=== PATIENT | female | born 1970 | race Caucasian/White ===

== ENCOUNTER → 2016-10-11 | Outpatient (CLI) | payer OTHER ==
[~2016-10-11] MED LIST: ALLDSR/24 PO; CLXUNK; DOSTINEX
--- NOTE | 2016-10-12 06:35 | PAP/PSG TECHNICIAN REPORT ---
[facility] Still Cleaner Polysomnogram Report Study name: None Report date: 10/12/2016 Study date: 10/11/2016 Referring Physician: Natacha FONG M.D. Name: THERESA HARRIS Interpreting Physician: Peter Fong M.D. Date of : 1970 Still Cleaner: Tae Alcazar RPSGT. Sex: Female Age: 45 StudyType: PSG PAP Weight: 232 lbs 15.5 inches Height: 45 years, Height 5' 5" Neck Circum: BMI: 38.6 Medications: LEXAPRO 20 MG, LEVOXYL 75 MCG, DOSTINEX 0.5 MG, METROGEL, ABILIFY 20 MG, CELEBREX 100 MG Patient History PATIENT HAS HISTORY OF HYPOTHYROIDISM, LOUD SNORING AND WITNESSED APNEAS. SHE RECENTLY HAD A HOME SLEEP STUDY DONE AND WAS POSITIVE FOR SEVERE WANDER. SHE IS HERE TODAY FOR A CPAP TITRATION. ESS = 5 RM 5 Parameters Monitored NPSG: E1-M2, E2-M1, Fp1-M2, Fp2-M1, F3-M2, F4-M2, F4-M1, C3-M2, C4-M2, C4-M1, O1-M2, O2-M2, O2-M1, T3-M2, T4-M1, P3-M2, P4-M1, CHIN1, CHIN2, HR, EKG, Legs, PFLOW, SNOR, FLOW, CFLOW, Tidal Volume, THOR, ABDO, SpO2, PLTH, CPRESS, ETCO2 Wave, ETCO2, pH Sleep Architecture Sleep Stages Time at Lights Off 9:57:29 PM STAGES Time (min.) TST (%) Time at Lights On 5:44:29 AM Wake 34.5 -- Total Recording Time (TRT) 467.50 min. N1 16.5 4 Total Sleep Period (TSP) 438.0 min. N2 262.5 61 Total Sleep Time (TST) 432.5min. N3 34.5 8 Awake Time 34.5 min. REM 119.0 28 Wake after Sleep Onset 5.5 min. Sleep Efficiency (SE) 93 % Sleep Onset Latency (STEFANIE) 29.0 min. Number of Stage 1 Shifts None Awakenings 5 Stage Changes 41 Number of REM periods 4 REM 119.0 28 REM Latency 109.0 min. NREM 313.5 72 Body Position Analysis Supine Right Left Side Prone Vertical Total Sleep Time (min.) 467.0 0.0 0.0 0.00 0.0 0.0 Total Sleep Time (%) 100% 0% 0% 0 0% N/A% Total Sleep Time REM (min.) 119.0 0.0 0.0 None 0.0 0.0 Total Sleep Time NREM (min.) 313.5 0.0 0.0 None 0.0 0.0 Intermittent Wake (min.) 34.5 0.0 0.0 None 0.0 0.0 Total Sleep Period (%) 100% None None None None None Arousals Myoclonus (PLM) * Events Count Index Events Count Index Spontaneous 13 2 Events Awake (PLMW) 10 17.4 Respiratory 0 0.0 Events Asleep w/ Arousal (PLMA) 0 0.0 PLM 0 0 Events Asleep w/o Arousal (PLMS) 8 1.1 Snoring 5 1 Total Asleep 8 1.1 Total 18 2 Total 18 2 Respiratory Analysis * CA OA MA CH H RERA Total Count 0 0 0 0 1 0 1 Index 0.0 0.0 0.0 0 0.1 0 0.1 Mean Duration 0.0 0.0 0.0 0.00 12.9 0.0 12.9 Longest Duration 0.0 0.0 0.0 0.00 0.0 0.0 12.9 Respiratory Event Summary Total Supine ~Supine Right Left Prone REM NREM Apneas Count 0 0 N/A N/A N/A N/A 0 0 Index 0.0 0 N/A N/A N/A N/A 0 0 Hypopneas (4% Desat) Count 1 1 N/A N/A N/A N/A 1 0 Index 0.1 0.1 N/A N/A N/A N/A 0.5 0.0 Apneas & All Hypopneas Count 1 1 N/A N/A N/A N/A 1 0 Index 0.1 0 N/A N/A N/A N/A 0.5 0.0 Respiratory Events (Senior [employer] 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+All Hyp+RERA) Count 1 1 N/A N/A N/A N/A 1 0 Index 0.1 0 N/A N/A N/A N/A 0.5 0.0 Respiratory Related Arousal Count 0 1 N/A N/A N/A N/A 0 0 Index 0.0 0 N/A N/A N/A N/A 0 0 Snoring Analysis Supine Right Left Prone REM NREM Total Snore duration 6.5 min Snores count 311 N/A N/A N/A 5 306 311 Snore mean duration 1.3 Sec Snores index 43 N/A N/A N/A 2.5 58.6 43.1 TST with snoring (%) 1.5% Desaturation Event Summary: Minimum %SpO2 Event Count Mean/Min/Max Duration(sec.) Desaturation Index % Time In Bed > 90 3 27.9 / 13.3 / 46.8 0.4 98.6 86 - 90 1 7.0 / 7.0 / 7.0 9.2 1.4 81 - 85 0 N/A 0.0 0.0 76 - 80 0 N/A 0.0 0.0 71 - 75 0 N/A 0.0 0.0 66 - 70 0 N/A 0.0 0.0 61 - 65 0 N/A 0.0 0.0 56 - 60 0 N/A 0.0 0.0 51 - 55 0 N/A 0.0 0.0 < 50 0 N/A 0.0 0.0 Total REM NREM Awake <50% 0.0 min. 0.0 min. 0.0 min. 0.0 min. 51 - 60% 0.0 min. 0.0 min. 0.0 min. 0.0 min. 61 - 70% 0.0 min. 0.0 min. 0.0 min. 0.0 min. 71 - 80% 0.0 min. 0.0 min. 0.0 min. 0.0 min. 81 - 90% 6.5 min. 4.4 min. 1.7 min. 0.4 min. 91 - 100% 460.5 min. 114.6 min. 311.8 min. 34.1 min. Average 92 92 92 94 Minimum SpO2 88 88 89 88 Desaturation Event Index 0.5 1.0 0.4 1.7 # Desat. Events below 89% 2 1 N/A 1 Time(%) with Saturation below 89% 0.1 0.0 0.0 0.0 Time(min.) with Saturation below 89% 0.3 0.1 0.0 0.2 Time (mins) REM (mins) NREM (mins) % of TST SpO2 Below 90% 3 1 N2 0.2 SpO2 Below 88% 0 0 0 0 Heart Rate Analysis Min (bpm) Max (bpm) Average (bpm) Awake 67 85 74 NREM 63 86 73 REM 64 84 70 Overall 63 86 72 Supplemental O2 Values Minimum O2 level: None Value Start Time End Time Still Cleaner Comments Mrs. Harris slept in the supine positions. No cardiac arrhythmia noted. Leg movements noted. No bruxism noted. CPAP was initiated at +4 CMH2O and up-titrated to an optimal level of +6 CMH2O, which nearly eliminated all respiratory events and snoring. The patient brought in her own mask that was used during titration Mrs. Harris awoke to use the restroom 0 times during the night. Mrs. Harris stated I slept as well as I do when I am in my own bed. The final report will be interpreted and signed by a sleep physician. The completed physician report will then be placed in the patient medical record. Therapy Event: Therapy (cm H20) 4 5 6 Total Time at Pressure (min.) 115.2 120.0 231.8 TST at Pressure (min.) 84.2 120.0 228.3 # Periods 1 1 1 Sleep Onset (min.) 29.0 0.0 0.0 REM Onset (min.) N/A 22.8 67.8 Sleep Efficiency % 73 100 98 Wakefulness (%) 26.9 0.0 1.5 Wakefulness (min.) 31.0 0.0 3.5 NREM 1 (%) 8.7 0.4 2.6 NREM 1 (min.) 10.0 0.5 6.0 NREM 2 (%) 40.5 52.1 66.1 NREM 2 (min.) 46.7 62.5 153.3 NREM 3 (%) 23.9 5.8 0.0 NREM 3 (min.) 27.5 7.0 0.0 REM (%) 0.0 41.7 29.8 REM (min.) 0.0 50.0 69.0 # Arousals 6 2 10 Arousal Index 4.3 1.0 2.6 # Snore 62 91 158 Snore Index 44.2 45.5 41.5 AHI 0.0 0.0 0.3 AHI Supine 0.0 0.0 0.3 AHI Non-Supine N/A N/A N/A NREM AHI 0.0 0.0 0.0 REM AHI N/A 0.0 0.9 RDI 0.0 0.0 0.3 # Obstructive 0 0 0 # Central Ap 0 0 0 # Mixed 0 0 0 # Hypopneas 0 0 1 RERAS 0 0 0 Total Respiratory Events 0 0 1 Time Below SpO2 89.00% (min.) 0.0 0.0 0.1 Mean NREM SpO2 (%) 92 92 92 Mean REM SpO2 (%) N/A 92 92 Mean Sleep SpO2 (%) 92 92 92 Min NREM SpO2 (%) 89 90 89 Min REM SpO2 (%) N/A 89 88 Position Supine (min.) 84.2 120.0 228.3 Position Non-supine (min.) 0.0 0.0 0.0 LM Index Sleep 0.0 2.0 1.1 LM Index NREM 0.0 1.7 0.8 LM Index REM N/A 2.4 1.7 Mean Heart Rate (bpm) 75 75 69 Min Heart Rate (bpm) 69 68 63
--- NOTE | 2016-10-29 14:12 | POLYSOMNOGRAPH REPORT ---
REFERRING PERSON: Dr. Francheska Fong. RN RESOURCE NURSE: Tae Alcazar. Ms. Harris is a 45-year-old female who recently had a home sleep test, which showed severe sleep apnea. She returns to the sleep lab for CPAP titration study to determine optimal pressure. Her [place] sleepiness scale score on the evening of this study is 5. BMI is 38.6. Following the technical and digital specifications of the [place] [employer] (AASM) a standard diagnostic polysomnogram was performed monitoring EEG, EOG, EMG (chin and leg deviations), oxygen saturation, body position, digital video, respiratory effort and airflow. The sleep Stage and event scoring was based on the AASM Manual for the Scoring of Sleep and Associated Events 2007 edition. Apneas are defined as a drop in the peak thermal sensor excursion by >90% of baseline for at least 10 seconds. Hypopneas were scored using the 4% oxygen desaturation rule (4A-[employer]) and a decrease in the nasal pressure excursions by >30% of baseline for at least 10 seconds. Respiratory effort-related arousal (RERA's) is defined as a sequence of breaths lasting at least 10 seconds characterized by increasing respiratory effort or flattening of the nasal pressure waveform leading to an arousal from sleep when the sequence of breaths does not meet criteria for an apnea or hypopnea. Apnea Hypopnea index (AHI) is defined as the number of apneas and hypopneas occurring in an hour of sleep. Respiratory disturbance index (RDI) is defined as the number of apneas, hypopneas, and RERA's occurring in an hour of sleep. Ms. Harris's total sleep period time was 438 minutes. Total sleep time was 432.5 minutes. Sleep efficiency was 93%. Latency to sleep onset was 29 minutes with wake after sleep onset of 5.5 minutes. Total non-REM sleep time was 313.5 minutes. She spent 4% of that time in N1 sleep, 61% in N2 sleep and 8% in N3 sleep. REM latency was 109 minutes. Total REM sleep time was 119 minutes or 28% of total sleep time. There were 18 cortical arousals from sleep. 13 of these arousals were spontaneous and 5 were due to snoring. There were 8 periodic limb movements noted on this test. Limb movement index was 1.1. Limb movement with arousal index was 0. There were no central obstructive or mixed apneas on this test. There is 1 hypopnea and no RERA. Apnea-hypopnea index was 0.1. 311 snoring events were recorded. Total sleep time with snoring was 1.5%. Mean saturation was 92% with desaturations to 88%. Saturations were less than 89% for 0.3 minutes of recorded time. There was no cardiac ectopy noted on this study. Heart rates ranged from a low of 63 beats per minute to a high of 86 beats per minute during sleep. As stated above, this was a CPAP titration study. Ms. Harris brought her CPAP mask from home to use during this titration. She was titrated from a CPAP pressure of 4 to a CPAP pressure of 6 over the course of the night. Titration occurred for snoring. She was observed on a pressure of 6 for 228.3 minutes of recorded time. During that time, her AHI and RDI were 0.3 respectively. 69 minutes were spent in supine REM sleep and saturations were less than 89% for only 0.1 minutes of recorded time. IMPRESSION AND PLAN: Successful CPAP titration study in this patient with known obstructive sleep apnea. She should be started on CPAP at home at a pressure of 6. A download from her machine can be reviewed in 1 month both to check compliance as well as AHI and further pressure adjustments can occur at that time. It appears to resolve her hypoxemia as well as apnea.
== END | disposition home or self-care (01) ==
LOC: C.NEUR 21:00
PROVIDERS: ATTEND Family Medicine
DX: G47.33 Obstructive sleep apnea (adult) (pediatric) (principal); G47.34 Idiopathic sleep related nonobstructive alveolar hypoventilation

== ENCOUNTER 2019-06-30 21:32 | Inpatient (IN) ==
[2019-06-30] MEDS ORDERED: NITROGLYCERIN 2% OINTMENT 30GM TUBE EXT STA (21:44)
[2019-06-30 22:48] LABS: Basophils # (auto) 0.01 K/uL (0-0.2); Basophils % (auto) 0.1 %; Eosinophils # (auto) 0.04 K/uL (0-0.5); Eosinophils % (auto) 0.4 %; Hematocrit (blood only) 38.9 % (37-47); Hemoglobin 12.7 g/dL (12.0-16.0); Immature Granulocytes # (auto) 0.02 K/uL (0.00-0.02); Immature Granulocytes % (auto) 0.2 %; Lymphocytes # (auto) 2.96 K/uL (1.2-3.4); Lymphocytes % (auto) 32.3 %; Mean Corpuscular Hemoglobin 29.2 pg (25-34); Mean Corpuscular Hgb Conc 32.6 g/dL (32-36); Mean Corpuscular Volume 89.4 fL (80-100); Mean Platelet Volume 9.3 fL (7.4-10.4); Monocytes % (auto) 7.6 %; Neutrophils # (auto) 5.44 K/uL (1.4-6.5); Neutrophils % (auto) 59.4 %; Platelet Count 241 K/uL (130-400); RDW Coefficient of Variation 13.9 % (11.5-14.5); RDW Standard Deviation 45.6 fL (36.4-46.3); Red Blood Count 4.35 M/uL (4.2-5.4); White Blood Count 9.17 K/uL (4.8-10.8)
--- NOTE | 2019-06-30 22:57 | XRay Report ---
XR chest 2V PA/lateral CLINICAL HISTORY: Chest Pain COMPARISON STUDY: No previous studies for comparison. FINDINGS: Lung volumes are normal. Lungs are clear. There is no pneumothorax or pleural effusion. Car diac size is normal. Mediastinal contours are normal. There is no evidence for pulmonary edema. IMPRESSION: No acute cardiopulmonary findings. ACT 112: Negative or not required by law. Electronically signed by: Alcides Bear M.D. 06/30/2019 10:56 PM
[2019-06-30 23:04] LABS: Albumin Level 3.2 gm/dl (3.4-5.0); Aspartate Aminotransferase 34 U/L (15-37); BUN Creatinine Ratio 15.4 (10-20); Blood Urea Nitrogen 14 mg/dl (7-18); Calcium 8.6 mg/dl (8.5-10.1); Carbon Dioxide 26 mmol/L (21-32); Chloride 109 mmol/L (98-107); Creatinine Clr Calc Pharmacy 104.3 ml/min; Est GFR (African American) 86.4; Est GFR (Non-African American) 74.6; Glucose 142 mg/dl (70-99); Potassium 3.6 mmol/L (3.5-5.1); Sodium 141 mmol/L (136-145)
[2019-06-30 23:09] LABS: Alanine Aminotransferase 42 U/L (12-78); Alkaline Phosphatase 79 U/L (45-117); Bilirubin,Total 0.6 mg/dl (0.2-1); Globulin 3.3 gm/dl (2.5-4.0); Total Protein 6.5 gm/dl (6.4-8.2); Troponin I < 0.015 ng/ml (0-0.045)
--- NOTE | 2019-07-01 00:08 | Emergency Department Note ---
Entered by Conchita Santos acting as a scribe for Conor Davis MD History of Present Illness General Chief complaint: Respiratory Problems Stated complaint: CHEST PAIN SOB PRESSURE ON CHEST Time Seen by Provider: 06/30/19 21:37 Source: patient Limitations: no limitations History of Present Illness Onset (ago): hour(s) greater than 10 Location: chest Pain Consistency: + constant Current Pain Intensity: 2 Quality: + other ("heaviness and discomfort") Exacerbated By: + other (exertion) Associated symptoms: + shortness of breath; no diaphoresis and no fever/chills The patient is a 48 year old female who presents to the Emergency Room with complaints of constant, worsening chest discomfort beginning at 21:00 this morning, about 13 hours ago, when she arrived at work. She states that "it feels like someone is sitting on her chest," and she rates the pain as a 2/10 in severity. The patient describes the symptoms as a "chest heaviness and discomfort." She states that she had a cough 1.5 weeks ago, and it has improved since she began taking doxycycline 100mg for her rosacea. The patient notes that the symptoms exacerbate with exertion. The patient complains of persistent SOB. She complains of pain in her upper ribs. The patient denies any neck/arm pain, fever, and diaphoresis. She denies any history of hyperlipidemia. The patient notes a history of depression, and she reports that she quit smoking cigarettes 2 years ago. Home Medications Home Medications Medication Instructions Recorded Confirmed Type aripiprazole [Abilify] 20 mg PO QPM 02/03/19 06/30/19 History doxycycline hyclate 100 mg PO QPM 02/03/19 06/30/19 History escitalopram oxalate [Lexapro] 20 mg PO QPM 02/03/19 06/30/19 History fexofenadine-pseudoephedrine 1 tab PO QAM PRN 02/03/19 06/30/19 History levothyroxine 75 mcg PO QPM 02/03/19 06/30/19 History pseudoephedrine HCl [Sudafed] 30 mg PO Q6H PRN 06/30/19 06/30/19 History Allergies Allergy/AdvReac Type Severity Reaction Status Date / Time erythromycin base Allergy Unknown Abdominal Verified 06/30/19 23:30 Pain,topically-inflamed face Past Med/Surg History Medical History Anxiety Depression Hypothyroidism Sleep apnea CPAP Surgical History History of appendectomy History of section History of cholecystectomy History of endometrial ablation History of tooth extraction WISDOM TEETH Family History Daughter Family history of reaction to anesthesia SLOW TO WAKE UP-AFTER AGE 18 Father Family history of diabetes mellitus Social History Preferred Language: Northern Irish Communication Ability: Effective 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 and A total of 10 systems reviewed and were otherwise negative Physical Exam Vital Signs Vital Signs - 24 hr 06/30/19 21:34 06/30/19 22:05 06/30/19 22:10 Temperature 36.8 C Temperature Source Oral Pulse Rate 92 H Pulse Rate [Right Finger] Pulse Rhythm [Right Finger] Pulse Strength [Right Finger] Respiratory Rate 24 Respiratory Effort / Characteristics Non-Labored Respiratory Depth Normal Respiratory Pattern Regular Blood Pressure 167/79 H Blood Pressure [Right Arm] Blood Pressure Mean 108 Blood Pressure Mean [Right Arm] Blood Pressure Position [Right Arm] Pulse Oximetry 97 Oxygen Delivery Method Room Air Room Air Sepsis Recent Fever Within 48 Hours No Sepsis New/Unexplained Change in Mental Status No Sepsis Action Taken by Nursing No Action Required 06/30/19 22:30 07/01/19 00:39 Temperature Temperature Source Pulse Rate Pulse Rate [Right Finger] 71 77 Pulse Rhythm [Right Finger] Regular Pulse Strength [Right Finger] Normal Respiratory Rate 16 12 Respiratory Effort / Characteristics Non-Labored Respiratory Depth Normal Normal Respiratory Pattern Blood Pressure Blood Pressure [Right Arm] 146/77 H 132/69 Blood Pressure Mean Blood Pressure Mean [Right Arm] 100 90 Blood Pressure Position [Right Arm] Lying Lying Pulse Oximetry 96 96 Oxygen Delivery Method Room Air Room Air Sepsis Recent Fever Within 48 Hours Sepsis New/Unexplained Change in Mental Status Sepsis Action Taken by Nursing Constitutional: Vital signs reviewed. Eyes: Pupils are equal round reactive to light. Conjunctiva are noninjected. ENT: Pharynx is clear without erythema or exudate. Mucous membranes are moist. Neck supple without meningeal signs. Respiratory: Clear to auscultation bilaterally. Breath sounds are equal bilaterally. Cardiovascular: Regular rate and rhythm. No rubs or gallops. Chest: Reproducible chest wall tenderness over the sternum. GI: Soft, nondistended and nontender. Bowel sounds are present. Musculoskeletal: No peripheral edema. No lower extremity tenderness. Integumentary: No cyanosis. Neurological: The patient is awake and alert. No focal deficits. Psychiatric: Normal affect. Course Course 2138: The patient was evaluated in room C06. A complete history and physical exam was performed. 2226: I reassessed the patient, and she stated that the pressure on her sides is now gone. She reported that she still feels the pressure in her chest. 2317: I reevaluated the patient, and she stated that her chest pressure is improved. I discussed the test results with her, and she is agreeable to [facility]. 2233: I spoke with Dr. Reed, [facility] hospitalist, about the pateint's case. He further evaluate the patient. Administered Medications Discontinued Medications Nitroglycerin (Nitro-Bid 2%) 0.5 inch EXT NOW STA Stop: 06/30/19 21:45 Last Admin: 06/30/19 22:09 Dose: 0.5 inch Documented by: [id number] Medical Decision Making Differential Diagnosis The differential diagnosis includes: unstable angina, AK, pneumonia, pleurisy, and costochondritis Medical Records Attestation: I reviewed the patient's medical records. I did perform a limited focused review of portions of the patient's old chart on the electronic medical record. The patient has had no recent pertinent visits to this hospital. Home Medications Current Medication List: was personally reviewed by me Laboratory Data Attestation: I reviewed the patient's lab results. Result diagrams: 06/30/19 22:34 06/30/19 22:34 Lab Results 06/30/19 06/30/19 Range/Units 22:34 22:34 WBC 9.17 (4.8-10.8) K/uL RBC 4.35 (4.2-5.4) M/uL Hgb 12.7 (12.0-16.0) g/dL Hct 38.9 (37-47) % MCV 89.4 (80-100) fL MCH 29.2 (25-34) pg MCHC 32.6 (32-36) g/dL RDW Std Deviation 45.6 (36.4-46.3) fL RDW Coeff of Maddie 13.9 (11.5-14.5) % Plt Count 241 (130-400) K/uL MPV 9.3 (7.4-10.4) fL Immature Gran % (Auto) 0.2 % Neut % (Auto) 59.4 % Lymph % (Auto) 32.3 % Sac % (Auto) 7.6 % Eos % (Auto) 0.4 % Baso % (Auto) 0.1 % Immature Gran # (Auto) 0.02 (0.00-0.02) K/uL Neut # (Auto) 5.44 (1.4-6.5) K/uL Lymph # (Auto) 2.96 (1.2-3.4) K/uL Sac # (Auto) 0.70 H (0.11-0.59) K/uL Eos # (Auto) 0.04 (0-0.5) K/uL Baso # (Auto) 0.01 (0-0.2) K/uL Sodium 141 (136-145) mmol/L Potassium 3.6 (3.5-5.1) mmol/L Chloride 109 H (98-107) mmol/L Carbon Dioxide 26 (21-32) mmol/L Anion Gap 6.0 (3-11) BUN 14 (7-18) mg/dl Creatinine 0.90 (0.6-1.2) mg/dl Est Cr Clr Drug Dosing 104.3 ml/min Est GFR ( Amer) 86.4 Est GFR (Non-Af Amer) 74.6 BUN/Creatinine Ratio 15.4 (10-20) Glucose 142 H (70-99) mg/dl Calcium 8.6 (8.5-10.1) mg/dl Total Bilirubin 0.6 (0.2-1) mg/dl AST 34 (15-37) U/L ALT 42 (12-78) U/L Alkaline Phosphatase 79 (45-117) U/L Troponin I < 0.015 (0-0.045) ng/ml Total Protein 6.5 (6.4-8.2) gm/dl Albumin 3.2 L (3.4-5.0) gm/dl Globulin 3.3 (2.5-4.0) gm/dl Albumin/Globulin Ratio 1.0 (0.9-2) Imaging Data Radiologist's Impression: Radiology results as stated below per my review and the radiologist's interpretation: XR chest 2V PA/lateral CLINICAL HISTORY: Chest Pain COMPARISON STUDY: No previous studies for comparison. FINDINGS: Lung volumes are normal. Lungs are clear. There is no pneumothorax or pleural effusion. Cardiac size is normal. Mediastinal contours are normal. There is no evidence for pulmonary edema. IMPRESSION: No acute cardiopulmonary findings. ACT 112: Negative or not required by law. Electronically signed by: Alcides Bear M.D. 06/30/2019 10:56 PM ECG Data Attestation: I personally reviewed and interpreted this ECG as follows: Indication: + chest pain Rate (beats per minute): 79 Rhythm: + normal sinus ECG Findings: + Other (QRS is normal ); no PVCs Blood Pressure Blood Pressure Findings: Elevated blood pressure Blood Pressure Disposition: further management by hospitalist MDM Narrative I did evaluate the patient as noted above. Patient is presenting with chest heaviness worse with exertion. She states she has been coughing for the past week and a half but the chest heaviness only started yesterday. She does have some reproducible chest wall tenderness on palpation. IV access was established. The patient was placed on a continuous gambling monitor. I did order and personally review the patient's 12-lead EKG as described above. She has no acute ischemic changes on twelve-lead EKG. I did order and personally reviewed the images of the patient's chest x-ray as described above. There is no evidence of pneumonia. I did order and review the patient's blood work as noted in the electronic medical record. CBC is unremarkable without leukocytosis or anemia. Her electrolytes are unremarkable. Troponin is negative. I did treat the patient with nitroglycerin paste. On reexamination she states she is feeling better and the heaviness is improved. I did recommend hospitalization for repeat cardiac biomarkers and further evaluation. I did discuss the case with the hospitalist and telephonic case manager. Impression & Plan Acute chest pain, Bronchitis Discharge Plan Visit Data Chief Complaint: Respiratory Problems Stated Complaint: CHEST PAIN SOB PRESSURE ON CHEST ED Provider: Conor Davis Discharge Problem: Acute chest pain, Bronchitis Patient Disposition: Being Evaluated by Hospitalist Forms Stand Alone Forms: My [facility] Prescriptions Prescriptions: No Action levothyroxine 75 mcg Tablet 75 mcg PO QPM RF: 0 doxycycline hyclate 100 mg Tablet 100 mg PO QPM RF: 0 escitalopram oxalate [Lexapro] 20 mg Tablet 20 mg PO QPM RF: 0 aripiprazole [Abilify] 20 mg Tablet 20 mg PO QPM RF: 0 fexofenadine-pseudoephedrine 180-240 mg Tablet Extended Release 24 Hr 1 tab PO QAM PRN (Reason: Allergic Symptoms) RF: 0 pseudoephedrine HCl [Sudafed] 30 mg Tablet 30 mg PO Q6H PRN (Reason: Congestion) RF: 0 Referrals Referrals: Yo Garnica MD [Primary Care Provider] - The scribe's documentation has been prepared under my direction and personally reviewed by me in its entirety. I confirm that the note above accurately reflects all work, treatment, procedures, and medical decision making performed by me.
[2019-07-01] MEDS ORDERED: ALUMINUM/MAGNESIUM SUSP 30 ML UDC PO PRN (01:24)
[2019-07-01] MEDS ORDERED: ONDANSETRON INJ 2 MG/ML 2 ML VIAL IV PRN (01:24)
[2019-07-01] MEDS ORDERED: ACETAMINOPHEN 325 MG TAB PO PRN (01:24)
[2019-07-01] MEDS ORDERED: NITROGLYCERIN SL 0.4 MG/TAB TAB SL PRN (01:24)
--- NOTE | 2019-07-01 02:21 | History and Physical Report ---
DATE OF ADMISSION: 07/01/2019 CHIEF COMPLAINT: Chest pain. HISTORY OF PRESENT ILLNESS: This is a 48-year-old female with past medical history significant for hypothyroidism, allergic rhinitis due to pollen, obstructive sleep apnea, on CPAP, obesity, rosacea, plantar fascitis, depression, generalized anxiety disorder, history of hyperprolactinemia, who presents with chest pain. The patient says since the last 1 to 1-1/2 weeks she had cold symptoms and cough. She was taking [id number] Sudafed, she was taking it every 4 hours for 3-4 days, but was not taking the last 2 days. On 06/30/2019, in the morning at workplace she had retrosternal chest pressure, mild in severity and as the day progressed it got progressively worse and she was having some shortness of breath and because of chest pain and shortness of breath she was having difficulty speaking, so she came to the ER. She was placed on nitro paste and currently, the pain that was radiating to the back resolved but still has some mild chest discomfort. Denies any dizziness. No nausea, no sweating, no headache, no blurred visions, no earache, no runny nose, no sore throat. Appetite is okay. Sleeps okay. No cough, no fever, no chills. Currently no fever, no chills, no abdominal pain. Normal bowel and bladder movements. No melena or hematochezia. No burning micturition, no hematuria. No swelling in the legs, no rash. Currently resting comfortably and hemodynamically stable. ALLERGIES: ERYTHROMYCIN BASED. PAST MEDICAL HISTORY: As mentioned above. PAST SURGICAL HISTORY: , colonoscopy, endometrial cryoablation, laparoscopic cholecystectomy, ligation of oviducts, appendectomy. MEDICATIONS: The patient is on Lexapro 20 mg p.o. daily, Abilify 20 mg p.o. daily, levothyroxine 75 mcg daily, doxycycline 100 mg p.o. daily. FAMILY HISTORY: Significant for daughter has asthma, celiac disease, ADHD; father had diabetes, at age of 47; brother has sleep apnea; mother has sleep apnea. SOCIAL HISTORY: , lives with , quit smoking in July 2017, smoked half pack a day for 26 years. Alcohol occasional. No drug use. REVIEW OF SYSTEMS: As per HPI. Rest of the review of systems negative. PHYSICAL EXAMINATION: GENERAL: The patient is morbidly obese, not in acute distress. VITAL SIGNS: Temperature 36.8, pulse 77, respiratory rate 12, blood pressure 132/69, oxygen 96% on room air. HEENT: No pallor, no icterus. Pupils equal, round, reactive to light. NECK: No JVD, no neck masses, no carotid bruits. CARDIOVASCULAR: S1, S2 heard, regular rate and rhythm, no murmur, no gallop. RESPIRATORY SYSTEM: Normal AP diameter. No accessory muscle use. No wheezing, no crackles. ABDOMEN: Soft, bowel sounds present, nontender. No distention. CENTRAL NERVOUS SYSTEM: Cranial nerves II-XII grossly intact. Nonfocal. EXTREMITIES: No edema, no erythema. LABORATORY DATA: WBC is 9.1, hemoglobin 12.7, hematocrit 38.9, platelets 241. Sodium 141, potassium 3.6, chloride 109, bicarbonate 26, BUN 14, creatinine 0.9, serum glucose 142, calcium 8.6, total bilirubin 0.6, AST 34, ALT 42, alkaline phosphatase 79, troponin I less than 0.015. IMAGING DATA: Chest x-ray: No acute cardiopulmonary findings. EKG: Normal sinus rhythm at a rate of 79, no acute ST changes seen. ASSESSMENT AND PLAN: This is a 48-year-old female who presents with chest pain. 1. Chest pain, rule out acute coronary syndrome. Risk factors are obesity, age. The patient is also taking significant doses of Sudafed recently, could be the cause. Initial workup was negative. We will Monitor the patient in med/surg tele. Serial cardiac enzymes.Will Keep n.p.o. until seen by cardiology. Cardiology consult in the a.m., echocardiogram, possible stress test in the a.m. if cardiac enzymes are negative . 2. Obesity and obstructive sleep apnea, on CPAP at bedtime. 3. Depression and generalized anxiety disorder, on Lexapro and Abilify. 4. Hypothyroidism, on Synthroid. 5. HTN situation? Will Monitor.will place on nitro paste for now. 5. Deep venous thrombosis prophylaxis, sequential compression devices. DISPOSITION: Observation in med/surg tele. Level 1 full code. Expect to discharge home and follow up with the family doctor. KINGSLEY
[2019-07-01] MEDS ORDERED: NITROGLYCERIN 2% OINTMENT 30GM TUBE EXT SCH (07:00)
[2019-07-01 07:31] LABS: Basophils # (auto) 0.02 K/uL (0-0.2); Basophils % (auto) 0.2 %; Eosinophils # (auto) 0.05 K/uL (0-0.5); Eosinophils % (auto) 0.6 %; Hematocrit (blood only) 38.4 % (37-47); Hemoglobin 12.5 g/dL (12.0-16.0); Immature Granulocytes # (auto) 0.02 K/uL (0.00-0.02); Immature Granulocytes % (auto) 0.2 %; Lymphocytes # (auto) 2.49 K/uL (1.2-3.4); Lymphocytes % (auto) 28.7 %; Mean Corpuscular Hemoglobin 29.1 pg (25-34); Mean Corpuscular Hgb Conc 32.6 g/dL (32-36); Mean Corpuscular Volume 89.5 fL (80-100); Mean Platelet Volume 9.1 fL (7.4-10.4); Monocytes # (auto) 0.65 K/uL (0.11-0.59); Monocytes % (auto) 7.5 %; Neutrophils # (auto) 5.45 K/uL (1.4-6.5); Neutrophils % (auto) 62.8 %; Platelet Count 236 K/uL (130-400); RDW Coefficient of Variation 14.1 % (11.5-14.5); Red Blood Count 4.29 M/uL (4.2-5.4); White Blood Count 8.68 K/uL (4.8-10.8)
[2019-07-01] MEDS ORDERED: PANTOprazole 40 MG TAB PO SCH (09:00)
[2019-07-01 09:10] LABS: BUN Creatinine Ratio 14.4 (10-20); Calcium 8.3 mg/dl (8.5-10.1); Creatinine Clr Calc Pharmacy 109.2 ml/min; Est GFR (African American) 91.3; Est GFR (Non-African American) 78.8; Magnesium 1.9 mg/dl (1.8-2.4); Potassium 3.9 mmol/L (3.5-5.1)
--- NOTE | 2019-07-01 09:11 | Cardiology Consultation ---
Date of Consultation July 01, 2019 Assessment & Plan (1) Acute chest pain: (2) Bronchitis: (3) WANDER (obstructive sleep apnea): (4) Obesity: Believe this patient's chest pain is atypical for cardiac chest pain. She has a normal EKG and negative cardiac markers. Her chest x-ray is unremarkable. I will review her resting echocardiogram. If that study is unremarkable then I do not believe any additional cardiac testing is indicated as an inpatient. History of Present Illness Attending Physician: Amira Ba DO History of Present Illness This is a pleasant 48-year-old female who has a cold for the past 7 to 10 days with bronchitis and coughing. She has no prior history of heart disease. No previous history of diabetes. She stopped smoking approximately 2 years ago. With her recent cold and bronchitis she has noticed some tachypnea as well as shortness of breath. The day before admission she developed a chest heaviness with continued shortness of breath which lasted for several hours and then she presented to the emergency department. She was given Nitropaste in the emergency department which improved her discomfort but did not take it away. Very admitting EKG is within normal limits. Cardiac markers have thus far been negative. An echocardiogram is pending. Allergies Allergy/AdvReac Type Severity Reaction Status Date / Time erythromycin base Allergy Unknown Abdominal Verified 06/30/19 23:30 Pain,topically-inflamed face Home Medications Home Medications Medication Instructions Recorded Confirmed Type aripiprazole [Abilify] 20 mg PO QPM 02/03/19 06/30/19 History doxycycline hyclate 100 mg PO QPM 02/03/19 06/30/19 History escitalopram oxalate [Lexapro] 20 mg PO QPM 02/03/19 06/30/19 History fexofenadine-pseudoephedrine 1 tab PO QAM PRN 02/03/19 06/30/19 History levothyroxine 75 mcg PO QPM 02/03/19 06/30/19 History pseudoephedrine HCl [Sudafed] 30 mg PO Q6H PRN 06/30/19 06/30/19 History Patient History Medical History Anxiety Depression Hypothyroidism Sleep apnea CPAP Surgical History History of appendectomy History of section History of cholecystectomy History of endometrial ablation History of tooth extraction WISDOM TEETH Family History Daughter Family history of reaction to anesthesia SLOW TO WAKE UP-AFTER AGE 18 Father Family history of diabetes mellitus Social History Preferred Language: Armenian Communication Ability: Effective 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 Physical Exam Physical Exam: General: no acute distress and stated age Head: normocephalic, no masses, lesions, tenderness or abnormalities Eyes: conjunctiva are pink and non-injected, sclera clear Neck: supple, no adenopathy, no bruits, normal jugular venous pulse, no hepatojugular reflux Chest: normal shape and normal respiratory effort Lungs: clear to auscultation and percussion Cardiac Exam: - regular rate & rhythm, no murmurs gallops or rubs - normal S1, normal S2 Pulses: 2(+) throughout Abdomen: abdomen soft, non-tender, no abnormal masses and no hepatosplenomegaly Musculoskeletal: no gait disturbance, no joint inflammation, no deforming arthritis Extremities: no edema and no cyanosis Neuro: grossly normal exam Results & Data Vital Signs (Past 12 Hours) Vital Signs Temp Pulse Pulse Resp BP BP Pulse Ox 07/01/19 07:34 36.7 C 72 18 128/77 94 07/01/19 02:50 75 14 96 07/01/19 01:28 36.7 C 98 H 16 177/106 H 93 07/01/19 01:00 75 18 142/69 H 99 07/01/19 00:39 77 12 132/69 96 06/30/19 22:30 71 16 146/77 H 96 06/30/19 21:34 36.8 C 92 H 24 167/79 H 97 Laboratory Results Laboratory Results - last 24 hr 06/30/19 06/30/19 07/01/19 22:34 22:34 01:31 WBC 9.17 RBC 4.35 Hgb 12.7 Hct 38.9 MCV 89.4 MCH 29.2 MCHC 32.6 RDW Std Deviation 45.6 RDW Coeff of Maddie 13.9 Plt Count 241 MPV 9.3 Immature Gran % (Auto) 0.2 Neut % (Auto) 59.4 Lymph % (Auto) 32.3 [place] % (Auto) 7.6 Eos % (Auto) 0.4 Baso % (Auto) 0.1 Immature Gran # (Auto) 0.02 Neut # (Auto) 5.44 Lymph # (Auto) 2.96 [place] # (Auto) 0.70 H Eos # (Auto) 0.04 Baso # (Auto) 0.01 Sodium 141 Potassium 3.6 Chloride 109 H Carbon Dioxide 26 Anion Gap 6.0 BUN 14 Creatinine 0.90 Est Cr Clr Drug Dosing 104.3 Est GFR ( Amer) 86.4 Est GFR (Non-Af Amer) 74.6 BUN/Creatinine Ratio 15.4 Glucose 142 H Calcium 8.6 Magnesium Total Bilirubin 0.6 AST 34 ALT 42 Alkaline Phosphatase 79 Troponin I < 0.015 < 0.015 Total Protein 6.5 Albumin 3.2 L Globulin 3.3 Albumin/Globulin Ratio 1.0 Triglycerides Cholesterol LDL Cholesterol, Calc VLDL Cholesterol, Calc HDL Cholesterol Cholesterol/HDL Ratio 07/01/19 07/01/19 07/01/19 07:19 07:19 07:19 WBC 8.68 RBC 4.29 Hgb 12.5 Hct 38.4 MCV 89.5 MCH 29.1 MCHC 32.6 RDW Std Deviation 46.0 RDW Coeff of Maddie 14.1 Plt Count 236 MPV 9.1 Immature Gran % (Auto) 0.2 Neut % (Auto) 62.8 Lymph % (Auto) 28.7 [place] % (Auto) 7.5 Eos % (Auto) 0.6 Baso % (Auto) 0.2 Immature Gran # (Auto) 0.02 Neut # (Auto) 5.45 Lymph # (Auto) 2.49 [place] # (Auto) 0.65 H Eos # (Auto) 0.05 Baso # (Auto) 0.02 Sodium Pending Potassium Pending Chloride Pending Carbon Dioxide Pending Anion Gap Pending BUN Pending Creatinine Pending Est Cr Clr Drug Dosing Pending Est GFR ( Amer) Pending Est GFR (Non-Af Amer) Pending BUN/Creatinine Ratio Pending Glucose Pending Calcium Pending Magnesium Pending Total Bilirubin AST ALT Alkaline Phosphatase Troponin I < 0.015 Total Protein Albumin Globulin Albumin/Globulin Ratio Triglycerides Pending Cholesterol Pending LDL Cholesterol, Calc Pending VLDL Cholesterol, Calc Pending HDL Cholesterol Pending Cholesterol/HDL Ratio Pending Medications Administered Current Inpatient Medications Acetaminophen (Tylenol) 650 mg PO Q4H PRN PRN Reason: Pain or Fever Stop: 07/31/19 01:23 Al Hydrox/Mg Hydrox/Simethicone (Maalox) 15 ml PO Q4H PRN PRN Reason: Dyspepsia Stop: 07/31/19 01:23 Aripiprazole (Abilify) 20 mg PO QPM [facility] Stop: 07/31/19 20:59 Escitalopram Oxalate (Lexapro Tab) 20 mg PO QPM [facility] Stop: 07/31/19 20:59 Levothyroxine Sodium (Synthroid) 75 mcg PO QPM [facility] Stop: 07/31/19 20:59 Nitroglycerin (Nitrostat) 0.4 mg SL UD PRN PRN Reason: Chest Pain Stop: 07/31/19 01:23 Ondansetron HCl (Zofran) 4 mg IV Q6H PRN PRN Reason: Nausea Stop: 07/31/19 01:23 Pantoprazole Sodium (Protonix) 40 mg PO QAM [facility] Stop: 07/31/19 08:59
[2019-07-01] MEDS ORDERED: GUAIFENESIN/CODEINE 200MG/20MG 10ML UDC PO ONE (14:25)
[2019-07-01] MEDS ORDERED: OPTIRAY 320 125ml IV PRN (15:19)
--- NOTE | 2019-07-01 15:36 | CT Scan Report ---
CT ANGIOGRAPHY OF THE CHEST, PULMONARY EMBOLUS PROTOCOL CLINICAL HISTORY: chest pain, RV strain on echo COMPARISON STUDY: Chest radiograph June 30, 2019. TECHNIQUE: Following IV administration of 115 mL of Optiray-320, helical axial images of the chest we re obtained utilizing the pulmonary embolus protocol. Maximal intensity projections and sagittal and coronal reformats were viewed on an independent 3D workstation. IV contrast was administered withou t complication. Automated exposure control was utilized for the study. A dose lowering technique wa s utilized adhering to the principles of ALARA. CT DOSE: 1094.94 mGy.cm FINDINGS: No pulmonary emboli are identified although the segmental and subsegmental pulmonary arter ies are suboptimally assessed due to suboptimal opacification. No thoracic aortic dissection is noted . There is dilatation of the ascending aorta which measures 4.5 cm at the level of the main pulmonary artery. Mild cardiomegaly is noted. There is no pericardial effusion. There are trace bilateral pleu ral effusions. There is no pneumothorax. There is no consolidation to suggest pneumonia. Central airw ays are patent. There is no CT evidence for interstitial lung disease. Bony thorax is unremarkable. T here is fatty infiltration of the liver. IMPRESSION: 1. No pulmonary emboli identified although segmental and subsegmental pulmonary arteries suboptimally assessed on this study. 2. Dilatation of the ascending aorta which measures 4.5 cm at the level of the main pulmonary artery. 3. Mild cardiomegaly. 4. Fatty infiltration of the liver. ACT 112: Negative or not required by law. Electronically signed by: Alcides Bear M.D. 07/01/2019 3:35 PM
--- NOTE | 2019-07-01 18:01 | Hospitalist Progress Note ---
Date of Service July 01, 2019 Assessment & Plan (1) Bronchitis: Increase doxy to BID, cont supportive care with Robitussin AC. (2) Acute chest pain: Likely 2/2 excessive coughing. ACS not present. Cont doxy and cough syrup above and add Naproxen 500mg BID (3) Thoracic aortic aneurysm (TAA): Incidental finding on chest CT today. 4.5cm, recommend repeat imaging in 6 months to ensure stability. (4) WANDER (obstructive sleep apnea): Obesity hypoventilation syndrome/WANDER likely related to the RV strain seen on echo today. Cont CPAP therapy and she will need to institute aggressive lifestyle modifications to lose weight with this and in the setting of fatty liver. (5) Obesity: plan as above. (6) Fatty liver: lifestyle modifications as above. (7) Depression: stable, cont home Ability and Lexapro. Upcoming anniversary of her brother's is causing her some anxiety. (8) DVT prophylaxis: Lovenox Full Code Dispo-to home when feeling less pain in her chest, likely tomorrow. 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 She reported no relief with a nitro patch given overnight. Serial trop was negative, DSE was negative today and EKG is normal without evidence of ischemia. But her pain continues. No associated SOB or nausea. Some lightheadedness with excessive coughing spells. Tolerating PO. Denies fevers or chills. Reports anxiety about not having her doxycycline last night and wanted to ensure she is getting her mood stabilizing drugs as she is anxious about the upcoming two year anniversary of her brother's . She takes chronic doxycycline for rosacea. She was also put on a PPI, however, she doesn't want to take this and reports that heartburn is not an issue for her. Review of Systems Review of Systems: All systems reviewed & are unremarkable except as noted in HPI & below Physical Exam Physical Exam: CONSTITUTIONAL: obese, vitals as above, generally well- appearing EYES: normal conjunctivae, no scleral icterus ENT: external ear and nose normal, oropharynx clear, no TM abnormality, no maxillary or ethmoid sinus tenderness NECK: trachea midline, no lymphadenopathy RESPIRATORY: clear to auscultation bilaterally,minimal coarse rhonchi, rales or wheezes, normal respiratory effort CARDIOVASCULAR: regular rate and rhythm, S1 and 2 heard without murmurs, gallops or rubs, no JVD, no peripheral edema GASTROINTESTINAL: soft, nontender, nondistended MUSCULOSKELETAL: strength 5/5 throughout, head is normocephalic and atraumatic, chest wall discomfort with palpation. Triggers her to cough. SKIN: warm and dry NEUROLOGIC: CN 2-12 grossly intact, normal cognition, normal speech PSYCHIATRIC: alert cooperative and oriented to person, place and time. Results & Data Vital Signs (Past 12 Hours) Vital Signs Temp Pulse Resp BP Pulse Ox 07/01/19 16:05 37.0 C 79 22 145/84 H 96 07/01/19 11:59 36.6 C 72 18 131/77 95 07/01/19 07:34 36.7 C 72 18 128/77 94 Laboratory Results Short CBC 06/30/19 07/01/19 Range/Units 22:34 07:19 WBC 9.17 8.68 (4.8-10.8) K/uL Hgb 12.7 12.5 (12.0-16.0) g/dL Hct 38.9 38.4 (37-47) % Plt Count 241 236 (130-400) K/uL BMP 06/30/19 07/01/19 22:34 07:19 Sodium 141 139 Potassium 3.6 3.9 Chloride 109 H 109 H Carbon Dioxide 26 22 BUN 14 12 Creatinine 0.90 0.86 Glucose 142 H 117 H Calcium 8.6 8.3 L Cardiac Enzymes 06/30/19 07/01/19 07/01/19 Range/Units 22:34 01:31 07:19 Troponin I < 0.015 < 0.015 < 0.015 (0-0.045) ng/ml Liver Function 06/30/19 Range/Units 22:34 Total Bilirubin 0.6 (0.2-1) mg/dl AST 34 (15-37) U/L ALT 42 (12-78) U/L Alkaline Phosphatase 79 (45-117) U/L Albumin 3.2 L (3.4-5.0) gm/dl Diagnostic Findings TTE: Echocardiogram revealed a mildly dilated right ventricle with mildly reduced right ventricular systolic function. Left ventricular systolic function was normal with no significant valvular pathology seen. EF was 60-65%. CT ANGIOGRAPHY OF THE CHEST, PULMONARY EMBOLUS PROTOCOL FINDINGS: No pulmonary emboli are identified although the segmental and subsegmental pulmonary arteries are suboptimally assessed due to suboptimal opacification. No thoracic aortic dissection is noted. There is dilatation of the ascending aorta which measures 4.5 cm at the level of the main pulmonary artery. Mild cardiomegaly is noted. There is no pericardial effusion. There are trace bilateral pleural effusions. There is no pneumothorax. There is no consolidation to suggest pneumonia. Central airways are patent. There is no CT evidence for interstitial lung disease. Bony thorax is unremarkable. There is fatty infiltration of the liver. IMPRESSION: 1. No pulmonary emboli identified although segmental and subsegmental pulmonary arteries suboptimally assessed on this study. 2. Dilatation of the ascending aorta which measures 4.5 cm at the level of the main pulmonary artery. 3. Mild cardiomegaly. 4. Fatty infiltration of the liver. Medications Administered Current Inpatient Medications Acetaminophen (Tylenol) 650 mg PO Q4H PRN PRN Reason: Pain or Fever Stop: 07/31/19 01:23 Aripiprazole (Abilify) 20 mg PO QPM [facility] Stop: 07/31/19 20:59 Doxycycline Hyclate (Vibramycin) 100 mg PO BID [facility] Stop: 07/08/19 20:59 Escitalopram Oxalate (Lexapro Tab) 20 mg PO QPM [facility] Stop: 07/31/19 20:59 Guaifenesin/Codeine Phosphate (Robitussin-Ac Sugar Free) 10 ml PO Q6H PRN PRN Reason: Cough Stop: 07/31/19 21:59 Ioversol (Optiray 320 125ml) 115 ml IV ONCE PRN PRN Reason: Interaction Checking Stop: 07/05/19 15:18 Last Admin: 07/01/19 15:19 Dose: 115 ml Documented by: Levothyroxine Sodium (Synthroid) 75 mcg PO QPM [facility] Stop: 07/31/19 20:59 Naproxen (Naprosyn) 500 mg PO BID [facility] Stop: 07/31/19 20:59 Nitroglycerin (Nitrostat) 0.4 mg SL UD PRN PRN Reason: Chest Pain Stop: 07/31/19 01:23 Ondansetron HCl (Zofran) 4 mg IV Q6H PRN PRN Reason: Nausea Stop: 07/31/19 01:23
[2019-07-01] MEDS ORDERED: ENOXAPARIN INJ 40 MG/0.4 ML SYR SQ SCH (19:00)
[2019-07-01] MEDS ORDERED: ESCITALOPRAM OXALATE 20 MG TAB PO SCH (21:00)
[2019-07-01] MEDS ORDERED: ARIPiprazole 10 MG TAB PO SCH (21:00)
[2019-07-01] MEDS ORDERED: LEVOTHYROXINE SODIUM 75 MCG TABLET PO SCH (21:00)
[2019-07-01] MEDS: DOXYCYCLINE HYCLATE 100 MG CAP PO SCH (21:03)
[2019-07-01] MEDS: NAPROXEN 250 MG TAB PO SCH (21:03)
[2019-07-01] MEDS ORDERED: GUAIFENESIN/CODEINE 200MG/20MG 10ML UDC PO PRN (22:00)
[2019-07-02 06:10] LABS: Hematocrit (blood only) 38.1 % (37-47); Hemoglobin 12.7 g/dL (12.0-16.0); Mean Corpuscular Hemoglobin 29.7 pg (25-34); Mean Corpuscular Hgb Conc 33.3 g/dL (32-36); Mean Platelet Volume 9.4 fL (7.4-10.4); Platelet Count 231 K/uL (130-400); RDW Coefficient of Variation 14.3 % (11.5-14.5); RDW Standard Deviation 46.6 fL (36.4-46.3); Red Blood Count 4.28 M/uL (4.2-5.4); White Blood Count 7.19 K/uL (4.8-10.8)
[2019-07-02 06:33] LABS: BUN Creatinine Ratio 12.5 (10-20); Calcium 8.2 mg/dl (8.5-10.1); Creatinine Clr Calc Pharmacy 101.9 ml/min; Est GFR (African American) 84.1; Est GFR (Non-African American) 72.6; Potassium 3.6 mmol/L (3.5-5.1)
[2019-07-02 06:34] LABS: C Reactive Protein 3.65 mg/dl (0-0.29)
[2019-07-02] MEDS: NAPROXEN 250 MG TAB PO SCH (07:59)
[2019-07-02] MEDS: DOXYCYCLINE HYCLATE 100 MG CAP PO SCH (07:59)
--- NOTE | 2019-07-02 11:07 | Cardiology Progress Note ---
Date of Service July 02, 2019 Assessment & Plan (1) Acute chest pain: (2) Bronchitis: (3) WANDER (obstructive sleep apnea): (4) Obesity: I do not believe any additional cardiac work-up is indicated. From a cardiac standpoint the patient can be discharged home with outpatient follow-up to the PCP. Subjective The patient states that she is feeling better. CT of the chest did not show pulmonary emboli or a pneumonia. Review of Systems Review of Systems: All systems reviewed & are unremarkable except as noted in HPI & below Nothing additional to add. Physical Exam Physical Exam: General: no acute distress and stated age Head: normocephalic, no masses, lesions, tenderness or abnormalities Eyes: conjunctiva are pink and non-injected, sclera clear Neck: supple, no adenopathy, no bruits, normal jugular venous pulse, no hepatojugular reflux Chest: normal shape and normal respiratory effort Lungs: clear to auscultation and percussion Cardiac Exam: - regular rate & rhythm, no murmurs gallops or rubs - normal S1, normal S2 Pulses: 2(+) throughout Abdomen: abdomen soft, non-tender, no abnormal masses and no hepatosplenomegaly Musculoskeletal: no gait disturbance, no joint inflammation, no deforming arthritis Extremities: no edema and no cyanosis Neuro: grossly normal exam Results & Data Vital Signs (Past 12 Hours) Vital Signs Temp Pulse Pulse Resp BP Pulse Ox 07/02/19 11:00 36.5 C 72 18 114/75 95 07/02/19 07:43 36.3 C L 73 18 148/87 H 96 07/02/19 07:17 67 07/02/19 03:15 36.5 C 72 19 121/74 94 07/02/19 03:10 65 16 95 07/02/19 00:58 82 07/01/19 23:35 36.7 C 83 17 120/57 L 98 Laboratory Results Laboratory Results - last 24 hr 07/02/19 07/02/19 07/02/19 05:14 05:14 05:14 WBC 7.19 RBC 4.28 Hgb 12.7 Hct 38.1 MCV 89.0 MCH 29.7 MCHC 33.3 RDW Std Deviation 46.6 H RDW Coeff of Maddie 14.3 Plt Count 231 MPV 9.4 ESR 23 H Sodium 138 Potassium 3.6 Chloride 106 Carbon Dioxide 27 Anion Gap 5.0 BUN 12 Creatinine 0.92 Est Cr Clr Drug Dosing 101.9 Est GFR ( Amer) 84.1 Est GFR (Non-Af Amer) 72.6 BUN/Creatinine Ratio 12.5 Glucose 110 H Calcium 8.2 L C-Reactive Protein 3.65 H Medications Administered Current Inpatient Medications Acetaminophen (Tylenol) 650 mg PO Q4H PRN PRN Reason: Pain or Fever Stop: 07/31/19 01:23 Aripiprazole (Abilify) 20 mg PO QPM [facility] Stop: 07/31/19 20:59 Last Admin: 07/01/19 21:02 Dose: 20 mg Documented by: Doxycycline Hyclate (Vibramycin) 100 mg PO BID [facility] Stop: 07/08/19 20:59 Last Admin: 07/02/19 07:59 Dose: 100 mg Documented by: Enoxaparin Sodium (Lovenox) 40 mg SQ Q24H [facility] Stop: 07/31/19 18:59 Last Admin: 07/01/19 19:36 Dose: 40 mg Documented by: Escitalopram Oxalate (Lexapro Tab) 20 mg PO QPM [facility] Stop: 07/31/19 20:59 Last Admin: 07/01/19 21:03 Dose: 20 mg Documented by: Guaifenesin/Codeine Phosphate (Robitussin-Ac Sugar Free) 10 ml PO Q6H PRN PRN Reason: Cough Stop: 07/31/19 21:59 Last Admin: 07/02/19 08:02 Dose: 10 ml Documented by: Ioversol (Optiray 320 125ml) 115 ml IV ONCE PRN PRN Reason: Interaction Checking Stop: 07/05/19 15:18 Last Admin: 07/01/19 15:19 Dose: 115 ml Documented by: Levothyroxine Sodium (Synthroid) 75 mcg PO QPM [facility] Stop: 07/31/19 20:59 Last Admin: 07/01/19 21:03 Dose: 75 mcg Documented by: Naproxen (Naprosyn) 500 mg PO BID [facility] Stop: 07/31/19 20:59 Last Admin: 07/02/19 07:59 Dose: 500 mg Documented by: Ondansetron HCl (Zofran) 4 mg IV Q6H PRN PRN Reason: Nausea Stop: 07/31/19 01:23
--- NOTE | 2019-07-02 12:09 | Discharge Summary ---
Date of Service July 02, 2019 Admission HPI Per Admitting Provider HISTORY OF PRESENT ILLNESS: This is a 48-year-old female with past medical history significant for hypothyroidism, allergic rhinitis due to pollen, obstructive sleep apnea, on CPAP, obesity, rosacea, plantar fascitis, depression, generalized anxiety disorder, history of hyperprolactinemia, who presents with chest pain. The patient says since the last 1 to 1-1/2 weeks she had cold symptoms and cough. She was taking [id number] Sudafed, she was taking it every 4 hours for 3-4 days, but was not taking the last 2 days. On 06/30/2019, in the morning at workplace she had retrosternal chest pressure, mild in severity and as the day progressed it got progressively worse and she was having some shortness of breath and because of chest pain and shortness of breath she was having difficulty speaking, so she came to the ER. She was placed on nitro paste and currently, the pain that was radiating to the back resolved but still has some mild chest discomfort. Denies any dizziness. No nausea, no sweating, no headache, no blurred visions, no earache, no runny nose, no sore throat. Appetite is okay. Sleeps okay. No cough, no fever, no chills. Currently no fever, no chills, no abdominal pain. Normal bowel and bladder movements. No melena or hematochezia. No burning micturition, no hematuria. No swelling in the legs, no rash. Currently resting comfortably and hemodynamically stable. Admission Exam Per Admitting Provider GENERAL: The patient is morbidly obese, not in acute distress. VITAL SIGNS: Temperature 36.8, pulse 77, respiratory rate 12, blood pressure 132/69, oxygen 96% on room air. HEENT: No pallor, no icterus. Pupils equal, round, reactive to light. NECK: No JVD, no neck masses, no carotid bruits. CARDIOVASCULAR: S1, S2 heard, regular rate and rhythm, no murmur, no gallop. RESPIRATORY SYSTEM: Normal AP diameter. No accessory muscle use. No wheezing, no crackles. ABDOMEN: Soft, bowel sounds present, nontender. No distention. CENTRAL NERVOUS SYSTEM: Cranial nerves II-XII grossly intact. Nonfocal. EXTREMITIES: No edema, no erythema. Principal Diagnosis atypical chest pain Discharge Exam CONSTITUTIONAL: obese, vitals as above, generally well-appearing EYES: normal conjunctivae, no scleral icterus ENT: MMM RESPIRATORY: clear to auscultation bilaterally,minimal coarse rhonchi, rales or wheezes, normal respiratory effort CARDIOVASCULAR: regular rate and rhythm, S1 and 2 heard without murmurs, gallops or rubs, no JVD, no peripheral edema GASTROINTESTINAL: soft, nontender, nondistended MUSCULOSKELETAL: strength 5/5 throughout, head is normocephalic and atraumatic, no chest wall pain with palpation. SKIN: warm and dry NEUROLOGIC: CN 2-12 grossly intact, normal cognition, normal speech PSYCHIATRIC: alert cooperative and oriented to person, place and time. Discharge Data Allergies Allergy/AdvReac Type Severity Reaction Status Date / Time erythromycin base Allergy Unknown Abdominal Verified 06/30/19 23:30 Pain,topically-inflamed face Consultations 06/30/19 23:18 ED Decision to Admit Stat 07/01/19 08:00 Consult Cardiology Routine Ordered Studies 07/01/19 14:25 CT angio chest PE protocol Urgent Hospital Course (1) Bronchitis: (2) Acute chest pain: (3) Thoracic aortic aneurysm (TAA): (4) WANDER (obstructive sleep apnea): (5) Obesity: (6) Fatty liver: 48-year-old female with history of obstructive sleep apnea on CPAP and obesity presented with acute chest pain for approximately 7-10 days. She also had cold symptoms with a cough reported, which was reported worse in the 24 hours prior to presentation. She had been taking Sudafed [id number]. She was admitted to the hospitalist service on telemetry and cardiac enzymes were trended and normal. Cardiology was consulted and felt her chest pain was atypical for cardiac etiology. She had normal EKG and negative cardiac markers with an unremarkable chest x-ray. A resting echocardiogram was performed revealing a mildly dilated right ventricle and mildly reduced right ventricular systolic function with a normal left ventricle systolic function and no significant valvular pathology. In the setting of persistent chest pain a CT angiogram was performed. This revealed no evidence of pulmonary emboli, noting that segmental and subsegmental pulmonary arteries were suboptimally assessed on this study. Incidentally she had a dilation of the ascending aortic aorta which measured 4.5 cm at the level of the main pulmonary artery. Fatty infiltration of the liver was also seen. Her chest pain was somewhat reproducible on exam to palpation and naproxen was given overnight. She remained in the hospital and additional night with complete resolution of chest pain and improvement of her cough and respiratory illness the following day. At the time of discharge she was mentating and ambulating at baseline and tolerating p.o. She had a complete resolution of symptoms and she was oxygenating well on room air. She was hemodynamically stable and afebrile and sent home in stable condition with close primary care follow-up recommended. No further cardiac work-up was recommended at this time. Ultimately right ventricular strain was felt secondary to obesity hypoventilation syndrome/obstructive sleep apnea. Furthermore, a repeat CT of the chest was recommended in six months to monitor her thoracic aortic aneurysm for stability. Total Time Total Time Spent Total Time Spent (In Minutes): 60 Total Time Includes: Examination of the Patient, Discharge Planning, Medication Reconciliation, Communication With Other Providers and Other (arrange followup) Discharge Plan Discharge Items Patient Disposition: Home - Self-Care Reason For Visit: CHEST PAIN Discharge Diagnosis: atypical chest pain Condition on Discharge: Good Activity: Resume your previous activity Non-emergency contact: Primary Care Provider Call non-emergency contact if: you have any medication questions, your symptoms worsen, your pain is not controlled, your pain is worsening, your pain is unusual for you, your pain is concerning for you and you have a fever Follow-up/Referrals: Yo Garnica MD [Primary Care Provider] - Diet: Regular Addtl Attending Provider Instructions: Please take all medications as instructed on discharge list below. Continue taking doxycyline twice daily for the next 5 days, then return to once daily as taken typically. Use the Naproxen as needd for chest pain. A one week follow-up is recommended with your primary care provider. Someone from our staff will contact you after the holiday to help you set this up. It was a pleasure taking care of you! Please call if you have any questions or problems. You can reach a [facility] hospitalist on duty at [facility] 24 hours a day by calling [phone]. Take care of yourself. Amira Ba, DO [facility] Hospitalist Pending Studies at Discharge: No Stand-Alone Forms: My [facility], Smoking Cessation Medications and DC Order Prescriptions: New naproxen 250 mg Tablet 500 mg PO BID PRN (Reason: pain) Qty: 30 RF: 0 Continued levothyroxine 75 mcg Tablet 75 mcg PO QPM RF: 0 doxycycline hyclate 100 mg Tablet 100 mg PO QPM RF: 0 escitalopram oxalate [Lexapro] 20 mg Tablet 20 mg PO QPM RF: 0 aripiprazole [Abilify] 20 mg Tablet 20 mg PO QPM RF: 0 fexofenadine-pseudoephedrine 180-240 mg Tablet Extended Release 24 Hr 1 tab PO QAM PRN (Reason: Allergic Symptoms) RF: 0 pseudoephedrine HCl [Sudafed] 30 mg Tablet 30 mg PO Q6H PRN (Reason: Congestion) RF: 0 Discharge Orders: Discharge Order (Routine); Ordered 07/02/19 Ordered By: Amira Ba Admission Data Admit Date/Time: 07/01/19 17:04 Attending Provider: Amira Ba Admit Provider: Blake Reed Primary Care Provider: Yo Garnica Other Providers: Blake Reed ; Flo Cavazos Other Interventions: Discharge Summary Assessment (RN) Last Done: 07/02/19 12:15 DC Date/Time DO NOT enter until pt leaves facility: 07/02/19 13:01
== END 2019-07-02 13:01 | disposition home or self-care (01) | DRG 202 ==
LOC: 2N 21:32 → ED 21:32 → 2N 07-01 01:00

== ENCOUNTER 2021-03-28 13:05 | Inpatient (IN) ==
[2021-03-28] MEDS ORDERED: SUCCINYLCHOLINE CHLORIDE 20 MG/ML 10 ML VIAL IV ONE (14:03)
[2021-03-28] MEDS ORDERED: dexAMETHasone**PF** 10 MG/ML VIAL IV ONE (14:12)
--- NOTE | 2021-03-28 14:15 | Emergency Department Note ---
History of Present Illness General Chief complaint: Shortness of Breath/Dyspnea Stated complaint: COV+, SOB, FEVER, WEAKNESS Time Seen by Provider: 03/28/21 13:54 Source: patient History of Present Illness Provider complaint: Shortness of breath Onset (ago): week(s) Location: chest Pain Consistency: + constant Relieved By: + none Associated symptoms: + cough, + fever/chills and + shortness of breath; no chest pain This is a 50-year-old female who presents with shortness of breath. She she developed COVID-19 symptoms approximately 15 days ago. She had a fever, malaise and cough with shortness of breath. She was tested 3 days later and tested positive for COVID-19. She was seen here on the and had a work-up here and was discharged home. She developed loss of taste of smell that day. She has had no vomiting or diarrhea. She denies any chest pain. She denies any abdominal pain or urinary symptoms. She states that her shortness of breath is not getting better and she is getting more and more short of breath. She is not vaccinated for COVID-19. Home Medications Medication Instructions Recorded Confirmed Type aripiprazole 20 mg tablet (Abilify) 20 mg PO QPM 02/03/19 03/28/21 History escitalopram oxalate 20 mg tablet 20 mg PO QPM 02/03/19 03/28/21 History (Lexapro) benzonatate 100 mg capsule 100 mg PO TID PRN #20 cap 03/19/21 03/28/21 Rx (Tessalon Perles) famotidine 20 mg tablet 20 mg PO BID 03/19/21 03/28/21 History levothyroxine 100 mcg tablet 100 mcg PO DAILY 03/19/21 03/28/21 History Allergies Allergy/AdvReac Type Severity Reaction Status Date / Time erythromycin base Allergy Unknown Abdominal Verified 03/19/21 14:36 Pain,topically-inflamed face Past Med/Surg History Medical History (Updated 03/28/21 @ 17:55 by Conor Davis MD) Anxiety Depression Hypothyroidism Sleep apnea CPAP Surgical History History of appendectomy History of section History of cholecystectomy History of endometrial ablation History of tooth extraction WISDOM TEETH History of tubal ligation Family History Daughter Family history of reaction to anesthesia SLOW TO WAKE UP-AFTER AGE 18 Father Family history of diabetes mellitus Social History (Updated 03/28/21 @ 16:06 by Ghislaine Marrero PA-C) Smoking Status: Former smoker packs per day: 0.5; Years Smoked: 26; Second Hand Exposure: No; Hx Alcohol Use: No Hx Substance Use: No Preferred Language: Greenlandic Communication Ability: Effective [employer] Director Required: No Beliefs That Will Affect Care: None marital status: Current Living Situation: Spouse Feels Safe at Home: Yes Assistive Devices: CPAP Review of Systems See HPI for pertinent positives & negatives. and A total of 10 systems reviewed and were otherwise negative Physical Exam Vital Signs Vital Signs - 24 hr 03/28/21 13:40 03/28/21 14:00 03/28/21 14:14 Temperature 36.6 C Temperature Source Oral Pulse Rate 110 H 109 H 103 H Pulse Rate [Apical] Pulse Rate from SpO2 Sensor 109 H Pulse Rhythm Regular Respiratory Rate 18 24 25 H Respiratory Effort / Characteristics Non-Labored Labored Respiratory Depth Normal Blood Pressure 156/76 H 146/74 H Blood Pressure Mean 102 98 Pulse Oximetry 70 L 87 L 88 L Oxygen Delivery Method Room Air Non-rebreather Non-rebreather Oxygen Flow Rate 15 Fraction of Inspired Oxygen Sepsis Recent Fever Within 48 Hours No Sepsis New/Unexplained Change in Mental Status No Sepsis Action Taken by Nursing No Action Required 03/28/21 14:30 03/28/21 14:50 Temperature Temperature Source Pulse Rate 104 H Pulse Rate [Apical] 101 H Pulse Rate from SpO2 Sensor 104 H Pulse Rhythm Respiratory Rate 29 H 22 Respiratory Effort / Characteristics Spontaneous Respiratory Depth Blood Pressure 143/84 H Blood Pressure Mean 103 Pulse Oximetry 88 L Oxygen Delivery Method Non-rebreather High Flow Nasal Cannula Oxygen Flow Rate 15 40 Fraction of Inspired Oxygen 90 Sepsis Recent Fever Within 48 Hours Sepsis New/Unexplained Change in Mental Status Sepsis Action Taken by Nursing Constitutional: Vital signs reviewed. Coughing. Tachypneic. Hypoxic. Eyes: Pupils are equal round reactive to light. Conjunctiva are noninjected. ENT: Pharynx is clear without erythema or exudate. Mucous membranes are moist. Neck supple without meningeal signs. Respiratory: Clear to auscultation bilaterally. Breath sounds are equal bilaterally. Cardiovascular: Tachycardic. Regular rhythm. GI: Soft, nondistended and nontender. Bowel sounds are present. Musculoskeletal: No peripheral edema. No lower extremity tenderness. Integumentary: No cyanosis. or jaundice. Neurological: The patient is awake and alert. No focal deficits. Psychiatric: Very anxious. Course Administered Medications Potassium Chloride (K Harjit / Wtr) 10 meq in 100 mls @ 100 mls/hr IV Q1H [facility] Stop: 03/28/21 17:59 Last Admin: 03/28/21 16:53 Dose: 100 mls/hr Documented by: [id number] Tocilizumab 400 mg/Tocilizumab 400 mg/ Sodium Chloride 100 mls @ 100 mls/hr IV TODAY@1700 [facility] Stop: 03/28/21 20:00 Last Admin: 03/28/21 17:04 Dose: 100 mls/hr Documented by: [id number] Cosigned by: [id number] Discontinued Medications Dexamethasone Sodium Phosphate (DexamethasonePf 10 Mg/Ml Vial) 6 mg IV NOW ONE Stop: 03/28/21 14:13 Last Admin: 03/28/21 14:24 Dose: 6 mg Documented by: [id number] Ioversol (Optiray 320 125ml) 120 ml IV ONCE ONE Stop: 03/28/21 15:52 Last Admin: 03/28/21 15:51 Dose: 120 ml Documented by: [id number] Critical Care Time Critical Care Time: Yes Total Critical Care Time: 40 I have personally spent approximately 40 minutes of critical care time in the direct management of this patient. This includes bedside care, interpretation of diagnostic studies, and testing, discussion with consultants, patient, and family members, and other required patient management activities. These minutes are in excess of all separately billable procedures. Medical Decision Making Differential Diagnosis Hypoxemia, multifocal pneumonia, respiratory failure, pulmonary embolism, COVID- 19 Medical Records Attestation: I reviewed the patient's medical records. I did perform a limited focused review of portions of the patient's old chart on the electronic medical record. The patient was seen here on March 29 for dyspnea related to COVID-19 infection. She had a work-up here including a negative chest x-ray and D-dimer and was discharged home for outpatient follow- up. Home Medications Current Medication List: was personally reviewed by me Laboratory Data Attestation: I reviewed the patient's lab results. Result diagrams: 03/28/21 14:25 03/28/21 14:25 Lab Results 03/28/21 03/28/21 03/28/21 Range/Units 14:25 14:25 14:25 WBC 8.04 (4.8-10.8) K/uL RBC 4.36 (4.2-5.4) M/uL Hgb 12.9 (12.0-16.0) g/dL Hct 37.6 (37-47) % MCV 86.2 (80-100) fL MCH 29.6 (25-34) pg MCHC 34.3 (32-36) g/dL RDW Std Deviation 44.9 (36.4-46.3) fL RDW Coeff of Maddie 14.2 (11.5-14.5) % Plt Count 240 (130-400) K/uL MPV 10.5 H (7.4-10.4) fL Immature Gran % (Auto) 0.4 % Neut % (Auto) 84.2 % Lymph % (Auto) 11.2 % Mineral % (Auto) 4.0 % Eos % (Auto) 0.0 % Baso % (Auto) 0.2 % Neut # (Auto) 6.77 H (1.4-6.5) K/uL Lymph # (Auto) 0.90 L (1.2-3.4) K/uL Mineral # (Auto) 0.32 (0.11-0.59) K/uL Eos # (Auto) 0.00 (0-0.5) K/uL Baso # (Auto) 0.02 (0-0.2) K/uL Immature Gran # (Auto) 0.03 H (0.00-0.02) K/uL ESR (0-30) mm/hr D-Dimer 1910 H* (0-500) ug/L FEU Sodium 131 L (136-145) mmol/L Potassium 3.0 L (3.5-5.1) mmol/L Chloride 97 L (98-107) mmol/L Carbon Dioxide 22 (21-32) mmol/L Anion Gap 12.0 H (3-11) BUN 22 H (7-18) mg/dl Creatinine 1.48 H (0.6-1.2) mg/dl Est Cr Clr Drug Dosing 58.0 ml/min Est GFR ( Amer) 46.7 ml/min Est GFR (Non-Af Amer) 40.3 ml/min BUN/Creatinine Ratio 14.8 (10-20) Glucose 231 H (70-99) mg/dl Osmolality (280-300) mOsm/kg Calcium 7.9 L (8.5-10.1) mg/dl Total Bilirubin 1.1 H (0.2-1) mg/dl Direct Bilirubin (0-0.2) mg/dl AST 128 H (15-37) U/L ALT 56 (12-78) U/L Alkaline Phosphatase 72 (45-117) U/L Troponin I 0.018 (0-0.045) ng/ml C-Reactive Protein 18.40 H (0-0.29) mg/dl NT-Pro-B Natriuret Pep (0-900) pg/ml Total Protein 7.5 (6.4-8.2) gm/dl Albumin 2.7 L (3.4-5.0) gm/dl Globulin 4.8 H (2.5-4.0) gm/dl Albumin/Globulin Ratio 0.6 L (0.9-2) Procalcitonin (0-0.5) ng/ml 03/28/21 03/28/21 03/28/21 Range/Units 14:25 14:25 14:25 WBC (4.8-10.8) K/uL RBC (4.2-5.4) M/uL Hgb (12.0-16.0) g/dL Hct (37-47) % MCV (80-100) fL MCH (25-34) pg MCHC (32-36) g/dL RDW Std Deviation (36.4-46.3) fL RDW Coeff of Maddie (11.5-14.5) % Plt Count (130-400) K/uL MPV (7.4-10.4) fL Immature Gran % (Auto) % Neut % (Auto) % Lymph % (Auto) % Mineral % (Auto) % Eos % (Auto) % Baso % (Auto) % Neut # (Auto) (1.4-6.5) K/uL Lymph # (Auto) (1.2-3.4) K/uL Mineral # (Auto) (0.11-0.59) K/uL Eos # (Auto) (0-0.5) K/uL Baso # (Auto) (0-0.2) K/uL Immature Gran # (Auto) (0.00-0.02) K/uL ESR 126 H (0-30) mm/hr D-Dimer (0-500) ug/L FEU Sodium (136-145) mmol/L Potassium (3.5-5.1) mmol/L Chloride (98-107) mmol/L Carbon Dioxide (21-32) mmol/L Anion Gap (3-11) BUN (7-18) mg/dl Creatinine (0.6-1.2) mg/dl Est Cr Clr Drug Dosing ml/min Est GFR ( Amer) ml/min Est GFR (Non-Af Amer) ml/min BUN/Creatinine Ratio (10-20) Glucose (70-99) mg/dl Osmolality 288 (280-300) mOsm/kg Calcium (8.5-10.1) mg/dl Total Bilirubin (0.2-1) mg/dl Direct Bilirubin (0-0.2) mg/dl AST (15-37) U/L ALT (12-78) U/L Alkaline Phosphatase (45-117) U/L Troponin I (0-0.045) ng/ml C-Reactive Protein (0-0.29) mg/dl NT-Pro-B Natriuret Pep (0-900) pg/ml Total Protein (6.4-8.2) gm/dl Albumin (3.4-5.0) gm/dl Globulin (2.5-4.0) gm/dl Albumin/Globulin Ratio (0.9-2) Procalcitonin 3.28 H (0-0.5) ng/ml 03/28/21 03/28/21 Range/Units 14:25 16:02 WBC (4.8-10.8) K/uL RBC (4.2-5.4) M/uL Hgb (12.0-16.0) g/dL Hct (37-47) % MCV (80-100) fL MCH (25-34) pg MCHC (32-36) g/dL RDW Std Deviation (36.4-46.3) fL RDW Coeff of Maddie (11.5-14.5) % Plt Count (130-400) K/uL MPV (7.4-10.4) fL Immature Gran % (Auto) % Neut % (Auto) % Lymph % (Auto) % Mineral % (Auto) % Eos % (Auto) % Baso % (Auto) % Neut # (Auto) (1.4-6.5) K/uL Lymph # (Auto) (1.2-3.4) K/uL Mineral # (Auto) (0.11-0.59) K/uL Eos # (Auto) (0-0.5) K/uL Baso # (Auto) (0-0.2) K/uL Immature Gran # (Auto) (0.00-0.02) K/uL ESR (0-30) mm/hr D-Dimer (0-500) ug/L FEU Sodium (136-145) mmol/L Potassium (3.5-5.1) mmol/L Chloride (98-107) mmol/L Carbon Dioxide (21-32) mmol/L Anion Gap (3-11) BUN (7-18) mg/dl Creatinine (0.6-1.2) mg/dl Est Cr Clr Drug Dosing ml/min Est GFR ( Amer) ml/min Est GFR (Non-Af Amer) ml/min BUN/Creatinine Ratio (10-20) Glucose (70-99) mg/dl Osmolality (280-300) mOsm/kg Calcium (8.5-10.1) mg/dl Total Bilirubin (0.2-1) mg/dl Direct Bilirubin 0.6 H (0-0.2) mg/dl AST (15-37) U/L ALT (12-78) U/L Alkaline Phosphatase (45-117) U/L Troponin I (0-0.045) ng/ml C-Reactive Protein (0-0.29) mg/dl NT-Pro-B Natriuret Pep 215 (0-900) pg/ml Total Protein (6.4-8.2) gm/dl Albumin (3.4-5.0) gm/dl Globulin (2.5-4.0) gm/dl Albumin/Globulin Ratio (0.9-2) Procalcitonin (0-0.5) ng/ml Imaging Data Radiologist's Impression: Chest X-Ray 03/28/21 14:02 XR chest 1V portable HISTORY: Dyspnea COMPARISON: Chest 03/19/2021. FINDINGS: No pneumothorax. No pleural effusions. There is mild elevation the right hemidiaphragm. The heart is mildly enlarged. There are patchy perihilar airspace opacities. This is new from the prior study. IMPRESSION: Cardiomegaly with patchy perihilar airspace opacities. This could represent a viral pneumonia or less likely pulmonary edema. ACT 112: Negative or not required by law. Electronically signed by: Vicente Pitt M.D. 03/28/2021 2:46 PM Chest CTA 03/28/21 15:18 CHEST CTA for PULMONARY ARTERIES CT DOSE: 627.78 mGycm HISTORY: Shortness of breath. Covid positive. TECHNIQUE: Multiaxial CT images of the chest were performed following the intravenous administration of contrast to evaluate the pulmonary arteries. Maximal intensity projection images were also obtained. A dose lowering t echnique was utilized adhering to the principles of ALARA. COMPARISON STUDY: Chest CTA 07/01/2019. FINDINGS: Limited views the upper abdomen demonstrate hepatic steatosis and a normal spleen. Normal esophagus. Mild mediastinal and bilateral hilar l ymphadenopathy which may be reactive. No pleural or pericardial effusions. Mild aneurysmal dilatation of the ascending thoracic aorta measuring up to 4.2 cm in diameter. No evidence for an aortic dissection. No filling defects within the pulmonary arteries to suggest a pulmonary embolus. No fractures within the visualized osseous structures. No pneumothorax. The central airways are patent. Extensive bilateral groundglass and consolidative airspace opacities seen throughout the lungs consistent with a multifocal pneumonia. IMPRESSION: 1. No evidence for pulmonary embolus. 2. Extensive bilateral airspace opacities consistent with a viral pneumonia. ACT 112: Negative or not required by law. Electronically signed by: Vicente Pitt M.D. 03/28/2021 4:33 PM ECG Data Attestation: I personally reviewed and interpreted this ECG as follows: Indication: + SOB/dyspnea Rate (beats per minute): 103 Rhythm: + sinus tachycardia ECG [place]: + Normal ECG ST segments: + Nonspecific ST abnormalities ECG Findings: no PVCs MDM Narrative I did evaluate the patient as noted above. The patient has been diagnosed with COVID-19. She was seen here recently as described above. She was discharged home after evaluation. She is presenting with worsening shortness of breath. She is hypoxemic here and was placed on a nonrebreather mask. She continued to have low O2 saturations and so she was placed on high flow nasal cannula with an O2 sat of 92 to 93%. IV access was established. I did place an order for continuous cardiac monitoring. The monitor showed sinus tachycardia rate of 103 bpm. I did order and personally review the patient's 12-lead EKG as described above. There is no evidence of acute ischemia. I did order and personally reviewed the images of the patient's chest x-ray as described above. She does appear to have a multifocal pneumonia. I did order and review the patient's blood work as noted in the electronic medical record. Her white count is not elevated. She is not anemic. Her sodium is 131 and potassium is 3. Chloride is 97. BUN and creatinine are 22 and 148 respectively. Glucose is elevated to 31. AST is elevated 128. CRP is 18 and pro calcitonin is 3.2. Troponin is negative. D-dimer is 1910. I did order a CT angiogram of the chest. I did review the images myself as well as the radiology report as described above. She does not have a pulmonary embolism. She does have multifocal pneumonia. I did discuss case with the hospitalist and case assistant and she was admitted to the hospital. Impression & Plan Acute respiratory failure with hypoxia, COVID-19, LAURI (acute kidney injury), Hypokalemia, Hyponatremia, Hyperglycemia, Elevated LFTs, Multifocal pneumonia Discharge Plan Visit Data Chief Complaint: Shortness of Breath/Dyspnea Stated Complaint: COV+, SOB, FEVER, WEAKNESS ED Provider: Conor Davis Discharge Problem: Acute respiratory failure with hypoxia, COVID-19, LAURI (acute kidney injury), Hypokalemia, Hyponatremia, Hyperglycemia, Elevated LFTs, Multifocal pneumonia Patient Disposition: Being Evaluated by Hospitalist Forms Stand Alone Forms: My [facility] Prescriptions Prescriptions: No Action escitalopram oxalate [Lexapro] 20 mg Tablet 20 mg PO QPM RF: 0 aripiprazole [Abilify] 20 mg Tablet 20 mg PO QPM RF: 0 levothyroxine 100 mcg tablet 100 mcg PO DAILY RF: 0 famotidine 20 mg tablet 20 mg PO BID RF: 0 benzonatate [Tessalon Perles] 100 mg capsule 100 mg PO TID PRN (Reason: cough) Qty: 20 RF: 0 Referrals Referrals: Yo Garnica MD [Primary Care Provider] -
--- NOTE | 2021-03-28 14:47 | XRay Report ---
XR chest 1V portable HISTORY: Dyspnea COMPARISON: Chest 03/19/2021. FINDINGS: No pneumothorax. No pleural effusions. There is mild elevation the right hemidiaphragm. The heart is mildly enlarged. There are patchy perihilar airspace opacities. This is new from the prior study. IMPRESSION: Cardiomegaly with patchy perihilar airspace opacities. This could represent a viral pneumonia or less likely pulmonary edema. ACT 112: Negative or not required by law. Electronically signed by: Vicente Pitt M.D. 03/28/2021 2:46 PM
[2021-03-28 14:54] LABS: Basophils # (auto) 0.02 K/uL (0-0.2); Basophils % (auto) 0.2 %; Hematocrit (blood only) 37.6 % (37-47); Hemoglobin 12.9 g/dL (12.0-16.0); Immature Granulocytes # (auto) 0.03 K/uL (0.00-0.02); Immature Granulocytes % (auto) 0.4 %; Lymphocytes % (auto) 11.2 %; Mean Corpuscular Hemoglobin 29.6 pg (25-34); Mean Corpuscular Hgb Conc 34.3 g/dL (32-36); Mean Corpuscular Volume 86.2 fL (80-100); Mean Platelet Volume 10.5 fL (7.4-10.4); Monocytes # (auto) 0.32 K/uL (0.11-0.59); Neutrophils # (auto) 6.77 K/uL (1.4-6.5); Neutrophils % (auto) 84.2 %; Platelet Count 240 K/uL (130-400); RDW Coefficient of Variation 14.2 % (11.5-14.5); RDW Standard Deviation 44.9 fL (36.4-46.3); Red Blood Count 4.36 M/uL (4.2-5.4); White Blood Count 8.04 K/uL (4.8-10.8)
[2021-03-28 15:10] LABS: Albumin Level 2.7 gm/dl (3.4-5.0); BUN Creatinine Ratio 14.8 (10-20); C Reactive Protein 18.4 mg/dl (0-0.29); Calcium 7.9 mg/dl (8.5-10.1); Est GFR (African American) 46.7 ml/min; Est GFR (Non-African American) 40.3 ml/min
[2021-03-28 15:15] LABS: Albumin Globulin Ratio 0.6 (0.9-2); Bilirubin,Total 1.1 mg/dl (0.2-1); Globulin 4.8 gm/dl (2.5-4.0); Total Protein 7.5 gm/dl (6.4-8.2); Troponin I 0.018 ng/ml (0-0.045)
[2021-03-28 15:17] LABS: D Dimer 1910 ug/L FEU (0-500)
[2021-03-28] MEDS ORDERED: POTASSIUM CHLORIDE CRTAB 20 MEQ TABCR PO STA ×2 (15:48→19:23)
[2021-03-28] MEDS ORDERED: OPTIRAY 320 125ml IV ONE (15:51)
--- NOTE | 2021-03-28 16:02 | History & Physical Report ---
Date of Service March 28, 2021 Assessment & Plan (1) Acute respiratory failure with hypoxia: (2) Pneumonia due to COVID-19 virus: Plan: This is a 50-year-old male who has significant past medical history of WANDER on CPAP, morbid obesity, depression with anxiety, who presents to ED secondary to worsening shortness of breath and known COVID-19 x15 days. Initial positive test on 03/18, sx started 3 days prior. Presents with profound hypoxia requiring high flow via nasal cannula. ESR: pending CRP: 18.40 Procalcitonin: pending admit to PCU continue high flow NC and titrate O2 as needed IV dexamethasone 6mg daily Pt does not meet criteria for remdesivir given duration of sx Consult pulm to discuss Tocilizumab therapy - to receive dose today (3) Metabolic acidosis: Plan: likely 2/2 to diarrhea from covid-19 monitor (4) LAURI (acute kidney injury): Plan: baseline cr 0.8 bun/cr 22 and 1.48 await urine studies gentle IVF 60cc/hr follow labs, keep on dry side once LAURI corrected (5) Hypokalemia: Plan: K 3.0 give 40meq oral x 1 now and 10 meq KCL rider x 2 repeat bmp at 22:00 (6) Hyponatremia: Plan: Na 131 but corrected for hyperglycemia @ 133 generally poor appetite, possibly 2/2 to poor po intake but admits to drinking 6 bottles of water daily and 2 bottles of gatorade obtain serum osm, Urine na and urine osm (7) Hyperglycemia: Plan: admitting bsg 231, likely underlying T2DM A1C ordered diabetic diet glycemic pharmacy consult in setting of decadron use lantus/novolog per protocol for hyperglycemia (8) Elevated LFTs: Plan: T bili 1.1, AST 128 direct bili pending denies abd pain, ETOH use consider OP work up, monitor LFTS (9) WANDER (obstructive sleep apnea): Plan: CPAP at HS if pt can tolerate (10) Depression: Plan: continue abilify and lexapro mood stable (11) Hypothyroidism: Plan: continue levothyroxine (12) DVT prophylaxis: Plan: SQ Lovenox BID per covid-19/BMI protocol Dispo: PCU FULL CODE PCP: Danika Pt was collaborated with Dr. Horner, please see his addendum for further assessment and treatment plan History of Present Illness Chief Complaint: Known Covid -19 with worsening SOB with sx duration x 15 days. Primary Care Provider: Yo Garnica MD This is a 50-year-old male who has significant past medical history of WANDER on CPAP, morbid obesity, depression with anxiety, who presents to ED secondary to worsening shortness of breath and known COVID-19 x15 days. Of significance patient tested positive for COVID-19 in the outpatient setting on 03/18. She experienced fever, malaise, cough and shortness of breath. She was seen and evaluated in ED on 03/19 and was discharged to home. She has also developed loss of taste and smell. Her temp this morning was 101F. She further complaints of alternating wet/dry cough but not productive, malaise, fatigue and diarrhea. Overall appetite has been poor. Only thing she has kept down was banana, toast and apple sauce. She has been trying to push fluids with 6 bottles of water daily and 2 bottles of Gatorade. She denies lightheaded, dizziness, syncope, chest pain, palpitations, hemoptysis, emesis, abdominal pain, dysuria, increased freq with urination, hematuria. At home she has been using APAP and ibuprofen for fever reduction and tessalon perles for cough. Overall SOB has been worsening and she is unable to lie flat. She has not been able to tolerate her Cpap at night. In ED patient was significantly hypoxic requiring high flow nasal cannula saturating at 88%. Her lab work is notable for elevated D-dimer 1910, low sodium 131, potassium 3.0, chloride 97, BUN elevated at 22 and creatinine 1.48, and AG 12.0. She also had hyperglycemia with a BSG of 231, total bilirubin 1.1, AST 128 & CRP 18.4. She received IV decadron in ED. She is not vaccinated. Allergies Allergy/AdvReac Type Severity Reaction Status Date / Time erythromycin base Allergy Unknown Abdominal Verified 03/19/21 14:36 Pain,topically-inflamed face Home Medications Medication Instructions Recorded Confirmed Type aripiprazole 20 mg tablet (Abilify) 20 mg PO QPM 02/03/19 03/28/21 History escitalopram oxalate 20 mg tablet 20 mg PO QPM 02/03/19 03/28/21 History (Lexapro) benzonatate 100 mg capsule 100 mg PO TID PRN #20 cap 03/19/21 03/28/21 Rx (Tessalon Perles) famotidine 20 mg tablet 20 mg PO BID 03/19/21 03/28/21 History levothyroxine 100 mcg tablet 100 mcg PO DAILY 03/19/21 03/28/21 History Past Med/Surg History Medical History (Updated 03/28/21 @ 17:55 by Conor Davis MD) Anxiety Depression Hypothyroidism Sleep apnea CPAP Surgical History History of appendectomy History of section History of cholecystectomy History of endometrial ablation History of tooth extraction WISDOM TEETH History of tubal ligation Family History Daughter Family history of reaction to anesthesia SLOW TO WAKE UP-AFTER AGE 18 Father Family history of diabetes mellitus Social History (Updated 03/28/21 @ 16:06 by Ghislaine Marrero PA-C) Smoking Status: Former smoker packs per day: 0.5; Years Smoked: 26; Second Hand Exposure: No; Hx Alcohol Use: No Hx Substance Use: No Preferred Language: Croatian Communication Ability: Effective 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 Horner addendum for physical exam findings. Results & Data Results & Data ([facility]) Vital Signs (Past 12 Hours) Vital Signs Temp Pulse Pulse Resp BP Pulse Ox 03/28/21 14:50 101 H 22 03/28/21 14:30 104 H 29 H 143/84 H 88 L 03/28/21 14:14 103 H 25 H 88 L 03/28/21 14:00 109 H 24 146/74 H 87 L 03/28/21 13:40 36.6 C 110 H 18 156/76 H 70 L Diagnostic Findings Chest X-Ray 03/28/21 14:02 XR chest 1V portable HISTORY: Dyspnea COMPARISON: Chest 03/19/2021. FINDINGS: No pneumothorax. No pleural effusions. There is mild elevation the right hemidiaphragm. The heart is mildly enlarged. There are patchy perihilar airspace opacities. This is new from the prior study. IMPRESSION: Cardiomegaly with patchy perihilar airspace opacities. This could represent a viral pneumonia or less likely pulmonary edema. ACT 112: Negative or not required by law. Electronically signed by: Vicente Pitt M.D. 03/28/2021 2:46 PM Chest CTA 03/28/21 15:18 CHEST CTA for PULMONARY ARTERIES CT DOSE: 627.78 mGycm HISTORY: Shortness of breath. Covid positive. TECHNIQUE: Multiaxial CT images of the chest were performed following the intravenous administration of contrast to evaluate the pulmonary arteries. Maximal intensity projection images were also obtained. A dose lowering technique was utilized adhering to the principles of ALARA. COMPARISON STUDY: Chest CTA 07/01/2019. FINDINGS: Limited views the upper abdomen demonstrate hepatic steatosis and a normal spleen. Normal esophagus. Mild mediastinal and bilateral hilar lymphadenopathy which may be reactive. No pleural or pericardial effusions. Mild aneurysmal dilatation of the ascending thoracic aorta measuring up to 4.2 cm in diameter. No evidence for an aortic dissection. No filling defects within the pulmonary arteries to suggest a pulmonary embolus. No fractures within the visualized osseous structures. No pneumothorax. The central airways are patent. Extensive bilateral groundglass and consolidative airspace opacities seen throughout the lungs consistent with a multifocal pneumonia. IMPRESSION: 1. No evidence for pulmonary embolus. 2. Extensive bilateral airspace opacities consistent with a viral pneumonia. ACT 112: Negative or not required by law. Electronically signed by: Vicente Pitt M.D. 03/28/2021 4:33 PM Medications Administered Medication List Discontinued Medications Dexamethasone Sodium Phosphate (DexamethasonePf 10 Mg/Ml Vial) 6 mg IV NOW ONE Stop: 03/28/21 14:13 Last Admin: 03/28/21 14:24 Dose: 6 mg Documented by: [id number] Ioversol (Optiray 320 125ml) 120 ml IV ONCE ONE Stop: 03/28/21 15:52 Last Admin: 03/28/21 15:51 Dose: 120 ml Documented by: [id number] ECG Rate (beats per minute): 103 Rhythm: sinus tachycardia Change: the following changes noted (03/19) Additional Comments: sinus tachycardia, QTC lengthened 463ms COVID-19 Results Results COVID-19 Adm Lab Results: RBC 4.36 M/uL (4.2-5.4) 03/28/21 WBC 8.04 K/uL (4.8-10.8) 03/28/21 Hgb 12.9 g/dL (12.0-16.0) 03/28/21 Hct 37.6 % (37-47) 03/28/21 Plt Count 240 K/uL (130-400) 03/28/21 Neutrophils (%) (Auto) 84.2 % 03/28/21 Lymphocytes (%) (Auto) 11.2 % 03/28/21 Monocytes # (Auto) 0.32 K/uL (0.11-0.59) 03/28/21 Eosinophils # (Auto) 0.00 K/uL (0-0.5) 03/28/21 Immature Granulocyte % (Auto) 0.4 % 03/28/21 Neutrophils # (Auto) 6.77 K/uL (1.4-6.5) H 03/28/21 Lymphocytes # (Auto) 0.90 K/uL (1.2-3.4) L 03/28/21 Monocytes # (Auto) 0.32 K/uL (0.11-0.59) 03/28/21 Eosinophils # (Auto) 0.00 K/uL (0-0.5) 03/28/21 Basophils # (Auto) 0.02 K/uL (0-0.2) 03/28/21 Immature Granulocyte # (Auto) 0.03 K/uL (0.00-0.02) H 03/28/21 Na 131 mmol/L (136-145) L 03/28/21 K 3.0 mmol/L (3.5-5.1) L 03/28/21 Cl 97 mmol/L (98-107) L 03/28/21 CO2 22 mmol/L (21-32) 03/28/21 Anion Gap 12.0 (3-11) H 03/28/21 BUN 22 mg/dl (7-18) H 03/28/21 Creatinine 1.48 mg/dl (0.6-1.2) H 03/28/21 BUN/Creatinine Ratio 14.8 (10-20) 03/28/21 Glucose Level 231 mg/dl (70-99) H 03/28/21 Ca 7.9 mg/dl (8.5-10.1) L 03/28/21 Total Bilirubin 1.1 mg/dl (0.2-1) H 03/28/21 Direct Bilirubin 0.6 mg/dl (0-0.2) H 03/28/21 AST/SGOT 128 U/L (15-37) H 03/28/21 ALT/SGPT 56 U/L (12-78) 03/28/21 Alkaline Phosphatase 72 U/L (45-117) 03/28/21 Total Protein 7.5 gm/dl (6.4-8.2) 03/28/21 Albumin 2.7 gm/dl (3.4-5.0) L 03/28/21 Globulin 4.8 gm/dl (2.5-4.0) H 03/28/21 Albumin/Globulin Ratio 0.6 (0.9-2) L 03/28/21 Troponin I 0.018 ng/ml (0-0.045) 03/28/21 SM-[id number]-[id number]-Type Natriuretic Pep 215 pg/ml (0-900) 03/28/21 CRP 18.40 mg/dl (0-0.29) H 03/28/21 Procalcitonin 3.28 ng/ml (0-0.5) H 03/28/21 D-Dimer 1910 ug/L FEU (0-500) H* 03/28/21 Chest X-Ray 03/28/21 Code Status & VTE Plan Code Status Full Code VTE Prophylaxis Plan VTE Prophylaxis will be ordered: Yes Supervising Physician Co-Signing Physician Notes 50-year-old for male with PMH of WANDER on CPAP, morbid obesity, depression with anxiety on Lexapro and Abilify and recent diagnosis of Covid on March 18 [signs and symptoms from 3 days prior to diagnosis] presented to the ED 03/28 with complaint of worsening shortness of breath, intermittent fever on and off [last 1 being today morning 101F], cough. She required high flow nasal cannula oxygen at presentation to the ED and pulmonology was consulted. She will receive Tocilizumab. On the background of intermittent fever and elevated procalcitonin, will put her on Rocephin. Mild hydration for concerns of LAURI. Patient quit smoking 5 years ago, has not been vaccinated against Covid. Upon examination: GENERAL: Alert and oriented x3. NAD, on 40L HEENT: No pallor, no icterus. Pupils equal, round and reactive to light. Oral mucosa moist. NECK: No JVD, no neck masses. HEART: S1 and S2 heard. Regular rate and rhythm. No murmur, no gallop. RESPIRATORY SYSTEM: Normal AP diameter. No accessory muscle use. Diminished breath sounds bilaterally with occasional crackles. ABDOMEN: Soft, bowel sounds present, nontender, no distention. CENTRAL NERVOUS SYSTEM: Alert and oriented x3. No facial droop. Speech is clear. Obeys simple commands. Moves extremities. EXTREMITIES: Trace to 1+ edema, no erythema seen. I have seen and examined the patient and have discussed the case with the provider above. I agree with the assessment and plan as stated.
--- NOTE | 2021-03-28 16:26 | Pulmonary Consultation ---
Date of Consultation March 28, 2021 Assessment & Plan (1) Multifocal pneumonia: (2) Pneumonia due to COVID-19 virus: (3) Acute respiratory failure with hypoxia: (4) WANDER (obstructive sleep apnea): CT chest 03/28/2021 personally reviewed: Patchy groundglass opacities appreciated bilaterally upper and lower lobes No mediastinal lymphadenopathy --Acute hypoxic respiratory failure Secondary to multilobar COVID-19 pneumonia COVID-19 PCR positive, positive lymphopenia CRP 18.4 Procalcitonin 3.28 Continue with O2 supplementation to keep oxygen saturation between 90-92%. Awake proning will be helpful Continue with incentive spirometry Continue with flutter valve. Recommend patient to be kept euvolemic to negative balance --WANDER Continue with CPAP/BiPAP nightly and as needed shortness of breath Plan: BiPAP/CPAP nightly and as needed shortness of breath We will give the patient Tocilizumab today Awake proning will be beneficial Please note the above document was generated using voice recognition software. It may contain grammatical, syntax or spelling errors.Any formal questions or concerns about the content, text or information contained within the body of this dictation should be directly addressed to the provider for clarification. History of Present Illness History of Present Illness 50-year-old female past medical history of WANDER on CPAP, morbid obesity, depression and anxiety presented to the ED with complaints of shortness of breath She was diagnosed with COVID-19 approximately 2 weeks ago. Pulmonary consulted because of worsening oxygen requirement At the time of examination patient was on high flow 100%. She was in respiratory distress. I requested RT to put the patient on CPAP/BiPAP I did discuss with the patient if there is any worsening she might need intubation and she was agreeable to it Denied any chest pain. Has been coughing bringing up clear phlegm. Denies any hemoptysis. No headache, no nausea, no vomiting. Allergies Allergy/AdvReac Type Severity Reaction Status Date / Time erythromycin base Allergy Unknown Abdominal Verified 03/19/21 14:36 Pain,topically-inflamed face Home Medications Medication Instructions Recorded Confirmed Type aripiprazole 20 mg tablet (Abilify) 20 mg PO QPM 02/03/19 03/28/21 History escitalopram oxalate 20 mg tablet 20 mg PO QPM 02/03/19 03/28/21 History (Lexapro) benzonatate 100 mg capsule 100 mg PO TID PRN #20 cap 03/19/21 03/28/21 Rx (Cheri Morillo) famotidine 20 mg tablet 20 mg PO BID 03/19/21 03/28/21 History levothyroxine 100 mcg tablet 100 mcg PO DAILY 03/19/21 03/28/21 History Patient History Medical History (Updated 03/28/21 @ 17:55 by Conor Davis MD) Anxiety Depression Hypothyroidism Sleep apnea CPAP Surgical History History of appendectomy History of section History of cholecystectomy History of endometrial ablation History of tooth extraction WISDOM TEETH History of tubal ligation Family History Daughter Family history of reaction to anesthesia SLOW TO WAKE UP-AFTER AGE 18 Father Family history of diabetes mellitus Social History (Updated 03/28/21 @ 16:06 by Ghislaine Marrero PA-C) Smoking Status: Former smoker packs per day: 0.5; Years Smoked: 26; Second Hand Exposure: No; Hx Alcohol Use: No Hx Substance Use: No Preferred Language: Belarusian Communication Ability: Unable 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 Beliefs That Will Affect Care: None marital status: Current Living Situation: Alone Other Information That Helps Us Care for You: No Feels Safe at Home: Yes Safety Concerns: Feels Safe At This Time Assistive Devices: None Review of Systems Review of Systems: All systems reviewed & are unremarkable except as noted in HPI & below Physical Exam Physical Exam: Constitutional: No acute distress HEENT: EOMI, PERRLA Respiratory system: Decreased air entry bilaterally, no wheeze, rhonchi, positive crackles bilaterally CVS: S1-S2 positive, no murmurs or gallops Abdomen: Soft, nontender, nondistended, positive bowel sounds x4, obese Extremities: +2 pulses bilaterally radialis/ dorsalis pedis, no cyanosis, no edema Neuro: Awake alert oriented x3 Psych: Normal mood and affect G/U: No Hurd Skin: no rashes, warm and dry Lymphatic: no cervical or axillary lymphadenopathy Results & Data Results & Data ([facility]) Vital Signs (Past 12 Hours) Vital Signs Temp Pulse Pulse Resp BP Pulse Ox 03/28/21 14:50 101 H 22 03/28/21 14:30 104 H 29 H 143/84 H 88 L 03/28/21 14:14 103 H 25 H 88 L 03/28/21 14:00 109 H 24 146/74 H 87 L 03/28/21 13:40 36.6 C 110 H 18 156/76 H 70 L 03/28/21 14:25 03/28/21 14:25 PG Care Time/CCT Total # of Minutes Spent Total Time Spent with Patient: Total time spent is greater than 50% in coordination of care (as documented) at patient's floor/unit and/or counseling patient: Coding Level of Care Code 38493 Inpt Consult Level 5 Diagnoses Multifocal pneumonia J18.9 Pneumonia due to COVID-19 virus U07.1; J12.82 Acute respiratory failure with hypoxia J96.01 WANDER (obstructive sleep apnea) G47.33
--- NOTE | 2021-03-28 16:34 | CT Scan Report ---
CHEST CTA for PULMONARY ARTERIES CT DOSE: 627.78 mGycm HISTORY: Shortness of breath. Covid positive. TECHNIQUE: Multiaxial CT images of the chest were performed following the intravenous administration of contrast to evaluate the pulmonary arteries. Maximal intensity projection images were also obtaine d. A dose lowering technique was utilized adhering to the principles of ALARA. COMPARISON STUDY: Chest CTA 07/01/2019. FINDINGS: Limited views the upper abdomen demonstrate hepatic steatosis and a normal spleen. Normal e sophagus. Mild mediastinal and bilateral hilar lymphadenopathy which may be reactive. No pleural or p ericardial effusions. Mild aneurysmal dilatation of the ascending thoracic aorta measuring up to 4.2 cm in diameter. No evidence for an aortic dissection. No filling defects within the pulmonary arterie s to suggest a pulmonary embolus. No fractures within the visualized osseous structures. No pneumotho rax. The central airways are patent. Extensive bilateral groundglass and consolidative airspace opaci ties seen throughout the lungs consistent with a multifocal pneumonia. IMPRESSION: 1. No evidence for pulmonary embolus. 2. Extensive bilateral airspace opacities consistent with a viral pneumonia. ACT 112: Negative or not required by law. Electronically signed by: Vicente Pitt M.D. 03/28/2021 4:33 PM
[2021-03-28] MEDS: POTASSIUM CHLORIDE / WTR 10 MEQ/100 ML PLCT IV SCH ×2 (16:53→18:18)
[2021-03-28] MEDS ORDERED: TOCILIZUMAB IV SCH (17:00)
[2021-03-28] MEDS ORDERED: SODIUM CHLORIDE 0.9% IV SCH (17:00)
[2021-03-28] MEDS ORDERED: MAGNESIUM HYDROXIDE SUSP 30 ML UDC PO PRN (18:27)
[2021-03-28] MEDS ORDERED: ACETAMINOPHEN 325 MG TAB PO PRN (18:27)
[2021-03-28] MEDS ORDERED: ALUMINUM/MAGNESIUM SUSP 30 ML UDC PO PRN (18:27)
[2021-03-28] MEDS ORDERED: GLUCOSE 10 TABS/TUBE PO PRN (18:27)
[2021-03-28] MEDS ORDERED: PHARMACY GLYCEMIC MGMT CONSULT PRN (18:27)
[2021-03-28] MEDS ORDERED: ONDANSETRON INJ 2 MG/ML 2 ML VIAL IV PRN (18:27)
[2021-03-28] MEDS ORDERED: GLUCOSE 40% GEL 15 GM TUBE PO PRN (18:27)
[2021-03-28] MEDS ORDERED: GLUCAGON FOR INJ 1 MG VIAL SQ PRN (18:27)
[2021-03-28] MEDS ORDERED: CARBOHYDRATES FOR HYPOGLYCEMIA PO PRN (18:27)
[2021-03-28] MEDS ORDERED: POLYETHYLENE (MIRALAX) 17 GM PACK PO PRN (18:27)
[2021-03-28] MEDS ORDERED: cefTRIAXone SODIUM 1,000 MG in DEXTROSE 5% 50 ML IV SCH (18:30)
[2021-03-28] MEDS ORDERED: INSULIN GLARGINE SOLOSTAR 100 UNITS/ML 3 ML PEN SC STA (18:44)
[2021-03-28] MEDS ORDERED: SODIUM CHLORIDE 0.9% 1000ML 1,000 ML IV SCH (18:45)
[2021-03-28] MEDS ORDERED: ALBUTEROL HFA 8 GM INHALER INH SCH (19:00)
[2021-03-28] MEDS: INSULIN ASPART 100 UNITS/ML 3 ML PEN SC SCH ×2 (19:40→21:40)
[2021-03-28] MEDS: cefTRIAXone SODIUM 2,000 MG in DEXTROSE 5% 50 ML IV SCH (20:33)
[2021-03-28] MEDS ORDERED: FAMOTIDINE 20 MG TAB PO SCH (21:00)
[2021-03-28] MEDS ORDERED: ESCITALOPRAM OXALATE 20 MG TAB PO SCH (21:00)
[2021-03-28] MEDS ORDERED: BENZONATATE 100 MG CAPSULE PO SCH (21:00)
[2021-03-28] MEDS ORDERED: ARIPiprazole 10 MG TAB PO SCH (21:00)
[2021-03-28] MEDS ORDERED: RAPID SEQUENCE INDUCTION BAG ONE (21:41)
[2021-03-28] MEDS ORDERED: STAT IV Infusion **Titration per Protocol STA ×2 (21:52)
[2021-03-28] MEDS ORDERED: PROPOFOL IV EMULSION 10 MG/ML 100 ML VIAL IV ONE (21:54)
[2021-03-28] MEDS ORDERED: PHENYLEPHRINE 100MCG/ML 5ML SYR ONE (22:01)
[2021-03-28] MEDS: propofoL 1,000 MG/100 ML VIAL IV SCH (22:13)
[2021-03-28] MEDS ORDERED: fentaNYL citrate 100 MCG/2 ML VIAL ONE (22:13)
[2021-03-28] MEDS ORDERED: VECURONIUM BROMIDE 10 MG VIAL IV ONE (22:15)
[2021-03-28] MEDS: fentaNYL DRIP 1,250 MCG/250 ML BAG IV SCH (22:45)
[2021-03-28] MEDS: CISATRACURIUM BESYLATE 40 MG in 0.9 % SODIUM CHLORIDE 80 ML IV SCH (23:36)
--- NOTE | 2021-03-28 23:40 | Procedure Note ---
Procedure Note Date of Service March 28, 2021 Note INTERNAL JUGULAR CENTRAL LINE PROCEDURE NOTE: Procedure: Internal Jugular Central Line Placement Attending: Dr. Rickie Segura Provider: ESTELA Prakash Indication: Central Drug Administration Anesthesia: Lidocaine 1% Line placed emergently following intubation for severe and worsening ARDS in the setting of COVID-19 pneumonia. A time-out was completed verifying correct patient, procedure, site, positioning, and implants(s) or special equipment if applicable. Patients right neck was cleansed and draped in the typical sterile fashion using Chloraprep. The Internal Jugular Vein and Carotid Artery were identified using ultrasound. The superficial tissue was anesthetized using 3 mL of 1% lidocaine without epinephrine under direct visualization with the ultrasound. After adequate anesthetization was achieved, the Internal Jugular vein was cannulated under direct ultrasound guidance using an introducer needle on a syringe. Good venous blood return was maintained prior to removal of syringe from introducer needle. Using Seldinger Technique, a guide wire was advanced through the introducer needle without resistance. The introducer needle was removed and ultrasound images were obtained of the guide wire within the Internal Jugular Vein and saved to the patients medical record. A small incision was made in penetrating fashion at the guide wire insertion site utilizing an 11 blade scalpel. The dilator was advanced to the vessel without resistance. The dilator was exchanged for the triple lumen catheter which was advanced into the vessel without resistance. The guide wire was removed intact from the catheter without issue. Claves were placed on each catheter tip with confirmation of good blood flow from each lumen. Each port was easily flushed with sterile saline. The catheter was placed at 16 cm [address] in place. BioPatch was applied to the catheter and a sterile Tegaderm dressing was applied over the catheter with careful attention to sterility. Patient tolerated procedure well. No immediate comp lications were met. Post procedure x-ray was completed, placement was appropriate and no pneumothorax was noted. Procedural Ultrasound Guidance: Procedure Date: 03/28/2021 Indication: Central venous catheter insertion Attending: Dr. Rickie Segura Provider: ESTELA Prakash Artery AND Vein visualized: Yes Compressible Vein: Yes Guidewire or Short Catheter seen in vein prior to dilation: Yes Line confirmed in Vein with ultrasound: Yes Images obtained are saved for permanent record. Coding CPT Codes Tubes, Drains, and Vasc Access - Tubes, Drains, and Vasc Access: [id number] Place catheter in vein superior or inferior vena cava ([id number]) Tubes, Drains, and Vasc Access - Tubes, Drains, and Vasc Access: [id number] Ultrasound Guidance For Vascular ([id number]) [facility] [place] Procedure Codes (Charges) Tubes, Drains, and Vasc Access Procedure 1: Tubes, Drains, and Vasc Access: [id number] Place catheter in vein superior or inferior vena cava Procedure 2: Tubes, Drains, and Vasc Access: [id number] Ultrasound Guidance For Vascular
--- NOTE | 2021-03-28 23:40 | Procedure Note ---
Procedure Note Date of Service March 28, 2021 Note ARTERIAL LINE PROCEDURE NOTE: Procedure: Arterial Line Placement Attending: Dr. Rickie Segura Provider: ESTELA Prakash Indication: Continuous blood pressure monitoring, frequent ABGs Anesthesia: Lidocaine 1% Line placed emergently following intubation for severe and worsening ARDS in the setting of COVID-19 pneumonia. A time-out was completed verifying correct patient, procedure, site, positioning, and implant(s) or special equipment if applicable. Allens test was performed to ensure adequate perfusion. Patients right wrist was prepped and draped in the usual sterile fashion. Ultrasound guidance was used to aid needle placement. A 20g Arrow arterial line was introduced into the right radial artery. Catheter was threaded, and the needle was removed with appropriate blood return. Good waveform was observed. The patient tolerated the procedure well. Confirmation of placement with ultrasound. Blood Loss: Minimal Complications: None Procedural Ultrasound Guidance: Procedure Date: 03/28/2021 Indication: Arterial line insertion Attending: Dr. Rickie Segura Provider: ESTELA Prakash Artery Identified: YES Line confirmed in Artery with ultrasound: Yes Complications: NONE Patient tolerated procedure: WELL Coding CPT Codes Tubes, Drains, and Vasc Access - Tubes, Drains, and Vasc Access: [id number] Place Catheter In Artery ([id number]) Tubes, Drains, and Vasc Access - Tubes, Drains, and Vasc Access: [id number] Ultrasound Guidance For Vascular ([id number]) [facility] [place] (Charges) Tubes, Drains, and Vasc Access Procedure 3: Tubes, Drains, and Vasc Access: [id number] Place Catheter In Artery Procedure 4: Tubes, Drains, and Vasc Access: [id number] Ultrasound Guidance For Vascular
--- NOTE | 2021-03-28 23:41 | Critical Care Progress Note ---
Date of Service March 28, 2021 Assessment & Plan (1) Acute respiratory failure with hypoxia: Plan: Reason Critically Ill: 50-year-old female undergoing treatment for COVID-19 pneumonia, now with worsening hypoxia requiring emergent intubation. Now on ICU service while mechanically ventilated. Neuro - Sedation: Propofol/fentanyl Depressionhold Lexapro, Abilify for now Cardiac - Currently hemodynamically stable and NSR on monitor Continuous monitor on telemetry A-line for continuous blood pressure monitoring Respiratory - Acute hypoxic respiratory failurePF ratio consistent with severe ARDS in the setting of COVID-19 pneumonia -Positive COVID-19 PCR. CRP 18.4. Currently undergoing treatment with dexamethasone and patient did receive Tocilizumab -Patient now mechanically ventilated. She is currently paralyzed on Nimbex drip and proned for 18 hours -Follow-up ABG and ventilator adjustments as indicated -Continuous pulse ox and end-tidal CO2 monitoring GI - N.p.o. for now Famotidine twice daily RENAL/LYTES - AKIcreatinine 1.6 with baseline 0.9. -Careful with IV fluid resuscitation as patient is severely hypoxic. Goal of euvolemia -Maintain maps greater than 65 -Renally adjust medications and avoid nephrotoxins -Monitor with routine BMPs. Replete electrolytes as indicated - Foleystrict I's and O's ENDO - ICU hyperglycemic protocol Continue Synthroid for hypothyroidism HEME - H&H stable, monitor routine CBC ID - Patient febrile, positive COVID-19 PCR Procalcitonin elevated at 3, will obtain blood cultures. UA is unremarkable cannot rule out possible superimposed pneumonia at this time Continue dexamethasone for COVID-19 pneumonia, patient did receive Tocilizumab Continue ceftriaxone LINES/IV ACCESS - Right IJ CVC, right radial A-line, ET tube, OG tube DVT PROPHYLAXIS - SCDs, Lovenox I have personally spent 55 minutes of critical care time in the direct management of this patient. This is a life/limb threatening event. This includes time spent evaluating patient, direct bedside care, chart review, placing orders, interpretation of diagnostic studies, discussion with consultants, patient, and family members, as well as other required patient management activities. This time is exclusive of all separately billable procedures, and teaching time and separate from and in addition to any other critical care service time. Thank you for allowing us to participate in the care of this patient. Please refer to my attending physician's documentation for any further recommendations. (2) Multifocal pneumonia: (3) Hypothyroidism: (4) Hyperglycemia: (5) LAURI (acute kidney injury): (6) Pneumonia due to COVID-19 virus: (7) Hypokalemia: (8) Hyponatremia: (9) Metabolic acidosis: (10) COVID-19: (11) Depression: (12) Thoracic aortic aneurysm (TAA): (13) DVT prophylaxis: (14) Fatty liver: (15) Obesity: (16) WANDER (obstructive sleep apnea): (17) Elevated LFTs: Admission and Anticipated Discharge Date Admission Date: March 28, 2021 Subjective Patient previously seen on pulmonology service with Dr. Segura earlier today. She was placed on BiPAP early this evening but continued to decompensate and was requiring higher FiO2 with tachypnea and labored breathing. Patient continued to severely desaturate with little activity. Unfortunately, she was unable to tolerate self proning as well. Decision was made to proceed with emergent intubation for which patient was agreeable. Anesthesia presented to the bedside and intubated the patient on first attempt without complications. However, following intubation patient continued to have high FiO2 and PEEP requirements and decision was made to proceed with paralyze and proning. Central venous catheter and arterial line were inserted prior to proning and the patient was started on Nimbex drip along with propofol and fentanyl drips. She showed significant improvement in oxygenation following proning and plan to proceed with 18 hours of proning. Will manage on card assembler service for now. Review of Systems Review of Systems: Unobtainable due to endotracheal tube Physical Exam Constitutional: + obese and + mechanically ventilated Eyes: PERRL, conjunctivae normal, anicteric sclerae ENMT: external ear and nose normal, oropharynx normal Neck: trachea midline, no thyromegaly Respiratory: Mechanically ventilated, rhonchi auscultated bilaterally in all lung mtz. Symmetrical chest wall movement. No wheezing. Cardiovascular: RRR, no murmur, no edema Heart Sounds: normal S1 and normal S2 Vessels: no JVD Extremities: no edema Gastrointestinal (Abdomen): normal bowel sounds, soft, nontender, no hepatosplenomegaly Musculoskeletal: Unable to assess due to sedation/paralytics Skin: no rashes, warm and dry Neurologic: Unable to assess due to sedation/paralytics Psychiatric: Unable to assess due to sedation/paralytic Genitourinary: Indwelling Hurd catheter present Results & Data Results & Data ([facility]) Vital Signs (Past 12 Hours) Vital Signs Temp Pulse Pulse Pulse Resp BP BP 03/28/21 22:27 97 H 20 03/28/21 20:44 82 30 H 124/77 03/28/21 19:52 90 28 H 03/28/21 19:21 38.2 C H 100 H 20 157/90 H 03/28/21 19:18 37.4 C 95 H 22 142/84 H 03/28/21 18:00 97 H 37 H 03/28/21 17:56 38.6 C H 108 H 26 H 138/81 03/28/21 17:50 107 H 40 H 03/28/21 14:50 101 H 22 03/28/21 14:30 104 H 29 H 143/84 H 03/28/21 14:14 103 H 25 H 03/28/21 14:00 109 H 24 146/74 H 03/28/21 13:40 36.6 C 110 H 18 156/76 H Pulse Ox 03/28/21 22:27 96 03/28/21 20:44 82 L 03/28/21 19:52 90 03/28/21 19:21 90 03/28/21 19:18 90 03/28/21 18:00 93 03/28/21 17:56 81 L 03/28/21 17:50 94 03/28/21 14:50 03/28/21 14:30 88 L 03/28/21 14:14 88 L 03/28/21 14:00 87 L 03/28/21 13:40 70 L Coding Level of Care Code Critical Care 1st 30-74 mins Diagnoses Multifocal pneumonia J18.9 Hypothyroidism E03.9 Hyperglycemia R73.9 LAURI (acute kidney injury) N17.9 Pneumonia due to COVID-19 virus U07.1; J12.82 Hypokalemia E87.6 Hyponatremia E87.1 Metabolic acidosis E87.2 Acute respiratory failure with hypoxia J96.01 COVID-19 U07.1 Depression F32.9 Thoracic aortic aneurysm (TAA) I71.2 DVT prophylaxis Z29.9 Fatty liver K76.0 Obesity E66.9 WANDER (obstructive sleep apnea) G47.33 Elevated LFTs R79.89
[2021-03-29] MEDS: INSULIN ASPART 100 UNITS/ML 3 ML PEN SC SCH ×6 (00:05→21:22)
[2021-03-29] MEDS: ENOXAPARIN INJ 40 MG/0.4 ML SYR SQ SCH ×3 (00:24→21:53)
[2021-03-29] MEDS: propofoL 1,000 MG/100 ML VIAL IV SCH ×7 (00:24→23:24)
[2021-03-29 00:25] LABS: iSTAT Art Bld Gas pCO2 Correct 51 mmHg (35-46); iSTAT Art Bld Gas pH Corrected 7.266 (7.35-7.45); iSTAT Arterial Blood Gas HCO3 23 meg/L (19-24); iSTAT Arterial Blood Gas pCO2 51 mmHg (35-46); iSTAT Arterial Blood Gas pH 7.27 (7.35-7.45); iSTAT Arterial Blood Gas pO2 97 mmHg (80-95); iSTAT Arterial Blood Gas pO2 C 97; iSTAT Carbon Dioxide 25 mmol/L (24-31); iSTAT FiO2 50 %; iSTAT Hematocrit 36 % (37-47); iSTAT Hemoglobin 12.2 g/dl (12.0-16.0); iSTAT Potassium 3.2 mmol/L (3.3-5.0); iSTAT Site Art Line; iSTAT Sodium 137 mmol/L (135-144)
[2021-03-29] MEDS: ARTIFICIAL TEARS OP OINT 3.5 GM TUBE OP SCH ×7 (00:32→21:54)
[2021-03-29 00:49] LABS: BUN Creatinine Ratio 18.8 (10-20); Calcium 7.9 mg/dl (8.5-10.1); Creatinine Clr Calc Pharmacy 72.2 ml/min; Est GFR (African American) 60.8 ml/min; Est GFR (Non-African American) 52.4 ml/min; Potassium 3.3 mmol/L (3.5-5.1)
[2021-03-29 01:00] LABS: Beta-Hydroxybutyrate 26.8 mg/dl (0.2-2.81)
[2021-03-29 01:24] LABS: Creatinine Urine Random 56.2 mg/dl
[2021-03-29 01:26] LABS: Appearance Urine Clear (Clear); Bilirubin Urine Negative (Negative); Blood Urine 1+ (Negative); Cast Urine Automated 0 /lpf (0-5); Color Urine Yellow; Glucose Urine UA 2+ (Negative); Ketones Urine 1+ (Negative); Leukocyte Esterase Urine Negative (Negative); Nitrite Urine Negative (Negative); Protein Urine 1+ (Negative); RBC Urine Automated 0-4 /hpf (0-4); Specific Gravity Urine 1.032 (1.000-1.030); Urobilinogen Urine Negative (Negative); pH Urine 5.5 (4.5-7.5)
[2021-03-29 01:44] LABS: Bacteria Urine Automated 1+ (Negative)
[2021-03-29] MEDS ORDERED: NORMOSOL-R 1,000 ML IV SCH (02:00)
[2021-03-29] MEDS: POTASSIUM CHLORIDE / WTR 20 MEQ/100 ML PLCT IV SCH ×3 (02:10→05:55)
[2021-03-29] MEDS ORDERED: STAT IV Infusion **Titration per Protocol STA ×2 (04:33→19:26)
[2021-03-29] MEDS ORDERED: INSULIN PROTOCOL GOAL RANGE ONE (04:33)
[2021-03-29] MEDS ORDERED: INSULIN HUMAN REGULAR IV BOLUS 4.5 UNITS in SYRINGE 0 ML IV ONE (04:45)
[2021-03-29 05:25] LABS: iSTAT Art Bld Gas pCO2 Correct 43 mmHg (35-46); iSTAT Art Bld Gas pH Corrected 7.279 (7.35-7.45); iSTAT Arterial Blood Gas HCO3 20 meg/L (19-24); iSTAT Arterial Blood Gas pCO2 43 mmHg (35-46); iSTAT Arterial Blood Gas pH 7.28 (7.35-7.45); iSTAT Arterial Blood Gas pO2 85 mmHg (80-95); iSTAT Arterial Blood Gas pO2 C 85; iSTAT Carbon Dioxide 22 mmol/L (24-31); iSTAT FiO2 50 %; iSTAT Hematocrit 35 % (37-47); iSTAT Hemoglobin 11.9 g/dl (12.0-16.0); iSTAT Site Art Line; iSTAT Sodium 138 mmol/L (135-144)
[2021-03-29] MEDS: INSULIN REGULAR 250 UNITS in SODIUM CHLORIDE 0.9% 247.5 ML IV SCH (05:37)
[2021-03-29] MEDS ORDERED: LEVOTHYROXINE SODIUM 100 MCG TABLET PO SCH (06:30)
[2021-03-29] MEDS: CISATRACURIUM BESYLATE 40 MG in 0.9 % SODIUM CHLORIDE 80 ML IV SCH ×2 (06:35→19:51)
[2021-03-29 06:47] LABS: Estimated Average Glucose 255 mg/dl; Hemoglobin A1C 10.5 % (4.5-5.6)
[2021-03-29 07:15] LABS: Basophils # (auto) 0.01 K/uL (0-0.2); Basophils % (auto) 0.2 %; Hemoglobin 12.3 g/dL (12.0-16.0); Immature Granulocytes # (auto) 0.03 K/uL (0.00-0.02); Immature Granulocytes % (auto) 0.5 %; Lymphocytes # (auto) 0.99 K/uL (1.2-3.4); Lymphocytes % (auto) 17.8 %; Mean Corpuscular Hemoglobin 29.4 pg (25-34); Mean Corpuscular Hgb Conc 34.2 g/dL (32-36); Mean Corpuscular Volume 86.1 fL (80-100); Monocytes # (auto) 0.21 K/uL (0.11-0.59); Monocytes % (auto) 3.8 %; Neutrophils # (auto) 4.31 K/uL (1.4-6.5); Neutrophils % (auto) 77.7 %; Platelet Count 232 K/uL (130-400); RDW Coefficient of Variation 14.6 % (11.5-14.5); RDW Standard Deviation 45.6 fL (36.4-46.3); Red Blood Count 4.18 M/uL (4.2-5.4); White Blood Count 5.55 K/uL (4.8-10.8)
[2021-03-29 07:50] LABS: Albumin Globulin Ratio 0.5 (0.9-2); Albumin Level 2.2 gm/dl (3.4-5.0); BUN Creatinine Ratio 21.7 (10-20); Calcium 8.1 mg/dl (8.5-10.1); Creatinine Clr Calc Pharmacy 80.9 ml/min; Est GFR (African American) 70.7 ml/min; Globulin 4.8 gm/dl (2.5-4.0); Magnesium 2.4 mg/dl (1.8-2.4); Phosphorus 2.1 mg/dl (2.5-4.9); Potassium 3.8 mmol/L (3.5-5.1)
[2021-03-29 08:10] LABS: Beta-Hydroxybutyrate 40.78 mg/dl (0.2-2.81)
[2021-03-29] MEDS: FAMOTIDINE 20 MG in SYRINGE 3 ML IV SCH ×2 (08:15→20:13)
[2021-03-29] MEDS: dexAMETHasone 6 MG in SYRINGE 0 ML IV SCH (08:15)
[2021-03-29] MEDS ORDERED: POTASSIUM PHOS 3 MMOL/1 ML INFUSION IV STA (08:17)
--- NOTE | 2021-03-29 08:18 | XRay Report ---
SINGLE VIEW CHEST CLINICAL HISTORY: Respiratory failure. Intubation. FINDINGS: An AP, portable, upright chest radiograph is chest x-ray and chest CT performed earlier the same day 03/28/2021. A right internal jugular central venous catheter has been placed. The tip projec ts over the SVC. An endotracheal tube has been placed. The tip projects approximately 3 cm above the sharona. An enteric tube has been placed. This extends below the diaphragm and the tip is not visualiz ed. The cardiomediastinal silhouette is unremarkable. Multifocal airspace consolidation is unchanged from today's earlier examination. Suspect trace pleural effusions. No pneumothorax is seen. The bony thorax is grossly intact. IMPRESSION: 1. An endotracheal tube, an enteric tube, and a right internal jugular central venous catheter have b een placed as above. 2. Multifocal airspace consolidation is unchanged from today's earlier examination. 3. Suspect trace pleural effusions. ACT 112: Negative or not required by law. Electronically signed by: Jordi Cole M.D. 03/29/2021 8:16 AM
[2021-03-29] MEDS ORDERED: POTASSIUM PHOSPHATE 15 MMOL in SODIUM CHLORIDE 0.9% 250 ML IV ONE (08:30)
[2021-03-29] MEDS ORDERED: FAMOTIDINE 20 MG in SYRINGE 3 ML IV SCH (09:00)
[2021-03-29] MEDS: LEVOTHYROXINE SODIUM 75 MCG in SYRINGE 0 ML IV SCH (09:10)
[2021-03-29 10:46] LABS: BUN Creatinine Ratio 24.3 (10-20); Calcium 8.3 mg/dl (8.5-10.1); Creatinine Clr Calc Pharmacy 93.4 ml/min; Est GFR (African American) 84.1 ml/min; Est GFR (Non-African American) 72.5 ml/min; Potassium 3.8 mmol/L (3.5-5.1)
[2021-03-29 10:56] LABS: Thyroid Stimulating Hormone 0.601 uIu/ml (0.300-4.500)
[2021-03-29] MEDS: SODIUM CHLOR 0.45% + 20MEQ KCL 20 MEQ/1,000 ML BAG IV SCH (11:13)
[2021-03-29] MEDS ORDERED: INSULIN ASPART 100 UNITS/ML 3 ML PEN SC SCH (12:00)
--- NOTE | 2021-03-29 13:49 | Hospitalist Progress Note ---
Date of Service March 29, 2021 Assessment & Plan (1) Acute respiratory failure with hypoxia: (2) Pneumonia due to COVID-19 virus: Plan: 50-year-old for male with PMH of WANDER on CPAP, morbid obesity, depression with anxiety on Lexapro and Abilify and recent diagnosis of Covid on March 18 [signs and symptoms from 3 days prior to diagnosis] presented to the ED 03/28 with complaint of worsening shortness of breath, intermittent fever on and off [last 1 being in the AM of the arrival day--> 101F], cough. She required high flow nasal cannula oxygen at presentation to the ED and pulmonology was consulted. She is being managed for the following under the critical care team: #. Acute respiratory failure with hypoxia: #. Pneumonia due to COVID-19 virus: #. Possible superimposed bacterial infection/PNA Initial positive test on 03/18, sx started 3 days prior. Presents with profound hypoxia requiring high flow via nasal cannula in the ED Pt does not meet criteria for remdesivir given duration of sx Admitting ESR: 126 and admitting CRP: 18.40 Admitting Procal : 3.28 Pt admitted to PCU with Pulm consult, given Toci 03/28, later evening of 03/28 Pt required emergent intubation due to worsening hypoxia. Given h/o fever and elevated procal, patient started on rocephin 03/28 to cover for possible secondary bacterial infection. Currently intubated/sedated/mechanical ventilation. Management per Critical Care Team. #. Metabolic Acidosis Met acidosis (minimal AG elevation), likely 2/2 diarrhea continue to monitor. #. LAURI Baseline Cr 0.8 Admitting BUN/Cr 22 and 1.48 Resolved f/u daily labs. #. Hypokalemia Admitting K3.0 Monitor daily, replace as appropriate #. Hyponatremia Admitting sodium level one thirty-one Resolved #. Hyperglycemia/new DM diagnosis Admitting blood glucose two hundred thirty-one Admitting A1c: 10.5 New diagnosis of diabetes Being managed with insulin drip per critical care hypoglycemia protocol We will discharge with glycemic pharmacist recommendation upon discharge. #. Elevated LFTs Likely secondary to Covid Coming down. #. Other chronic medical problems: WANDER on CPAP at home, depression on Abilify and Lexapro at home, hypothyroidism on levothyroxine #. DVT prophylaxis:Lovenox subcu Dispo: Critical care FULL CODE PCP: Danika Admission and Anticipated Discharge Date Admission Date: March 28, 2021 Subjective Pt was lying in bed, intubated and sedated, was hypoxic and needed emergent intubation yesterday evening and was proned. No further acute events overnight, no requirement of pressor support so far. ROS n/a. Physical Exam Physical Exam: GENERAL: sedated, intubated, mechanically ventilated. HEENT: No pallor, no icterus. Pupils equal, round and reactive to light. Oral mucosa dry. NECK: No JVD, no neck masses. HEART: S1 and S2 heard. Regular rate and rhythm. No murmur, no gallop. RESPIRATORY SYSTEM: Normal AP diameter. No accessory muscle use. very diminished breathsounds. ABDOMEN: Soft, bowel sounds present, nontender, no distention. CENTRAL NERVOUS SYSTEM: patient sedated EXTREMITIES: Trace to 1+ edema, no erythema seen. Results & Data Results & Data ([facility]) Vital Signs (Past 12 Hours) Vital Signs Temp Pulse Pulse Resp BP BP BP 03/29/21 11:00 64 24 99/60 L 03/29/21 10:30 74 03/29/21 10:00 35.1 C L 68 24 103/65 03/29/21 09:30 66 24 102/60 03/29/21 09:00 68 24 101/64 03/29/21 08:31 70 24 102/63 03/29/21 08:01 98 H 24 133/87 03/29/21 08:00 35.0 C L 03/29/21 07:31 71 24 03/29/21 07:30 70 24 106/67 03/29/21 07:00 70 24 101/64 03/29/21 06:30 74 103/62 03/29/21 06:00 73 108/67 03/29/21 05:30 72 107/64 03/29/21 05:00 71 102/68 03/29/21 04:30 84 110/72 03/29/21 04:00 94 H 140/91 03/29/21 03:55 73 22 03/29/21 03:30 77 109/72 03/29/21 03:00 77 75 22 107/67 109/72 123/61 03/29/21 02:50 76 03/29/21 02:40 76 03/29/21 02:31 77 03/29/21 02:00 35 C L 79 77 22 165/103 H 119/60 03/29/21 01:30 80 168/100 H Pulse Ox 03/29/21 11:00 03/29/21 10:30 03/29/21 10:00 03/29/21 09:30 03/29/21 09:00 03/29/21 08:31 03/29/21 08:01 03/29/21 08:00 03/29/21 07:31 91 03/29/21 07:30 91 03/29/21 07:00 91 03/29/21 06:30 91 03/29/21 06:00 03/29/21 05:30 91 03/29/21 05:00 91 03/29/21 04:30 91 03/29/21 04:00 95 03/29/21 03:55 92 03/29/21 03:30 93 03/29/21 03:00 93 03/29/21 02:50 93 03/29/21 02:40 93 03/29/21 02:31 93 03/29/21 02:00 92 03/29/21 01:30 92
--- NOTE | 2021-03-29 14:11 | Pharmacy Report ---
Pharmacy Glycemic Short Note 2 - Date of Service March 29, 2021 - Glycemic Short BSG Results (Last 24 hours): 03/28/21 03/28/21 03/28/21 14:25 18:41 20:23 Glucose 231 H POC Glucose 314 H* 375 H* 03/28/21 03/29/21 03/29/21 23:59 00:01 03:50 Glucose 340 H* POC Glucose 295 H 295 H 03/29/21 03/29/21 03/29/21 06:34 06:45 07:56 Glucose 303 H* POC Glucose 287 H 225 H 03/29/21 03/29/21 03/29/21 09:00 10:05 10:18 Glucose 235 H POC Glucose 229 H 222 H 03/29/21 03/29/21 03/29/21 10:58 12:33 13:12 Glucose POC Glucose 208 H 213 H 186 H OUTPATIENT ANTIDIABETIC REGIMEN: * N/a * A1c 10.5% 03/28 ASSESSMENT: * Patient admitted with COVID-19, currently intubated, sedated with propofol/fentanyl and paralyzed with nimbex * Appears to be newer onset diabetes as patient does not have any diabetic medications listed but A1c of 10.5% * Patient's BSG elevated on arrival, started insulin infusion early this morning as BSGs continued to be elevated throughout the night. * Labs may have shown mild DKA (gap 12.0, Bicarb 19), currently q4 BMP ordered, fluids with potassium at current * Plan to continue current insulin infusion PLAN FOR INPATIENT GLYCEMIC CONTROL: * Continue insulin infusion per protocol.
[2021-03-29 14:53] LABS: BUN Creatinine Ratio 23.4 (10-20); Calcium 8.2 mg/dl (8.5-10.1); Creatinine Clr Calc Pharmacy 94.4 ml/min; Est GFR (African American) 85.2 ml/min; Est GFR (Non-African American) 73.5 ml/min; Potassium 3.8 mmol/L (3.5-5.1)
--- NOTE | 2021-03-29 15:38 | Critical Care Progress Note ---
Date of Service March 29, 2021 Assessment & Plan (1) Acute respiratory failure with hypoxia: Plan: Reason Critically Ill: 50-year-old female undergoing treatment for COVID-19 pneumonia, now with worsening hypoxia requiring emergent intubation. Now on ICU service while mechanically ventilated. Neuro - Sedation: Propofol/fentanyl Depressionhold Lexapro, Abilify for now Cardiac - Currently hemodynamically stable and NSR on monitor Continuous monitor on telemetry Respiratory - Acute hypoxic respiratory failurePF ratio consistent with severe ARDS in the s etting of COVID-19 pneumonia Secondary to multilobar COVID-19 pneumonia COVID-19 PCR positive, positive lymphopenia CRP 18.4 Procalcitonin 3.28 S/p Tocilizumab 03/28/2021 Continue with lung protective ventilation High PEEP, low tidal volume to keep Plateau < 30 with permissive hypercapnea if need be. Monitor ABGs GI - Famotidine twice daily RENAL/LYTES - AKIcreatinine 1.6 with baseline 0.9. -Careful with IV fluid resuscitation as patient is severely hypoxic. Goal of euvolemia -Maintain maps greater than 65 -Renally adjust medications and avoid nephrotoxins -Monitor with routine BMPs. Replete electrolytes as indicated - Foleystrict I's and O's ENDO - --DKA Continue with insulin drip until anion gap closes Decreasing blood glucose no more than 100 in an hour Replace potassium IV when potassium level between 3.3-5.3 BMP every 4 hours ICU hyperglycemic protocol Continue Synthroid for hypothyroidism HEME - H&H stable, monitor routine CBC ID - Patient febrile, positive COVID-19 PCR Procalcitonin elevated at 3.28 --> continue with Rocephin UA is unremarkable cannot rule out possible superimposed pneumonia at this time Continue dexamethasone for COVID-19 pneumonia, patient did receive Tocilizumab --Prophylaxis VTE: Lovenox GI: Pepcid Lines: Right IJ, right radial, positive Hurd Diet: Trickle feeds Plan: In/out: -527, urine output 1525 AB.28/43/85 on PEEP of 12, 50% FiO2 Patient has high anion gap metabolic acidosis likely from elevated beta hydroxybutyrate acid. Patient has been started on insulin drip Continue with electrolyte replacement as needed Patient already got 60 mEq of potassium. 50 mEq potassium phosphate also given. We will supine the patient around 5 PM I have personally spent 37 minutes of critical care time in the direct management of this patient. This is a life/limb threatening event. This includes time spent evaluating patient, direct bedside care, chart review, placing orders, interpretation of diagnostic studies, discussion with consultants, patient, and family members, as well as other required patient management activities. This time is exclusive of all separately billable procedures, and teaching time and separate from and in addition to any other critical care service time. Thank you for allowing us to participate in the care of this patient. Please refer to my attending physician's documentation for any further recommendations. (2) Multifocal pneumonia: (3) Hypothyroidism: (4) Hyperglycemia: (5) LAURI (acute kidney injury): (6) Pneumonia due to COVID-19 virus: (7) Hypokalemia: (8) Hyponatremia: (9) Metabolic acidosis: (10) COVID-19: (11) Depression: (12) Thoracic aortic aneurysm (TAA): (13) DVT prophylaxis: (14) Fatty liver: (15) Obesity: (16) WANDER (obstructive sleep apnea): (17) Elevated LFTs: Admission and Anticipated Discharge Date Admission Date: March 28, 2021 Subjective Patient seen and examined at bedside. Patient is proned. On propofol and fentanyl as well as Nimbex Review of Systems Review of Systems: Unobtainable due to endotracheal tube Physical Exam Physical Exam: Constitutional: No acute distress HEENT: PERRLA, positive ETT Respiratory system: Decreased air entry bilaterally, no wheeze, rhonchi, positive crackles bilaterally CVS: S1-S2 positive, no murmurs or gallops Abdomen: Soft, nontender, nondistended, positive bowel sounds x4, obese Extremities: +2 pulses bilaterally radialis/ dorsalis pedis, no cyanosis, +1 pitting edema Neuro: Sedated and paralyzed Psych: Unable to assess G/U: Positive Hurd Skin: no rashes, warm and dry Lymphatic: no cervical or axillary lymphadenopathy Results & Data Results & Data ([facility]) Vital Signs (Past 12 Hours) Vital Signs Temp Pulse Resp BP Pulse Ox 03/29/21 15:26 36.3 C L 03/29/21 15:00 63 101/58 L 90 03/29/21 14:30 62 97/60 L 89 L 03/29/21 14:00 63 96/60 L 89 L 03/29/21 13:37 64 95/59 L 90 03/29/21 11:00 64 24 99/60 L 92 03/29/21 10:30 74 03/29/21 10:00 35.1 C L 68 24 103/65 91 03/29/21 09:30 66 24 102/60 92 03/29/21 09:00 68 24 101/64 92 03/29/21 08:31 70 24 102/63 91 03/29/21 08:01 98 H 24 133/87 92 03/29/21 08:00 35.0 C L 03/29/21 07:31 71 24 91 03/29/21 07:30 70 24 106/67 91 03/29/21 07:00 70 24 101/64 91 03/29/21 06:30 74 103/62 91 03/29/21 06:00 73 108/67 91 03/29/21 05:30 72 107/64 91 03/29/21 05:00 71 102/68 91 03/29/21 04:30 84 110/72 91 03/29/21 04:00 94 H 140/91 95 03/29/21 03:55 73 22 92 03/29/21 06:34 03/29/21 13:10 Coding Level of Care Code Critical Care 1st 30-74 mins Diagnoses Acute respiratory failure with hypoxia J96.01 Multifocal pneumonia J18.9 Hypothyroidism E03.9 Hyperglycemia R73.9 LAURI (acute kidney injury) N17.9 Pneumonia due to COVID-19 virus U07.1; J12.82 Hypokalemia E87.6 Hyponatremia E87.1 Metabolic acidosis E87.2 COVID-19 U07.1 Depression F32.9 Thoracic aortic aneurysm (TAA) I71.2 DVT prophylaxis Z29.9 Fatty liver K76.0 Obesity E66.9 WANDER (obstructive sleep apnea) G47.33 Elevated LFTs R79.89 Time Spent (min) 37
[2021-03-29] MEDS: fentaNYL DRIP 1,250 MCG/250 ML BAG IV SCH (16:43)
--- NOTE | 2021-03-29 18:45 | XRay Report ---
XR chest 1V portable HISTORY: 50 years-old Female Resp failure acute respiratory failure COMPARISON: Chest radiograph and CTA chest 03/28/2021 TECHNIQUE: Semierect portable AP view of the chest FINDINGS: Endotracheal tube overlies the midline, 2.3 cm superior to the sharona. Right IJ central venous cathet er and enteric tube appear unchanged. No pneumothorax or large pleural effusion. Extensive left great er than right bilateral airspace opacities. No pneumothorax. No acute fracture. IMPRESSION: 1. Lines and tubes as above. 2. Unchanged extensive bilateral airspace opacities compatible with multifocal pneumonia. ACT 112: Negative or not required by law. The above report was generated using voice recognition software. It may contain grammatical, syntax o r spelling errors. Electronically signed by: Dex Encinas M.D. 03/29/2021 6:44 PM
[2021-03-29 19:02] LABS: BUN Creatinine Ratio 22.9 (10-20); Calcium 7.7 mg/dl (8.5-10.1); Creatinine Clr Calc Pharmacy 86.7 ml/min; Est GFR (African American) 76.9 ml/min; Est GFR (Non-African American) 66.3 ml/min; Potassium 3.7 mmol/L (3.5-5.1)
[2021-03-29] MEDS: cefTRIAXone SODIUM 2,000 MG in DEXTROSE 5% 50 ML IV SCH (20:13)
[2021-03-30 00:03] LABS: Calcium 7.9 mg/dl (8.5-10.1); Creatinine Clr Calc Pharmacy 101.2 ml/min; Est GFR (African American) 92.6 ml/min; Est GFR (Non-African American) 79.9 ml/min; Potassium 3.4 mmol/L (3.5-5.1)
[2021-03-30] MEDS: CISATRACURIUM BESYLATE 40 MG in 0.9 % SODIUM CHLORIDE 80 ML IV SCH ×5 (01:29→22:18)
[2021-03-30] MEDS: POTASSIUM CHLORIDE / WTR 20 MEQ/100 ML PLCT IV SCH ×3 (01:45→05:54)
[2021-03-30] MEDS: ARTIFICIAL TEARS OP OINT 3.5 GM TUBE OP SCH ×6 (02:34→21:50)
[2021-03-30] MEDS: propofoL 1,000 MG/100 ML VIAL IV SCH ×12 (02:48→23:40)
[2021-03-30 04:43] LABS: iSTAT Art Bld Gas pCO2 Correct 38 mmHg (35-46); iSTAT Art Bld Gas pH Corrected 7.397 (7.35-7.45); iSTAT Arterial Blood Gas HCO3 23 meg/L (19-24); iSTAT Arterial Blood Gas pCO2 40 mmHg (35-46); iSTAT Arterial Blood Gas pH 7.38 (7.35-7.45); iSTAT Arterial Blood Gas pO2 68 mmHg (80-95); iSTAT Arterial Blood Gas pO2 C 62; iSTAT Carbon Dioxide 25 mmol/L (24-31); iSTAT FiO2 60 %; iSTAT Hematocrit 34 % (37-47); iSTAT Hemoglobin 11.6 g/dl (12.0-16.0); iSTAT Potassium 4.1 mmol/L (3.3-5.0); iSTAT Site Art Line; iSTAT Sodium 144 mmol/L (135-144)
[2021-03-30] MEDS: SODIUM CHLOR 0.45% + 20MEQ KCL 20 MEQ/1,000 ML BAG IV SCH ×2 (06:03→23:40)
--- NOTE | 2021-03-30 06:07 | Electrocardiogram Report ---
Test Reason : Blood Pressure : / mmHG Vent. Rate : 103 BPM Atrial Rate : 103 BPM P-R Int : 132 ms QRS Dur : 094 ms QT Int : 354 ms P-R-T Axes : 043 019 017 degrees QTc Int : 463 ms Sinus tachycardia Nonspecific ST abnormality Abnormal ECG When compared with ECG of 19-MAR-2021 14:34, No significant change was found Confirmed by Chema Sadler ([id number]) on 03/30/2021 6:06:30 AM Referred By: REFERRED SELF Confirmed By:Chema Sadler
[2021-03-30 06:38] LABS: Basophils # (auto) 0.01 K/uL (0-0.2); Basophils % (auto) 0.1 %; Hematocrit (blood only) 35.9 % (37-47); Immature Granulocytes # (auto) 0.04 K/uL (0.00-0.02); Immature Granulocytes % (auto) 0.5 %; Lymphocytes # (auto) 0.64 K/uL (1.2-3.4); Lymphocytes % (auto) 8.3 %; Mean Corpuscular Hemoglobin 29.6 pg (25-34); Mean Corpuscular Hgb Conc 33.4 g/dL (32-36); Mean Corpuscular Volume 88.6 fL (80-100); Mean Platelet Volume 9.8 fL (7.4-10.4); Monocytes # (auto) 0.43 K/uL (0.11-0.59); Monocytes % (auto) 5.6 %; Neutrophils # (auto) 6.59 K/uL (1.4-6.5); Neutrophils % (auto) 85.5 %; Platelet Count 307 K/uL (130-400); RDW Coefficient of Variation 14.7 % (11.5-14.5); RDW Standard Deviation 47.7 fL (36.4-46.3); Red Blood Count 4.05 M/uL (4.2-5.4); White Blood Count 7.71 K/uL (4.8-10.8)
[2021-03-30] MEDS: NOREPINEPHRINE/D5W 8 MG/508 ML BAG IV SCH ×2 (06:40→15:14)
[2021-03-30 07:24] LABS: BUN Creatinine Ratio 24.2 (10-20); Creatinine Clr Calc Pharmacy 112.2 ml/min; Est GFR (African American) 102.9 ml/min; Est GFR (Non-African American) 88.8 ml/min; Magnesium 2.5 mg/dl (1.8-2.4); Potassium 4.4 mmol/L (3.5-5.1)
[2021-03-30] MEDS ORDERED: FUROSEMIDE 40 MG in SYRINGE 0 ML IV ONE (07:58)
[2021-03-30] MEDS ORDERED: FUROSEMIDE 40 MG/4 ML VIAL IV ONE ×2 (08:00→19:00)
[2021-03-30] MEDS: dexAMETHasone 6 MG in SYRINGE 0 ML IV SCH (08:13)
[2021-03-30] MEDS: FAMOTIDINE 20 MG in SYRINGE 3 ML IV SCH ×3 (08:13→21:49)
[2021-03-30] MEDS: INSULIN ASPART 100 UNITS/ML 3 ML PEN SC SCH ×4 (08:40→19:52)
[2021-03-30] MEDS ORDERED: CISATRACURIUM BESYLATE 40 MG in DEXTROSE 5% 80 ML IV ONE (09:15)
[2021-03-30] MEDS: ENOXAPARIN INJ 40 MG/0.4 ML SYR SQ SCH ×2 (09:38→21:49)
[2021-03-30] MEDS: INSULIN REGULAR 250 UNITS in SODIUM CHLORIDE 0.9% 247.5 ML IV SCH ×2 (11:18→23:07)
[2021-03-30] MEDS ORDERED: INSULIN REGULAR 250 UNITS in SODIUM CHLORIDE 0.9% 247.5 ML IV SCH (11:30)
--- NOTE | 2021-03-30 12:02 | Critical Care Progress Note ---
Date of Service March 30, 2021 Assessment & Plan (1) Acute respiratory failure with hypoxia: Plan: Reason Critically Ill: 50-year-old female undergoing treatment for COVID-19 pneumonia, now with worsening hypoxia requiring emergent intubation. Now on ICU service while mechanically ventilated. Neuro - Sedation: Propofol/fentanyl Paralytics: Nimbex Depressionhold Lexapro, Abilify for now Cardiac - Currently hemodynamically stable and NSR on monitor Continuous monitor on telemetry Respiratory - Acute hypoxic respiratory failurePF ratio consistent with severe ARDS in the setting of COVID-19 pneumonia Secondary to multilobar COVID-19 pneumonia COVID-19 PCR positive, positive lymphopenia CRP 18.4 Procalcitonin 3.28 S/p Tocilizumab 03/28/2021 Continue with lung protective ventilation High PEEP, low tidal volume to keep Plateau < 30 with permissive hypercapnea if need be. Monitor ABGs GI - Famotidine twice daily RENAL/LYTES - AKIcreatinine 1.6 with baseline 0.9. -Careful with IV fluid resuscitation as patient is severely hypoxic. Goal of euvolemia -Maintain maps greater than 65 -Renally adjust medications and avoid nephrotoxins -Monitor with routine BMPs. Replete electrolytes as indicated - Foleystrict I's and O's ENDO - --DKA Continue with insulin drip until anion gap closes Decreasing blood glucose no more than 100 in an hour Replace potassium IV when potassium level between 3.3-5.3 BMP every 4 hours ICU hyperglycemic protocol Continue Synthroid for hypothyroidism HEME - H&H stable, monitor routine CBC ID - Patient febrile, positive COVID-19 PCR Procalcitonin elevated at 3.28 --> continue with Rocephin UA is unremarkable cannot rule out possible superimposed pneumonia at this time Continue dexamethasone for COVID-19 pneumonia, patient did receive Tocilizumab --Prophylaxis VTE: Lovenox GI: Pepcid Lines: Right IJ, right radial, positive Hurd Diet: Trickle feeds Plan: In/out: +2070, urine output 1320 AB.38/40/68 on 60%, PEEP of 10 We will give 40 mg of Lasix today. Start the patient on trickle feeds We will DC the paralytic once the patient is supine Continue with insulin drip for the time being. Continue with antibiotics for 5 days I was present at bedside when the patient was supined I have personally spent 45 minutes of critical care time in the direct management of this patient. This is a life/limb threatening event. This includes time spent evaluating patient, direct bedside care, chart review, placing orders, interpretation of diagnostic studies, discussion with consultants, patient, and family members, as well as other required patient management activities. This time is exclusive of all separately billable procedures, and teaching time and separate from and in addition to any other critical care service time. Thank you for allowing us to participate in the care of this patient. Please refer to my attending physician's documentation for any further recommendations. (2) Multifocal pneumonia: (3) Hypothyroidism: (4) Hyperglycemia: (5) LAURI (acute kidney injury): (6) Pneumonia due to COVID-19 virus: (7) Hypokalemia: (8) Hyponatremia: (9) Metabolic acidosis: (10) COVID-19: (11) Depression: (12) Thoracic aortic aneurysm (TAA): (13) DVT prophylaxis: (14) Fatty liver: (15) Obesity: (16) WANDER (obstructive sleep apnea): (17) Elevated LFTs: Admission and Anticipated Discharge Date Admission Date: March 28, 2021 Subjective Patient seen and examined at bedside. No acute distress. No episode overnight Patient is on 35 propofol, 125 fentanyl. Diuresing well Has been afebrile Patient was prone during examination Patient was on PEEP of 10, FiO2 50% saturating 94%. Review of Systems Review of Systems: Unobtainable due to endotracheal tube Physical Exam Physical Exam: Constitutional: No acute distress HEENT: PERRLA, positive ETT Respiratory system: Decreased air entry bilaterally, no wheeze, rhonchi, positive crackles bilaterally CVS: S1-S2 positive, no murmurs or gallops Abdomen: Soft, nontender, nondistended, positive bowel sounds x4, obese Extremities: +2 pulses bilaterally radialis/ dorsalis pedis, no cyanosis, +1 pitting edema Neuro: Sedated and paralyzed Psych: Unable to assess G/U: Positive Hurd Skin: no rashes, warm and dry Lymphatic: no cervical or axillary lymphadenopathy Results & Data Results & Data ([facility]) Vital Signs (Past 12 Hours) Vital Signs Temp Pulse Pulse Resp BP BP BP 03/30/21 11:00 36.2 C L 64 24 93/57 L 03/30/21 10:00 36.1 C L 77 24 116/68 03/30/21 09:00 36.0 C L 75 24 104/61 03/30/21 08:00 70 104/61 03/30/21 07:55 76 110/67 03/30/21 07:15 64 24 03/30/21 07:00 56 L 119/76 03/30/21 05:00 59 L 24 98/48 L 03/30/21 04:00 35.7 C L 69 62 24 100/48 L 106/50 L 03/30/21 03:36 69 24 03/30/21 02:58 65 24 105/51 L 03/30/21 02:00 35.6 C L 68 24 143/84 H 03/30/21 01:15 64 24 127/75 106/51 L 03/30/21 00:00 35.8 C L 66 24 102/46 L Pulse Ox 03/30/21 11:00 96 03/30/21 10:00 97 03/30/21 09:00 94 03/30/21 08:00 97 03/30/21 07:55 97 03/30/21 07:15 90 03/30/21 07:00 94 03/30/21 05:00 93 03/30/21 04:00 90 03/30/21 03:36 91 03/30/21 02:58 92 03/30/21 02:00 97 03/30/21 01:15 95 03/30/21 00:00 89 L 03/30/21 06:18 03/30/21 06:18 Coding Level of Care Code Critical Care 1st 30-74 mins Diagnoses Acute respiratory failure with hypoxia J96.01 Multifocal pneumonia J18.9 Hypothyroidism E03.9 Hyperglycemia R73.9 LAURI (acute kidney injury) N17.9 Pneumonia due to COVID-19 virus U07.1; J12.82 Hypokalemia E87.6 Hyponatremia E87.1 Metabolic acidosis E87.2 COVID-19 U07.1 Depression F32.9 Thoracic aortic aneurysm (TAA) I71.2 DVT prophylaxis Z29.9 Fatty liver K76.0 Obesity E66.9 WANDER (obstructive sleep apnea) G47.33 Elevated LFTs R79.89 Time Spent (min) 45
--- NOTE | 2021-03-30 13:15 | Pharmacy Report ---
Pharmacy Glycemic Short Note 2 - Date of Service March 30, 2021 - Glycemic Short BSG Results (Last 24 hours): 03/29/21 03/29/21 03/29/21 13:10 13:12 14:10 Glucose 198 H POC Glucose 186 H 209 H 03/29/21 03/29/21 03/29/21 15:01 16:04 17:01 Glucose POC Glucose 184 H 163 H 163 H 03/29/21 03/29/21 03/29/21 18:29 18:54 20:54 Glucose 172 H POC Glucose 156 H 143 H 03/29/21 03/29/21 03/30/21 23:18 23:31 00:10 Glucose 132 H POC Glucose 115 H 141 H 03/30/21 03/30/21 03/30/21 01:07 02:07 02:57 Glucose POC Glucose 126 H 116 H 115 H 03/30/21 03/30/21 03/30/21 04:02 05:07 05:59 Glucose POC Glucose 95 116 H 102 H 03/30/21 03/30/21 03/30/21 06:18 06:51 08:05 Glucose 116 H POC Glucose 108 H 101 H 03/30/21 03/30/21 03/30/21 09:25 10:12 11:05 Glucose POC Glucose 120 H 152 H 186 H 03/30/21 12:07 Glucose POC Glucose 190 H OUTPATIENT ANTIDIABETIC REGIMEN: * N/a * A1c 10.5% 03/28 ASSESSMENT: 03/30 * Patient continues to be sedated with propofol/fentanyl, continued nimbex- plan to wean off later today after patient is supine * Patient also started on trickle feeds with plans to increase after nimbex is d/c, set carb ratio at 1:5. * BSGs did trend downward overnight, empirically reduced rate to 1.3 units/hr after BSG of 101 this morning, patient received dexamethasone and BSGs are trending upward again with subsequent increase in insulin infusion. Will consider possible transition off later tonight or tomorrow morning depending on if nimbex able to be discontinued/control with tube feed increases. 03/29 * Patient admitted with COVID-19, currently intubated, sedated with propofol/fentanyl and paralyzed with nimbex * Appears to be newer onset diabetes as patient does not have any diabetic medications listed but A1c of 10.5% * Patient's BSG elevated on arrival, started insulin infusion early this morning as BSGs continued to be elevated throughout the night. * Labs may have shown mild DKA (gap 12.0, Bicarb 19), currently q4 BMP ordered, fluids with potassium at current * Plan to continue current insulin infusion PLAN FOR INPATIENT GLYCEMIC CONTROL: * Continue insulin infusion per protocol.
[2021-03-30] MEDS: fentaNYL DRIP 1,250 MCG/250 ML BAG IV SCH ×4 (13:45→23:43)
[2021-03-30 13:51] LABS: Creatinine Clr Calc Pharmacy 100.5 ml/min; Est GFR (Non-African American) 77.7 ml/min; Potassium 4.5 mmol/L (3.5-5.1)
[2021-03-30] MEDS: PROPOFOL BOLUS FROM BAG IV PRN ×3 (14:27→21:10)
--- NOTE | 2021-03-30 14:33 | Hospitalist Progress Note ---
Date of Service March 30, 2021 Assessment & Plan (1) Acute respiratory failure with hypoxia: (2) Pneumonia due to COVID-19 virus: Plan: 50-year-old for male with PMH of WANDER on CPAP, morbid obesity, depression with anxiety on Lexapro and Abilify and recent diagnosis of Covid on March 18 [signs and symptoms from 3 days prior to diagnosis] presented to the ED 03/28 with complaint of worsening shortness of breath, intermittent fever on and off [last 1 being in the AM of the arrival day--> 101F], cough. She required high flow nasal cannula oxygen at presentation to the ED and pulmonology was consulted. She is being managed for the following under the critical care team: #. Acute respiratory failure with hypoxia: #. Pneumonia due to COVID-19 virus: #. Possible superimposed bacterial infection/PNA Not vaccinated for COVID-19 Initial positive test on 03/18, sx started 3 days prior. Presents with profound hypoxia requiring high flow via nasal cannula in the ED Pt does not meet criteria for remdesivir given duration of sx Admitting ESR: 126 and admitting CRP: 18.40 Admitting procalcitonin: 3.28 Pt admitted to PCU with Pulm consult, given Tocilizumab 03/28, later evening of 03/28 Pt required emergent intubation due to worsening hypoxia. Given h/o fever and elevated procal, patient started on rocephin 03/28 to cover for possible secondary bacterial infection. We'll start intravenous doxycycline as well to cover possible atypical organism Currently intubated/sedated/mechanical ventilation. Management per Critical Care Team. Remains stable #. Metabolic Acidosis Met acidosis (minimal AG elevation), likely 2/2 diarrhea continue to monitor. #. LAURI Baseline Cr 0.8 Admitting BUN/Cr 22 and 1.48 Resolved f/u daily labs. #. Hypokalemia Admitting K3.0 Monitor daily, replace as appropriate #. Hyponatremia Admitting sodium level one thirty-one Resolved #. Hyperglycemia/new DM diagnosis Admitting blood glucose two hundred thirty-one Admitting A1c: 10.5 New diagnosis of diabetes Being managed with insulin drip per critical care hypoglycemia protocol We will discharge with glycemic pharmacist recommendation upon discharge. #. Elevated LFTs Likely secondary to Covid Coming down. #. Other chronic medical problems: WANDER on CPAP at home, depression on Abilify and Lexapro at home, hypothyroidism on levothyroxine #. DVT prophylaxis:Lovenox subcu Dispo: Critical care FULL CODE PCP: Danika Admission and Anticipated Discharge Date Admission Date: March 28, 2021 Subjective 03/30/2021 The patient was seen and examined in telemetry unit She remains intubated and sedated Has been in prone position and requiring 60 L of oxygen to maintain saturation Review of Systems Review of Systems: Unobtainable due to endotracheal tube Physical Exam Physical Exam: Lying in bed sedated on mechanical ventilator Constitutional: well developed, well nourished, + ill appearing and + obese Eyes: PERRL, conjunctivae normal, anicteric sclerae ENMT: external ear and nose normal, oropharynx normal Neck: trachea midline, no thyromegaly Respiratory: no respiratory distress Auscultation: + crackles (Minimal crackles bilaterally on dependent area) Cardiovascular: Rate/Rhythm: regular rate and regular rhythm; not tachycardic Heart Sounds: normal S1 and normal S2; no murmur Extremities: + edema (Trace edema bilaterally) Musculoskeletal: No acute arthritis in any joint Neurologic: Remains sedated on mechanical ventilator Results & Data Results & Data ([facility]) Vital Signs (Past 12 Hours) Vital Signs Temp Pulse Pulse Resp BP BP Pulse Ox 03/30/21 12:00 36.2 C L 60 24 96/57 L 95 03/30/21 11:42 61 24 95 03/30/21 11:00 36.2 C L 64 24 93/57 L 96 03/30/21 10:00 36.1 C L 77 24 116/68 97 03/30/21 09:00 36.0 C L 75 24 104/61 94 03/30/21 08:00 70 104/61 97 03/30/21 07:55 76 110/67 97 03/30/21 07:15 64 24 90 03/30/21 07:00 56 L 119/76 94 03/30/21 05:00 59 L 24 98/48 L 93 03/30/21 04:00 35.7 C L 69 62 24 100/48 L 106/50 L 90 03/30/21 03:36 69 24 91 03/30/21 02:58 65 24 105/51 L 92 Laboratory Results Short CBC 03/30/21 Range/Units 06:18 WBC 7.71 (4.8-10.8) K/uL Hgb 12.0 (12.0-16.0) g/dL Hct 35.9 L (37-47) % Plt Count 307 (130-400) K/uL BMP 03/29/21 03/29/21 03/29/21 13:10 18:29 23:31 Sodium 140 141 138 Potassium 3.8 3.7 3.4 L Chloride 109 H 111 H 111 H Carbon Dioxide 21 23 24 BUN 21 H 22 H 21 H Creatinine 0.90 0.98 0.84 Glucose 198 H 172 H 132 H Calcium 8.2 L 7.7 L 7.9 L 03/30/21 03/30/21 06:18 13:10 Sodium 139 140 Potassium 4.4 D 4.5 Chloride 113 H 111 H Carbon Dioxide 24 15 L BUN 19 H 20 H Creatinine 0.77 0.86 Glucose 116 H 218 H Calcium 8.0 L 8.0 L Medications Administered Current Inpatient Medications Aripiprazole (Aripiprazole 10 Mg Tab) 20 mg PO QPM JOSELO Stop: 04/27/21 20:59 Last Admin: 03/29/21 00:31 Dose: Not Given Documented by: Dextrose (Dextrose 50% 50 Ml Syringe) 25 - 50 ml IV UD PRN; Protocol PRN Reason: Hypoglycemia Protocol Stop: 04/27/21 18:26 Enoxaparin Sodium (Enoxaparin Inj 40 Mg/0.4 Ml Syr) 40 mg SQ Q12H JOSELO Stop: 04/27/21 21:59 Last Admin: 03/30/21 09:38 Dose: 40 mg Documented by: Escitalopram Oxalate (Escitalopram Oxalate 20 Mg Tab) 20 mg PO QPM JOSELO Stop: 04/27/21 20:59 Last Admin: 03/29/21 00:31 Dose: Not Given Documented by: Fentanyl Citrate (Fentanyl Bolus From Bag) 50 mcg IV Q60M PRN PRN Reason: Pain or Agitation Stop: 04/11/21 21:51 Last Admin: 03/30/21 14:27 Dose: 50 mcg Documented by: Glucagon (Glucagon For Inj 1 Mg Vial) 1 mg SQ UD PRN; Protocol PRN Reason: Hypoglycemia Protocol Stop: 04/27/21 18:26 Glucose (Glucose 10 Tabs/Tube) 4 - 8 tabs PO UD PRN; Protocol PRN Reason: Hypoglycemia Protocol Stop: 04/27/21 18:26 Glucose (Glucose 40% Gel 15 Gm Tube) 15 - 30 gm PO UD PRN; Protocol PRN Reason: Hypoglycemia Protocol Stop: 04/27/21 18:26 Dexamethasone 6 mg/ Syringe 1.5 mls @ 1 mls/min IV DAILY JOSELO Stop: 04/08/21 08:59 Last Admin: 03/30/21 08:13 Dose: 1 mls/min Documented by: Ceftriaxone Sodium 2,000 mg/ (Dextrose) 70 mls @ 140 mls/hr IV Q24H JOSELO; Protocol Stop: 04/04/21 19:59 Last Infusion: 03/29/21 20:43 Dose: Infused Documented by: Cisatracurium Besylate 40 mg/ (Sodium Chloride) 100 mls @ 25.65 mls/hr IV .Q3H54M JOSELO; Protocol Stop: 04/27/21 21:59 Last Titration: 03/30/21 07:59 Dose: 3 mcg/kg/min, 25.7 mls/hr Documented by: Propofol (Diprivan) 1,000 mg in 100 mls @ 32.751 mls/hr IV .Q3H4M JOSELO; Protocol Stop: 03/31/21 21:59 Last Admin: 03/30/21 11:47 Dose: 45 mcg/kg/min, 32.8 mls/hr Documented by: Fentanyl Citrate (Fentanyl Drip) 1,250 mcg in 250 mls @ 30 mls/hr IV .Q8H20M JOSELO; Protocol Stop: 04/11/21 21:59 Last Admin: 03/30/21 13:45 Dose: 150 mcg/hr, 30 mls/hr Documented by: Famotidine 20 mg/ Syringe 5 mls @ 2.5 mls/min IV BID JOSELO Stop: 04/28/21 08:59 Last Admin: 03/30/21 08:27 Dose: 2.5 mls/min Documented by: Levothyroxine Sodium 75 mcg/ (Syringe) 3.75 mls @ 1.875 mls/min IV Q72H JOSELO; Protocol Stop: 04/28/21 08:59 Last Admin: 03/29/21 09:10 Dose: 1.875 mls/min Documented by: Insulin Human Regular 250 (units/ Sodium Chloride) 250 mls @ 2.8 mls/hr IV .Q24H REPLACED BY [facility]; Protocol Stop: 04/28/21 04:44 Last Titration: 03/30/21 13:19 Dose: 2.8 units/hr, 2.8 mls/hr Documented by: Potassium Chloride/Sodium Chloride (1/2 Nss + 20meq Kcl 1000ml) 20 meq in 1,000 mls @ 50 mls/hr IV .Q20H JOSELO Stop: 04/28/21 10:44 Last Admin: 03/30/21 06:03 Dose: 50 mls/hr Documented by: Norepinephrine Bitartrate (Levophed/D5w) 8 mg in 508 mls @ 22.67 mls/hr IV .[id number] REPLACED BY [facility]; Protocol Stop: 04/28/21 19:29 Last Admin: 03/30/21 06:40 Dose: Not Given Documented by: Insulin Aspart (Insulin Aspart 100 Units/Ml 3 Ml Pen) 0 units SC Q4 REPLACED BY [facility] Stop: 04/28/21 07:29 Miscellaneous (Carbohydrates For Hypoglycemia ) 15 - 30 gm PO UD PRN PRN Reason: Hypoglycemia Protocol Stop: 04/27/21 18:26 Miscellaneous Information (Pharmacy Glycemic Mgmt Consult) 1 ea N/A UD PRN; Protocol PRN Reason: Consult Stop: 04/27/21 18:26 Multi-Ingredient Cream (Artificial Tears Op Oint 3.5 Gm Tube) 1 appln OP Q4H REPLACED BY [facility] Stop: 04/27/21 21:59 Last Admin: 03/30/21 13:20 Dose: 1 appln Documented by: Nutritional Formula (Peptamen Intense Vhp 1.0 Davis 1,000 Ml Bag) 1,000 ml [place] [place]; Protocol Stop: 04/29/21 12:59 Ondansetron HCl (Ondansetron Inj 2 Mg/Ml 2 Ml Vial) 4 mg IV Q6H PRN PRN Reason: Nausea Stop: 04/27/21 18:26 Propofol (Propofol Bolus From Bag) 20 mg IV Q5M PRN PRN Reason: Sedation Stop: 03/31/21 21:51 Last Admin: 03/30/21 14:27 Dose: 20 mg Documented by: Sterile Water (Tube Feeding Water Flush) 30 ml OG Q4H REPLACED BY [facility] Stop: 04/29/21 12:59
--- NOTE | 2021-03-30 15:27 | XRay Report ---
XR chest 1V portable CLINICAL HISTORY: Resp failure COMPARISON STUDY: March 21, 2021 FINDINGS: No pneumothorax. No pleural effusion. Patchy airspace opacities are again seen bilaterally, slightly worsened since prior. Cardiomediastinal silhouette is within normal limits in size. May vasculature is obscured.. Osseous structures: Degenerative changes of the spine. Tip of endotracheal tube is seen projecting 5.4 cm above sharona. Stable position of right-sided IJ venous catheter and gastric tube. IMPRESSION: 1. Mild interval worsening of multifocal pneumonia. 2. Tip of endotracheal tube is seen projecting 5.4 cm above sharona. The rest of support apparatus as above. ACT 112: Negative or not required by law. The above report was generated using voice recognition software. It may contain grammatical, syntax o r spelling errors. Electronically signed by: Suze Francis DO 03/30/2021 3:25 PM
[2021-03-30] MEDS: TUBE FEEDING WATER FLUSH OG SCH ×3 (15:40→21:42)
[2021-03-30 17:41] LABS: BUN Creatinine Ratio 20.1 (10-20); Creatinine Clr Calc Pharmacy 78.5 ml/min; Est GFR (African American) 66.8 ml/min; Est GFR (Non-African American) 57.7 ml/min; Potassium 4.6 mmol/L (3.5-5.1)
[2021-03-30] MEDS ORDERED: FUROSEMIDE 20 MG in SYRINGE 0 ML IV ONE (19:00)
[2021-03-30] MEDS: cefTRIAXone SODIUM 2,000 MG in DEXTROSE 5% 50 ML IV SCH (21:38)
[2021-03-30 22:13] LABS: BUN Creatinine Ratio 19.9 (10-20); Creatinine Clr Calc Pharmacy 74.5 ml/min; Est GFR (African American) 62.7 ml/min; Est GFR (Non-African American) 54.1 ml/min; Potassium 4.4 mmol/L (3.5-5.1)
[2021-03-31] MEDS: INSULIN ASPART 100 UNITS/ML 3 ML PEN SC SCH ×6 (00:08→20:10)
[2021-03-31] MEDS: CISATRACURIUM BESYLATE 40 MG in 0.9 % SODIUM CHLORIDE 80 ML IV SCH ×6 (01:03→20:10)
[2021-03-31] MEDS: TUBE FEEDING WATER FLUSH OG SCH ×6 (01:09→20:57)
[2021-03-31] MEDS: ARTIFICIAL TEARS OP OINT 3.5 GM TUBE OP SCH ×6 (01:10→21:10)
[2021-03-31 01:42] LABS: BUN Creatinine Ratio 21.3 (10-20); Calcium 7.7 mg/dl (8.5-10.1); Creatinine Clr Calc Pharmacy 82.3 ml/min; Est GFR (African American) 70.7 ml/min; Potassium 3.9 mmol/L (3.5-5.1)
[2021-03-31] MEDS: PROPOFOL BOLUS FROM BAG IV PRN ×5 (02:00→19:45)
[2021-03-31] MEDS: propofoL 1,000 MG/100 ML VIAL IV SCH ×9 (02:25→20:09)
[2021-03-31] MEDS: DEXTROSE 50% 50 ML SYRINGE IV PRN (04:13)
[2021-03-31] MEDS: fentaNYL DRIP 1,250 MCG/250 ML BAG IV SCH ×8 (05:01→21:32)
[2021-03-31 05:21] LABS: iSTAT Art Bld Gas pCO2 Correct 44 mmHg (35-46); iSTAT Art Bld Gas pH Corrected 7.383 (7.35-7.45); iSTAT Arterial Blood Gas HCO3 26 meg/L (19-24); iSTAT Arterial Blood Gas pCO2 44 mmHg (35-46); iSTAT Arterial Blood Gas pH 7.38 (7.35-7.45); iSTAT Arterial Blood Gas pO2 52 mmHg (80-95); iSTAT Arterial Blood Gas pO2 C 52; iSTAT Carbon Dioxide 27 mmol/L (24-31); iSTAT FiO2 50 %; iSTAT Hematocrit 34 % (37-47); iSTAT Hemoglobin 11.6 g/dl (12.0-16.0); iSTAT Site L Radial; iSTAT Sodium 144 mmol/L (135-144)
[2021-03-31 06:49] LABS: Hematocrit (blood only) 36.7 % (37-47); Hemoglobin 12.1 g/dL (12.0-16.0); Mean Corpuscular Hemoglobin 29.2 pg (25-34); Mean Corpuscular Volume 88.4 fL (80-100); Mean Platelet Volume 9.5 fL (7.4-10.4); Platelet Count 489 K/uL (130-400); RDW Coefficient of Variation 15.4 % (11.5-14.5); RDW Standard Deviation 49.8 fL (36.4-46.3); Red Blood Count 4.15 M/uL (4.2-5.4); White Blood Count 10.07 K/uL (4.8-10.8)
[2021-03-31 07:08] LABS: Basophils # (auto) 0.01 K/uL (0-0.2); Basophils % (auto) 0.1 %; Eosinophils # (auto) 0.02 K/uL (0-0.5); Eosinophils % (auto) 0.2 %; Immature Granulocytes # (auto) 0.18 K/uL (0.00-0.02); Immature Granulocytes % (auto) 1.8 %; Lymphocytes % (auto) 13.9 %; Monocytes # (auto) 0.34 K/uL (0.11-0.59); Monocytes % (auto) 3.4 %; Neutrophils # (auto) 8.12 K/uL (1.4-6.5); Neutrophils % (auto) 80.6 %
[2021-03-31 07:38] LABS: Albumin Globulin Ratio 0.5 (0.9-2); Albumin Level 2.1 gm/dl (3.4-5.0); BUN Creatinine Ratio 22.4 (10-20); Bilirubin,Total 0.5 mg/dl (0.2-1); C Reactive Protein 5.69 mg/dl (0-0.29); Calcium 7.8 mg/dl (8.5-10.1); Creatinine Clr Calc Pharmacy 84.5 ml/min; Est GFR (African American) 72.4 ml/min; Est GFR (Non-African American) 62.5 ml/min; Globulin 4.4 gm/dl (2.5-4.0); Magnesium 2.1 mg/dl (1.8-2.4); Phosphorus 3.1 mg/dl (2.5-4.9); Potassium 4.1 mmol/L (3.5-5.1); Total Protein 6.5 gm/dl (6.4-8.2)
[2021-03-31] MEDS: FAMOTIDINE 20 MG in SYRINGE 3 ML IV SCH ×2 (08:12→20:58)
[2021-03-31] MEDS: dexAMETHasone 6 MG in SYRINGE 0 ML IV SCH (08:13)
--- NOTE | 2021-03-31 08:15 | XRay Report ---
XR chest 1V portable HISTORY: 50 years-old Female Resp failure acute respiratory failure COMPARISON: Chest radiograph 03/30/2021, CTA chest 03/28/2021 TECHNIQUE: Portable AP view of the chest FINDINGS: Endotracheal tube overlies the midline, 3.2 cm superior to the sharona. Right IJ central venous cathet er distal tip is noted within the distribution of the upper SVC. Enteric tube courses below the diaph ragm outside the [id number]. Cardiomediastinal and hilar silhouettes are unchanged. Multifocal matt ateral airspace opacities redemonstrated, stable to mildly improved. No large pleural effusion. No ac larry fracture. IMPRESSION: 1. Lines and tubes as above. 2. Extensive bilateral pulmonary opacities compatible with multifocal pneumonia appear stable to mild ly improved. ACT 112: Negative or not required by law. The above report was generated using voice recognition software. It may contain grammatical, syntax o r spelling errors. Electronically signed by: Dex Encinas M.D. 03/31/2021 8:13 AM
[2021-03-31] MEDS ORDERED: FUROSEMIDE 40 MG/4 ML VIAL IV ONE ×2 (10:01→18:15)
[2021-03-31] MEDS: ENOXAPARIN INJ 40 MG/0.4 ML SYR SQ SCH ×2 (10:07→21:02)
[2021-03-31] MEDS: FUROSEMIDE 40 MG in SYRINGE 0 ML IV SCH ×2 (10:11→21:02)
[2021-03-31] MEDS ORDERED: STAT IV Infusion **Titration per Protocol STA ×2 (10:22→22:09)
[2021-03-31 10:58] LABS: BUN Creatinine Ratio 24.2 (10-20); Creatinine Clr Calc Pharmacy 86.2 ml/min; Est GFR (African American) 74.1 ml/min; Potassium 4.4 mmol/L (3.5-5.1)
[2021-03-31] MEDS ORDERED: INSULIN GLARGINE SOLOSTAR 100 UNITS/ML 3 ML PEN SC ONE ×2 (11:00)
[2021-03-31] MEDS: MIDAZOLAM HCL 125 MG/250 ML BAG IV SCH (11:07)
[2021-03-31] MEDS: MIDAZOLAM BOLUS FROM BAG IV PRN ×6 (11:08→22:33)
[2021-03-31] MEDS: SENNOSIDES 8.8 MG/5 ML UDC PO SCH (12:14)
[2021-03-31] MEDS: DOCUSATE SODIUM SYRUP 100 MG/10 ML UDC NG SCH ×2 (12:14→20:58)
[2021-03-31 14:50] LABS: BUN Creatinine Ratio 21.6 (10-20); Calcium 7.8 mg/dl (8.5-10.1); Creatinine Clr Calc Pharmacy 82.1 ml/min; Est GFR (African American) 69.9 ml/min; Est GFR (Non-African American) 60.3 ml/min; Potassium 4.7 mmol/L (3.5-5.1)
--- NOTE | 2021-03-31 15:07 | Pharmacy Report ---
Pharmacy Glycemic Short Note 2 - Date of Service March 31, 2021 - Glycemic Short BSG Results (Last 24 hours): 03/30/21 03/30/21 03/30/21 15:34 16:50 16:50 Glucose 247 H POC Glucose 200 H 231 H POC Glucose (other) 03/30/21 03/30/21 03/30/21 17:48 18:38 19:51 Glucose POC Glucose 227 H 235 H 238 H POC Glucose (other) 03/30/21 03/30/21 03/30/21 20:54 21:08 22:02 Glucose 194 H POC Glucose 168 H POC Glucose (other) 190 H 03/30/21 03/30/21 03/31/21 22:09 23:05 00:04 Glucose POC Glucose POC Glucose (other) 185 H 163 H 146 H 03/31/21 03/31/21 03/31/21 01:00 01:07 04:07 Glucose 134 H POC Glucose POC Glucose (other) 133 H 68 L* 03/31/21 03/31/21 03/31/21 04:58 06:08 07:08 Glucose 117 H POC Glucose POC Glucose (other) 119 H 142 H 03/31/21 03/31/21 03/31/21 08:13 09:02 10:11 Glucose 125 H POC Glucose POC Glucose (other) 141 H 120 H 03/31/21 13:57 Glucose 182 H POC Glucose POC Glucose (other) OUTPATIENT ANTIDIABETIC REGIMEN: * N/a * A1c 10.5% 03/28 ASSESSMENT: 03/31 * Patient off of nimbex but started on minimal dose of norepinephrine. Per MD will attempt to transition off of insulin infusion today, gave 80 units of lantus x 1 (previous 12 hour rates ~100 units). IVF to stop with insulin infusion stopping. Continues on dexamethasone 6 mg. Will transition to novolog correction factor 15 and carb ratio 4. 03/30 * Patient continues to be sedated with propofol/fentanyl, continued nimbex- plan to wean off later today after patient is supine * Patient also started on trickle feeds with plans to increase after nimbex is d/c, set carb ratio at 1:5. * BSGs did trend downward overnight, empirically reduced rate to 1.3 units/hr after BSG of 101 this morning, patient received dexamethasone and BSGs are trending upward again with subsequent increase in insulin infusion. Will consider possible transition off later tonight or tomorrow morning depending on if nimbex able to be discontinued/control with tube feed increases. 03/29 * Patient admitted with COVID-19, currently intubated, sedated with propofol/fentanyl and paralyzed with nimbex * Appears to be newer onset diabetes as patient does not have any diabetic medications listed but A1c of 10.5% * Patient's BSG elevated on arrival, started insulin infusion early this morning as BSGs continued to be elevated throughout the night. * Labs may have shown mild DKA (gap 12.0, Bicarb 19), currently q4 BMP ordered, fluids with potassium at current * Plan to continue current insulin infusion PLAN FOR INPATIENT GLYCEMIC CONTROL: * Plan to transition off of insulin infusion with two consecutive BSGs within goal range and insulin infusion rate < 2 units/hr or 6 hours after lantus dose * Will start novolog parameters of CF 15 mg/dl/unit, CR 1 unit per 4 grams CHO consumed, goal range 120-160 mg/dL
--- NOTE | 2021-03-31 15:32 | Hospitalist Progress Note ---
Date of Service March 31, 2021 Assessment & Plan (1) Acute respiratory failure with hypoxia: (2) Pneumonia due to COVID-19 virus: Plan: 50-year-old for male with PMH of WANDER on CPAP, morbid obesity, depression with anxiety on Lexapro and Abilify and recent diagnosis of Covid on March 18 [signs and symptoms from 3 days prior to diagnosis] presented to the ED 03/28 with complaint of worsening shortness of breath, intermittent fever on and off [last 1 being in the AM of the arrival day--> 101F], cough. She required high flow nasal cannula oxygen at presentation to the ED and pulmonology was consulted. She is being managed for the following under the critical care team: #. Acute respiratory failure with hypoxia: #. Pneumonia due to COVID-19 virus: #. Possible superimposed bacterial infection/PNA Not vaccinated for COVID-19 Initial positive test on 03/18, sx started 3 days prior. Presents with profound hypoxia requiring high flow via nasal cannula in the ED Pt does not meet criteria for remdesivir given duration of sx Admitting ESR: 126 and admitting CRP: 18.40 Admitting procalcitonin: 3.28 Pt admitted to PCU with Pulm consult, given Tocilizumab 03/28, later evening of 03/28 Pt required emergent intubation due to worsening hypoxia. Given h/o fever and elevated procal, patient started on rocephin 03/28 to cover for possible secondary bacterial infection. We'll start intravenous doxycycline as well to cover possible atypical organism Currently intubated/sedated/mechanical ventilation. Management per Critical Care Team. 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 Metabolic Acidosis Met acidosis (minimal AG elevation), likely 2/2 diarrhea continue to monitor. #. LAURI Baseline Cr 0.8 Admitting BUN/Cr 22 and 1.48 Resolved #. Hypokalemia Admitting K3.0 Monitor daily, replace as appropriate #. Hyponatremia Admitting sodium level one thirty-one Resolved #. Hyperglycemia/new DM diagnosis Admitting blood glucose two hundred thirty-one Admitting A1c: 10.5 New diagnosis of diabetes Being managed with insulin drip per critical care hypoglycemia protocol We will discharge with glycemic pharmacist recommendation upon discharge. #. Elevated LFTs Likely secondary to Covid Coming down. #. Other chronic medical problems: WANDER on CPAP at home, depression on Abilify and Lexapro at home, hypothyroidism on levothyroxine #. DVT prophylaxis:Lovenox subcu Dispo: Critical care FULL CODE PCP: Danika Admission and Anticipated Discharge Date Admission Date: March 28, 2021 Subjective 03/30/2021 The patient was seen and examined in telemetry unit She remains intubated and sedated Has been in prone position and requiring 60 L of oxygen to maintain saturation 03/31/2021 The patient was seen and examined in telemetry unit and in the Covid room She remains intubated and currently sedation is off She has been a little restless Review of Systems Review of Systems: Unobtainable due to endotracheal tube Physical Exam Physical Exam: Lying in bed on mechanical ventilator and off sedation Constitutional: well developed, well nourished, + ill appearing and + obese Eyes: PERRL, conjunctivae normal, anicteric sclerae ENMT: external ear and nose normal, oropharynx normal Neck: trachea midline, no thyromegaly Respiratory: no respiratory distress Auscultation: + crackles (Minimal crackles bilaterally on dependent area) Cardiovascular: Rate/Rhythm: regular rate and regular rhythm; not tachycardic Heart Sounds: normal S1 and normal S2; no murmur Extremities: + edema (Trace edema bilaterally) Gastrointestinal (Abdomen): Inspection/Auscultation: normal bowel sounds; abdomen not distended Percussion/Palpation: abdomen soft; abdomen nontender Musculoskeletal: No acute arthritis in any joint Results & Data Results & Data ([facility]) Vital Signs (Past 12 Hours) Vital Signs Temp Pulse Resp BP Pulse Ox 03/31/21 14:35 70 28 H 89 L 03/31/21 14:00 66 03/31/21 12:46 63 105/72 93 03/31/21 12:30 55 L 110/70 96 03/31/21 12:15 55 L 113/72 96 03/31/21 12:00 37.3 C 114/70 03/31/21 11:45 118/71 03/31/21 11:30 110/68 03/31/21 11:15 55 L 88 L 03/31/21 11:09 54 L 24 93 03/31/21 11:00 123/73 03/31/21 10:45 120/73 03/31/21 10:30 88/56 L 03/31/21 10:15 63 91 03/31/21 10:00 54 L 94 03/31/21 09:45 103/66 03/31/21 09:30 102/63 03/31/21 09:15 52 L 93 03/31/21 09:00 85 118/71 03/31/21 08:45 53 L 93 03/31/21 08:30 54 L 93 03/31/21 08:15 55 L 91 03/31/21 08:00 54 L 90 03/31/21 07:55 55 L 24 91 03/31/21 07:45 37.3 C 62 88 L 03/31/21 07:30 121/75 03/31/21 05:30 133/85 03/31/21 05:15 62 89 L 03/31/21 05:00 63 90 03/31/21 04:45 118/71 03/31/21 04:30 111/74 03/31/21 04:16 36.8 C 03/31/21 04:15 54 L 92 03/31/21 04:00 53 L 92 03/31/21 03:50 53 L 24 95 03/31/21 03:45 89/54 L 03/31/21 03:30 88/53 L Laboratory Results Short CBC 03/31/21 Range/Units 06:08 WBC 10.07 (4.8-10.8) K/uL Hgb 12.1 (12.0-16.0) g/dL Hct 36.7 L (37-47) % Plt Count 489 H D (130-400) K/uL BMP 03/30/21 03/30/21 03/31/21 16:50 20:54 01:07 Sodium 140 141 140 Potassium 4.6 4.4 3.9 Chloride 110 H 110 H 112 H Carbon Dioxide 22 23 24 BUN 22 H 23 H 22 H Creatinine 1.10 1.16 1.05 Glucose 247 H 194 H 134 H Calcium 8.0 L 8.0 L 7.7 L 03/31/21 03/31/21 03/31/21 06:08 10:11 13:57 Sodium 141 144 142 Potassium 4.1 4.4 4.7 Chloride 111 H 113 H 109 H Carbon Dioxide 26 27 26 BUN 23 H 24 H 23 H Creatinine 1.03 1.01 1.06 Glucose 117 H 125 H 182 H Calcium 7.8 L 8.0 L 7.8 L Liver Function 03/31/21 Range/Units 06:08 Total Bilirubin 0.5 D (0.2-1) mg/dl AST 156 H (15-37) U/L ALT 64 (12-78) U/L Alkaline Phosphatase 85 (45-117) U/L Albumin 2.1 L (3.4-5.0) gm/dl Medications Administered Current Inpatient Medications Aripiprazole (Aripiprazole 10 Mg Tab) 20 mg PO QPM JOSELO Stop: 04/27/21 20:59 Last Admin: 03/29/21 00:31 Dose: Not Given Documented by: Dextrose (Dextrose 50% 50 Ml Syringe) 25 - 50 ml IV UD PRN; Protocol PRN Reason: Hypoglycemia Protocol Stop: 04/27/21 18:26 Last Admin: 03/31/21 04:13 Dose: 25 ml Documented by: Docusate Sodium (Docusate Sodium Syrup 100 Mg/10 Ml Udc) 100 mg NG BID JOSELO Stop: 04/30/21 10:59 Last Admin: 03/31/21 12:14 Dose: 100 mg Documented by: Enoxaparin Sodium (Enoxaparin Inj 40 Mg/0.4 Ml Syr) 40 mg SQ Q12H JOSELO Stop: 04/27/21 21:59 Last Admin: 03/31/21 10:07 Dose: 40 mg Documented by: Escitalopram Oxalate (Escitalopram Oxalate 20 Mg Tab) 20 mg PO QPM JOSELO Stop: 04/27/21 20:59 Last Admin: 03/29/21 00:31 Dose: Not Given Documented by: Fentanyl Citrate (Fentanyl Bolus From Bag) 50 mcg IV Q60M PRN PRN Reason: Pain or Agitation Stop: 04/11/21 21:51 Last Admin: 03/31/21 13:00 Dose: 50 mcg Documented by: Glucagon (Glucagon For Inj 1 Mg Vial) 1 mg SQ UD PRN; Protocol PRN Reason: Hypoglycemia Protocol Stop: 04/27/21 18:26 Glucose (Glucose 10 Tabs/Tube) 4 - 8 tabs PO UD PRN; Protocol PRN Reason: Hypoglycemia Protocol Stop: 04/27/21 18:26 Glucose (Glucose 40% Gel 15 Gm Tube) 15 - 30 gm PO UD PRN; Protocol PRN Reason: Hypoglycemia Protocol Stop: 04/27/21 18:26 Heparin Sodium (Beef Lung) (Heparin 10 Unit/Ml 5 Ml Flush) 5 ml FLUSH PRN PRN PRN Reason: Flush Stop: 04/30/21 07:39 Dexamethasone 6 mg/ Syringe 1.5 mls @ 1 mls/min IV DAILY JOSELO Stop: 04/08/21 08:59 Last Admin: 03/31/21 08:13 Dose: 1 mls/min Documented by: Ceftriaxone Sodium 2,000 mg/ (Dextrose) 70 mls @ 140 mls/hr IV Q24H JOSELO; Protocol Stop: 04/04/21 19:59 Last Infusion: 03/30/21 22:08 Dose: Infused Documented by: Cisatracurium Besylate 40 mg/ (Sodium Chloride) 100 mls @ 25.65 mls/hr IV .Q3H54M JOSELO; Protocol Stop: 04/27/21 21:59 Last Admin: 03/31/21 08:16 Dose: Not Given Documented by: Propofol (Diprivan) 1,000 mg in 100 mls @ 10.917 mls/hr IV .Q9H10M JOSELO; Protocol Stop: 03/31/21 21:59 Last Titration: 03/31/21 14:22 Dose: 15 mcg/kg/min, 10.9 mls/hr Documented by: Fentanyl Citrate (Fentanyl Drip) 1,250 mcg in 250 mls @ 40 mls/hr IV .Q6H15M JOSELO; Protocol Stop: 04/11/21 21:59 Last Admin: 03/31/21 10:11 Dose: 200 mcg/hr, 40 mls/hr Documented by: Famotidine 20 mg/ Syringe 5 mls @ 2.5 mls/min IV BID JOSELO Stop: 04/28/21 08:59 Last Admin: 03/31/21 08:12 Dose: 2.5 mls/min Documented by: Levothyroxine Sodium 75 mcg/ (Syringe) 3.75 mls @ 1.875 mls/min IV Q72H JOSELO; Protocol Stop: 04/28/21 08:59 Last Admin: 03/29/21 09:10 Dose: 1.875 mls/min Documented by: Insulin Human Regular 250 (units/ Sodium Chloride) 250 mls @ 4.2 mls/hr IV .Q24H JOSELO; Protocol Stop: 04/28/21 04:44 Last Titration: 03/31/21 15:11 Dose: 4.2 units/hr, 4.2 mls/hr Documented by: Potassium Chloride/Sodium Chloride (1/2 Nss + 20meq Kcl 1000ml) 20 meq in 1,000 mls @ 50 mls/hr IV .Q20H JOSELO Stop: 04/28/21 10:44 Last Infusion: 03/31/21 06:51 Dose: 50 mls/hr Documented by: Norepinephrine Bitartrate (Levophed/D5w) 8 mg in 508 mls @ 9.068 mls/hr IV .Q24H JOSELO; Protocol Stop: 04/28/21 19:29 Last Titration: 03/31/21 14:00 Dose: 0.02 mcg/kg/min, 9.1 mls/hr Documented by: Furosemide 40 mg/ Syringe 4 mls @ 4 mls/min IV Q12 [facility] Stop: 04/30/21 08:59 Last Admin: 03/31/21 10:11 Dose: 4 mls/min Documented by: Midazolam HCl (Versed) 125 mg in 250 mls @ 4 mls/hr IV .[id number] JOSELO; Protocol Stop: 04/30/21 10:29 Last Titration: 03/31/21 14:00 Dose: 2 mg/hr, 4 mls/hr Documented by: Insulin Aspart (Insulin Aspart 100 Units/Ml 3 Ml Pen) 0 units SC Q4 JOSELO Stop: 04/28/21 07:29 Last Admin: 03/31/21 12:53 Dose: Not Given Documented by: Midazolam HCl (Midazolam Bolus From Bag) 2 mg IV Q60M PRN PRN Reason: Sedation Stop: 04/30/21 10:21 Last Admin: 03/31/21 14:50 Dose: 2 mg Documented by: Miscellaneous (Carbohydrates For Hypoglycemia ) 15 - 30 gm PO UD PRN PRN Reason: Hypoglycemia Protocol Stop: 04/27/21 18:26 Miscellaneous (Stop Insulin Infusion/Ivf~Pending Order) 1 ea N/A DAILY@1000 JOSELO Stop: 05/01/21 09:59 Miscellaneous Information (Pharmacy Glycemic Mgmt Consult) 1 ea N/A UD PRN; Protocol PRN Reason: Consult Stop: 04/27/21 18:26 Multi-Ingredient Cream (Artificial Tears Op Oint 3.5 Gm Tube) 1 appln OP Q4H JOSELO Stop: 04/27/21 21:59 Last Admin: 03/31/21 09:02 Dose: 1 appln Documented by: Multivitamins/Minerals (Multi Vit W/Minerals Liquid 15 Ml Udp) 15 ml NG QAM [facility] Stop: 05/01/21 08:59 Nutritional Formula (Peptamen Intense Vhp 1.0 Davis 1,000 Ml Bag) 1,000 ml OG UD JOSELO; Protocol Stop: 04/29/21 12:59 Ondansetron HCl (Ondansetron Inj 2 Mg/Ml 2 Ml Vial) 4 mg IV Q6H PRN PRN Reason: Nausea Stop: 04/27/21 18:26 Propofol (Propofol Bolus From Bag) 20 mg IV Q5M PRN PRN Reason: Sedation Stop: 03/31/21 21:51 Last Admin: 03/31/21 14:21 Dose: 20 mg Documented by: Sennosides (Sennosides 8.8 Mg/5 Ml Udc) 17.6 mg PO DAILY JOSELO Stop: 04/30/21 10:59 Last Admin: 03/31/21 12:14 Dose: 17.6 mg Documented by: Sterile Water (Tube Feeding Water Flush) 30 ml OG Q4H JOSELO Stop: 04/29/21 12:59 Last Admin: 03/31/21 12:53 Dose: 30 ml Documented by:
[2021-03-31] MEDS ORDERED: FUROSEMIDE 20 MG in SYRINGE 0 ML IV ONE (18:06)
--- NOTE | 2021-03-31 18:08 | Critical Care Progress Note ---
Date of Service March 31, 2021 Assessment & Plan (1) Acute respiratory failure with hypoxia: Plan: Reason Critically Ill: 50-year-old female undergoing treatment for COVID-19 pneumonia, now with worsening hypoxia requiring emergent intubation. Now on ICU service while mechanically ventilated. Neuro - Sedation: Propofol/fentanyl. --> propofol discontinued 03/31/2021, midazolam started for triglyceridemia Paralytics: Nimbex Depressionhold Lexapro, Abilify for now Cardiac - Currently hemodynamically stable and NSR on monitor Continuous monitor on telemetry Respiratory - Acute hypoxic respiratory failurePF ratio consistent with severe ARDS in the setting of COVID-19 pneumonia Secondary to multilobar COVID-19 pneumonia COVID-19 PCR positive, positive lymphopenia CRP 18.4 --> 5.69 Procalcitonin 3.28 S/p Tocilizumab 03/28/2021 Continue with lung protective ventilation High PEEP, low tidal volume to keep Plateau < 30 with permissive hypercapnea if need be. Monitor ABGs GI - Famotidine twice daily RENAL/LYTES - AKIcreatinine 1.6 with baseline 0.9. -Careful with IV fluid resuscitation as patient is severely hypoxic. Goal of euvolemia -Maintain maps greater than 65 -Renally adjust medications and avoid nephrotoxins -Monitor with routine BMPs. Replete electrolytes as indicated - Foleystrict I's and O's ENDO - --DKA Continue with insulin drip until anion gap closes Decreasing blood glucose no more than 100 in an hour Replace potassium IV when potassium level between 3.3-5.3 BMP every 4 hours ICU hyperglycemic protocol Continue Synthroid for hypothyroidism HEME - H&H stable, monitor routine CBC ID - Patient febrile, positive COVID-19 PCR Procalcitonin elevated at 3.28 --> continue with Rocephin UA is unremarkable cannot rule out possible superimposed pneumonia at this time Continue dexamethasone for COVID-19 pneumonia, patient did receive Tocilizumab --Prophylaxis VTE: Lovenox GI: Pepcid Lines: Right IJ, right radial, positive Hurd Diet: Trickle feeds Plan: In/out: +1.4 L, urine output 2024 AB.38/44/52 on 12 Peep 50% Patient's triglycerides are going up. Propofol will be discontinued and midazolam started 40 mg of Lasix given today. We will give another 20 mg of LasixNow CRP is trending down I have personally spent 36 minutes of critical care time in the direct management of this patient. This is a life/limb threatening event. This includes time spent evaluating patient, direct bedside care, chart review, placing orders, interpretation of diagnostic studies, discussion with consultants, patient, and family members, as well as other required patient management activities. This time is exclusive of all separately billable procedures, and teaching time and separate from and in addition to any other critical care service time. Thank you for allowing us to participate in the care of this patient. Please refer to my attending physician's documentation for any further recommendations. (2) Multifocal pneumonia: (3) Hypothyroidism: (4) Hyperglycemia: (5) LAURI (acute kidney injury): (6) Pneumonia due to COVID-19 virus: (7) Hypokalemia: (8) Hyponatremia: (9) Metabolic acidosis: (10) COVID-19: (11) Depression: (12) Thoracic aortic aneurysm (TAA): (13) DVT prophylaxis: (14) Fatty liver: (15) Obesity: (16) WANDER (obstructive sleep apnea): (17) Elevated LFTs: Admission and Anticipated Discharge Date Admission Date: March 28, 2021 Subjective Patient seen and examined at bedside. No acute distress, no delusions overnight Patient was on propofol and fentanyl. Propofol is being weaned off and midazolam has been started Patient was on 0.02 of Levophed. Patient was on PEEP 12 50%, saturating 94% I went down to 40% Review of Systems Review of Systems: Unobtainable due to endotracheal tube Physical Exam Physical Exam: Constitutional: No acute distress HEENT: PERRLA, positive ETT Respiratory system: Decreased air entry bilaterally, no wheeze, rhonchi, positive crackles bilaterally CVS: S1-S2 positive, no murmurs or gallops Abdomen: Soft, nontender, nondistended, positive bowel sounds x4, obese Extremities: +2 pulses bilaterally radialis/ dorsalis pedis, no cyanosis, +1 pitting edema Neuro: Sedated and paralyzed Psych: Unable to assess G/U: Positive Hurd Skin: no rashes, warm and dry Lymphatic: no cervical or axillary lymphadenopathy Results & Data Results & Data ([facility]) Vital Signs (Past 12 Hours) Vital Signs Temp Pulse Resp BP Pulse Ox 03/31/21 17:00 37.3 C 54 L 19 118/64 92 03/31/21 16:45 52 L 124/65 94 03/31/21 16:30 52 L 122/61 94 03/31/21 16:15 53 L 90/50 L 93 03/31/21 16:00 59 L 25 H 116/63 84 L 03/31/21 15:45 55 L 112/59 L 98 03/31/21 15:30 56 L 118/62 98 03/31/21 15:15 54 L 81/43 L 95 03/31/21 15:00 55 L 127/67 97 03/31/21 14:45 56 L 116/63 94 03/31/21 14:35 70 28 H 89 L 03/31/21 14:30 74 89 L 03/31/21 14:15 56 L 111/63 93 03/31/21 14:01 71 89/76 L 88 L 03/31/21 14:00 66 03/31/21 13:45 54 L 124/69 97 03/31/21 13:30 55 L 128/72 98 03/31/21 13:15 58 L 128/71 98 03/31/21 13:00 37.0 C 54 L 25 H 80/47 L 93 03/31/21 12:46 63 105/72 93 03/31/21 12:30 55 L 110/70 96 03/31/21 12:15 55 L 113/72 96 03/31/21 12:00 37.3 C 114/70 03/31/21 11:45 118/71 03/31/21 11:30 110/68 03/31/21 11:15 55 L 88 L 03/31/21 11:09 54 L 24 93 03/31/21 11:00 123/73 03/31/21 10:45 120/73 03/31/21 10:30 88/56 L 03/31/21 10:15 63 91 03/31/21 10:00 54 L 94 03/31/21 09:45 103/66 03/31/21 09:30 102/63 03/31/21 09:15 52 L 93 03/31/21 09:00 85 118/71 03/31/21 08:45 53 L 93 03/31/21 08:30 54 L 93 03/31/21 08:15 55 L 91 03/31/21 08:00 54 L 90 03/31/21 07:55 55 L 24 91 03/31/21 07:45 37.3 C 62 88 L 03/31/21 07:30 121/75 03/31/21 06:08 03/31/21 13:57 Coding Level of Care Code Critical Care 1st 30-74 mins Diagnoses Acute respiratory failure with hypoxia J96.01 Multifocal pneumonia J18.9 Hypothyroidism E03.9 Hyperglycemia R73.9 LAURI (acute kidney injury) N17.9 Pneumonia due to COVID-19 virus U07.1; J12.82 Hypokalemia E87.6 Hyponatremia E87.1 Metabolic acidosis E87.2 COVID-19 U07.1 Depression F32.9 Thoracic aortic aneurysm (TAA) I71.2 DVT prophylaxis Z29.9 Fatty liver K76.0 Obesity E66.9 WANDER (obstructive sleep apnea) G47.33 Elevated LFTs R79.89 Time Spent (min) 36
[2021-03-31] MEDS: SODIUM CHLOR 0.45% + 20MEQ KCL 20 MEQ/1,000 ML BAG IV SCH (19:34)
[2021-03-31] MEDS: NOREPINEPHRINE/D5W 8 MG/508 ML BAG IV SCH ×2 (19:34→23:19)
[2021-03-31 19:43] LABS: BUN Creatinine Ratio 22.5 (10-20); Calcium 7.6 mg/dl (8.5-10.1); Creatinine Clr Calc Pharmacy 82.9 ml/min; Est GFR (African American) 70.7 ml/min; Potassium 4.2 mmol/L (3.5-5.1)
[2021-03-31] MEDS: cefTRIAXone SODIUM 2,000 MG in DEXTROSE 5% 50 ML IV SCH (20:42)
[2021-03-31] MEDS ORDERED: PROPOFOL BOLUS FROM BAG IV PRN (22:09)
[2021-03-31] MEDS ORDERED: propofoL 1,000 MG/100 ML VIAL IV SCH (22:15)
[2021-04-01] MEDS: CISATRACURIUM BESYLATE 40 MG in 0.9 % SODIUM CHLORIDE 80 ML IV SCH ×3 (00:12→09:05)
[2021-04-01] MEDS: INSULIN ASPART 100 UNITS/ML 3 ML PEN SC SCH ×6 (00:17→20:46)
[2021-04-01] MEDS: TUBE FEEDING WATER FLUSH OG SCH ×6 (00:21→20:52)
[2021-04-01] MEDS: MIDAZOLAM BOLUS FROM BAG IV PRN ×4 (00:27→17:50)
[2021-04-01] MEDS: fentaNYL DRIP 1,250 MCG/250 ML BAG IV SCH ×6 (00:41→10:48)
[2021-04-01] MEDS: ARTIFICIAL TEARS OP OINT 3.5 GM TUBE OP SCH ×6 (01:42→20:53)
[2021-04-01 04:57] LABS: iSTAT Allen Test Pass; iSTAT Art Bld Gas pCO2 Correct 54 mmHg (35-46); iSTAT Art Bld Gas pH Corrected 7.349 (7.35-7.45); iSTAT Arterial Blood Gas HCO3 30 meg/L (19-24); iSTAT Arterial Blood Gas pCO2 53 mmHg (35-46); iSTAT Arterial Blood Gas pH 7.35 (7.35-7.45); iSTAT Arterial Blood Gas pO2 63 mmHg (80-95); iSTAT Arterial Blood Gas pO2 C 63; iSTAT Carbon Dioxide 31 mmol/L (24-31); iSTAT FiO2 45 %; iSTAT Hematocrit 35 % (37-47); iSTAT Hemoglobin 11.9 g/dl (12.0-16.0); iSTAT Potassium 3.8 mmol/L (3.3-5.0); iSTAT Site R Brachial; iSTAT Sodium 145 mmol/L (135-144)
[2021-04-01] MEDS: INSULIN REGULAR 250 UNITS in SODIUM CHLORIDE 0.9% 247.5 ML IV SCH (04:59)
[2021-04-01 06:20] LABS: Basophils # (auto) 0.02 K/uL (0-0.2); Basophils % (auto) 0.2 %; Hematocrit (blood only) 37.4 % (37-47); Hemoglobin 12.1 g/dL (12.0-16.0); Immature Granulocytes # (auto) 0.33 K/uL (0.00-0.02); Immature Granulocytes % (auto) 3.2 %; Lymphocytes # (auto) 2.61 K/uL (1.2-3.4); Lymphocytes % (auto) 25.4 %; Mean Corpuscular Hemoglobin 29.1 pg (25-34); Mean Corpuscular Hgb Conc 32.4 g/dL (32-36); Mean Corpuscular Volume 89.9 fL (80-100); Mean Platelet Volume 9.2 fL (7.4-10.4); Monocytes # (auto) 0.42 K/uL (0.11-0.59); Monocytes % (auto) 4.1 %; Neutrophils # (auto) 6.81 K/uL (1.4-6.5); Neutrophils % (auto) 66.1 %; Nucleated RBC # (auto) 0.08 K/uL (0-0); Nucleated RBC % (auto) 0.7 %; Platelet Count 432 K/uL (130-400); RDW Coefficient of Variation 15.5 % (11.5-14.5); RDW Standard Deviation 50.7 fL (36.4-46.3); Red Blood Count 4.16 M/uL (4.2-5.4); White Blood Count 10.29 K/uL (4.8-10.8)
[2021-04-01 06:55] LABS: BUN Creatinine Ratio 27.3 (10-20); Calcium 7.1 mg/dl (8.5-10.1); Creatinine Clr Calc Pharmacy 100.6 ml/min; Est GFR (Non-African American) 77.7 ml/min; Magnesium 1.9 mg/dl (1.8-2.4); Phosphorus 3.5 mg/dl (2.5-4.9); Potassium 3.8 mmol/L (3.5-5.1)
[2021-04-01] MEDS: FAMOTIDINE 20 MG in SYRINGE 3 ML IV SCH ×2 (08:36→20:45)
[2021-04-01] MEDS: dexAMETHasone 6 MG in SYRINGE 0 ML IV SCH (08:36)
[2021-04-01] MEDS: FUROSEMIDE 40 MG in SYRINGE 0 ML IV SCH ×2 (08:37→20:47)
[2021-04-01] MEDS: LEVOTHYROXINE SODIUM 75 MCG in SYRINGE 0 ML IV SCH (08:37)
[2021-04-01] MEDS: DOCUSATE SODIUM SYRUP 100 MG/10 ML UDC NG SCH ×2 (08:38→20:50)
[2021-04-01] MEDS: MULTI VIT W/MINERALS LIQUID 15 ML UDP NG SCH (08:38)
[2021-04-01] MEDS: SENNOSIDES 8.8 MG/5 ML UDC PO SCH (08:38)
[2021-04-01] MEDS ORDERED: INSULIN HUMAN NPH SC ONE ×2 (09:00)
[2021-04-01] MEDS ORDERED: INSULIN GLARGINE SOLOSTAR 100 UNITS/ML 3 ML PEN SC SCH (09:00)
--- NOTE | 2021-04-01 09:21 | XRay Report ---
XR chest 1V portable HISTORY: Pneumonia. Follow-up. Respiratory failure. Shortness of breath. COMPARISON: Chest 03/31/2021. FINDINGS: Lines and tubes remain unchanged in position. No pneumothorax. No pleural effusions. There are multifocal patchy bilateral airspace opacities consistent with a pneumonia. This has slightly imp roved within the right midlung zone. The remaining airspace opacities remain unchanged. The heart is borderline enlarged. IMPRESSION: 1. Stable to slight improvement in the multifocal bilateral airspace opacities. 2. Satisfactory support line placement. ACT 112: Negative or not required by law. Electronically signed by: Vicente Pitt M.D. 04/01/2021 9:20 AM
[2021-04-01] MEDS ORDERED: POTASSIUM CHLORIDE / WTR 20 MEQ/100 ML PLCT IV ONE (09:30)
[2021-04-01] MEDS: ENOXAPARIN INJ 40 MG/0.4 ML SYR SQ SCH ×2 (09:43→20:49)
[2021-04-01] MEDS ORDERED: STAT IV Infusion **Titration per Protocol STA (10:14)
[2021-04-01] MEDS: KETAMINE HCL / NSS 500 MG/500 ML BAG IV SCH (11:40)
[2021-04-01] MEDS: MIDAZOLAM HCL 125 MG/250 ML BAG IV SCH (11:46)
--- NOTE | 2021-04-01 14:16 | Pharmacy Report ---
Pharmacy Glycemic Short Note 2 - Date of Service April 01, 2021 - Glycemic Short BSG Results (Last 24 hours): 03/31/21 03/31/21 03/31/21 10:22 11:09 12:14 Glucose POC Glucose (other) 195 H 194 H 132 H 03/31/21 03/31/21 03/31/21 13:57 14:00 15:08 Glucose 182 H POC Glucose (other) 207 H 220 H 03/31/21 03/31/21 03/31/21 16:22 17:28 18:08 Glucose POC Glucose (other) 220 H 238 H 231 H 03/31/21 03/31/21 03/31/21 18:44 19:15 19:58 Glucose 169 H POC Glucose (other) 159 H 159 H 03/31/21 03/31/21 03/31/21 20:58 22:01 23:13 Glucose POC Glucose (other) 172 H 175 H 172 H 04/01/21 04/01/21 04/01/21 00:03 02:03 04:05 Glucose POC Glucose (other) 169 H 134 H 119 H 04/01/21 04/01/21 04/01/21 05:51 05:56 06:51 Glucose 93 POC Glucose (other) 94 107 H 04/01/21 04/01/21 04/01/21 07:51 08:55 11:39 Glucose POC Glucose (other) 100 H 94 228 H OUTPATIENT ANTIDIABETIC REGIMEN: * N/a * A1c 10.5% 03/28 ASSESSMENT: 04/01 * Insulin infusion ran through the night, BSG this morning 93 mg/dL, rate 1.8 units/hr, stopped infusion at this time and gave 40 units of lantus and 35 units of NPH to help cover steroid. Will give additional lantus dose this evening up to an additional 40 units. * Novolog parameters started at weight based stress of 3, BSG elevated at lunch, will reassess need to tighten parameters. 03/31 * Patient off of nimbex but started on minimal dose of norepinephrine. Per MD will attempt to transition off of insulin infusion today, gave 80 units of lantus x 1 (previous 12 hour rates ~100 units). IVF to stop with insulin infusion stopping. Continues on dexamethasone 6 mg. Will transition to novolog correction factor 15 and carb ratio 4. 9/29 * Patient continues to be sedated with propofol/fentanyl, continued nimbex- plan to wean off later today after patient is supine * Patient also started on trickle feeds with plans to increase after nimbex is d/c, set carb ratio at 1:5. * BSGs did trend downward overnight, empirically reduced rate to 1.3 units/hr after BSG of 101 this morning, patient received dexamethasone and BSGs are trending upward again with subsequent increase in insulin infusion. Will consider possible transition off later tonight or tomorrow morning depending on if nimbex able to be discontinued/control with tube feed increases. 03/29 * Patient admitted with COVID-19, currently intubated, sedated with propofol/fentanyl and paralyzed with nimbex * Appears to be newer onset diabetes as patient does not have any diabetic medications listed but A1c of 10.5% * Patient's BSG elevated on arrival, started insulin infusion early this morning as BSGs continued to be elevated throughout the night. * Labs may have shown mild DKA (gap 12.0, Bicarb 19), currently q4 BMP ordered, fluids with potassium at current * Plan to continue current insulin infusion PLAN FOR INPATIENT GLYCEMIC CONTROL: * Basal insulin * Lantus 40 units SQ this AM, up to an additional 40 this evening * Steroid induced hyperglycemia * NPH 35 units (0.4 units/kg adjusted BW) sq x1 in AM given with dexamethasone * Bolus insulin (to start when insulin infusion dc) * NovoLog per scale ACHS or Q6hrs while NPO * Goal Range: Low 110 mg/dL - High 140 mg/dL * Correction Factor: 15 mg/dL/unit * Nutritional / Prandial insulin per carb ratio of 1 unit per 4 grams CHO consumed
--- NOTE | 2021-04-01 15:19 | Critical Care Progress Note ---
Date of Service April 01, 2021 Assessment & Plan (1) Acute respiratory failure with hypoxia: Plan: Reason Critically Ill: 50-year-old female undergoing treatment for COVID-19 pneumonia, now with worsening hypoxia requiring emergent intubation. Now on ICU service while mechanically ventilated. Neuro - Sedation: Propofol/fentanyl. --> propofol discontinued 03/31/2021, midazolam started for triglyceridemia Paralytics: Nimbex Depressionhold Lexapro, Abilify for now Cardiac - Currently hemodynamically stable and NSR on monitor Continuous monitor on telemetry Respiratory - Acute hypoxic respiratory failurePF ratio consistent with severe ARDS in the setting of COVID-19 pneumonia Secondary to multilobar COVID-19 pneumonia COVID-19 PCR positive, positive lymphopenia CRP 18.4 --> 5.69 Procalcitonin 3.28 S/p Tocilizumab 03/28/2021 Continue with lung protective ventilation High PEEP, low tidal volume to keep Plateau < 30 with permissive hypercapnea if need be. Monitor ABGs GI - Famotidine twice daily RENAL/LYTES - AKIcreatinine 1.6 with baseline 0.9. -Careful with IV fluid resuscitation as patient is severely hypoxic. Goal of euvolemia -Maintain maps greater than 65 -Renally adjust medications and avoid nephrotoxins -Monitor with routine BMPs. Replete electrolytes as indicated - Foleystrict I's and O's ENDO - --DKA Continue with insulin drip until anion gap closes Decreasing blood glucose no more than 100 in an hour Replace potassium IV when potassium level between 3.3-5.3 BMP every 4 hours ICU hyperglycemic protocol Continue Synthroid for hypothyroidism HEME - H&H stable, monitor routine CBC ID - Patient febrile, positive COVID-19 PCR Procalcitonin elevated at 3.28 --> continue with Rocephin UA is unremarkable cannot rule out possible superimposed pneumonia at this time Continue dexamethasone for COVID-19 pneumonia, patient did receive Tocilizumab --Prophylaxis VTE: Lovenox GI: Pepcid Lines: Right IJ, right radial, positive Hurd Diet: Trickle feeds Plan: In/out: Negative 1.5 mL, urine output 2960 AB.39/53/63 on 12 Peep 45% Patient has bouts of easy arousability she becomes RASS -1 starts to fight the vent. I will start the patient on ketamine on top of midazolam and fentanyl Hypomagnesia being replaced Continue with diuretics every 12 hours I have personally spent 36 minutes of critical care time in the direct management of this patient. This is a life/limb threatening event. This includes time spent evaluating patient, direct bedside care, chart review, placing orders, interpretation of diagnostic studies, discussion with consultants, patient, and family members, as well as other required patient management activities. This time is exclusive of all separately billable procedures, and teaching time and separate from and in addition to any other critical care service time. Thank you for allowing us to participate in the care of this patient. Please refer to my attending physician's documentation for any further recommendations. (2) Multifocal pneumonia: (3) Hypothyroidism: (4) Hyperglycemia: (5) LAURI (acute kidney injury): (6) Pneumonia due to COVID-19 virus: (7) Hypokalemia: (8) Hyponatremia: (9) Metabolic acidosis: (10) COVID-19: (11) Depression: (12) Thoracic aortic aneurysm (TAA): (13) DVT prophylaxis: (14) Fatty liver: (15) Obesity: (16) WANDER (obstructive sleep apnea): (17) Elevated LFTs: Admission and Anticipated Discharge Date Admission Date: March 28, 2021 Subjective Seen and examined at bedside. No acute distress, no events overnight Patient was on PEEP of 10, FiO2 40% saturating 91-92% On midazolam and fentanyl Review of Systems Review of Systems: Unobtainable due to endotracheal tube Physical Exam Physical Exam: Constitutional: No acute distress HEENT: PERRLA, positive ETT Respiratory system: Decreased air entry bilaterally, no wheeze, rhonchi, p ositive crackles bilaterally CVS: S1-S2 positive, no murmurs or gallops Abdomen: Soft, nontender, nondistended, positive bowel sounds x4, obese Extremities: +2 pulses bilaterally radialis/ dorsalis pedis, no cyanosis, +1 pitting edema Neuro: Sedated and paralyzed Psych: Unable to assess G/U: Positive Hurd Skin: no rashes, warm and dry Lymphatic: no cervical or axillary lymphadenopathy Results & Data Results & Data ([facility]) Vital Signs (Past 12 Hours) Vital Signs Temp Pulse Resp BP Pulse Ox Pulse Ox 04/01/21 15:12 59 L 18 94 04/01/21 12:15 61 150/90 H 92 04/01/21 12:00 68 148/81 H 92 04/01/21 11:45 69 136/79 93 04/01/21 11:30 60 127/77 90 04/01/21 11:29 60 20 89 L 04/01/21 11:15 58 L 125/71 89 L 04/01/21 11:00 59 L 115/68 88 L 04/01/21 10:45 79 88 L 04/01/21 10:33 90 90 04/01/21 10:15 63 140/82 90 04/01/21 10:14 60 92 04/01/21 10:00 57 L 118/71 91 04/01/21 09:45 54 L 113/68 92 04/01/21 09:30 55 L 128/76 91 04/01/21 09:00 53 L 143/82 H 92 04/01/21 08:58 54 L 20 92 04/01/21 08:30 54 L 120/72 92 04/01/21 08:00 56 L 121/73 92 04/01/21 07:30 68 115/71 93 04/01/21 07:00 56 L 122/74 93 04/01/21 06:00 54 L 116/74 92 04/01/21 05:45 54 L 115/69 92 04/01/21 05:30 54 L 115/72 93 04/01/21 05:15 54 L 115/72 93 04/01/21 05:00 55 L 114/70 92 04/01/21 04:45 53 L 113/70 91 04/01/21 04:30 54 L 20 116/71 90 04/01/21 04:15 56 L 110/74 87 L 04/01/21 04:00 37.2 C 55 L 102/61 93 04/01/21 03:45 55 L 18 98/60 L 91 04/01/21 03:30 55 L 98/61 L 93 04/01/21 05:51 04/01/21 05:51 Coding Level of Care Code Critical Care 1st 30-74 mins Diagnoses Acute respiratory failure with hypoxia J96.01 Multifocal pneumonia J18.9 Hypothyroidism E03.9 Hyperglycemia R73.9 LAURI (acute kidney injury) N17.9 Pneumonia due to COVID-19 virus U07.1; J12.82 Hypokalemia E87.6 Hyponatremia E87.1 Metabolic acidosis E87.2 COVID-19 U07.1 Depression F32.9 Thoracic aortic aneurysm (TAA) I71.2 DVT prophylaxis Z29.9 Fatty liver K76.0 Obesity E66.9 WANDER (obstructive sleep apnea) G47.33 Elevated LFTs R79.89 Time Spent (min) 36
--- NOTE | 2021-04-01 16:23 | Hospitalist Progress Note ---
Date of Service April 01, 2021 Assessment & Plan (1) Acute respiratory failure with hypoxia: (2) Pneumonia due to COVID-19 virus: Plan: 50-year-old for male with PMH of WANDER on CPAP, morbid obesity, depression with anxiety on Lexapro and Abilify and recent diagnosis of Covid on March 18 [signs and symptoms from 3 days prior to diagnosis] presented to the ED 03/28 with complaint of worsening shortness of breath, intermittent fever on and off [last 1 being in the AM of the arrival day--> 101F], cough. She required high flow nasal cannula oxygen at presentation to the ED and pulmonology was consulted. She is being managed for the following under the critical care team: #. Acute respiratory failure with hypoxia: #. Pneumonia due to COVID-19 virus: #. Possible superimposed bacterial infection/PNA Not vaccinated for COVID-19 Initial positive test on 03/18, sx started 3 days prior. Presents with profound hypoxia requiring high flow via nasal cannula in the ED Pt does not meet criteria for remdesivir given duration of sx Admitting ESR: 126 and admitting CRP: 18.40 Admitting procalcitonin: 3.28 Inflammatory markers are trending down Pt admitted to PCU with Pulm consult, given Tocilizumab 03/28, later evening of 03/28 Pt required emergent intubation due to worsening hypoxia. Given h/o fever and elevated procal, patient started on rocephin 03/28 to cover for possible secondary bacterial infection. We'll start intravenous doxycycline as well to cover possible atypical organism Currently intubated/sedated/mechanical ventilation. Management per Critical Care Team. 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 Metabolic Acidosis Met acidosis (minimal AG elevation), likely 2/2 diarrhea continue to monitor. #. LAURI Baseline Cr 0.8 Admitting BUN/Cr 22 and 1.48 Resolved #. Hypokalemia Admitting K3.0 Monitor daily, replace as appropriate #. Hyponatremia Admitting sodium level one thirty-one Resolved #. Hyperglycemia/new DM diagnosis Admitting blood glucose two hundred thirty-one Admitting A1c: 10.5 New diagnosis of diabetes Being managed with insulin drip per critical care hypoglycemia protocol We will discharge with glycemic pharmacist recommendation upon discharge. Appreciate glycemic pharmacist input and recommendation #. Elevated LFTs Likely secondary to Covid Coming down. #. Other chronic medical problems: WANDER on CPAP at home, depression on Abilify and Lexapro at home, hypothyroidism on levothyroxine #. DVT prophylaxis:Lovenox subcu Dispo: Critical care FULL CODE PCP: Danika Admission and Anticipated Discharge Date Admission Date: March 28, 2021 Subjective 03/30/2021 The patient was seen and examined in telemetry unit She remains intubated and sedated Has been in prone position and requiring 60 L of oxygen to maintain saturation 03/31/2021 The patient was seen and examined in telemetry unit and in the Covid room She remains intubated and currently sedation is off She has been a little restless 04/01/2021 The patient was seen and examined in telemetry unit She remains intubated with minimal improvement so far Review of Systems Review of Systems: Unobtainable due to endotracheal tube Physical Exam Physical Exam: Lying in bed on mechanical ventilator and off sedation Constitutional: well developed, well nourished, + ill appearing and + obese Eyes: PERRL, conjunctivae normal, anicteric sclerae ENMT: external ear and nose normal, oropharynx normal Neck: trachea midline, no thyromegaly Respiratory: no respiratory distress Auscultation: + crackles (Minimal crackles bilaterally on dependent area) Cardiovascular: Rate/Rhythm: regular rate and regular rhythm; not tachycardic Heart Sounds: normal S1 and normal S2; no murmur Extremities: + edema (Trace edema bilaterally) Gastrointestinal (Abdomen): Inspection/Auscultation: normal bowel sounds; abdomen not distended Percussion/Palpation: abdomen soft; abdomen nontender Neurologic: Remains sedated on ventilator Results & Data Results & Data ([facility]) Vital Signs (Past 12 Hours) Vital Signs Pulse Resp BP Pulse Ox Pulse Ox 04/01/21 15:12 59 L 18 94 04/01/21 12:15 61 150/90 H 92 04/01/21 12:00 68 148/81 H 92 04/01/21 11:45 69 136/79 93 04/01/21 11:30 60 127/77 90 04/01/21 11:29 60 20 89 L 04/01/21 11:15 58 L 125/71 89 L 04/01/21 11:00 59 L 115/68 88 L 04/01/21 10:45 79 88 L 04/01/21 10:33 90 90 04/01/21 10:15 63 140/82 90 04/01/21 10:14 60 92 04/01/21 10:00 57 L 118/71 91 04/01/21 09:45 54 L 113/68 92 04/01/21 09:30 55 L 128/76 91 04/01/21 09:00 53 L 143/82 H 92 04/01/21 08:58 54 L 20 92 04/01/21 08:30 54 L 120/72 92 04/01/21 08:00 56 L 121/73 92 04/01/21 07:30 68 115/71 93 04/01/21 07:00 56 L 122/74 93 04/01/21 06:00 54 L 116/74 92 04/01/21 05:45 54 L 115/69 92 04/01/21 05:30 54 L 115/72 93 04/01/21 05:15 54 L 115/72 93 04/01/21 05:00 55 L 114/70 92 04/01/21 04:45 53 L 113/70 91 04/01/21 04:30 54 L 20 116/71 90 Laboratory Results Short CBC 04/01/21 Range/Units 05:51 WBC 10.29 (4.8-10.8) K/uL Hgb 12.1 (12.0-16.0) g/dL Hct 37.4 (37-47) % Plt Count 432 H (130-400) K/uL BMP 03/31/21 04/01/21 18:44 05:51 Sodium 142 143 Potassium 4.2 3.8 Chloride 109 H 110 H Carbon Dioxide 26 29 BUN 24 H 24 H Creatinine 1.05 0.86 Glucose 169 H 93 Calcium 7.6 L 7.1 L Medications Administered Current Inpatient Medications Aripiprazole (Aripiprazole 10 Mg Tab) 20 mg PO QPM JOSELO Stop: 04/27/21 20:59 Last Admin: 03/29/21 00:31 Dose: Not Given Documented by: Dextrose (Dextrose 50% 50 Ml Syringe) 25 - 50 ml IV UD PRN; Protocol PRN Reason: Hypoglycemia Protocol Stop: 04/27/21 18:26 Last Admin: 03/31/21 04:13 Dose: 25 ml Documented by: Docusate Sodium (Docusate Sodium Syrup 100 Mg/10 Ml Udc) 100 mg NG BID JOSELO Stop: 04/30/21 10:59 Last Admin: 04/01/21 08:38 Dose: 100 mg Documented by: Enoxaparin Sodium (Enoxaparin Inj 40 Mg/0.4 Ml Syr) 40 mg SQ Q12H JOSELO Stop: 04/27/21 21:59 Last Admin: 04/01/21 09:43 Dose: 40 mg Documented by: Escitalopram Oxalate (Escitalopram Oxalate 20 Mg Tab) 20 mg PO QPM JOSELO Stop: 04/27/21 20:59 Last Admin: 03/29/21 00:31 Dose: Not Given Documented by: Fentanyl Citrate (Fentanyl Bolus From Bag) 50 mcg IV Q60M PRN PRN Reason: Pain or Agitation Stop: 04/11/21 21:51 Last Admin: 04/01/21 15:45 Dose: 50 mcg Documented by: Glucagon (Glucagon For Inj 1 Mg Vial) 1 mg SQ UD PRN; Protocol PRN Reason: Hypoglycemia Protocol Stop: 04/27/21 18:26 Glucose (Glucose 10 Tabs/Tube) 4 - 8 tabs PO UD PRN; Protocol PRN Reason: Hypoglycemia Protocol Stop: 04/27/21 18:26 Glucose (Glucose 40% Gel 15 Gm Tube) 15 - 30 gm PO UD PRN; Protocol PRN Reason: Hypoglycemia Protocol Stop: 04/27/21 18:26 Heparin Sodium (Beef Lung) (Heparin 10 Unit/Ml 5 Ml Flush) 5 ml FLUSH PRN PRN PRN Reason: Flush Stop: 04/30/21 07:39 Dexamethasone 6 mg/ Syringe 1.5 mls @ 1 mls/min IV DAILY JOSELO Stop: 04/08/21 08:59 Last Admin: 04/01/21 08:36 Dose: 1 mls/min Documented by: Ceftriaxone Sodium 2,000 mg/ (Dextrose) 70 mls @ 140 mls/hr IV Q24H JOSELO; Protocol Stop: 04/01/21 20:01 Last Infusion: 03/31/21 21:12 Dose: Infused Documented by: Cisatracurium Besylate 40 mg/ (Sodium Chloride) 100 mls @ 25.65 mls/hr IV .Q3H54M JOSELO; Protocol Stop: 04/27/21 21:59 Last Admin: 04/01/21 09:05 Dose: Not Given Documented by: Famotidine 20 mg/ Syringe 5 mls @ 2.5 mls/min IV BID JOSELO Stop: 04/28/21 08:59 Last Admin: 04/01/21 08:36 Dose: 2.5 mls/min Documented by: Levothyroxine Sodium 75 mcg/ (Syringe) 3.75 mls @ 1.875 mls/min IV Q72H JOSELO; Protocol Stop: 04/28/21 08:59 Last Admin: 04/01/21 08:37 Dose: 1.875 mls/min Documented by: Norepinephrine Bitartrate (Levophed/D5w) 8 mg in 508 mls @ 9.068 mls/hr IV .Q24H JOSELO; Protocol Stop: 04/28/21 19:29 Last Titration: 04/01/21 06:52 Dose: 0.02 mcg/kg/min, 9.1 mls/hr Documented by: Furosemide 40 mg/ Syringe 4 mls @ 4 mls/min IV Q12 JOSELO Stop: 04/30/21 08:59 Last Admin: 04/01/21 08:37 Dose: 4 mls/min Documented by: Midazolam HCl (Versed) 125 mg in 250 mls @ 12 mls/hr IV .[id number] JOSELO; Protocol Stop: 04/30/21 10:29 Last Admin: 04/01/21 11:46 Dose: 6 mg/hr, 12 mls/hr Documented by: Ketamine HCl (Ketalar / Nss) 500 mg in 500 mls @ 12.26 mls/hr IV .Q24H JOSELO; Protocol Stop: 04/02/21 10:29 Last Titration: 04/01/21 15:44 Dose: 0.2 mg/kg/hr, 24.5 mls/hr Documented by: Fentanyl Citrate (Fentanyl Citrate) 2,500 mcg in 250 mls @ 27.5 mls/hr IV .Q9H6M JOSELO; Protocol Stop: 04/15/21 15:59 Insulin Aspart (Insulin Aspart 100 Units/Ml 3 Ml Pen) 0 units SC Q4 JOSELO Stop: 05/01/21 11:59 Last Admin: 04/01/21 15:50 Dose: 7 units Documented by: Insulin Glargine (Insulin Glargine Solostar 100 Units/Ml 3 Ml Pen) 0 units SC HS ONE; Protocol Stop: 04/01/21 21:01 Midazolam HCl (Midazolam Bolus From Bag) 2 mg IV Q60M PRN PRN Reason: Sedation Stop: 04/30/21 10:21 Last Admin: 04/01/21 07:49 Dose: 2 mg Documented by: Miscellaneous (Carbohydrates For Hypoglycemia ) 15 - 30 gm PO UD PRN PRN Reason: Hypoglycemia Protocol Stop: 04/27/21 18:26 Miscellaneous Information (Pharmacy Glycemic Mgmt Consult) 1 ea N/A UD PRN; Protocol PRN Reason: Consult Stop: 04/27/21 18:26 Multi-Ingredient Cream (Artificial Tears Op Oint 3.5 Gm Tube) 1 appln OP Q4H JOSELO Stop: 04/27/21 21:59 Last Admin: 04/01/21 15:43 Dose: 1 appln Documented by: Multivitamins/Minerals (Multi Vit W/Minerals Liquid 15 Ml Udp) 15 ml NG QAM JOSELO Stop: 05/01/21 08:59 Last Admin: 04/01/21 08:38 Dose: 15 ml Documented by: Nutritional Formula (Peptamen Intense Vhp 1.0 Davis 1,000 Ml Bag) 1,000 ml OG UD [facility]; Protocol Stop: 04/29/21 12:59 Ondansetron HCl (Ondansetron Inj 2 Mg/Ml 2 Ml Vial) 4 mg IV Q6H PRN PRN Reason: Nausea Stop: 04/27/21 18:26 Sennosides (Sennosides 8.8 Mg/5 Ml Udc) 17.6 mg PO DAILY JOSELO Stop: 04/30/21 10:59 Last Admin: 04/01/21 08:38 Dose: 17.6 mg Documented by: Sterile Water (Tube Feeding Water Flush) 30 ml OG Q4H JOSELO Stop: 04/29/21 12:59 Last Admin: 04/01/21 15:43 Dose: 30 ml Documented by:
[2021-04-01] MEDS: fentaNYL citrate 2,500 MCG/250 ML BAG IV SCH (16:26)
[2021-04-01] MEDS ORDERED: INSULIN GLARGINE SOLOSTAR 100 UNITS/ML 3 ML PEN SC ONE (21:00)
[2021-04-01] MEDS: cefTRIAXone SODIUM 2,000 MG in DEXTROSE 5% 50 ML IV SCH (21:46)
[2021-04-02] MEDS: INSULIN ASPART 100 UNITS/ML 3 ML PEN SC SCH ×6 (00:30→21:12)
[2021-04-02] MEDS: TUBE FEEDING WATER FLUSH OG SCH ×6 (00:31→21:06)
[2021-04-02] MEDS: ARTIFICIAL TEARS OP OINT 3.5 GM TUBE OP SCH ×6 (01:43→21:06)
[2021-04-02] MEDS: fentaNYL citrate 2,500 MCG/250 ML BAG IV SCH ×3 (02:08→22:51)
[2021-04-02] MEDS: KETAMINE HCL / NSS 500 MG/500 ML BAG IV SCH ×2 (02:09→13:41)
[2021-04-02] MEDS: MIDAZOLAM HCL 125 MG/250 ML BAG IV SCH ×2 (02:09→18:45)
[2021-04-02] MEDS: CISATRACURIUM BESYLATE 40 MG in 0.9 % SODIUM CHLORIDE 80 ML IV SCH ×7 (02:11→21:06)
[2021-04-02] MEDS: PEPTAMEN INTENSE VHP 1.0 CAL 1,000 ML BAG OG SCH (03:51)
[2021-04-02] MEDS ORDERED: PIPERACILL/TAZOBAC CONSULT ACTIVE PRN (05:14)
[2021-04-02] MEDS ORDERED: VANCOMYCIN CONSULT ACTIVE PRN (05:14)
[2021-04-02 05:43] LABS: iSTAT Allen Test Pass; iSTAT Art Bld Gas pCO2 Correct 53 mmHg (35-46); iSTAT Art Bld Gas pH Corrected 7.413 (7.35-7.45); iSTAT Arterial Blood Gas HCO3 34 meg/L (19-24); iSTAT Arterial Blood Gas pCO2 51 mmHg (35-46); iSTAT Arterial Blood Gas pH 7.42 (7.35-7.45); iSTAT Arterial Blood Gas pO2 60 mmHg (80-95); iSTAT Arterial Blood Gas pO2 C 63; iSTAT Carbon Dioxide 35 mmol/L (24-31); iSTAT FiO2 40 %; iSTAT Hematocrit 33 % (37-47); iSTAT Hemoglobin 11.2 g/dl (12.0-16.0); iSTAT Potassium 3.9 mmol/L (3.3-5.0); iSTAT Site R Brachial; iSTAT Sodium 146 mmol/L (135-144)
[2021-04-02] MEDS ORDERED: PIPERACILLIN/TAZOBACTAM 4.5 GM in DEXTROSE 5% 100 ML IV ONE (05:45)
[2021-04-02] MEDS ORDERED: VANCOMYCIN HCL 2,500 MG in SODIUM CHLORIDE 0.9% 500 ML IV ONE (05:45)
[2021-04-02 07:40] LABS: Hematocrit (blood only) 34.3 % (37-47); Hemoglobin 10.8 g/dL (12.0-16.0); Mean Corpuscular Hgb Conc 31.5 g/dL (32-36); Mean Platelet Volume 9.1 fL (7.4-10.4); Nucleated RBC # (auto) 0.04 K/uL (0-0); Nucleated RBC % (auto) 0.5 %; Platelet Count 316 K/uL (130-400); RDW Coefficient of Variation 15.4 % (11.5-14.5); RDW Standard Deviation 51.9 fL (36.4-46.3); Red Blood Count 3.73 M/uL (4.2-5.4)
[2021-04-02 08:00] LABS: BUN Creatinine Ratio 33.3 (10-20); Calcium 7.5 mg/dl (8.5-10.1); Creatinine Clr Calc Pharmacy 104.2 ml/min; Est GFR (African American) 95.4 ml/min; Est GFR (Non-African American) 82.3 ml/min; Magnesium 1.9 mg/dl (1.8-2.4); Phosphorus 3.1 mg/dl (2.5-4.9); Potassium 3.5 mmol/L (3.5-5.1)
[2021-04-02 08:05] LABS: Basophils # (auto) 0.01 K/uL (0-0.2); Basophils % (auto) 0.1 %; Eosinophils % (auto) 1.3 %; Immature Granulocytes # (auto) 0.44 K/uL (0.00-0.02); Immature Granulocytes % (auto) 5.6 %; Lymphocytes # (auto) 2.54 K/uL (1.2-3.4); Lymphocytes % (auto) 32.2 %; Monocytes # (auto) 0.37 K/uL (0.11-0.59); Monocytes % (auto) 4.7 %; Neutrophils # (auto) 4.44 K/uL (1.4-6.5); Neutrophils % (auto) 56.1 %; Polychromasia 1+
[2021-04-02] MEDS ORDERED: FUROSEMIDE 40 MG in SYRINGE 0 ML IV ONE (08:08)
[2021-04-02] MEDS: FAMOTIDINE 20 MG in SYRINGE 3 ML IV SCH ×2 (08:10→21:08)
[2021-04-02] MEDS: DOCUSATE SODIUM SYRUP 100 MG/10 ML UDC NG SCH ×2 (08:11→21:05)
[2021-04-02] MEDS: MULTI VIT W/MINERALS LIQUID 15 ML UDP NG SCH (08:11)
[2021-04-02] MEDS: dexAMETHasone 6 MG in SYRINGE 0 ML IV SCH (08:11)
[2021-04-02] MEDS: SENNOSIDES 8.8 MG/5 ML UDC PO SCH (08:12)
[2021-04-02] MEDS: INSULIN HUMAN NPH SC SCH (08:33)
[2021-04-02] MEDS: INSULIN GLARGINE SOLOSTAR 100 UNITS/ML 3 ML PEN SC SCH ×2 (08:33→21:12)
[2021-04-02] MEDS ORDERED: FUROSEMIDE 40 MG/4 ML VIAL IV ONE (08:45)
[2021-04-02] MEDS: MIDAZOLAM BOLUS FROM BAG IV PRN ×2 (08:53→10:30)
[2021-04-02] MEDS ORDERED: MAGNESIUM SULFATE / D5W 1 GM/100 ML BAG IV ONE (09:00)
--- NOTE | 2021-04-02 09:52 | XRay Report ---
XR chest 1V portable HISTORY: Covid pneumonia. Respiratory failure. COMPARISON: Chest 04/01/2021. FINDINGS: Endotracheal tube terminates 3.9 cm from the sharona. Right jugular central venous catheter terminates at the SVC. Nasogastric tube terminates below the diaphragm. The tip is not included on th is study. No pneumothorax. No pleural fusions. The heart is normal in size. Multifocal bilateral airs pace opacities are not significantly changed consistent with a pneumonia. IMPRESSION: 1. Satisfactory support line placement. 2. No significant change in the multifocal bilateral airspace opacities consistent with a viral pneum onia. ACT 112: Negative or not required by law. Electronically signed by: Vicente Pitt M.D. 04/02/2021 9:51 AM
[2021-04-02] MEDS: ENOXAPARIN INJ 40 MG/0.4 ML SYR SQ SCH ×2 (09:53→21:05)
[2021-04-02] MEDS: POTASSIUM CHLORIDE / WTR 20 MEQ/100 ML PLCT IV SCH ×2 (09:53→11:46)
--- NOTE | 2021-04-02 10:07 | Pharmacy Report ---
Pharmacy Abx Dose Short Note - Date of Service April 02, 2021 - Assessment & Plan Assessment 50 year old F with acute respiratory failure/currently intubated. Blood cultures with Gm positive cocci, therefore started on vancomycin and zosyn. Concerns for possible pulmonary infection as well. Cultures pending Plan Vancomycin * Received loading dose of vancomycin 2500 mg x 1 this AM * Will start vancomycin 1250 mg iv q 12 hrs - to achieve estimated AUC 400-600 and estimated trough ~18 mcg/ml. Regimen associated with ~15% toxicity * Patient with elevated BMI, therefore increased risk of accumulation with vancomycin, plan to monitor troughs closely Zosyn * 4.5 gm iv q 8 hrs appropriate for CrCl >20 - no change Pharmacy will continue to follow and will adjust dose/frequency as necessary. Thank you.
[2021-04-02] MEDS ORDERED: PIPERACILLIN/TAZOBACTAM 4.5 GM in DEXTROSE 5% 100 ML IV SCH (11:00)
[2021-04-02] MEDS ORDERED: STAT IV Infusion **Titration per Protocol STA (13:03)
--- NOTE | 2021-04-02 13:12 | Critical Care Progress Note ---
Date of Service April 02, 2021 Assessment & Plan (1) Acute respiratory failure with hypoxia: (2) Multifocal pneumonia: (3) Hypothyroidism: (4) Hyperglycemia: (5) LAURI (acute kidney injury): (6) Pneumonia due to COVID-19 virus: (7) Hypokalemia: (8) Hyponatremia: (9) Metabolic acidosis: (10) COVID-19: (11) Depression: (12) Thoracic aortic aneurysm (TAA): (13) DVT prophylaxis: (14) Fatty liver: (15) Obesity: (16) WANDER (obstructive sleep apnea): (17) Elevated LFTs: Plan: Reason Critically Ill: 50-year-old female undergoing treatment for COVID-19 pneu monia, now with worsening hypoxia requiring emergent intubation. Now on ICU service while mechanically ventilated. Neuro - Sedation: Propofol/fentanyl. --> propofol discontinued 03/31/2021, midazolam started for triglyceridemia Ketamine added 04/01/2021 Off Nimbex since 03/31/21 Depressionhold Lexapro, Abilify for now Cardiac - Currently hemodynamically stable and NSR on monitor Continuous monitor on telemetry Respiratory - Acute hypoxic respiratory failurePF ratio consistent with severe ARDS in the setting of COVID-19 pneumonia Secondary to multilobar COVID-19 pneumonia COVID-19 PCR positive, positive lymphopenia CRP 18.4 --> 5.69 Procalcitonin 3.28 S/p Tocilizumab 03/28/2021 Continue with lung protective ventilation High PEEP, low tidal volume to keep Plateau < 30 with permissive hypercapnea if need be. Monitor ABGs GI - Famotidine twice daily RENAL/LYTES - S/P AKIcreatinine 1.6 with baseline 0.9. -Maintain maps greater than 65 -Renally adjust medications and avoid nephrotoxins -Monitor with routine BMPs. Replete electrolytes as indicated - Foleystrict I's and O's ENDO - --DKA Continue with insulin drip until anion gap closes Decreasing blood glucose no more than 100 in an hour Replace potassium IV when potassium level between 3.3-5.3 BMP every 4 hours ICU hyperglycemic protocol Continue Synthroid for hypothyroidism HEME - H&H stable, monitor routine CBC ID - Patient febrile, positive COVID-19 PCR Procalcitonin elevated at 3.28 --> continue with Rocephin Continue dexamethasone for COVID-19 pneumonia, patient did receive Tocilizumab Blood culture 03/29/2021: Coag negative staph Blood culture 04/01/2021: Gram-positive cocci in clusters --Prophylaxis VTE: Lovenox GI: Pepcid Lines: Right IJ, right radial, positive Hurd Diet: Trickle feeds Plan: In/out: Negative 440, urine output 3960 AB.42/51/60 on 40% PEEP of 8 Continue with ketamine, midazolam and fentanyl. Repeat triglycerides tomorrow 40 mg of potassium given to the patient. Hypomagnesemia being replaced Blood culture 04/01/2021 is showing gram-positive cocci in clusters. Patient was on Rocephin which was changed to vancomycin and Zosyn. I will discontinue Zosyn Repeat blood culture tomorrow I have personally spent 37 minutes of critical care time in the direct management of this patient. This is a life/limb threatening event. This includes time spent evaluating patient, direct bedside care, chart review, placing orders, interpretation of diagnostic studies, discussion with consultants, patient, and family members, as well as other required patient management activities. This time is exclusive of all separately billable procedures, and teaching time and separate from and in addition to any other critical care service time. Thank you for allowing us to participate in the care of this patient. Please refer to my attending physician's documentation for any further recommendations. Admission and Anticipated Discharge Date Admission Date: March 28, 2021 Subjective Patient seen and examined at bedside. No acute distress, no adverse events overnight. Patient was on PEEP of 8, 40% of the time of examination saturating 86% She was fighting the vent just prior to me seeing was bolused with midazolam I went up to PEEP 10 FiO2 50% Review of Systems Review of Systems: Unobtainable due to endotracheal tube Physical Exam Physical Exam: Constitutional: No acute distress HEENT: PERRLA, positive ETT Respiratory system: Decreased air entry bilaterally, no wheeze, rhonchi, positive crackles bilaterally CVS: S1-S2 positive, no murmurs or gallops Abdomen: Soft, nontender, nondistended, positive bowel sounds x4, obese Extremities: +2 pulses bilaterally radialis/ dorsalis pedis, no cyanosis, +1 pitting edema Neuro: Sedated and paralyzed Psych: Unable to assess G/U: Positive Hurd Skin: no rashes, warm and dry Lymphatic: no cervical or axillary lymphadenopathy Results & Data Results & Data ([facility]) Vital Signs (Past 12 Hours) Vital Signs Temp Pulse Resp BP Pulse Ox 04/02/21 11:57 55 L 16 92 04/02/21 10:45 37.3 C 58 L 118/65 85 L 04/02/21 10:30 37.3 C 63 121/74 88 L 04/02/21 10:15 36.2 C L 73 125/77 88 L 04/02/21 10:00 37.2 C 61 113/59 L 88 L 04/02/21 09:45 37.2 C 67 118/62 88 L 04/02/21 09:30 37.1 C 61 105/56 L 90 04/02/21 09:15 37.3 C 66 112/64 89 L 04/02/21 09:00 37.3 C 67 104/57 L 90 04/02/21 08:45 36.7 C 62 102/59 L 91 04/02/21 08:30 54 L 105/58 L 90 04/02/21 08:15 54 L 99/54 L 90 04/02/21 08:00 37.2 C 55 L 95/53 L 90 04/02/21 07:45 56 L 93/53 L 90 04/02/21 07:44 55 L 16 90 04/02/21 07:30 56 L 94/53 L 90 04/02/21 07:15 56 L 93/53 L 90 04/02/21 07:00 56 L 99/56 L 91 04/02/21 06:45 56 L 95/54 L 91 04/02/21 06:30 57 L 90/52 L 90 04/02/21 06:15 56 L 105/61 91 04/02/21 06:00 57 L 100/58 L 92 04/02/21 05:00 56 L 99/58 L 91 04/02/21 04:00 37.6 C H 71 112/61 90 04/02/21 03:14 56 L 16 91 04/02/21 03:00 57 L 94/51 L 91 04/02/21 02:00 56 L 95/53 L 91 04/02/21 06:50 04/02/21 06:50 Coding Level of Care Code Critical Care 1st 30-74 mins Diagnoses Acute respiratory failure with hypoxia J96.01 Multifocal pneumonia J18.9 Hypothyroidism E03.9 Hyperglycemia R73.9 LAURI (acute kidney injury) N17.9 Pneumonia due to COVID-19 virus U07.1; J12.82 Hypokalemia E87.6 Hyponatremia E87.1 Metabolic acidosis E87.2 COVID-19 U07.1 Depression F32.9 Thoracic aortic aneurysm (TAA) I71.2 DVT prophylaxis Z29.9 Fatty liver K76.0 Obesity E66.9 WANDER (obstructive sleep apnea) G47.33 Elevated LFTs R79.89 Time Spent (min) 37
--- NOTE | 2021-04-02 13:42 | Pharmacy Report ---
Pharmacy Glycemic Short Note 2 - Date of Service April 02, 2021 - Glycemic Short BSG Results (Last 24 hours): 04/01/21 04/01/21 04/02/21 15:44 20:41 00:03 Glucose POC Glucose 99 100 H POC Glucose (other) 188 H 04/02/21 04/02/21 04/02/21 03:36 06:50 08:02 Glucose 108 H POC Glucose 93 80 POC Glucose (other) 04/02/21 11:27 Glucose POC Glucose 231 H POC Glucose (other) OUTPATIENT ANTIDIABETIC REGIMEN: * N/a * A1c 10.5% 03/28 ASSESSMENT: 04/01 * Patient transitioned off of insulin drip yesterday and received 119 units of SQ insulin yesterday, 105 units basal (35 NPH, 70 Lantus) and 7 units Novolog * Fast blood sugar below goal and blood sugars rising some throughout the day, will increase NPH and decrease Lantus to prevent morning hypoglycemia to have more basal from NPH to cover steroid effects * Patient continues on IV dexamethasone, Pepatmen TFs and antibiotics changed to IV Vancomycin + Zosyn * No other changes at this time in insulin regimen 04/01 * Insulin infusion ran through the night, BSG this morning 93 mg/dL, rate 1.8 units/hr, stopped infusion at this time and gave 40 units of lantus and 35 units of NPH to help cover steroid. Will give additional lantus dose this evening up to an additional 40 units. * Novolog parameters started at weight based stress of 3, BSG elevated at lunch, will reassess need to tighten parameters. 03/31 * Patient off of nimbex but started on minimal dose of norepinephrine. Per MD will attempt to transition off of insulin infusion today, gave 80 units of l antus x 1 (previous 12 hour rates ~100 units). IVF to stop with insulin infusion stopping. Continues on dexamethasone 6 mg. Will transition to novolog correction factor 15 and carb ratio 4. 03/30 * Patient continues to be sedated with propofol/fentanyl, continued nimbex- plan to wean off later today after patient is supine * Patient also started on trickle feeds with plans to increase after nimbex is d/c, set carb ratio at 1:5. * BSGs did trend downward overnight, empirically reduced rate to 1.3 units/hr after BSG of 101 this morning, patient received dexamethasone and BSGs are trending upward again with subsequent increase in insulin infusion. Will consider possible transition off later tonight or tomorrow morning depending on if nimbex able to be discontinued/control with tube feed increases. 03/29 * Patient admitted with COVID-19, currently intubated, sedated with propofol/fentanyl and paralyzed with nimbex * Appears to be newer onset diabetes as patient does not have any diabetic medications listed but A1c of 10.5% * Patient's BSG elevated on arrival, started insulin infusion early this morning as BSGs continued to be elevated throughout the night. * Labs may have shown mild DKA (gap 12.0, Bicarb 19), currently q4 BMP ordered, fluids with potassium at current * Plan to continue current insulin infusion PLAN FOR INPATIENT GLYCEMIC CONTROL: * Basal insulin * Lantus 30 units SQ AM * 20-30 units HS based on BSG * Steroid induced hyperglycemia * NPH 45 units SQ qAM given with dexamethasone * Bolus insulin * NovoLog per scale ACHS or Q6hrs while NPO * Goal Range: Low 110 mg/dL - High 140 mg/dL * Correction Factor: 15 mg/dL/unit * Nutritional / Prandial insulin per carb ratio of 1 unit per 4 grams CHO consumed
--- NOTE | 2021-04-02 14:56 | Hospitalist Progress Note ---
Date of Service April 02, 2021 Assessment & Plan (1) Acute respiratory failure with hypoxia: Plan: Current Inpatient Medications Aripiprazole (Aripiprazole 10 Mg Tab) 20 mg PO QPM JOSELO Stop: 04/27/21 20:59 Last Admin: 03/29/21 00:31 Dose: Not Given Documented by: Dextrose (Dextrose 50% 50 Ml Syringe) 25 - 50 ml IV UD PRN; Protocol PRN Reason: Hypoglycemia Protocol Stop: 04/27/21 18:26 Last Admin: 03/31/21 04:13 Dose: 25 ml Documented by: Docusate Sodium (Docusate Sodium Syrup 100 Mg/10 Ml Udc) 100 mg NG BID JOSELO Stop: 04/30/21 10:59 Last Admin: 04/02/21 08:11 Dose: 100 mg Documented by: Enoxaparin Sodium (Enoxaparin Inj 40 Mg/0.4 Ml Syr) 40 mg SQ Q12H JOSELO Stop: 04/27/21 21:59 Last Admin: 04/02/21 09:53 Dose: 40 mg Documented by: Escitalopram Oxalate (Escitalopram Oxalate 20 Mg Tab) 20 mg PO QPM JOSELO Stop: 04/27/21 20:59 Last Admin: 03/29/21 00:31 Dose: Not Given Documented by: Fentanyl Citrate (Fentanyl Bolus From Bag) 50 mcg IV Q60M PRN PRN Reason: Pain or Agitation Stop: 04/11/21 21:51 Last Admin: 04/02/21 10:39 Dose: 50 mcg Documented by: Glucagon (Glucagon For Inj 1 Mg Vial) 1 mg SQ UD PRN; Protocol PRN Reason: Hypoglycemia Protocol Stop: 04/27/21 18:26 Glucose (Glucose 10 Tabs/Tube) 4 - 8 tabs PO UD PRN; Protocol PRN Reason: Hypoglycemia Protocol Stop: 04/27/21 18:26 Glucose (Glucose 40% Gel 15 Gm Tube) 15 - 30 gm PO UD PRN; Protocol PRN Reason: Hypoglycemia Protocol Stop: 04/27/21 18:26 Heparin Sodium (Beef Lung) (Heparin 10 Unit/Ml 5 Ml Flush) 5 ml FLUSH PRN PRN PRN Reason: Flush Stop: 04/30/21 07:39 Dexamethasone 6 mg/ Syringe 1.5 mls @ 1 mls/min IV DAILY JOSELO Stop: 04/08/21 08:59 Last Admin: 04/02/21 08:11 Dose: 1 mls/min Documented by: Cisatracurium Besylate 40 mg/ (Sodium Chloride) 100 mls @ 25.65 mls/hr IV .Q3H54M JOSELO; Protocol Stop: 04/27/21 21:59 Last Admin: 04/02/21 14:50 Dose: Not Given Documented by: Famotidine 20 mg/ Syringe 5 mls @ 2.5 mls/min IV BID JOSELO Stop: 04/28/21 08:59 Last Admin: 04/02/21 08:10 Dose: 2.5 mls/min Documented by: Levothyroxine Sodium 75 mcg/ (Syringe) 3.75 mls @ 1.875 mls/min IV Q72H JOSELO; Protocol Stop: 04/28/21 08:59 Last Admin: 04/01/21 08:37 Dose: 1.875 mls/min Documented by: Norepinephrine Bitartrate (Levophed/D5w) 8 mg in 508 mls @ 9.068 mls/hr IV .Q24H JOSELO; Protocol Stop: 04/28/21 19:29 Last Titration: 04/01/21 23:21 Dose: Infused Documented by: Midazolam HCl (Versed) 125 mg in 250 mls @ 16 mls/hr IV .[id number] JOSELO; Protocol Stop: 04/30/21 10:29 Last Titration: 04/02/21 10:30 Dose: 8 mg/hr, 16 mls/hr Documented by: Fentanyl Citrate (Fentanyl Citrate) 2,500 mcg in 250 mls @ 27.5 mls/hr IV .Q9H6M JOSELO; Protocol Stop: 04/15/21 15:59 Last Admin: 04/02/21 13:40 Dose: 250 mcg/hr, 25 mls/hr Documented by: Vancomycin HCl 1,250 mg/ (Sodium Chloride) 275 mls @ 200 mls/hr IV Q12H JOSELO Stop: 04/16/21 17:59 Ketamine HCl (Ketalar / Nss) 500 mg in 500 mls @ 36.06 mls/hr IV .[id number] JOSELO; Protocol Stop: 04/03/21 13:30 Last Admin: 04/02/21 13:41 Dose: 0.3 mg/kg/hr, 36.1 mls/hr Documented by: Insulin Aspart (Insulin Aspart 100 Units/Ml 3 Ml Pen) 0 units SC Q4 JOSELO Stop: 05/01/21 11:59 Last Admin: 04/02/21 11:40 Dose: 11 units Documented by: Insulin Glargine (Insulin Glargine Solostar 100 Units/Ml 3 Ml Pen) 30 units SC DAILY@0900 [facility]; Protocol Stop: 05/02/21 08:59 Last Admin: 04/02/21 08:33 Dose: 30 units Documented by: Insulin Glargine (Insulin Glargine Solostar 100 Units/Ml 3 Ml Pen) 0 units SC HS [facility]; Protocol Stop: 05/02/21 20:59 Insulin Human NPH (Insulin Human Nph) 45 units SC DAILY@0900 [facility]; Protocol Stop: 05/02/21 08:59 Last Admin: 04/02/21 08:33 Dose: 45 units Documented by: Midazolam HCl (Midazolam Bolus From Bag) 2 mg IV Q60M PRN PRN Reason: Sedation Stop: 04/30/21 10:21 Last Admin: 04/02/21 10:30 Dose: 2 mg Documented by: Miscellaneous (Carbohydrates For Hypoglycemia ) 15 - 30 gm PO UD PRN PRN Reason: Hypoglycemia Protocol Stop: 04/27/21 18:26 Miscellaneous Information (Pharmacy Glycemic Mgmt Consult) 1 ea N/A UD PRN; Protocol PRN Reason: Consult Stop: 04/27/21 18:26 Miscellaneous Information (Vancomycin Consult Active) 1 ea N/A UD PRN PRN Reason: Consult Stop: 05/02/21 05:13 Multi-Ingredient Cream (Artificial Tears Op Oint 3.5 Gm Tube) 1 appln OP Q4H [facility] Stop: 04/27/21 21:59 Last Admin: 04/02/21 13:40 Dose: Not Given Documented by: Multivitamins/Minerals (Multi Vit W/Minerals Liquid 15 Ml Udp) 15 ml NG QAM [facility] Stop: 05/01/21 08:59 Last Admin: 04/02/21 08:11 Dose: 15 ml Documented by: Nutritional Formula (Peptamen Intense Vhp 1.0 Davis 1,000 Ml Bag) 1,000 ml OG UD [facility]; Protocol Stop: 04/29/21 12:59 Last Admin: 04/02/21 03:51 Dose: 1,000 ml Documented by: Ondansetron HCl (Ondansetron Inj 2 Mg/Ml 2 Ml Vial) 4 mg IV Q6H PRN PRN Reason: Nausea Stop: 04/27/21 18:26 Sennosides (Sennosides 8.8 Mg/5 Ml Udc) 17.6 mg PO DAILY JOSELO Stop: 04/30/21 10:59 Last Admin: 04/02/21 08:12 Dose: 17.6 mg Documented by: Sterile Water (Tube Feeding Water Flush) 30 ml OG Q4H JOSELO Stop: 04/29/21 12:59 Last Admin: 04/02/21 13:40 Dose: 30 ml Documented by: (2) Pneumonia due to COVID-19 virus: Plan: 50-year-old for male with PMH of WANDER on CPAP, morbid obesity, depression with anxiety on Lexapro and Abilify and recent diagnosis of Covid on March 18 [signs and symptoms from 3 days prior to diagnosis] presented to the ED 03/28 with complaint of worsening shortness of breath, intermittent fever on and off [last 1 being in the AM of the arrival day--> 101F], cough. She required high flow nasal cannula oxygen at presentation to the ED and pulmonology was consulted. She is being managed for the following under the critical care team: #. Acute respiratory failure with hypoxia: #. Pneumonia due to COVID-19 virus: #. Possible superimposed bacterial infection/PNA Not vaccinated for COVID-19 Initial positive test on 03/18, sx started 3 days prior. Presents with profound hypoxia requiring high flow via nasal cannula in the ED Pt does not meet criteria for remdesivir given duration of sx Admitting ESR: 126 and admitting CRP: 18.40 Admitting procalcitonin: 3.28 Inflammatory markers are trending down Pt admitted to PCU with Pulm consult, given Tocilizumab 03/28, later evening of 03/28 Pt required emergent intubation due to worsening hypoxia. Given h/o fever and elevated procal, patient started on rocephin 03/28 to cover for possible secondary bacterial infection. We'll start intravenous doxycycline as well to cover possible atypical organism Currently intubated/sedated/mechanical ventilation. Management per Critical Care Team. Remains stable and is still requiring high flow oxygen to maintain saturation Has been getting intravenous Lasix to keep her on the soap drier tender side Remains on mechanical ventilator and plan to extubate in the next 1 to 2 days Gram-positive bacteremia Has been started on intravenous vancomycin and Zosyn discontinued Repeat blood culture tomorrow #. Metabolic Acidosis Met acidosis (minimal AG elevation), likely 2/2 diarrhea continue to monitor. #. LAURI Baseline Cr 0.8 Admitting BUN/Cr 22 and 1.48 Resolved #. Hypokalemia Admitting K3.0 Monitor daily, replace as appropriate #. Hyponatremia Admitting sodium level one thirty-one Resolved #. Hyperglycemia/new DM diagnosis Presented with DKA Admitting blood glucose two hundred thirty-one Admitting A1c: 10.5 New diagnosis of diabetes Being managed with insulin drip per critical care hypoglycemia protocol We will discharge with glycemic pharmacist recommendation upon discharge. Appreciate glycemic pharmacist input and recommendation #. Elevated LFTs Likely secondary to Covid Coming down. #. Other chronic medical problems: WANDER on CPAP at home, depression on Abilify and Lexapro at home, hypothyroidism on levothyroxine #. DVT prophylaxis:Lovenox subcu Dispo: Critical care FULL CODE PCP: Danika Admission and Anticipated Discharge Date Admission Date: March 28, 2021 Subjective 03/30/2021 The patient was seen and examined in telemetry unit She remains intubated and sedated Has been in prone position and requiring 60 L of oxygen to maintain saturation 03/31/2021 The patient was seen and examined in telemetry unit and in the Covid room She remains intubated and currently sedation is off She has been a little restless 04/01/2021 The patient was seen and examined in telemetry unit She remains intubated with minimal improvement so far 04/02/2021 The patient was seen and examined in telemetry unit and in the Covid room He remains intubated and sedated Review of Systems Review of Systems: Unobtainable due to endotracheal tube Physical Exam Physical Exam: Lying in bed on mechanical ventilator and off sedation Constitutional: well developed, well nourished, + ill appearing and + obese Eyes: PERRL, conjunctivae normal, anicteric sclerae ENMT: external ear and nose normal, oropharynx normal Neck: trachea midline, no thyromegaly Respiratory: no respiratory distress Auscultation: + crackles (Minimal crackles bilaterally on dependent area) Cardiovascular: Rate/Rhythm: regular rate and regular rhythm; not tachycardic Heart Sounds: normal S1 and normal S2; no murmur Extremities: + edema (Trace edema bilaterally) Gastrointestinal (Abdomen): Inspection/Auscultation: normal bowel sounds; abdomen not distended Percussion/Palpation: abdomen soft; abdomen nontender Neurologic: Remains sedated on mechanical ventilator Results & Data Results & Data ([facility]) Vital Signs (Past 12 Hours) Vital Signs Temp Pulse Resp BP Pulse Ox 04/02/21 11:57 55 L 16 92 04/02/21 10:45 37.3 C 58 L 118/65 85 L 04/02/21 10:30 37.3 C 63 121/74 88 L 04/02/21 10:15 36.2 C L 73 125/77 88 L 04/02/21 10:00 37.2 C 61 113/59 L 88 L 04/02/21 09:45 37.2 C 67 118/62 88 L 04/02/21 09:30 37.1 C 61 105/56 L 90 04/02/21 09:15 37.3 C 66 112/64 89 L 04/02/21 09:00 37.3 C 67 104/57 L 90 04/02/21 08:45 36.7 C 62 102/59 L 91 04/02/21 08:30 54 L 105/58 L 90 04/02/21 08:15 54 L 99/54 L 90 04/02/21 08:00 37.2 C 55 L 95/53 L 90 04/02/21 07:45 56 L 93/53 L 90 04/02/21 07:44 55 L 16 90 04/02/21 07:30 56 L 94/53 L 90 04/02/21 07:15 56 L 93/53 L 90 04/02/21 07:00 56 L 99/56 L 91 04/02/21 06:45 56 L 95/54 L 91 04/02/21 06:30 57 L 90/52 L 90 04/02/21 06:15 56 L 105/61 91 04/02/21 06:00 57 L 100/58 L 92 04/02/21 05:00 56 L 99/58 L 91 04/02/21 04:00 37.6 C H 71 112/61 90 04/02/21 03:14 56 L 16 91 04/02/21 03:00 57 L 94/51 L 91 Laboratory Results Short CBC 04/02/21 Range/Units 06:50 WBC 7.90 (4.8-10.8) K/uL Hgb 10.8 L (12.0-16.0) g/dL Hct 34.3 L (37-47) % Plt Count 316 (130-400) K/uL BMP 04/02/21 06:50 Sodium 143 Potassium 3.5 Chloride 109 H Carbon Dioxide 31 BUN 27 H Creatinine 0.82 Glucose 108 H Calcium 7.5 L
[2021-04-02] MEDS: NOREPINEPHRINE/D5W 8 MG/508 ML BAG IV SCH (16:02)
[2021-04-02] MEDS: VANCOMYCIN HCL 1,250 MG in SODIUM CHLORIDE 0.9% 250 ML IV SCH (17:38)
[2021-04-02] MEDS ORDERED: INSULIN GLARGINE SOLOSTAR 100 UNITS/ML 3 ML PEN SC ONE (21:00)
[2021-04-03] MEDS: PEPTAMEN INTENSE VHP 1.0 CAL 1,000 ML BAG OG SCH ×2 (00:27→20:19)
[2021-04-03] MEDS: INSULIN ASPART 100 UNITS/ML 3 ML PEN SC SCH ×6 (00:40→19:44)
[2021-04-03] MEDS: TUBE FEEDING WATER FLUSH OG SCH ×6 (00:41→20:20)
[2021-04-03] MEDS: CISATRACURIUM BESYLATE 40 MG in 0.9 % SODIUM CHLORIDE 80 ML IV SCH ×6 (02:26→20:21)
[2021-04-03] MEDS: ARTIFICIAL TEARS OP OINT 3.5 GM TUBE OP SCH ×6 (02:26→19:04)
[2021-04-03] MEDS: KETAMINE HCL / NSS 500 MG/500 ML BAG IV SCH (03:57)
[2021-04-03] MEDS: VANCOMYCIN HCL 1,250 MG in SODIUM CHLORIDE 0.9% 250 ML IV SCH (05:55)
[2021-04-03 06:02] LABS: iSTAT Art Bld Gas pCO2 Correct 52 mmHg (35-46); iSTAT Art Bld Gas pH Corrected 7.434 (7.35-7.45); iSTAT Arterial Blood Gas HCO3 35 meg/L (19-24); iSTAT Arterial Blood Gas pCO2 54 mmHg (35-46); iSTAT Arterial Blood Gas pH 7.42 (7.35-7.45); iSTAT Arterial Blood Gas pO2 53 mmHg (80-95); iSTAT Arterial Blood Gas pO2 C 51; iSTAT Carbon Dioxide 37 mmol/L (24-31); iSTAT Hematocrit 32 % (37-47); iSTAT Hemoglobin 10.9 g/dl (12.0-16.0); iSTAT Potassium 3.7 mmol/L (3.3-5.0); iSTAT Site R Brachial; iSTAT Sodium 144 mmol/L (135-144)
[2021-04-03 06:38] LABS: Hematocrit (blood only) 27.1 % (37-47); Hemoglobin 8.5 g/dL (12.0-16.0); Mean Corpuscular Hemoglobin 29.2 pg (25-34); Mean Corpuscular Hgb Conc 31.4 g/dL (32-36); Mean Corpuscular Volume 93.1 fL (80-100); Mean Platelet Volume 8.9 fL (7.4-10.4); Nucleated RBC # (auto) 0.04 K/uL (0-0); Nucleated RBC % (auto) 0.7 %; Platelet Count 249 K/uL (130-400); RDW Coefficient of Variation 15.4 % (11.5-14.5); RDW Standard Deviation 52.2 fL (36.4-46.3); Red Blood Count 2.91 M/uL (4.2-5.4); White Blood Count 6.39 K/uL (4.8-10.8)
[2021-04-03 07:03] LABS: Basophils # (auto) 0.01 K/uL (0-0.2); Basophils % (auto) 0.2 %; Eosinophils # (auto) 0.09 K/uL (0-0.5); Eosinophils % (auto) 1.4 %; Immature Granulocytes # (auto) 0.35 K/uL (0.00-0.02); Immature Granulocytes % (auto) 5.5 %; Lymphocytes # (auto) 1.97 K/uL (1.2-3.4); Lymphocytes % (auto) 30.8 %; Monocytes # (auto) 0.35 K/uL (0.11-0.59); Monocytes % (auto) 5.5 %; Neutrophils # (auto) 3.62 K/uL (1.4-6.5); Neutrophils % (auto) 56.6 %; Polychromasia 1+
[2021-04-03 07:21] LABS: BUN Creatinine Ratio 52.7 (10-20); Calcium 5.8 mg/dl (8.5-10.1); Creatinine Clr Calc Pharmacy 203.4 ml/min; Est GFR (African American) 136.6 ml/min; Est GFR (Non-African American) 117.8 ml/min; Magnesium 1.5 mg/dl (1.8-2.4); Phosphorus 2.4 mg/dl (2.5-4.9); Potassium 2.8 mmol/L (3.5-5.1)
[2021-04-03] MEDS ORDERED: POTASSIUM PHOS 3 MMOL/1 ML INFUSION IV STA (07:55)
[2021-04-03] MEDS: fentaNYL citrate 2,500 MCG/250 ML BAG IV SCH ×2 (08:06→18:19)
[2021-04-03] MEDS: DOCUSATE SODIUM SYRUP 100 MG/10 ML UDC NG SCH ×2 (08:07→20:19)
[2021-04-03] MEDS: MULTI VIT W/MINERALS LIQUID 15 ML UDP NG SCH (08:07)
[2021-04-03] MEDS: SENNOSIDES 8.8 MG/5 ML UDC PO SCH (08:07)
[2021-04-03] MEDS: INSULIN HUMAN NPH SC SCH (08:08)
[2021-04-03] MEDS: dexAMETHasone 6 MG in SYRINGE 0 ML IV SCH (08:08)
[2021-04-03] MEDS: FAMOTIDINE 20 MG in SYRINGE 3 ML IV SCH ×2 (08:08→20:20)
[2021-04-03] MEDS: INSULIN GLARGINE SOLOSTAR 100 UNITS/ML 3 ML PEN SC SCH ×2 (08:09→19:48)
[2021-04-03] MEDS ORDERED: POTASSIUM PHOSPHATE 24 MMOL in SODIUM CHLORIDE 0.9% 500 ML IV ONE (08:30)
[2021-04-03] MEDS ORDERED: CALCIUM CHLORIDE 10% 1,000 MG in SODIUM CHLORIDE 0.9% 50 ML IV ONE (08:30)
[2021-04-03 09:37] LABS: Hematocrit (blood only) 36.1 % (37-47); Hemoglobin 11.2 g/dL (12.0-16.0); Mean Corpuscular Hemoglobin 28.9 pg (25-34); Mean Corpuscular Volume 93.3 fL (80-100); Mean Platelet Volume 9.2 fL (7.4-10.4); Nucleated RBC # (auto) 0.04 K/uL (0-0); Nucleated RBC % (auto) 0.5 %; Platelet Count 306 K/uL (130-400); RDW Coefficient of Variation 15.3 % (11.5-14.5); RDW Standard Deviation 51.9 fL (36.4-46.3); Red Blood Count 3.87 M/uL (4.2-5.4); White Blood Count 8.18 K/uL (4.8-10.8)
--- NOTE | 2021-04-03 09:50 | XRay Report ---
XR chest 1V portable HISTORY: Respiratory failure. Follow-up. COMPARISON: Chest 04/02/2021. FINDINGS: Endotracheal tube terminates 3.3 cm from the sharona. No pneumothorax. No pleural effusions. Nasogastric tube and right jugular central venous catheter are unchanged in position. The heart marcellus ins mildly enlarged. Bilateral multifocal airspace opacities are again noted. This is slightly progre ssed within the right midlung zone. IMPRESSION: 1. Satisfactory support line placement. 2. Multifocal bilateral airspace opacities are again noted. This has slightly progressed within the r ight midlung zone. ACT 112: Negative or not required by law. Electronically signed by: Vicente Pitt M.D. 04/03/2021 9:49 AM
[2021-04-03 10:26] LABS: BUN Creatinine Ratio 41.5 (10-20); Calcium 8.2 mg/dl (8.5-10.1); Creatinine Clr Calc Pharmacy 115.5 ml/min; Est GFR (Non-African American) 93.1 ml/min; Potassium 3.9 mmol/L (3.5-5.1)
[2021-04-03 10:28] LABS: Basophils # (auto) 0.02 K/uL (0-0.2); Basophils % (auto) 0.2 %; Eosinophils % (auto) 1.2 %; Immature Granulocytes # (auto) 0.57 K/uL (0.00-0.02); Lymphocytes # (auto) 2.63 K/uL (1.2-3.4); Lymphocytes % (auto) 32.2 %; Monocytes # (auto) 0.57 K/uL (0.11-0.59); Neutrophils # (auto) 4.29 K/uL (1.4-6.5); Neutrophils % (auto) 52.4 %; Polychromasia 1+
[2021-04-03] MEDS: MIDAZOLAM HCL 125 MG/250 ML BAG IV SCH ×2 (10:40→20:50)
[2021-04-03] MEDS: ENOXAPARIN INJ 40 MG/0.4 ML SYR SQ SCH ×2 (10:41→20:20)
[2021-04-03] MEDS: cefTRIAXone SODIUM 2,000 MG in DEXTROSE 5% 50 ML IV SCH (10:41)
[2021-04-03 10:51] LABS: Magnesium 2.1 mg/dl (1.8-2.4); Phosphorus 3.7 mg/dl (2.5-4.9)
[2021-04-03] MEDS: MAGNESIUM SULFATE / D5W 1 GM/100 ML BAG IV SCH ×2 (11:36→11:37)
[2021-04-03] MEDS: MIDAZOLAM BOLUS FROM BAG IV PRN ×3 (12:08→19:49)
[2021-04-03] MEDS: FUROSEMIDE 40 MG in SYRINGE 0 ML IV SCH ×2 (13:06→20:19)
--- NOTE | 2021-04-03 14:30 | Critical Care Progress Note ---
Date of Service April 03, 2021 Assessment & Plan (1) Acute respiratory failure with hypoxia: (2) Multifocal pneumonia: (3) Hypothyroidism: (4) Hyperglycemia: (5) LAURI (acute kidney injury): (6) Pneumonia due to COVID-19 virus: (7) Hypokalemia: (8) Hyponatremia: (9) Metabolic acidosis: (10) COVID-19: (11) Depression: (12) Thoracic aortic aneurysm (TAA): (13) DVT prophylaxis: (14) Fatty liver: (15) Obesity: (16) WANDER (obstructive sleep apnea): (17) Elevated LFTs: Plan: Reason Critically Ill: 50-year-old female undergoing treatment for COVID-19 pneu monia, now with worsening hypoxia requiring emergent intubation. Now on ICU service while mechanically ventilated. Neuro - Sedation: Propofol/fentanyl. --> propofol discontinued 03/31/2021, midazolam started for triglyceridemia Ketamine added 04/01/2021 Off Nimbex since 03/31/21 Depressionhold Lexapro, Abilify for now Cardiac - Currently hemodynamically stable and NSR on monitor Continuous monitor on telemetry Respiratory - Acute hypoxic respiratory failurePF ratio consistent with severe ARDS in the setting of COVID-19 pneumonia Secondary to multilobar COVID-19 pneumonia COVID-19 PCR positive, positive lymphopenia CRP 18.4 --> 5.69 Procalcitonin 3.28 S/p Tocilizumab 03/28/2021 Continue with lung protective ventilation High PEEP, low tidal volume to keep Plateau < 30 with permissive hypercapnea if need be. Monitor ABGs GI - Famotidine twice daily RENAL/LYTES - S/P AKIcreatinine 1.6 with baseline 0.9. -Maintain maps greater than 65 -Renally adjust medications and avoid nephrotoxins -Monitor with routine BMPs. Replete electrolytes as indicated - Foleystrict I's and O's ENDO - --DKA Continue with insulin drip until anion gap closes Decreasing blood glucose no more than 100 in an hour Replace potassium IV when potassium level between 3.3-5.3 BMP every 4 hours ICU hyperglycemic protocol Continue Synthroid for hypothyroidism HEME - H&H stable, monitor routine CBC ID - Patient febrile, positive COVID-19 PCR Procalcitonin elevated at 3.28 --> continue with Rocephin Continue dexamethasone for COVID-19 pneumonia, patient did receive Tocilizumab Blood culture 03/29/2021: Coag negative staph Blood culture 04/01/2021: Gram-positive cocci in clusters --Prophylaxis VTE: Lovenox GI: Pepcid Lines: Right IJ, right radial, positive Hurd Diet: Trickle feeds Plan: In/out: +1850, urine output 2850. Positive 4 liters since coming the hospital AB.42/54/53 on 40% PEEP of 6 Continue with ketamine, midazolam and fentanyl. Try to take Ketamine off. Restart propofol if need be. Repeat triglycerides tomorrow Blood culture 04/01/2021 is showing gram-positive cocci in clusters. MRSA PCR negative, Abx changed back to rocephin Bd Cx repeated today Labs were off from morning. Repeat labs showed mild Hypernatraemia. Will give extra dose of lasix 20mg at midnight. I have personally spent 36 minutes of critical care time in the direct management of this patient. This is a life/limb threatening event. This includes time spent evaluating patient, direct bedside care, chart review, placing orders, interpretation of diagnostic studies, discussion with consultants, patient, and family members, as well as other required patient management activities. This time is exclusive of all separately billable procedures, and teaching time and separate from and in addition to any other critical care service time. Thank you for allowing us to participate in the care of this patient. Please refer to my attending physician's documentation for any further recommendations. Admission and Anticipated Discharge Date Admission Date: March 28, 2021 Subjective Patient seen and examined at bedside. NAD. Patient was on fentanyl, midazolam and ketamine. She was breathing over the vent. Not following commands. Review of Systems Review of Systems: Unobtainable due to endotracheal tube Physical Exam Physical Exam: Constitutional: No acute distress HEENT: PERRLA, positive ETT Respiratory system: Decreased air entry bilaterally, no wheeze, rhonchi, positive crackles bilaterally CVS: S1-S2 positive, no murmurs or gallops Abdomen: Soft, nontender, nondistended, positive bowel sounds x4, obese Extremities: +2 pulses bilaterally radialis/ dorsalis pedis, no cyanosis, +1 pitting edema Neuro: Sedated and paralyzed Psych: Unable to assess G/U: Positive Hurd Skin: no rashes, warm and dry Lymphatic: no cervical or axillary lymphadenopathy Results & Data Results & Data ([facility]) Vital Signs (Past 12 Hours) Vital Signs Temp Pulse Resp BP Pulse Ox 04/03/21 13:30 37.2 C 53 L 127/68 92 04/03/21 13:16 37.2 C 71 121/58 L 92 04/03/21 13:00 37.2 C 53 L 116/57 L 90 04/03/21 12:45 37.2 C 55 L 111/59 L 92 04/03/21 12:30 37.2 C 57 L 107/56 L 91 04/03/21 12:15 37.2 C 57 L 107/56 L 90 04/03/21 12:00 37.2 C 64 114/59 L 90 04/03/21 11:45 37.2 C 62 123/68 91 04/03/21 11:30 37.1 C 58 L 18 111/72 90 04/03/21 11:15 37.1 C 56 L 115/62 88 L 04/03/21 11:00 37.1 C 54 L 119/66 88 L 04/03/21 10:45 37.1 C 53 L 118/66 88 L 04/03/21 10:30 37.1 C 55 L 120/65 88 L 04/03/21 10:15 37.1 C 57 L 93/51 L 87 L 04/03/21 10:00 37.1 C 56 L 94/52 L 87 L 04/03/21 09:45 37.1 C 54 L 94/52 L 87 L 04/03/21 09:30 37.1 C 52 L 95/53 L 88 L 04/03/21 09:15 37.1 C 52 L 90/52 L 88 L 04/03/21 09:00 37.2 C 52 L 90/53 L 89 L 04/03/21 08:45 37.2 C 51 L 97/56 L 90 04/03/21 08:30 37.2 C 51 L 101/56 L 90 04/03/21 08:15 37.2 C 54 L 96/53 L 89 L 04/03/21 08:00 37.1 C 53 L 16 107/65 89 L 04/03/21 07:45 37.1 C 54 L 102/58 L 90 04/03/21 07:30 37.0 C 54 L 95/53 L 90 04/03/21 07:15 37.1 C 53 L 103/60 91 04/03/21 07:00 37.1 C 52 L 103/59 L 91 04/03/21 06:45 37.1 C 52 L 99/56 L 91 04/03/21 06:30 37.1 C 52 L 101/58 L 91 04/03/21 06:15 37.0 C 52 L 100/58 L 91 04/03/21 06:00 36.3 C L 52 L 100/59 L 90 04/03/21 05:46 52 L 16 88 L 04/03/21 05:00 36.5 C 54 L 90/51 L 88 L 04/03/21 04:00 37.6 C H 54 L 106/55 L 90 04/03/21 03:00 37.5 C 53 L 108/58 L 89 L 04/03/21 02:26 52 L 16 89 L 04/03/21 09:07 04/03/21 08:52 Coding Level of Care Code Critical Care 1st 30-74 mins Diagnoses Acute respiratory failure with hypoxia J96.01 Multifocal pneumonia J18.9 Hypothyroidism E03.9 Hyperglycemia R73.9 LAURI (acute kidney injury) N17.9 Pneumonia due to COVID-19 virus U07.1; J12.82 Hypokalemia E87.6 Hyponatremia E87.1 Metabolic acidosis E87.2 COVID-19 U07.1 Depression F32.9 Thoracic aortic aneurysm (TAA) I71.2 DVT prophylaxis Z29.9 Fatty liver K76.0 Obesity E66.9 WANDER (obstructive sleep apnea) G47.33 Elevated LFTs R79.89 Time Spent (min) 36
--- NOTE | 2021-04-03 15:19 | Hospitalist Progress Note ---
Date of Service April 03, 2021 Assessment & Plan (1) Acute respiratory failure with hypoxia: (2) Pneumonia due to COVID-19 virus: Plan: 50-year-old for male with PMH of WANDER on CPAP, morbid obesity, depression with anxiety on Lexapro and Abilify and recent diagnosis of Covid on March 18 [signs and symptoms from 3 days prior to diagnosis] presented to the ED 03/28 with complaint of worsening shortness of breath, intermittent fever on and off [last 1 being in the AM of the arrival day--> 101F], cough. She required high flow nasal cannula oxygen at presentation to the ED and pulmonology was consulted. She is being managed for the following under the critical care team: #. Acute respiratory failure with hypoxia: #. Pneumonia due to COVID-19 virus: #. Possible superimposed bacterial infection/PNA Not vaccinated for COVID-19 Initial positive test on 03/18, sx started 3 days prior. Presents with profound hypoxia requiring high flow via nasal cannula in the ED Pt does not meet criteria for remdesivir given duration of sx Admitting ESR: 126 and admitting CRP: 18.40 Admitting procalcitonin: 3.28 Inflammatory markers are trending down Minimal improvement Pt admitted to PCU with Pulm consult, given Tocilizumab 03/28, later evening of 03/28 Pt required emergent intubation due to worsening hypoxia. Given h/o fever and elevated procal, patient started on rocephin 03/28 to cover for possible secondary bacterial infection. We'll start intravenous doxycycline as well to cover possible atypical organism Currently intubated/sedated/mechanical ventilation. Management per Critical Care Team. 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 Metabolic Acidosis Met acidosis (minimal AG elevation), likely 2/2 diarrhea continue to monitor. #. LAURI Baseline Cr 0.8 Admitting BUN/Cr 22 and 1.48 Resolved #. Hypokalemia Admitting K3.0 Monitor daily, replace as appropriate #. Hyponatremia Admitting sodium level one thirty-one Mildly hyponatremic #. Hyperglycemia/new DM diagnosis Presented with DKA Admitting blood glucose two hundred thirty-one Admitting A1c: 10.5 New diagnosis of diabetes Being managed with insulin drip per critical care hypoglycemia protocol We will discharge with glycemic pharmacist recommendation upon discharge. Appreciate glycemic pharmacist input and recommendation #. Elevated LFTs Likely secondary to Covid Coming down. #. Other chronic medical problems: WANDER on CPAP at home, depression on Abilify and Lexapro at home, hypothyroidism on levothyroxine #. DVT prophylaxis:Lovenox subcu Family members she is being updated by the r d intern Dispo: Critical care FULL CODE PCP: Danika Admission and Anticipated Discharge Date Admission Date: March 28, 2021 Subjective 03/30/2021 The patient was seen and examined in telemetry unit She remains intubated and sedated Has been in prone position and requiring 60 L of oxygen to maintain saturation 03/31/2021 The patient was seen and examined in telemetry unit and in the Covid room She remains intubated and currently sedation is off She has been a little restless 04/01/2021 The patient was seen and examined in telemetry unit She remains intubated with minimal improvement so far 04/02/2021 The patient was seen and examined in telemetry unit and in the Covid room SHe remains intubated and sedated 04/03/2021 The patient was seen and examined in telemetry unit and in the Covid room She remains intubated and sedated Review of Systems Review of Systems: Unobtainable due to endotracheal tube Physical Exam Physical Exam: Lying in bed on mechanical ventilator and off sedation Constitutional: well developed, well nourished, + ill appearing and + obese Eyes: PERRL, conjunctivae normal, anicteric sclerae ENMT: external ear and nose normal, oropharynx normal Neck: trachea midline, no thyromegaly Respiratory: no respiratory distress Auscultation: + crackles (Minimal crackles bilaterally on dependent area) Cardiovascular: Rate/Rhythm: regular rate and regular rhythm; not tachycardic Heart Sounds: normal S1 and normal S2; no murmur Extremities: + edema (Trace edema bilaterally) Gastrointestinal (Abdomen): Inspection/Auscultation: normal bowel sounds; abdomen not distended Percussion/Palpation: abdomen soft; abdomen nontender Neurologic: Remains sedated Results & Data Results & Data ([facility]) Vital Signs (Past 12 Hours) Vital Signs Temp Pulse Resp BP Pulse Ox 04/03/21 13:30 37.2 C 53 L 127/68 92 04/03/21 13:16 37.2 C 71 121/58 L 92 04/03/21 13:00 37.2 C 53 L 116/57 L 90 04/03/21 12:45 37.2 C 55 L 111/59 L 92 04/03/21 12:30 37.2 C 57 L 107/56 L 91 04/03/21 12:15 37.2 C 57 L 107/56 L 90 04/03/21 12:00 37.2 C 64 114/59 L 90 04/03/21 11:45 37.2 C 62 123/68 91 04/03/21 11:30 37.1 C 58 L 18 111/72 90 04/03/21 11:15 37.1 C 56 L 115/62 88 L 04/03/21 11:00 37.1 C 54 L 119/66 88 L 04/03/21 10:45 37.1 C 53 L 118/66 88 L 04/03/21 10:30 37.1 C 55 L 120/65 88 L 04/03/21 10:15 37.1 C 57 L 93/51 L 87 L 04/03/21 10:00 37.1 C 56 L 94/52 L 87 L 04/03/21 09:45 37.1 C 54 L 94/52 L 87 L 04/03/21 09:30 37.1 C 52 L 95/53 L 88 L 04/03/21 09:15 37.1 C 52 L 90/52 L 88 L 04/03/21 09:00 37.2 C 52 L 90/53 L 89 L 04/03/21 08:45 37.2 C 51 L 97/56 L 90 04/03/21 08:30 37.2 C 51 L 101/56 L 90 04/03/21 08:15 37.2 C 54 L 96/53 L 89 L 04/03/21 08:00 37.1 C 53 L 16 107/65 89 L 04/03/21 07:45 37.1 C 54 L 102/58 L 90 04/03/21 07:30 37.0 C 54 L 95/53 L 90 04/03/21 07:15 37.1 C 53 L 103/60 91 04/03/21 07:00 37.1 C 52 L 103/59 L 91 04/03/21 06:45 37.1 C 52 L 99/56 L 91 04/03/21 06:30 37.1 C 52 L 101/58 L 91 04/03/21 06:15 37.0 C 52 L 100/58 L 91 04/03/21 06:00 36.3 C L 52 L 100/59 L 90 04/03/21 05:46 52 L 16 88 L 04/03/21 05:00 36.5 C 54 L 90/51 L 88 L 04/03/21 04:00 37.6 C H 54 L 106/55 L 90 Laboratory Results Short CBC 04/03/21 04/03/21 Range/Units 06:14 09:07 WBC 6.39 8.18 (4.8-10.8) K/uL Hgb 8.5 L 11.2 L (12.0-16.0) g/dL Hct 27.1 L 36.1 L (37-47) % Plt Count 249 306 (130-400) K/uL BMP 04/03/21 04/03/21 06:14 08:52 Sodium 150 H 146 H Potassium 2.8 L D 3.9 D Chloride 120 H 108 H Carbon Dioxide 25 31 BUN 22 H 31 H Creatinine 0.42 L D 0.74 D Glucose 65 L 98 Calcium 5.8 L* D 8.2 L D Medications Administered Current Inpatient Medications Aripiprazole (Aripiprazole 10 Mg Tab) 20 mg PO QPM JOSELO Stop: 04/27/21 20:59 Last Admin: 03/29/21 00:31 Dose: Not Given Documented by: Dextrose (Dextrose 50% 50 Ml Syringe) 25 - 50 ml IV UD PRN; Protocol PRN Reason: Hypoglycemia Protocol Stop: 04/27/21 18:26 Last Admin: 03/31/21 04:13 Dose: 25 ml Documented by: Docusate Sodium (Docusate Sodium Syrup 100 Mg/10 Ml Udc) 100 mg NG BID JOSELO Stop: 04/30/21 10:59 Last Admin: 04/03/21 08:07 Dose: 100 mg Documented by: Enoxaparin Sodium (Enoxaparin Inj 40 Mg/0.4 Ml Syr) 40 mg SQ Q12H JOSELO Stop: 04/27/21 21:59 Last Admin: 04/03/21 10:41 Dose: 40 mg Documented by: Escitalopram Oxalate (Escitalopram Oxalate 20 Mg Tab) 20 mg PO QPM JOSELO Stop: 04/27/21 20:59 Last Admin: 03/29/21 00:31 Dose: Not Given Documented by: Fentanyl Citrate (Fentanyl Bolus From Bag) 50 mcg IV Q60M PRN PRN Reason: Pain or Agitation Stop: 04/11/21 21:51 Last Admin: 04/03/21 12:08 Dose: 50 mcg Documented by: Glucagon (Glucagon For Inj 1 Mg Vial) 1 mg SQ UD PRN; Protocol PRN Reason: Hypoglycemia Protocol Stop: 04/27/21 18:26 Glucose (Glucose 10 Tabs/Tube) 4 - 8 tabs PO UD PRN; Protocol PRN Reason: Hypoglycemia Protocol Stop: 04/27/21 18:26 Glucose (Glucose 40% Gel 15 Gm Tube) 15 - 30 gm PO UD PRN; Protocol PRN Reason: Hypoglycemia Protocol Stop: 04/27/21 18:26 Heparin Sodium (Beef Lung) (Heparin 10 Unit/Ml 5 Ml Flush) 5 ml FLUSH PRN PRN PRN Reason: Flush Stop: 04/30/21 07:39 Dexamethasone 6 mg/ Syringe 1.5 mls @ 1 mls/min IV DAILY JOSELO Stop: 04/08/21 08:59 Last Admin: 04/03/21 08:08 Dose: 1 mls/min Documented by: Cisatracurium Besylate 40 mg/ (Sodium Chloride) 100 mls @ 25.65 mls/hr IV .Q3H54M JOSELO; Protocol Stop: 04/27/21 21:59 Last Admin: 04/03/21 13:37 Dose: Not Given Documented by: Famotidine 20 mg/ Syringe 5 mls @ 2.5 mls/min IV BID JOSELO Stop: 04/28/21 08:59 Last Admin: 04/03/21 08:08 Dose: 2.5 mls/min Documented by: Levothyroxine Sodium 75 mcg/ (Syringe) 3.75 mls @ 1.875 mls/min IV Q72H JOSELO; Pr otocol Stop: 04/28/21 08:59 Last Admin: 04/01/21 08:37 Dose: 1.875 mls/min Documented by: Norepinephrine Bitartrate (Levophed/D5w) 8 mg in 508 mls @ 9.068 mls/hr IV .Q24H JOSELO; Protocol Stop: 04/28/21 19:29 Last Admin: 04/02/21 16:02 Dose: Not Given Documented by: Midazolam HCl (Versed) 125 mg in 250 mls @ 22 mls/hr IV .[id number] JOSELO; Protocol Stop: 04/30/21 10:29 Last Titration: 04/03/21 13:22 Dose: 11 mg/hr, 22 mls/hr Documented by: Fentanyl Citrate (Fentanyl Citrate) 2,500 mcg in 250 mls @ 27.5 mls/hr IV .Q9H6M JOSELO; Protocol Stop: 04/15/21 15:59 Last Titration: 04/03/21 12:09 Dose: 300 mcg/hr, 30 mls/hr Documented by: Ceftriaxone Sodium 2,000 mg/ (Dextrose) 70 mls @ 100 mls/hr IV DAILY JOSELO; Protocol Stop: 04/06/21 08:59 Last Infusion: 04/03/21 11:37 Dose: Infused Documented by: Furosemide 40 mg/ Syringe 4 mls @ 4 mls/min IV BID JOSELO Stop: 05/03/21 12:29 Last Admin: 04/03/21 13:06 Dose: 4 mls/min Documented by: Insulin Aspart (Insulin Aspart 100 Units/Ml 3 Ml Pen) 0 units SC Q4 JOSELO Stop: 05/01/21 11:59 Last Admin: 04/03/21 13:00 Dose: 7 units Documented by: Insulin Glargine (Insulin Glargine Solostar 100 Units/Ml 3 Ml Pen) 30 units SC DAILY@0900 COUNT INCLUDES THE [facility]; Protocol Stop: 05/02/21 08:59 Last Admin: 04/03/21 08:09 Dose: 30 units Documented by: Insulin Glargine (Insulin Glargine Solostar 100 Units/Ml 3 Ml Pen) 0 units SC HS COUNT INCLUDES THE [facility]; Protocol Stop: 05/02/21 20:59 Last Admin: 04/02/21 21:12 Dose: 20 units Documented by: Insulin Human NPH (Insulin Human Nph) 45 units SC DAILY@0900 COUNT INCLUDES THE [facility]; Protocol Stop: 05/02/21 08:59 Last Admin: 10/03/21 08:08 Dose: 45 units Documented by: Midazolam HCl (Midazolam Bolus From Bag) 2 mg IV Q60M PRN PRN Reason: Sedation Stop: 04/30/21 10:21 Last Admin: 04/03/21 13:22 Dose: 2 mg Documented by: Miscellaneous (Carbohydrates For Hypoglycemia ) 15 - 30 gm PO UD PRN PRN Reason: Hypoglycemia Protocol Stop: 04/27/21 18:26 Miscellaneous Information (Pharmacy Glycemic Mgmt Consult) 1 ea N/A UD PRN; Protocol PRN Reason: Consult Stop: 04/27/21 18:26 Multi-Ingredient Cream (Artificial Tears Op Oint 3.5 Gm Tube) 1 appln OP Q4H JOSELO Stop: 04/27/21 21:59 Last Admin: 04/03/21 13:37 Dose: Not Given Documented by: Multivitamins/Minerals (Multi Vit W/Minerals Liquid 15 Ml Udp) 15 ml NG QAM JOSELO Stop: 05/01/21 08:59 Last Admin: 04/03/21 08:07 Dose: 15 ml Documented by: Nutritional Formula (Peptamen Intense Vhp 1.0 Davis 1,000 Ml Bag) 1,000 ml OG UD JOSELO; Protocol Stop: 04/29/21 12:59 Last Admin: 04/03/21 00:27 Dose: 1,000 ml Documented by: Ondansetron HCl (Ondansetron Inj 2 Mg/Ml 2 Ml Vial) 4 mg IV Q6H PRN PRN Reason: Nausea Stop: 04/27/21 18:26 Sennosides (Sennosides 8.8 Mg/5 Ml Udc) 17.6 mg PO DAILY JOSELO Stop: 04/30/21 10:59 Last Admin: 04/03/21 08:07 Dose: 17.6 mg Documented by: Sterile Water (Tube Feeding Water Flush) 30 ml OG Q4H JOSELO Stop: 04/29/21 12:59 Last Admin: 04/03/21 13:01 Dose: 30 ml Documented by:
[2021-04-03] MEDS: NOREPINEPHRINE/D5W 8 MG/508 ML BAG IV SCH (16:20)
[2021-04-04] MEDS: INSULIN ASPART 100 UNITS/ML 3 ML PEN SC SCH ×6 (00:47→21:14)
[2021-04-04] MEDS: TUBE FEEDING WATER FLUSH OG SCH ×6 (00:49→21:40)
[2021-04-04] MEDS: CISATRACURIUM BESYLATE 40 MG in 0.9 % SODIUM CHLORIDE 80 ML IV SCH ×6 (00:50→22:03)
[2021-04-04] MEDS: ARTIFICIAL TEARS OP OINT 3.5 GM TUBE OP SCH ×6 (00:50→21:41)
[2021-04-04] MEDS: fentaNYL citrate 2,500 MCG/250 ML BAG IV SCH ×2 (02:02→12:11)
[2021-04-04 04:47] LABS: iSTAT Allen Test Pass; iSTAT Art Bld Gas pCO2 Correct 52 mmHg (35-46); iSTAT Art Bld Gas pH Corrected 7.467 (7.35-7.45); iSTAT Arterial Blood Gas HCO3 37 meg/L (19-24); iSTAT Arterial Blood Gas pCO2 51 mmHg (35-46); iSTAT Arterial Blood Gas pH 7.48 (7.35-7.45); iSTAT Arterial Blood Gas pO2 58 mmHg (80-95); iSTAT Arterial Blood Gas pO2 C 60; iSTAT Carbon Dioxide 39 mmol/L (24-31); iSTAT Hematocrit 35 % (37-47); iSTAT Hemoglobin 11.9 g/dl (12.0-16.0); iSTAT Potassium 3.4 mmol/L (3.3-5.0); iSTAT Site R Radial; iSTAT Sodium 145 mmol/L (135-144)
[2021-04-04] MEDS: MIDAZOLAM HCL 125 MG/250 ML BAG IV SCH ×3 (06:05→17:53)
[2021-04-04 06:11] LABS: Hematocrit (blood only) 36.9 % (37-47); Hemoglobin 11.4 g/dL (12.0-16.0); Mean Corpuscular Hemoglobin 28.9 pg (25-34); Mean Corpuscular Hgb Conc 30.9 g/dL (32-36); Mean Corpuscular Volume 93.7 fL (80-100); Nucleated RBC # (auto) 0.02 K/uL (0-0); Nucleated RBC % (auto) 0.3 %; Platelet Count 292 K/uL (130-400); RDW Coefficient of Variation 15.4 % (11.5-14.5); RDW Standard Deviation 51.4 fL (36.4-46.3); Red Blood Count 3.94 M/uL (4.2-5.4); White Blood Count 8.43 K/uL (4.8-10.8)
[2021-04-04 06:48] LABS: Basophils # (auto) 0.03 K/uL (0-0.2); Basophils % (auto) 0.4 %; Eosinophils # (auto) 0.07 K/uL (0-0.5); Eosinophils % (auto) 0.8 %; Immature Granulocytes # (auto) 0.61 K/uL (0.00-0.02); Immature Granulocytes % (auto) 7.2 %; Lymphocytes # (auto) 3.21 K/uL (1.2-3.4); Lymphocytes % (auto) 38.1 %; Monocytes # (auto) 0.51 K/uL (0.11-0.59); Neutrophils % (auto) 47.5 %
[2021-04-04 06:57] LABS: BUN Creatinine Ratio 40.5 (10-20); Calcium 8.7 mg/dl (8.5-10.1); Creatinine Clr Calc Pharmacy 102.9 ml/min; Est GFR (Non-African American) 81.1 ml/min; Magnesium 1.9 mg/dl (1.8-2.4); Phosphorus 4.3 mg/dl (2.5-4.9); Potassium 3.5 mmol/L (3.5-5.1)
[2021-04-04] MEDS: INSULIN GLARGINE SOLOSTAR 100 UNITS/ML 3 ML PEN SC SCH ×3 (07:39→13:32)
--- NOTE | 2021-04-04 08:47 | XRay Report ---
XR chest 1V portable HISTORY: Covid pneumonia. Respiratory failure. Follow-up. COMPARISON: Chest 04/03/2021. FINDINGS: Satisfactory support line placement with the endotracheal tube terminates 2.3 cm from the c andrea. The heart is stable in size. Multifocal bilateral airspace opacities are again noted. This has slightly improved within the right midlung zone. There may be a trace right pleural effusion. There are low lung volumes. No pneumothorax. IMPRESSION: 1. Satisfactory support line placement. 2. Multifocal airspace opacities are again noted. This has slightly improved within the right midlung zone. ACT 112: Negative or not required by law. Electronically signed by: Vicente Pitt M.D. 04/04/2021 8:45 AM
--- NOTE | 2021-04-04 08:52 | Critical Care Progress Note ---
Date of Service April 04, 2021 Assessment & Plan (1) Acute respiratory failure with hypoxia: (2) Multifocal pneumonia: (3) Hypothyroidism: (4) Hyperglycemia: (5) LAURI (acute kidney injury): (6) Pneumonia due to COVID-19 virus: (7) Hypokalemia: (8) Hyponatremia: (9) Metabolic acidosis: (10) COVID-19: (11) Depression: (12) Thoracic aortic aneurysm (TAA): (13) DVT prophylaxis: (14) Fatty liver: (15) Obesity: (16) WANDER (obstructive sleep apnea): (17) Elevated LFTs: Plan: Reason Critically Ill: 50-year-old female undergoing treatment for COVID-19 pneumonia, now with worsening hypoxia requiring emergent intubation. Now on ICU service while mechanically ventilated. Neuro - Sedation: Propofol/fentanyl. --> propofol discontinued 03/31/2021, midazolam started for triglyceridemia Ketamine added 04/01/2021: Discontinued Off Nimbex since 03/31/21: Discontinued Depressionadminister Lexapro, Abilify: Home medication Cardiac - Currently hemodynamically stable and NSR on monitor Continuous monitor on telemetry Respiratory - Acute hypoxic respiratory failurePF ratio consistent with severe ARDS in the setting of COVID-19 pneumonia Secondary to multilobar COVID-19 pneumonia COVID-19 PCR positive, positive lymphopenia CRP 18.4 --> 5.69 Procalcitonin 3.28 S/p Tocilizumab 03/28/2021 Continue with lung protective ventilation High PEEP, low tidal volume to keep Plateau < 30 with permissive hypercapnea if need be. Monitor ABGs GI - Famotidine twice daily RENAL/LYTES - S/P AKIresolved -Maintain maps greater than 65 -Renally adjust medications and avoid nephrotoxins -Monitor with routine BMPs. Replete electrolytes as indicated - Foleystrict I's and O's ENDO - --DKA: Resolved ICU hyperglycemic protocol Continue Synthroid for hypothyroidism HEME - H&H stable, monitor routine CBC ID - Patient febrile, positive COVID-19 PCR Procalcitonin elevated at 3.28 --> continue with Rocephin x2 weeks from negative culture on 04/03 Continue dexamethasone for COVID-19 pneumonia, patient did receive Tocilizumab Blood culture 03/29/2021: Coag negative staph Blood culture 04/01/2021: Coag negative staph --Prophylaxis VTE: Lovenox GI: Pepcid Lines: Right IJ, right radial, positive Hurd Diet: Trickle feeds Admission and Anticipated Discharge Date Admission Date: March 28, 2021 Supervising Physician Co-Signing Physician Notes I have personally spent 45 minutes of critical care time in the direct management of this patient. This is a life/limb threatening event. This includes time spent evaluating patient, direct bedside care, chart review, placing orders, interpretation of diagnostic studies, discussion with consultants, patient, and/or family members regarding treatment decisions, as well as other required patient management activities. This time is exclusive of all separately billable procedures, and teaching time and separate from and in addition to any other critical care service time. Subjective No overnight events Physical Exam Physical Exam: General: Sedated. nontoxic. Skin: Warm, dry, Head: Atraumatic Ears, nose, mouth and throat: airway obscured by endotracheal tube Cardiovascular: Normal peripheral perfusion Respiratory: no respiratory distress, ventilator settings reviewed Gastrointestinal: Non distended Musculoskeletal: No deformity Results & Data Results & Data ([facility]) Vital Signs (Past 12 Hours) Vital Signs Temp Pulse Resp BP Pulse Ox 04/04/21 08:08 62 16 90 04/04/21 06:00 37.4 C 60 94/50 L 89 L 04/04/21 05:00 37.6 C H 52 L 90/49 L 92 04/04/21 04:00 37.6 C H 52 L 90/53 L 88 L 04/04/21 03:11 16 04/04/21 03:00 37.6 C H 51 L 91/55 L 89 L 04/04/21 02:00 37.6 C H 52 L 100/61 89 L 04/04/21 01:00 37.7 C H 50 L 96/56 L 89 L 04/04/21 00:00 37.9 C H 106/58 L 93 04/03/21 23:05 54 L 16 91 04/03/21 23:00 37.9 C H 54 L 102/59 L 92 04/03/21 22:00 37.8 C H 54 L 113/62 93 04/03/21 21:00 37.6 C H 53 L 118/67 91 Laboratory Results 04/04/21 04/04/21 04/04/21 Range/Units 07:59 05:41 05:41 WBC 8.43 (4.8-10.8) K/uL RBC 3.94 L (4.2-5.4) M/uL Hgb 11.4 L (12.0-16.0) g/dL POC Hgb (12.0-16.0) g/dl Hct 36.9 L (37-47) % POC Hct (37-47) % MCV 93.7 (80-100) fL MCH 28.9 (25-34) pg MCHC 30.9 L (32-36) g/dL RDW Std Deviation 51.4 H (36.4-46.3) fL RDW Coeff of Maddie 15.4 H (11.5-14.5) % Plt Count 292 (130-400) K/uL MPV 9.0 (7.4-10.4) fL Immature Gran % (Auto) 7.2 % Neut % (Auto) 47.5 % Lymph % (Auto) 38.1 % [place] % (Auto) 6.0 % Eos % (Auto) 0.8 % Baso % (Auto) 0.4 % Neut # (Auto) 4.00 (1.4-6.5) K/uL Lymph # (Auto) 3.21 (1.2-3.4) K/uL [place] # (Auto) 0.51 (0.11-0.59) K/uL Eos # (Auto) 0.07 (0-0.5) K/uL Baso # (Auto) 0.03 (0-0.2) K/uL Immature Gran # (Auto) 0.61 H (0.00-0.02) K/uL Absolute Nucleated RBC 0.02 H (0-0) K/uL Nucleated RBC % (auto) 0.3 % Polychromasia Sample Site POC pH (7.35-7.45) POC pCO2 (35-46) mmHg POC pO2 (80-95) mmHg POC HCO3 (19-24) du/L POC Total CO2 (24-31) mmol/L POC Base Excess (-9-1.8) du/L ABG pH (Temp Correct) (7.35-7.45) ABG pCO2 (Temp Corrct (35-46) mmHg POC ABG pO2 at Pt Temp POC ABG O2 Sat (90-95) % Nicko Test O2 Delivery Device POC O2 Rate Minute Ventilation Tidal Volume PEEP POC Sodium (135-144) mmol/L Sodium 144 (136-145) mmol/L POC Potassium (3.3-5.0) mmol/L Potassium 3.5 (3.5-5.1) mmol/L Chloride 104 (98-107) mmol/L Carbon Dioxide 33 H (21-32) mmol/L Anion Gap 7.0 (3-11) BUN 34 H (7-18) mg/dl Creatinine 0.83 (0.6-1.2) mg/dl Est Cr Clr Drug Dosing 102.9 ml/min Est GFR ( Amer) 94.0 ml/min Est GFR (Non-Af Amer) 81.1 ml/min BUN/Creatinine Ratio 40.5 H (10-20) Glucose 72 (70-99) mg/dl POC Glucose 81 (70-99) mg/dl Calcium 8.7 (8.5-10.1) mg/dl Phosphorus 4.3 (2.5-4.9) mg/dl Magnesium 1.9 (1.8-2.4) mg/dl Triglycerides 302 H (0-150) mg/dl 04/04/21 04/04/21 04/03/21 Range/Units 04:33 03:15 23:54 WBC (4.8-10.8) K/uL RBC (4.2-5.4) M/uL Hgb (12.0-16.0) g/dL POC Hgb 11.9 L (12.0-16.0) g/dl Hct (37-47) % POC Hct 35 L (37-47) % MCV (80-100) fL MCH (25-34) pg MCHC (32-36) g/dL RDW Std Deviation (36.4-46.3) fL RDW Coeff of Maddie (11.5-14.5) % Plt Count (130-400) K/uL MPV (7.4-10.4) fL Immature Gran % (Auto) % Neut % (Auto) % Lymph % (Auto) % [place] % (Auto) % Eos % (Auto) % Baso % (Auto) % Neut # (Auto) (1.4-6.5) K/uL Lymph # (Auto) (1.2-3.4) K/uL [place] # (Auto) (0.11-0.59) K/uL Eos # (Auto) (0-0.5) K/uL Baso # (Auto) (0-0.2) K/uL Immature Gran # (Auto) (0.00-0.02) K/uL Absolute Nucleated RBC (0-0) K/uL Nucleated RBC % (auto) % Polychromasia Sample Site R Radial POC pH 7.48 H (7.35-7.45) POC pCO2 51 H (35-46) mmHg POC pO2 58 L (80-95) mmHg POC HCO3 37 H (19-24) du/L POC Total CO2 39 H (24-31) mmol/L POC Base Excess 14.0 H (-9-1.8) du/L ABG pH (Temp Correct) 7.467 H (7.35-7.45) ABG pCO2 (Temp Corrct 52 H (35-46) mmHg POC ABG pO2 at Pt Temp 60 POC ABG O2 Sat 91.0 (90-95) % Nicko Test Pass O2 Delivery Device Ventilator POC O2 Rate 16 Minute Ventilation 6.37 Tidal Volume 400 PEEP 6 POC Sodium 145 H (135-144) mmol/L Sodium (136-145) mmol/L POC Potassium 3.4 (3.3-5.0) mmol/L Potassium (3.5-5.1) mmol/L Chloride (98-107) mmol/L Carbon Dioxide (21-32) mmol/L Anion Gap (3-11) BUN (7-18) mg/dl Creatinine (0.6-1.2) mg/dl Est Cr Clr Drug Dosing ml/min Est GFR ( Amer) ml/min Est GFR (Non-Af Amer) ml/min BUN/Creatinine Ratio (10-20) Glucose (70-99) mg/dl POC Glucose 70 84 (70-99) mg/dl Calcium (8.5-10.1) mg/dl Phosphorus (2.5-4.9) mg/dl Magnesium (1.8-2.4) mg/dl Triglycerides (0-150) mg/dl 10/03/21 10/03/21 10/03/21 Range/Units 19:22 17:14 12:22 WBC (4.8-10.8) K/uL RBC (4.2-5.4) M/uL Hgb (12.0-16.0) g/dL POC Hgb (12.0-16.0) g/dl Hct (37-47) % POC Hct (37-47) % MCV (80-100) fL MCH (25-34) pg MCHC (32-36) g/dL RDW Std Deviation (36.4-46.3) fL RDW Coeff of Maddie (11.5-14.5) % Plt Count (130-400) K/uL MPV (7.4-10.4) fL Immature Gran % (Auto) % Neut % (Auto) % Lymph % (Auto) % [place] % (Auto) % Eos % (Auto) % Baso % (Auto) % Neut # (Auto) (1.4-6.5) K/uL Lymph # (Auto) (1.2-3.4) K/uL [place] # (Auto) (0.11-0.59) K/uL Eos # (Auto) (0-0.5) K/uL Baso # (Auto) (0-0.2) K/uL Immature Gran # (Auto) (0.00-0.02) K/uL Absolute Nucleated RBC (0-0) K/uL Nucleated RBC % (auto) % Polychromasia Sample Site POC pH (7.35-7.45) POC pCO2 (35-46) mmHg POC pO2 (80-95) mmHg POC HCO3 (19-24) du/L POC Total CO2 (24-31) mmol/L POC Base Excess (-9-1.8) du/L ABG pH (Temp Correct) (7.35-7.45) ABG pCO2 (Temp Corrct (35-46) mmHg POC ABG pO2 at Pt Temp POC ABG O2 Sat (90-95) % Nicko Test O2 Delivery Device POC O2 Rate Minute Ventilation Tidal Volume PEEP POC Sodium (135-144) mmol/L Sodium (136-145) mmol/L POC Potassium (3.3-5.0) mmol/L Potassium (3.5-5.1) mmol/L Chloride (98-107) mmol/L Carbon Dioxide (21-32) mmol/L Anion Gap (3-11) BUN (7-18) mg/dl Creatinine (0.6-1.2) mg/dl Est Cr Clr Drug Dosing ml/min Est GFR ( Amer) ml/min Est GFR (Non-Af Amer) ml/min BUN/Creatinine Ratio (10-20) Glucose (70-99) mg/dl POC Glucose 114 H 139 H 183 H (70-99) mg/dl Calcium (8.5-10.1) mg/dl Phosphorus (2.5-4.9) mg/dl Magnesium (1.8-2.4) mg/dl Triglycerides (0-150) mg/dl 04/03/21 04/03/21 04/03/21 Range/Units 09:07 08:52 08:52 WBC 8.18 (4.8-10.8) K/uL RBC 3.87 L (4.2-5.4) M/uL Hgb 11.2 L (12.0-16.0) g/dL POC Hgb (12.0-16.0) g/dl Hct 36.1 L (37-47) % POC Hct (37-47) % MCV 93.3 (80-100) fL MCH 28.9 (25-34) pg MCHC 31.0 L (32-36) g/dL RDW Std Deviation 51.9 H (36.4-46.3) fL RDW Coeff of Maddie 15.3 H (11.5-14.5) % Plt Count 306 (130-400) K/uL MPV 9.2 (7.4-10.4) fL Immature Gran % (Auto) 7.0 % Neut % (Auto) 52.4 % Lymph % (Auto) 32.2 % [place] % (Auto) 7.0 % Eos % (Auto) 1.2 % Baso % (Auto) 0.2 % Neut # (Auto) 4.29 (1.4-6.5) K/uL Lymph # (Auto) 2.63 (1.2-3.4) K/uL [place] # (Auto) 0.57 (0.11-0.59) K/uL Eos # (Auto) 0.10 (0-0.5) K/uL Baso # (Auto) 0.02 (0-0.2) K/uL Immature Gran # (Auto) 0.57 H (0.00-0.02) K/uL Absolute Nucleated RBC 0.04 H (0-0) K/uL Nucleated RBC % (auto) 0.5 % Polychromasia 1+ Sample Site POC pH (7.35-7.45) POC pCO2 (35-46) mmHg POC pO2 (80-95) mmHg POC HCO3 (19-24) du/L POC Total CO2 (24-31) mmol/L POC Base Excess (-9-1.8) du/L ABG pH (Temp Correct) (7.35-7.45) ABG pCO2 (Temp Corrct (35-46) mmHg POC ABG pO2 at Pt Temp POC ABG O2 Sat (90-95) % Nicko Test O2 Delivery Device POC O2 Rate Minute Ventilation [place] Volume PEEP POC Sodium (135-144) mmol/L Sodium 146 H (136-145) mmol/L POC Potassium (3.3-5.0) mmol/L Potassium 3.9 D (3.5-5.1) mmol/L Chloride 108 H (98-107) mmol/L Carbon Dioxide 31 (21-32) mmol/L Anion Gap 8.0 (3-11) BUN 31 H (7-18) mg/dl Creatinine 0.74 D (0.6-1.2) mg/dl Est Cr Clr Drug Dosing 115.5 ml/min Est GFR ( Amer) 108.0 ml/min Est GFR (Non-Af Amer) 93.1 ml/min BUN/Creatinine Ratio 41.5 H (10-20) Glucose 98 (70-99) mg/dl POC Glucose (70-99) mg/dl Calcium 8.2 L D (8.5-10.1) mg/dl Phosphorus 3.7 D (2.5-4.9) mg/dl Magnesium 2.1 (1.8-2.4) mg/dl Triglycerides (0-150) mg/dl Coding Level of Care Code Critical Care 1st 30-74 mins Diagnoses Acute respiratory failure with hypoxia J96.01 Multifocal pneumonia J18.9 Hypothyroidism E03.9 Hyperglycemia R73.9 LAURI (acute kidney injury) N17.9 Pneumonia due to COVID-19 virus U07.1; J12.82 Hypokalemia E87.6 Hyponatremia E87.1 Metabolic acidosis E87.2 COVID-19 U07.1 Depression F32.9 Thoracic aortic aneurysm (TAA) I71.2 DVT prophylaxis Z29.9 Fatty liver K76.0 Obesity E66.9 WANDER (obstructive sleep apnea) G47.33 Elevated LFTs R79.89
[2021-04-04] MEDS: FAMOTIDINE 20 MG in SYRINGE 3 ML IV SCH ×2 (09:12→21:40)
[2021-04-04] MEDS: FUROSEMIDE 40 MG in SYRINGE 0 ML IV SCH ×2 (09:12→21:40)
[2021-04-04] MEDS: MULTI VIT W/MINERALS LIQUID 15 ML UDP NG SCH (09:13)
[2021-04-04] MEDS: SENNOSIDES 8.8 MG/5 ML UDC PO SCH (09:13)
[2021-04-04] MEDS: dexAMETHasone 6 MG in SYRINGE 0 ML IV SCH (09:13)
[2021-04-04] MEDS: ENOXAPARIN INJ 40 MG/0.4 ML SYR SQ SCH ×2 (09:13→21:41)
[2021-04-04] MEDS: cefTRIAXone SODIUM 2,000 MG in DEXTROSE 5% 50 ML IV SCH (09:16)
[2021-04-04] MEDS: DOCUSATE SODIUM SYRUP 100 MG/10 ML UDC NG SCH ×2 (09:25→21:40)
[2021-04-04] MEDS: LEVOTHYROXINE SODIUM 75 MCG in SYRINGE 0 ML IV SCH (09:25)
[2021-04-04] MEDS: INSULIN HUMAN NPH SC SCH (09:28)
--- NOTE | 2021-04-04 14:37 | Electrocardiogram Report ---
Test Reason : Blood Pressure : / mmHG Vent. Rate : 076 BPM Atrial Rate : 076 BPM P-R Int : 136 ms QRS Dur : 090 ms QT Int : 398 ms P-R-T Axes : 066 036 046 degrees QTc Int : 447 ms Normal sinus rhythm Nonspecific ST abnormality Abnormal ECG When compared with ECG of 28-MAR-2021 14:29, No significant change was found Confirmed by Micheal Cramer ([id number]) on 04/04/2021 2:36:39 PM Referred By: REFERRED SELF Confirmed By:Harry Cramer
--- NOTE | 2021-04-04 15:24 | Pharmacy Report ---
Pharmacy Glycemic Short Note 2 - Date of Service April 04, 2021 - Glycemic Short BSG Results (Last 24 hours): 04/03/21 04/03/21 04/03/21 17:14 19:22 23:54 Glucose POC Glucose 139 H 114 H 84 04/04/21 04/04/21 04/04/21 03:15 05:41 07:59 Glucose 72 POC Glucose 70 81 04/04/21 11:31 Glucose POC Glucose 114 H OUTPATIENT ANTIDIABETIC REGIMEN: * N/a * A1c 10.5% 03/28 ASSESSMENT: 04/04: * AM BSGs consistently on the lower side the past couple of days. Will slightly reduce AM dose and more significantly reduce evening dose. BSGs throughout the day trending down as well. Will empirically loosen NovoLog to prevent a low. Will monitor need for decrease in NPH tomorrow. * Patient continues on steroids and TFs are running at goal 04/01 * Patient transitioned off of insulin drip yesterday and received 119 units of SQ insulin yesterday, 105 units basal (35 NPH, 70 Lantus) and 7 units Novolog * Fast blood sugar below goal and blood sugars rising some throughout the day, will increase NPH and decrease Lantus to prevent morning hypoglycemia to have more basal from NPH to cover steroid effects * Patient continues on IV dexamethasone, Pepatmen TFs and antibiotics changed to IV Vancomycin + Zosyn * No other changes at this time in insulin regimen 04/01 * Insulin infusion ran through the night, BSG this morning 93 mg/dL, rate 1.8 units/hr, stopped infusion at this time and gave 40 units of lantus and 35 units of NPH to help cover steroid. Will give additional lantus dose this evening up to an additional 40 units. * Novolog parameters started at weight based stress of 3, BSG elevated at lunch, will reassess need to tighten parameters. 03/31 * Patient off of nimbex but started on minimal dose of norepinephrine. Per MD will attempt to transition off of insulin infusion today, gave 80 units of lantus x 1 (previous 12 hour rates ~100 units). IVF to stop with insulin infusion stopping. Continues on dexamethasone 6 mg. Will transition to novolog correction factor 15 and carb ratio 4. 9/29 * Patient continues to be sedated with propofol/fentanyl, continued nimbex- plan to wean off later today after patient is supine * Patient also started on trickle feeds with plans to increase after nimbex is d/c, set carb ratio at 1:5. * BSGs did trend downward overnight, empirically reduced rate to 1.3 units/hr after BSG of 101 this morning, patient received dexamethasone and BSGs are trending upward again with subsequent increase in insulin infusion. Will consider possible transition off later tonight or tomorrow morning depending on if nimbex able to be discontinued/control with tube feed increases. 03/29 * Patient admitted with COVID-19, currently intubated, sedated with propofol/fentanyl and paralyzed with nimbex * Appears to be newer onset diabetes as patient does not have any diabetic medications listed but A1c of 10.5% * Patient's BSG elevated on arrival, started insulin infusion early this morning as BSGs continued to be elevated throughout the night. * Labs may have shown mild DKA (gap 12.0, Bicarb 19), currently q4 BMP ordered, fluids with potassium at current * Plan to continue current insulin infusion PLAN FOR INPATIENT GLYCEMIC CONTROL: * Basal insulin (decreased) * Lantus 25 units SQ AM * 10-15 units HS based on BSG * Steroid induced hyperglycemia * NPH 45 units SQ qAM given with dexamethasone * Bolus insulin * NovoLog per scale ACHS or Q6hrs while NPO * Goal Range: Low 110 mg/dL - High 140 mg/dL * Correction Factor: 20 mg/dL/unit * Nutritional / Prandial insulin per carb ratio of 1 unit per 6 grams CHO consumed
[2021-04-04] MEDS: NOREPINEPHRINE/D5W 8 MG/508 ML BAG IV SCH (17:54)
[2021-04-04] MEDS: PEPTAMEN INTENSE VHP 1.0 CAL 1,000 ML BAG OG SCH (17:57)
--- NOTE | 2021-04-04 18:31 | Hospitalist Progress Note ---
Date of Service April 04, 2021 Assessment & Plan (1) Acute respiratory failure with hypoxia: (2) Pneumonia due to COVID-19 virus: Plan: 50-year-old for male with PMH of WANDER on CPAP, morbid obesity, depression with anxiety on Lexapro and Abilify and recent diagnosis of Covid on March 18 [signs and symptoms from 3 days prior to diagnosis] presented to the ED 03/28 with complaint of worsening shortness of breath, intermittent fever on and off [last 1 being in the AM of the arrival day--> 101F], cough. She required high flow nasal cannula oxygen at presentation to the ED and pulmonology was consulted. She is being managed for the following under the critical care team: #. Acute respiratory failure with hypoxia: #. Pneumonia due to COVID-19 virus: #. Possible superimposed bacterial infection/PNA Not vaccinated for COVID-19 Initial positive test on 03/18, sx started 3 days prior. Presents with profound hypoxia requiring high flow via nasal cannula in the ED Pt does not meet criteria for remdesivir given duration of sx Admitting ESR: 126 and admitting CRP: 18.40 Admitting procalcitonin: 3.28 Inflammatory markers are trending down Minimal improvement and probable extubation tomorrow Pt admitted to PCU with Pulm consult, given Tocilizumab 03/28, later evening of 03/28 Pt required emergent intubation due to worsening hypoxia. Given h/o fever and elevated procal, patient started on rocephin 03/28 to cover for possible secondary bacterial infection. We'll start intravenous doxycycline as well to cover possible atypical organism Currently intubated/sedated/mechanical ventilation. Management per Critical Care Team. 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 Metabolic Acidosis Met acidosis (minimal AG elevation), likely 2/2 diarrhea continue to monitor. #. LAURI Baseline Cr 0.8 Admitting BUN/Cr 22 and 1.48 Resolved #. Hypokalemia Admitting K3.0 Monitor daily, replace as appropriate #. Hyponatremia Admitting sodium level one thirty-one Mildly hyponatremic #. Hyperglycemia/new DM diagnosis Presented with DKA Admitting blood glucose two hundred thirty-one Admitting A1c: 10.5 New diagnosis of diabetes Being managed with insulin drip per critical care hypoglycemia protocol We will discharge with glycemic pharmacist recommendation upon discharge. Appreciate glycemic pharmacist input and recommendation #. Elevated LFTs Likely secondary to Covid Coming down. #. Other chronic medical problems: WANDER on CPAP at home, depression on Abilify and Lexapro at home, hypothyroidism on levothyroxine #. DVT prophylaxis:Lovenox subcu Family members she is being updated by the weather clerk Dispo: Critical care FULL CODE PCP: Danika Admission and Anticipated Discharge Date Admission Date: March 28, 2021 Subjective 03/30/2021 The patient was seen and examined in telemetry unit She remains intubated and sedated Has been in prone position and requiring 60 L of oxygen to maintain saturation 03/31/2021 The patient was seen and examined in telemetry unit and in the Covid room She remains intubated and currently sedation is off She has been a little restless 04/01/2021 The patient was seen and examined in telemetry unit She remains intubated with minimal improvement so far 04/02/2021 The patient was seen and examined in telemetry unit and in the Covid room SHe remains intubated and sedated 04/03/2021 The patient was seen and examined in telemetry unit and in the Covid room She remains intubated and sedated 04/04/2021 Patient was seen and examined in telemetry unit and in the Covid room She remains intubated and sedated Review of Systems Review of Systems: Unobtainable due to endotracheal tube Physical Exam Physical Exam: Lying in bed on mechanical ventilator and off sedation Constitutional: well developed, well nourished, + ill appearing and + obese Eyes: PERRL, conjunctivae normal, anicteric sclerae ENMT: external ear and nose normal, oropharynx normal Neck: trachea midline, no thyromegaly Respiratory: no respiratory distress Auscultation: + crackles (Minimal crackles bilaterally on dependent area) Cardiovascular: Rate/Rhythm: regular rate and regular rhythm; not tachycardic Heart Sounds: normal S1 and normal S2; no murmur Extremities: + edema (Trace edema bilaterally) Gastrointestinal (Abdomen): Inspection/Auscultation: normal bowel sounds; abdomen not distended Percussion/Palpation: abdomen soft; abdomen nontender Neurologic: Remains sedated Results & Data Results & Data ([facility]) Vital Signs (Past 12 Hours) Vital Signs Pulse Resp Pulse Ox 04/04/21 15:39 72 16 90 04/04/21 11:12 92 H 18 93 04/04/21 08:08 62 16 90 04/04/21 08:00 56 L Laboratory Results Short CBC 04/04/21 Range/Units 05:41 WBC 8.43 (4.8-10.8) K/uL Hgb 11.4 L (12.0-16.0) g/dL Hct 36.9 L (37-47) % Plt Count 292 (130-400) K/uL BMP 04/04/21 05:41 Sodium 144 Potassium 3.5 Chloride 104 Carbon Dioxide 33 H BUN 34 H Creatinine 0.83 Glucose 72 Calcium 8.7 Medications Administered Current Inpatient Medications Aripiprazole (Aripiprazole 1 Mg/Ml Oral Soln 150 Ml Btl) 20 mg PO QPM JOSELO Stop: 05/04/21 20:59 Dextrose (Dextrose 50% 50 Ml Syringe) 25 - 50 ml IV UD PRN; Protocol PRN Reason: Hypoglycemia Protocol Stop: 04/27/21 18:26 Last Admin: 03/31/21 04:13 Dose: 25 ml Documented by: Docusate Sodium (Docusate Sodium Syrup 100 Mg/10 Ml Udc) 100 mg NG BID JOSELO Stop: 04/30/21 10:59 Last Admin: 04/04/21 09:25 Dose: 100 mg Documented by: Enoxaparin Sodium (Enoxaparin Inj 40 Mg/0.4 Ml Syr) 40 mg SQ Q12H JOSELO Stop: 04/27/21 21:59 Last Admin: 04/04/21 09:13 Dose: 40 mg Documented by: Escitalopram Oxalate (Escitalopram Oxalate Oral Soln 20 Mg/20 Ml Udp) 20 mg PO QPM JOSELO Stop: 05/04/21 20:59 Fentanyl Citrate (Fentanyl Bolus From Bag) 50 mcg IV Q60M PRN PRN Reason: Pain or Agitation Stop: 04/11/21 21:51 Last Admin: 04/03/21 19:49 Dose: 50 mcg Documented by: Glucagon (Glucagon For Inj 1 Mg Vial) 1 mg SQ UD PRN; Protocol PRN Reason: Hypoglycemia Protocol Stop: 04/27/21 18:26 Glucose (Glucose 10 Tabs/Tube) 4 - 8 tabs PO UD PRN; Protocol PRN Reason: Hypoglycemia Protocol Stop: 04/27/21 18:26 Glucose (Glucose 40% Gel 15 Gm Tube) 15 - 30 gm PO UD PRN; Protocol PRN Reason: Hypoglycemia Protocol Stop: 04/27/21 18:26 Heparin Sodium (Beef Lung) (Heparin 10 Unit/Ml 5 Ml Flush) 5 ml FLUSH PRN PRN PRN Reason: Flush Stop: 04/30/21 07:39 Dexamethasone 6 mg/ Syringe 1.5 mls @ 1 mls/min IV DAILY JOSELO Stop: 04/08/21 08:59 Last Admin: 04/04/21 09:13 Dose: 1 mls/min Documented by: Cisatracurium Besylate 40 mg/ (Sodium Chloride) 100 mls @ 25.65 mls/hr IV .Q3H54M JOSELO; Protocol Stop: 04/27/21 21:59 Last Admin: 04/04/21 18:18 Dose: Not Given Documented by: Famotidine 20 mg/ Syringe 5 mls @ 2.5 mls/min IV BID JOSELO Stop: 04/28/21 08:59 Last Admin: 04/04/21 09:12 Dose: 2.5 mls/min Documented by: Levothyroxine Sodium 75 mcg/ (Syringe) 3.75 mls @ 1.875 mls/min IV Q72H JOSELO; Protocol Stop: 04/28/21 08:59 Last Admin: 04/04/21 09:25 Dose: 1.875 mls/min Documented by: Norepinephrine Bitartrate (Levophed/D5w) 8 mg in 508 mls @ 9.068 mls/hr IV .Q24H JOSELO; Protocol Stop: 04/28/21 19:29 Last Admin: 04/04/21 17:54 Dose: Not Given Documented by: Midazolam HCl (Versed) 125 mg in 250 mls @ 20 mls/hr IV .[id number] JOSELO; Protocol Stop: 04/30/21 10:29 Last Admin: 04/04/21 17:53 Dose: 10 mg/hr, 20 mls/hr Documented by: Fentanyl Citrate (Fentanyl Citrate) 2,500 mcg in 250 mls @ 27.5 mls/hr IV .Q9H6M [facility]; Protocol Stop: 04/15/21 15:59 Last Admin: 04/04/21 12:11 Dose: 100 mcg/hr, 10 mls/hr Documented by: Ceftriaxone Sodium 2,000 mg/ (Dextrose) 70 mls @ 100 mls/hr IV DAILY [facility]; Pro tocol Stop: 04/16/21 09:41 Last Infusion: 04/04/21 09:58 Dose: Infused Documented by: Furosemide 40 mg/ Syringe 4 mls @ 4 mls/min IV BID [facility] Stop: 05/03/21 12:29 Last Admin: 04/04/21 09:12 Dose: 4 mls/min Documented by: Insulin Aspart (Insulin Aspart 100 Units/Ml 3 Ml Pen) 0 units SC Q4 [facility] Stop: 05/01/21 11:59 Last Admin: 04/04/21 17:15 Dose: 4 units Documented by: Insulin Glargine (Insulin Glargine Solostar 100 Units/Ml 3 Ml Pen) 0 units SC HS [facility]; Protocol Stop: 05/02/21 20:59 Last Admin: 04/03/21 19:48 Dose: 20 units Documented by: Insulin Glargine (Insulin Glargine Solostar 100 Units/Ml 3 Ml Pen) 25 units SC DAILY@0900 [facility]; Protocol Stop: 05/04/21 09:29 Last Admin: 04/04/21 09:28 Dose: 25 units Documented by: Insulin Human NPH (Insulin Human Nph) 45 units SC DAILY@0900 [facility]; Protocol Stop: 05/02/21 08:59 Last Admin: 04/04/21 09:28 Dose: 45 units Documented by: Midazolam HCl (Midazolam Bolus From Bag) 2 mg IV Q60M PRN PRN Reason: Sedation Stop: 04/30/21 10:21 Last Admin: 04/03/21 19:49 Dose: 2 mg Documented by: Miscellaneous (Carbohydrates For Hypoglycemia ) 15 - 30 gm PO UD PRN PRN Reason: Hypoglycemia Protocol Stop: 04/27/21 18:26 Miscellaneous Information (Pharmacy Glycemic Mgmt Consult) 1 ea N/A UD PRN; Protocol PRN Reason: Consult Stop: 04/27/21 18:26 Multi-Ingredient Cream (Artificial Tears Op Oint 3.5 Gm Tube) 1 appln OP Q4H JOSELO Stop: 04/27/21 21:59 Last Admin: 04/04/21 18:20 Dose: Not Given Documented by: Multivitamins/Minerals (Multi Vit W/Minerals Liquid 15 Ml Udp) 15 ml NG QAM JOSELO Stop: 05/01/21 08:59 Last Admin: 04/04/21 09:13 Dose: 15 ml Documented by: Nutritional Formula (Peptamen Intense Vhp 1.0 Davis 1,000 Ml Bag) 1,000 ml OG UD JOSELO; Protocol Stop: 04/29/21 12:59 Last Admin: 04/04/21 17:57 Dose: 1,000 ml Documented by: Ondansetron HCl (Ondansetron Inj 2 Mg/Ml 2 Ml Vial) 4 mg IV Q6H PRN PRN Reason: Nausea Stop: 04/27/21 18:26 Sennosides (Sennosides 8.8 Mg/5 Ml Udc) 17.6 mg PO DAILY JOSELO Stop: 04/30/21 10:59 Last Admin: 04/04/21 09:13 Dose: 17.6 mg Documented by: Sterile Water (Tube Feeding Water Flush) 30 ml OG Q4H JOSELO Stop: 04/29/21 12:59 Last Admin: 04/04/21 18:09 Dose: 30 ml Documented by:
[2021-04-04] MEDS: ARIPIprazole 1 MG/ML ORAL SOLN 150 ML BTL PO SCH (21:40)
[2021-04-04] MEDS: ESCITALOPRAM OXALATE ORAL SOLN 20 MG/20 ML UDP PO SCH (21:40)
[2021-04-05] MEDS: INSULIN ASPART 100 UNITS/ML 3 ML PEN SC SCH ×6 (00:05→20:04)
[2021-04-05] MEDS: TUBE FEEDING WATER FLUSH OG SCH ×6 (00:39→19:43)
[2021-04-05] MEDS: ARTIFICIAL TEARS OP OINT 3.5 GM TUBE OP SCH ×6 (00:39→20:05)
[2021-04-05 05:04] LABS: Hematocrit (blood only) 36.7 % (37-47); Hemoglobin 11.6 g/dL (12.0-16.0); Mean Corpuscular Hgb Conc 31.6 g/dL (32-36); Mean Corpuscular Volume 91.8 fL (80-100); Mean Platelet Volume 9.2 fL (7.4-10.4); Nucleated RBC # (auto) 0.02 K/uL (0-0); Nucleated RBC % (auto) 0.2 %; Platelet Count 272 K/uL (130-400); RDW Coefficient of Variation 15.5 % (11.5-14.5); RDW Standard Deviation 50.1 fL (36.4-46.3); White Blood Count 8.99 K/uL (4.8-10.8)
[2021-04-05 05:06] LABS: iSTAT Allen Test Pass; iSTAT Arterial Blood Gas HCO3 39 meg/L (19-24); iSTAT Arterial Blood Gas pCO2 57 mmHg (35-46); iSTAT Arterial Blood Gas pH 7.45 (7.35-7.45); iSTAT Arterial Blood Gas pO2 84 mmHg (80-95); iSTAT Carbon Dioxide > 40 mmol/L (24-31); iSTAT Site L Radial
[2021-04-05 05:22] LABS: BUN Creatinine Ratio 45.6 (10-20); Calcium 8.8 mg/dl (8.5-10.1); Creatinine Clr Calc Pharmacy 100.5 ml/min; Est GFR (African American) 91.3 ml/min; Est GFR (Non-African American) 78.8 ml/min; Magnesium 2.2 mg/dl (1.8-2.4); Phosphorus 4.7 mg/dl (2.5-4.9); Potassium 3.8 mmol/L (3.5-5.1)
[2021-04-05 05:55] LABS: ALC (manual) 1.57 K/uL (1.2-3.4); ANC (manual) 6.71 K/uL (1.4-6.5); Lymphocytes # (manual) 1.57 K/uL (1.2-3.4); Lymphocytes % (manual) 17.5 %; Metamyelocytes # (manual) 0.16 K/uL (0-0); Metamyelocytes % (manual) 1.8 %; Monocytes # (manual) 0.55 K/uL (0.11-0.59); Monocytes % (manual) 6.1 %; Neutrophils # (manual) 6.71 K/uL (1.4-6.5); Neutrophils % (manual) 74.6 %; RBC Morphology Unremarkable
[2021-04-05] MEDS: MIDAZOLAM HCL 125 MG/250 ML BAG IV SCH ×3 (06:04→19:42)
[2021-04-05] MEDS: MULTI VIT W/MINERALS LIQUID 15 ML UDP NG SCH (08:05)
[2021-04-05] MEDS: DOCUSATE SODIUM SYRUP 100 MG/10 ML UDC NG SCH ×2 (08:05→21:38)
[2021-04-05] MEDS: FUROSEMIDE 40 MG in SYRINGE 0 ML IV SCH ×2 (08:05→20:04)
[2021-04-05] MEDS: INSULIN GLARGINE SOLOSTAR 100 UNITS/ML 3 ML PEN SC SCH (08:06)
[2021-04-05] MEDS: FAMOTIDINE 20 MG in SYRINGE 3 ML IV SCH ×2 (08:08→20:04)
[2021-04-05] MEDS: SENNOSIDES 8.8 MG/5 ML UDC PO SCH (08:08)
[2021-04-05] MEDS: dexAMETHasone 6 MG in SYRINGE 0 ML IV SCH (08:09)
--- NOTE | 2021-04-05 08:12 | XRay Report ---
XR chest 1V portable HISTORY: Respiratory failure. Pneumonia. COMPARISON: Chest 04/04/2021. FINDINGS: Bilateral patchy airspace opacities have slightly improved. The heart is borderline enlarge d. No pleural effusions. No pneumothorax. Lines and tubes are in good position. IMPRESSION: 1. Satisfactory support line placement. 2. Slight improved aeration within the bilateral airspace opacities. ACT 112: Negative or not required by law. Electronically signed by: Vicente Pitt M.D. 04/05/2021 8:11 AM
[2021-04-05] MEDS: fentaNYL citrate 2,500 MCG/250 ML BAG IV SCH (08:13)
[2021-04-05] MEDS: cefTRIAXone SODIUM 2,000 MG in DEXTROSE 5% 50 ML IV SCH (08:44)
[2021-04-05] MEDS ORDERED: INSULIN HUMAN NPH SC SCH (09:00)
[2021-04-05] MEDS: ENOXAPARIN INJ 40 MG/0.4 ML SYR SQ SCH ×2 (11:32→20:04)
[2021-04-05] MEDS ORDERED: MINERAL OIL 30 ML UDC PO ONE (12:00)
--- NOTE | 2021-04-05 12:22 | Critical Care Progress Note ---
Date of Service April 05, 2021 Assessment & Plan (1) Acute respiratory failure with hypoxia: (2) Multifocal pneumonia: (3) Hypothyroidism: (4) Hyperglycemia: (5) LAURI (acute kidney injury): (6) Pneumonia due to COVID-19 virus: (7) Hypokalemia: (8) Hyponatremia: (9) Metabolic acidosis: (10) COVID-19: (11) Depression: (12) Thoracic aortic aneurysm (TAA): (13) DVT prophylaxis: (14) Fatty liver: (15) Obesity: (16) WANDER (obstructive sleep apnea): (17) Elevated LFTs: Plan: Reason Critically Ill: 50-year-old female undergoing treatment for COVID-19 pneumonia, now with worsening hypoxia requiring emergent intubation. Now on ICU service while mechanically ventilated. Neuro - Sedation: Propofol/fentanyl. --> Off sedation for trial of extubation Depressionadminister Lexapro, Abilify: Home medication Cardiac - Currently hemodynamically stable and NSR on monitor Continuous monitor on telemetry Respiratory - Acute hypoxic respiratory failurePF ratio consistent with severe ARDS in the setting of COVID-19 pneumonia Secondary to multilobar COVID-19 pneumonia COVID-19 PCR positive, positive lymphopenia S/p Tocilizumab 03/28/2021 Continue with lung protective ventilation High PEEP, low tidal volume to keep Plateau < 30 with permissive hypercapnea if need be. Extubated on 04/05/2021 GI - Famotidine twice daily RENAL/LYTES - S/P AKIresolved -Maintain maps greater than 65 -Renally adjust medications and avoid nephrotoxins -Monitor with routine BMPs. Replete electrolytes as indicated - Foleystrict I's and O's ENDO - --DKA: Resolved ICU hyperglycemic protocol Continue Synthroid for hypothyroidism HEME - H&H stable, monitor routine CBC ID - Patient febrile, positive COVID-19 PCR Coag negative staph bacteremia: Continue with Rocephin x2 weeks from negative culture on 04/03 Continue dexamethasone for COVID-19 pneumonia, patient did receive Tocilizumab Blood culture 03/29/2021: Coag negative staph Blood culture 04/01/2021: Coag negative staph --Prophylaxis VTE: Lovenox GI: Pepcid Lines: Right IJ, right radial, positive Hurd Diet: Trickle feeds Admission and Anticipated Discharge Date Admission Date: March 28, 2021 Supervising Physician Co-Signing Physician Notes I have personally spent 45 minutes of critical care time in the direct management of this patient. This is a life/limb threatening event. This includes time spent evaluating patient, direct bedside care, chart review, placing orders, interpretation of diagnostic studies, discussion with consultants, patient, and/or family members regarding treatment decisions, as well as other required patient management activities. This time is exclusive of all separately billable procedures, and teaching time and separate from and in addition to any other critical care service time. Subjective No overnight events Review of Systems Review of Systems: Unobtainable due to endotracheal tube Physical Exam Physical Exam: General: Sedated. nontoxic. Skin: Warm, dry, Head: Atraumatic Ears, nose, mouth and throat: airway obscured by endotracheal tube Cardiovascular: Normal peripheral perfusion Respiratory: no respiratory distress, ventilator settings reviewed Gastrointestinal: Non distended Musculoskeletal: No deformity Results & Data Results & Data ([facility]) Vital Signs (Past 12 Hours) Vital Signs Temp Pulse Resp BP Pulse Ox 04/05/21 12:09 80 15 91 04/05/21 09:45 37.4 C 70 138/74 93 04/05/21 09:30 37.5 C 68 133/68 94 04/05/21 09:15 37.5 C 58 L 126/70 95 04/05/21 09:00 37.3 C 60 130/66 93 04/05/21 08:45 37.3 C 59 L 136/67 94 04/05/21 08:30 37.3 C 70 129/68 89 L 04/05/21 08:15 37.3 C 65 118/70 90 04/05/21 08:13 60 16 91 04/05/21 08:00 37.2 C 64 126/69 92 04/05/21 07:45 37.3 C 72 131/69 93 04/05/21 07:43 69 04/05/21 07:30 37.3 C 62 128/67 95 04/05/21 07:15 37.3 C 59 L 123/62 95 04/05/21 07:00 37.4 C 54 L 107/54 L 95 04/05/21 06:45 37.4 C 55 L 112/55 L 95 04/05/21 06:30 37.3 C 56 L 108/54 L 95 04/05/21 06:15 37.3 C 55 L 103/57 L 94 04/05/21 06:00 37.3 C 53 L 104/56 L 94 04/05/21 05:45 37.3 C 54 L 114/57 L 94 04/05/21 05:30 37.3 C 59 L 107/56 L 94 04/05/21 05:15 37.3 C 67 114/63 94 04/05/21 05:07 37.3 C 71 127/62 95 04/05/21 04:58 69 16 94 04/05/21 04:45 37.3 C 71 128/76 95 04/05/21 04:30 37.6 C H 55 L 98/58 L 94 04/05/21 04:15 37.6 C H 56 L 101/61 95 04/05/21 04:00 37.6 C H 55 L 105/64 95 04/05/21 03:45 37.6 C H 57 L 105/63 95 04/05/21 03:30 37.6 C H 56 L 103/60 95 04/05/21 03:00 37.6 C H 56 L 101/58 L 95 04/05/21 02:30 37.6 C H 56 L 99/61 L 95 04/05/21 02:00 37.6 C H 55 L 99/62 L 95 04/05/21 01:30 37.7 C H 55 L 101/61 94 04/05/21 01:00 37.7 C H 62 105/63 98 04/05/21 00:58 54 L 16 96 04/05/21 00:30 37.7 C H 66 103/67 95 Laboratory Results 04/05/21 04/05/21 04/05/21 Range/Units 15:47 11:28 07:33 WBC (4.8-10.8) K/uL RBC (4.2-5.4) M/uL Hgb (12.0-16.0) g/dL Hct (37-47) % MCV (80-100) fL MCH (25-34) pg MCHC (32-36) g/dL RDW Std Deviation (36.4-46.3) fL RDW Coeff of Maddie (11.5-14.5) % Plt Count (130-400) K/uL MPV (7.4-10.4) fL Absolute Nucleated RBC (0-0) K/uL Nucleated RBC % (auto) % Neutrophils % (Manual) % Lymphocytes % (Manual) % Monocytes % (Manual) % Metamyelocytes % (Man) % Neutrophils # (Manual) (1.4-6.5) K/uL Total Absolute Neuts (1.4-6.5) K/uL Lymphocytes # (Manual) (1.2-3.4) K/uL Total Abs Lymphocytes (1.2-3.4) K/uL Monocytes # (Manual) (0.11-0.59) K/uL Metamyelocytes # (Man) (0-0) K/uL RBC Morphology Sample Site POC pH (7.35-7.45) POC pCO2 (35-46) mmHg POC pO2 (80-95) mmHg POC HCO3 (19-24) du/L POC Total CO2 (24-31) mmol/L POC Base Excess (-9-1.8) du/L POC ABG O2 Sat (90-95) % Nicko Test O2 Delivery Device POC O2 Rate Minute Ventilation Tidal Volume PEEP Sodium (136-145) mmol/L Potassium (3.5-5.1) mmol/L Chloride (98-107) mmol/L Carbon Dioxide (21-32) mmol/L Anion Gap (3-11) BUN (7-18) mg/dl Creatinine (0.6-1.2) mg/dl Est Cr Clr Drug Dosing ml/min Est GFR ( Amer) ml/min Est GFR (Non-Af Amer) ml/min BUN/Creatinine Ratio (10-20) Glucose (70-99) mg/dl POC Glucose 124 H 209 H 104 H (70-99) mg/dl Calcium (8.5-10.1) mg/dl Phosphorus (2.5-4.9) mg/dl Magnesium (1.8-2.4) mg/dl 04/05/21 04/05/21 04/05/21 Range/Units 04:51 04:33 04:33 WBC 8.99 (4.8-10.8) K/uL RBC 4.00 L (4.2-5.4) M/uL Hgb 11.6 L (12.0-16.0) g/dL Hct 36.7 L (37-47) % MCV 91.8 (80-100) fL MCH 29.0 (25-34) pg MCHC 31.6 L (32-36) g/dL RDW Std Deviation 50.1 H (36.4-46.3) fL RDW Coeff of Maddie 15.5 H (11.5-14.5) % Plt Count 272 (130-400) K/uL MPV 9.2 (7.4-10.4) fL Absolute Nucleated RBC 0.02 H (0-0) K/uL Nucleated RBC % (auto) 0.2 % Neutrophils % (Manual) 74.6 % Lymphocytes % (Manual) 17.5 % Monocytes % (Manual) 6.1 % Metamyelocytes % (Man) 1.8 % Neutrophils # (Manual) 6.71 H (1.4-6.5) K/uL Total Absolute Neuts 6.71 H (1.4-6.5) K/uL Lymphocytes # (Manual) 1.57 (1.2-3.4) K/uL Total Abs Lymphocytes 1.57 (1.2-3.4) K/uL Monocytes # (Manual) 0.55 (0.11-0.59) K/uL Metamyelocytes # (Man) 0.16 H (0-0) K/uL RBC Morphology Unremarkable Sample Site L Radial POC pH 7.45 (7.35-7.45) POC pCO2 57 H (35-46) mmHg POC pO2 84 (80-95) mmHg POC HCO3 39 H (19-24) du/L POC Total CO2 > 40 H* (24-31) mmol/L POC Base Excess 15.0 H (-9-1.8) du/L POC ABG O2 Sat 96.0 H (90-95) % Nicko Test Pass O2 Delivery Device Ventilator POC O2 Rate 16 Minute Ventilation 6.1 Tidal Volume 400 PEEP 14 Sodium 144 (136-145) mmol/L Potassium 3.8 (3.5-5.1) mmol/L Chloride 103 (98-107) mmol/L Carbon Dioxide 36 H (21-32) mmol/L Anion Gap 5.0 (3-11) BUN 39 H (7-18) mg/dl Creatinine 0.85 (0.6-1.2) mg/dl Est Cr Clr Drug Dosing 100.5 ml/min Est GFR ( Amer) 91.3 ml/min Est GFR (Non-Af Amer) 78.8 ml/min BUN/Creatinine Ratio 45.6 H (10-20) Glucose 96 (70-99) mg/dl POC Glucose (70-99) mg/dl Calcium 8.8 (8.5-10.1) mg/dl Phosphorus 4.7 (2.5-4.9) mg/dl Magnesium 2.2 (1.8-2.4) mg/dl 04/05/21 04/04/21 04/04/21 Range/Units 03:34 23:50 21:10 WBC (4.8-10.8) K/uL RBC (4.2-5.4) M/uL Hgb (12.0-16.0) g/dL Hct (37-47) % MCV (80-100) fL MCH (25-34) pg MCHC (32-36) g/dL RDW Std Deviation (36.4-46.3) fL RDW Coeff of Maddie (11.5-14.5) % Plt Count (130-400) K/uL MPV (7.4-10.4) fL Absolute Nucleated RBC (0-0) K/uL Nucleated RBC % (auto) % Neutrophils % (Manual) % Lymphocytes % (Manual) % Monocytes % (Manual) % Metamyelocytes % (Man) % Neutrophils # (Manual) (1.4-6.5) K/uL Total Absolute Neuts (1.4-6.5) K/uL Lymphocytes # (Manual) (1.2-3.4) K/uL Total Abs Lymphocytes (1.2-3.4) K/uL Monocytes # (Manual) (0.11-0.59) K/uL Metamyelocytes # (Man) (0-0) K/uL RBC Morphology Sample Site POC pH (7.35-7.45) POC pCO2 (35-46) mmHg POC pO2 (80-95) mmHg POC HCO3 (19-24) du/L POC Total CO2 (24-31) mmol/L POC Base Excess (-9-1.8) du/L POC ABG O2 Sat (90-95) % Nicko Test O2 Delivery Device POC O2 Rate Minute Ventilation Tidal Volume PEEP Sodium (136-145) mmol/L Potassium (3.5-5.1) mmol/L Chloride (98-107) mmol/L Carbon Dioxide (21-32) mmol/L Anion Gap (3-11) BUN (7-18) mg/dl Creatinine (0.6-1.2) mg/dl Est Cr Clr Drug Dosing ml/min Est GFR ( Amer) ml/min Est GFR (Non-Af Amer) ml/min BUN/Creatinine Ratio (10-20) Glucose (70-99) mg/dl POC Glucose 114 H 99 93 (70-99) mg/dl Calcium (8.5-10.1) mg/dl Phosphorus (2.5-4.9) mg/dl Magnesium (1.8-2.4) mg/dl Coding Level of Care Code Critical Care 1st 30-74 mins Diagnoses Acute respiratory failure with hypoxia J96.01 Multifocal pneumonia J18.9 Hypothyroidism E03.9 Hyperglycemia R73.9 LAURI (acute kidney injury) N17.9 Pneumonia due to COVID-19 virus U07.1; J12.82 Hypokalemia E87.6 Hyponatremia E87.1 Metabolic acidosis E87.2 COVID-19 U07.1 Depression F32.9 Thoracic aortic aneurysm (TAA) I71.2 DVT prophylaxis Z29.9 Fatty liver K76.0 Obesity E66.9 WANDER (obstructive sleep apnea) G47.33 Elevated LFTs R79.89
[2021-04-05] MEDS ORDERED: STAT IV Infusion **Titration per Protocol STA (12:52)
[2021-04-05] MEDS: DEXMEDETOMIDINE HCL 200 MCG in SODIUM CHLORIDE 0.9% 48 ML IV SCH ×5 (13:33→22:54)
[2021-04-05] MEDS: DEXTROSE 50% 50 ML SYRINGE IV PRN (20:02)
--- NOTE | 2021-04-05 20:04 | Hospitalist Progress Note ---
Date of Service April 05, 2021 Assessment & Plan (1) Acute respiratory failure with hypoxia: (2) Pneumonia due to COVID-19 virus: Plan: 50-year-old for male with PMH of WANDER on CPAP, morbid obesity, depression with anxiety on Lexapro and Abilify and recent diagnosis of Covid on March 18 [signs and symptoms from 3 days prior to diagnosis] presented to the ED 03/28 with complaint of worsening shortness of breath, intermittent fever on and off [last 1 being in the AM of the arrival day--> 101F], cough. She required high flow nasal cannula oxygen at presentation to the ED and pulmonology was consulted. She is being managed for the following under the critical care team: #. Acute respiratory failure with hypoxia: #. Pneumonia due to COVID-19 virus: #. Possible superimposed bacterial infection/PNA Not vaccinated for COVID-19 Initial positive test on 03/18, sx started 3 days prior. Presents with profound hypoxia requiring high flow via nasal cannula in the ED Pt does not meet criteria for remdesivir given duration of sx Admitting ESR: 126 and admitting CRP: 18.40 Admitting procalcitonin: 3.28 Inflammatory markers are trending down Status post extubation We'll continue current management as per incident response manager Pt admitted to PCU with Pulm consult, given Tocilizumab 03/28, later evening of 03/28 Pt required emergent intubation due to worsening hypoxia. Given h/o fever and elevated procal, patient started on rocephin 03/28 to cover for possible secondary bacterial infection. We'll start intravenous doxycycline as well to cover possible atypical organism Currently intubated/sedated/mechanical ventilation. Management per Critical Care Team. Remains stable and is still requiring high flow oxygen to maintain saturation Has been getting intravenous Lasix to keep her on the label drier side Remains on mechanical ventilator and plan to extubate tomorrow-extubated on 04/05/2021 Gram-positive [id number] cocci in clusters Has been started on intravenous vancomycin and Zosyn discontinued Antibiotic has been changed to ceftriaxone Repeat blood culture today-repeat blood cultures have been negative Antibiotics as per incident response manager #. Metabolic Acidosis Met acidosis (minimal AG elevation), likely 2/2 diarrhea continue to monitor. #. LAURI Baseline Cr 0.8 Admitting BUN/Cr 22 and 1.48 Resolved #. Hypokalemia Admitting K3.0 Monitor daily, replace as appropriate #. Hyponatremia Admitting sodium level one thirty-one Mildly hyponatremic #. Hyperglycemia/new DM diagnosis Presented with DKA Admitting blood glucose two hundred thirty-one Admitting A1c: 10.5 New diagnosis of diabetes Being managed with insulin drip per critical care hypoglycemia protocol We will discharge with glycemic pharmacist recommendation upon discharge. Appreciate glycemic pharmacist input and recommendation #. Elevated LFTs Likely secondary to Covid Coming down. #. Other chronic medical problems: WANDER on CPAP at home, depression on Abilify and Lexapro at home, hypothyroidism on levothyroxine #. DVT prophylaxis:Lovenox subcu Family members she is being updated by the incident response manager Dispo: Critical care FULL CODE PCP: Danika Admission and Anticipated Discharge Date Admission Date: March 28, 2021 Subjective 03/30/2021 The patient was seen and examined in telemetry unit She remains intubated and sedated Has been in prone position and requiring 60 L of oxygen to maintain saturation 03/31/2021 The patient was seen and examined in telemetry unit and in the Covid room She remains intubated and currently sedation is off She has been a little restless 04/01/2021 The patient was seen and examined in telemetry unit She remains intubated with minimal improvement so far 04/02/2021 The patient was seen and examined in telemetry unit and in the Covid room SHe remains intubated and sedated 04/03/2021 The patient was seen and examined in telemetry unit and in the Covid room She remains intubated and sedated 04/04/2021 Patient was seen and examined in telemetry unit and in the Covid room She remains intubated and sedated 04/05/2021 The patient was seen and examined in telemetry unit and in the Covid room She has been extubated today Remains unstable Review of Systems Review of Systems: Unobtainable due to endotracheal tube (Just extubated) Physical Exam Physical Exam: Status post extubation and remains a little restless Constitutional: well developed, well nourished, + ill appearing and + obese Eyes: PERRL, conjunctivae normal, anicteric sclerae ENMT: external ear and nose normal, oropharynx normal Neck: trachea midline, no thyromegaly Respiratory: no respiratory distress Auscultation: + crackles (Minimal crackles bilaterally on dependent area) Cardiovascular: Rate/Rhythm: regular rate and regular rhythm; not tachycardic Heart Sounds: normal S1 and normal S2; no murmur Extremities: + edema (Trace edema bilaterally) Gastrointestinal (Abdomen): Inspection/Auscultation: normal bowel sounds; abdomen not distended Percussion/Palpation: abdomen soft; abdomen nontender Neurologic: Alert and awake Results & Data Results & Data ([facility]) Vital Signs (Past 12 Hours) Vital Signs Temp Pulse Pulse Resp BP BP Pulse Ox 04/05/21 19:00 37.8 C H 90 22 151/84 H 92 04/05/21 18:00 37.7 C H 103 H 17 155/95 H 92 04/05/21 17:45 106 H 17 158/89 H 92 04/05/21 17:30 84 22 135/102 H 94 04/05/21 17:15 91 H 17 152/83 H 93 04/05/21 17:00 86 20 141/84 H 95 04/05/21 16:45 93 H 14 147/90 H 92 04/05/21 16:30 91 H 16 166/88 H 94 04/05/21 16:15 98 H 28 H 93 04/05/21 16:02 90 19 98 04/05/21 15:45 137/94 95 04/05/21 15:30 101 H 31 H 154/77 H 92 04/05/21 15:15 99 H 18 134/73 93 04/05/21 15:00 105 H 23 116/62 92 04/05/21 14:45 105/70 95 04/05/21 14:30 98 H 15 113/68 92 04/05/21 14:15 88 104/60 93 04/05/21 14:00 109 H 117/79 90 04/05/21 13:45 109 H 101/67 88 L 04/05/21 13:31 102 H 101/68 94 04/05/21 13:15 37.6 C H 111 H 112/73 95 04/05/21 13:00 37.7 C H 109 H 135/82 95 04/05/21 12:45 37.6 C H 114 H 122/78 90 04/05/21 12:30 37.5 C 98 H 123/67 96 04/05/21 12:16 37.5 C 104 H 117/73 91 04/05/21 12:09 80 15 91 04/05/21 12:00 37.3 C 84 123/69 91 04/05/21 11:45 37.7 C H 82 128/69 92 04/05/21 11:30 37.5 C 96 H 140/69 90 04/05/21 11:15 37.6 C H 72 124/74 91 04/05/21 11:00 37.6 C H 74 142/80 H 90 04/05/21 10:45 37.5 C 109 H 134/86 90 04/05/21 10:30 37.7 C H 58 L 116/60 94 04/05/21 10:15 37.6 C H 57 L 115/59 L 94 04/05/21 10:00 37.6 C H 56 L 111/60 94 04/05/21 09:45 37.4 C 70 138/74 93 04/05/21 09:30 37.5 C 68 133/68 94 04/05/21 09:15 37.5 C 58 L 126/70 95 04/05/21 09:00 37.3 C 60 130/66 93 04/05/21 08:45 37.3 C 59 L 136/67 94 04/05/21 08:30 37.3 C 70 129/68 89 L 04/05/21 08:15 37.3 C 65 118/70 90 04/05/21 08:13 60 16 91 Laboratory Results Short CBC 04/05/21 Range/Units 04:33 WBC 8.99 (4.8-10.8) K/uL Hgb 11.6 L (12.0-16.0) g/dL Hct 36.7 L (37-47) % Plt Count 272 (130-400) K/uL BMP 04/05/21 04:33 Sodium 144 Potassium 3.8 Chloride 103 Carbon Dioxide 36 H BUN 39 H Creatinine 0.85 Glucose 96 Calcium 8.8 Medications Administered Current Inpatient Medications Aripiprazole (Aripiprazole 1 Mg/Ml Oral Soln 150 Ml Btl) 20 mg PO QPM JOSELO Stop: 05/04/21 20:59 Last Admin: 04/04/21 21:40 Dose: 20 mg Documented by: Dextrose (Dextrose 50% 50 Ml Syringe) 25 - 50 ml IV UD PRN; Protocol PRN Reason: Hypoglycemia Protocol Stop: 04/27/21 18:26 Last Admin: 03/31/21 04:13 Dose: 25 ml Documented by: Docusate Sodium (Docusate Sodium Syrup 100 Mg/10 Ml Udc) 100 mg NG BID JOSELO Stop: 04/30/21 10:59 Last Admin: 04/05/21 08:05 Dose: 100 mg Documented by: Enoxaparin Sodium (Enoxaparin Inj 40 Mg/0.4 Ml Syr) 40 mg SQ Q12H JOSELO Stop: 04/27/21 21:59 Last Admin: 04/05/21 11:32 Dose: 40 mg Documented by: Escitalopram Oxalate (Escitalopram Oxalate Oral Soln 20 Mg/20 Ml Udp) 20 mg PO QPM JOSELO Stop: 05/04/21 20:59 Last Admin: 04/04/21 21:40 Dose: 20 mg Documented by: Glucagon (Glucagon For Inj 1 Mg Vial) 1 mg SQ UD PRN; Protocol PRN Reason: Hypoglycemia Protocol Stop: 04/27/21 18:26 Glucose (Glucose 10 Tabs/Tube) 4 - 8 tabs PO UD PRN; Protocol PRN Reason: Hypoglycemia Protocol Stop: 04/27/21 18:26 Glucose (Glucose 40% Gel 15 Gm Tube) 15 - 30 gm PO UD PRN; Protocol PRN Reason: Hypoglycemia Protocol Stop: 04/27/21 18:26 Heparin Sodium (Beef Lung) (Heparin 10 Unit/Ml 5 Ml Flush) 5 ml FLUSH PRN PRN PRN Reason: Flush Stop: 04/30/21 07:39 Dexamethasone 6 mg/ Syringe 1.5 mls @ 1 mls/min IV DAILY JOSELO Stop: 04/08/21 08:59 Last Admin: 04/05/21 08:09 Dose: 1 mls/min Documented by: Famotidine 20 mg/ Syringe 5 mls @ 2.5 mls/min IV BID JOSELO Stop: 04/28/21 08:59 Last Admin: 04/05/21 08:08 Dose: 2.5 mls/min Documented by: Levothyroxine Sodium 75 mcg/ (Syringe) 3.75 mls @ 1.875 mls/min IV Q72H JOSELO; Protocol Stop: 04/28/21 08:59 Last Admin: 04/04/21 09:25 Dose: 1.875 mls/min Documented by: Ceftriaxone Sodium 2,000 mg/ (Dextrose) 70 mls @ 100 mls/hr IV DAILY [facility]; Protocol Stop: 04/16/21 09:41 Last Infusion: 04/05/21 09:30 Dose: Infused Documented by: Furosemide 40 mg/ Syringe 4 mls @ 4 mls/min IV BID [facility] Stop: 05/03/21 12:29 Last Admin: 04/05/21 08:05 Dose: 4 mls/min Documented by: Dexmedetomidine HCl 200 mcg/ (Sodium Chloride) 50 mls @ 20.878 mls/hr IV .Q2H24M JOSELO; Protocol Stop: 04/09/21 12:59 Last Titration: 04/05/21 19:18 Dose: 0.7 mcg/kg/hr, 20.9 mls/hr Documented by: Insulin Aspart (Insulin Aspart 100 Units/Ml 3 Ml Pen) 0 units SC Q4 [facility] Stop: 05/01/21 11:59 Last Admin: 04/05/21 15:56 Dose: Not Given Documented by: Insulin Glargine (Insulin Glargine Solostar 100 Units/Ml 3 Ml Pen) 25 units SC DAILY@0900 JOSELO; Protocol Stop: 05/04/21 09:29 Last Admin: 04/05/21 08:06 Dose: 25 units Documented by: Insulin Human NPH (Insulin Human Nph) 40 units SC DAILY@0900 JOSELO; Protocol Stop: 05/05/21 08:59 Last Admin: 04/05/21 08:09 Dose: 40 units Documented by: Miscellaneous (Carbohydrates For Hypoglycemia ) 15 - 30 gm PO UD PRN PRN Reason: Hypoglycemia Protocol Stop: 04/27/21 18:26 Miscellaneous Information (Pharmacy Glycemic Mgmt Consult) 1 ea N/A UD PRN; Protocol PRN Reason: Consult Stop: 04/27/21 18:26 Multi-Ingredient Cream (Artificial Tears Op Oint 3.5 Gm Tube) 1 appln OP Q4H [facility] Stop: 04/27/21 21:59 Last Admin: 04/05/21 18:02 Dose: Not Given Documented by: Multivitamins/Minerals (Multi Vit W/Minerals Liquid 15 Ml Udp) 15 ml NG QAM [facility] Stop: 05/01/21 08:59 Last Admin: 04/05/21 08:05 Dose: 15 ml Documented by: Nutritional Formula (Peptamen Intense Vhp 1.0 Davis 1,000 Ml Bag) 1,000 ml OG UD [facility]; Protocol Stop: 04/29/21 12:59 Last Admin: 04/04/21 17:57 Dose: 1,000 ml Documented by: Ondansetron HCl (Ondansetron Inj 2 Mg/Ml 2 Ml Vial) 4 mg IV Q6H PRN PRN Reason: Nausea Stop: 04/27/21 18:26 Sennosides (Sennosides 8.8 Mg/5 Ml Udc) 17.6 mg PO DAILY JOSELO Stop: 04/30/21 10:59 Last Admin: 04/05/21 08:08 Dose: 17.6 mg Documented by: Sterile Water (Tube Feeding Water Flush) 30 ml OG Q4H JOSELO Stop: 04/29/21 12:59 Last Admin: 04/05/21 19:43 Dose: Not Given Documented by:
[2021-04-05] MEDS: ARIPIprazole 1 MG/ML ORAL SOLN 150 ML BTL PO SCH (21:38)
[2021-04-05] MEDS: ESCITALOPRAM OXALATE ORAL SOLN 20 MG/20 ML UDP PO SCH (21:40)
[2021-04-06] MEDS: INSULIN ASPART 100 UNITS/ML 3 ML PEN SC SCH ×7 (00:10→23:13)
[2021-04-06] MEDS: DEXMEDETOMIDINE HCL 400 MCG in 0.9 % SODIUM CHLORIDE 96 ML IV SCH ×3 (01:32→11:31)
[2021-04-06] MEDS ORDERED: ACETAMINOPHEN 1,000 MG/100 ML VIAL IV STA (01:35)
[2021-04-06] MEDS: DEXMEDETOMIDINE HCL 200 MCG in SODIUM CHLORIDE 0.9% 48 ML IV SCH ×2 (01:40→01:43)
[2021-04-06] MEDS: TUBE FEEDING WATER FLUSH OG SCH ×4 (01:50→14:34)
[2021-04-06] MEDS: ARTIFICIAL TEARS OP OINT 3.5 GM TUBE OP SCH ×4 (01:55→14:34)
[2021-04-06 07:35] LABS: Basophils # (auto) 0.03 K/uL (0-0.2); Basophils % (auto) 0.3 %; Eosinophils # (auto) 0.04 K/uL (0-0.5); Eosinophils % (auto) 0.5 %; Hematocrit (blood only) 40.3 % (37-47); Hemoglobin 13.1 g/dL (12.0-16.0); Immature Granulocytes # (auto) 0.05 K/uL (0.00-0.02); Immature Granulocytes % (auto) 0.6 %; Lymphocytes # (auto) 2.39 K/uL (1.2-3.4); Lymphocytes % (auto) 26.9 %; Mean Corpuscular Hemoglobin 29.2 pg (25-34); Mean Corpuscular Hgb Conc 32.5 g/dL (32-36); Mean Platelet Volume 9.6 fL (7.4-10.4); Monocytes # (auto) 0.67 K/uL (0.11-0.59); Monocytes % (auto) 7.5 %; Neutrophils % (auto) 64.2 %; Platelet Count 226 K/uL (130-400); RDW Coefficient of Variation 15.2 % (11.5-14.5); RDW Standard Deviation 47.7 fL (36.4-46.3); Red Blood Count 4.48 M/uL (4.2-5.4); White Blood Count 8.88 K/uL (4.8-10.8)
[2021-04-06 08:07] LABS: BUN Creatinine Ratio 37.6 (10-20); Calcium 8.9 mg/dl (8.5-10.1); Est GFR (African American) 98.2 ml/min; Est GFR (Non-African American) 84.8 ml/min; Magnesium 2.2 mg/dl (1.8-2.4); Potassium 3.6 mmol/L (3.5-5.1)
[2021-04-06 08:10] LABS: Albumin Globulin Ratio 0.8 (0.9-2); Bilirubin,Total 1.2 mg/dl (0.2-1); Globulin 3.8 gm/dl (2.5-4.0); Phosphorus 4.3 mg/dl (2.5-4.9); Total Protein 6.8 gm/dl (6.4-8.2)
[2021-04-06] MEDS: dexAMETHasone 6 MG in SYRINGE 0 ML IV SCH (08:50)
[2021-04-06] MEDS: cefTRIAXone SODIUM 2,000 MG in DEXTROSE 5% 50 ML IV SCH (08:50)
[2021-04-06] MEDS: FAMOTIDINE 20 MG in SYRINGE 3 ML IV SCH ×2 (08:51→20:19)
[2021-04-06] MEDS: DOCUSATE SODIUM SYRUP 100 MG/10 ML UDC NG SCH ×2 (08:51→20:19)
[2021-04-06] MEDS: FUROSEMIDE 40 MG in SYRINGE 0 ML IV SCH (08:52)
[2021-04-06] MEDS: SENNOSIDES 8.8 MG/5 ML UDC PO SCH (08:52)
[2021-04-06] MEDS: MULTI VIT W/MINERALS LIQUID 15 ML UDP NG SCH (08:52)
[2021-04-06] MEDS ORDERED: INSULIN GLARGINE SOLOSTAR 100 UNITS/ML 3 ML PEN SC SCH ×2 (09:00→21:00)
[2021-04-06] MEDS: ENOXAPARIN INJ 40 MG/0.4 ML SYR SQ SCH ×2 (09:08→21:27)
[2021-04-06] MEDS: fentaNYL citrate 2,500 MCG/250 ML BAG IV SCH ×2 (09:13→09:14)
--- NOTE | 2021-04-06 09:16 | XRay Report ---
XR chest 1V portable INDICATION: Fever. TECHNIQUE: Single frontal radiograph of the chest was obtained. Comparison: Comparison is made to chest one view 04/05/2021 FINDINGS: No lines and tubes are seen. The cardiomediastinal silhouette is normal. Multifocal airspace opacitie s are again seen. Atelectasis is in the right upper lobe. Lungs are underinflated. No evidence of ple ural effusion or pneumothorax. IMPRESSION: Stable exam with findings of multifocal pneumonia and atelectasis. ACT 112: Negative or not required by law. Electronically signed by: Franco Agustin M.D. 04/06/2021 9:15 AM
--- NOTE | 2021-04-06 09:30 | Critical Care Progress Note ---
Date of Service April 06, 2021 Assessment & Plan (1) Acute respiratory failure with hypoxia: Plan: Reason Critically Ill: 50-year-old female undergoing treatment for COVID-19 pneumonia, now with worsening hypoxia requiring emergent intubation. Now on ICU service, was mechanically ventilation, since extubated 04/05. Neuro - Sedation: S/p extubation Depressionadminister Lexapro, Abilify: Home medication Agitation: Zyprexa IM x1. Cardiac - Currently hemodynamically stable and NSR on monitor Continuous monitor on telemetry Respiratory - Acute hypoxic respiratory failurePF ratio consistent with severe ARDS in the setting of COVID-19 pneumonia Secondary to multilobar COVID-19 pneumonia COVID-19 PCR positive, positive lymphopenia S/p Tocilizumab 03/28/2021 Continue with lung protective ventilation High PEEP, low tidal volume to keep Plateau < 30 with permissive hypercapnea if need be. Extubated on 04/05/2021 GI - Famotidine twice daily RENAL/LYTES - S/P AKIresolved -Maintain maps greater than 65 -Renally adjust medications and avoid nephrotoxins -Monitor with routine BMPs. Replete electrolytes as indicated - Foleystrict I's and O's. cumulative 26L in 27L out. ENDO - --DKA: Resolved ICU hyperglycemic protocol Continue Synthroid for hypothyroidism HEME - H&H stable, monitor routine CBC ID - Patient febrile, positive COVID-19 PCR Coag negative staph bacteremia: Continue with Rocephin x2 weeks from negative culture on 04/03 04/06: changed abx to daptogiven given previous BC result of coag neg staph. 8 day course. Continue dexamethasone for COVID-19 pneumonia, patient did receive Tocilizumab Blood culture 03/29/2021: Coag negative staph Blood culture 04/01/2021: Coag negative staph --Prophylaxis VTE: Lovenox GI: Pepcid Lines: Right IJ, positive Hurd to be removed Diet: Trickle feeds (2) Multifocal pneumonia: (3) Elevated LFTs: (4) Metabolic acidosis: (5) Hyperglycemia: (6) Hypothyroidism: (7) Hyponatremia: (8) Hypokalemia: (9) LAURI (acute kidney injury): (10) Pneumonia due to COVID-19 virus: (11) COVID-19: (12) Depression: (13) WANDER (obstructive sleep apnea): Admission and Anticipated Discharge Date Admission Date: March 28, 2021 Supervising Physician Co-Signing Physician Notes Dr. Witt was resident physician during care of patient. I separately evaluated patient for webb portions of the history and the exam. I was present during the critical portion of medical decision making, and I discussed the case with the resident. I generally agree with the findings and plan. ICU delirium, add Zyprexa, work to discontinue Precedex Still requiring supplemental oxygen however improved from ventilator dependent respiratory failure Discontinue central line and Hurd today Constipation x6 days; 60 mL mineral oil methylnaltrexone x1 Diuresis: 40 mg Lasix x1 today 60 M EQ's KCl via a central line Daptomycin for 8 days for coag negative staph oxacillin resistant Subjective Patient was on Precedex at the time of my exam. She had some agitation overnight. Has one on one. + fever overnight 38.1. Per nursing, no acute events. HPI limited. Review of Systems Review of Systems: Unobtainable due to reduced consciousness Physical Exam Physical Exam: General: Sedated. Obese habitus. HEENT: Atraumatic, normocephalic. Pulm: Transmitted upper airway sounds. Lungs mostly clear to auscultaton. No respiratory distress. Cardiac: RRR, -mrg. Abdominal: Nontender, nondistended, soft. Integ: + restraints. Results & Data Results & Data ([facility]) Vital Signs (Past 12 Hours) Vital Signs Temp Pulse Pulse Resp BP BP Pulse Ox 04/06/21 06:31 37.3 C 64 18 128/74 89 L 04/06/21 06:15 37.4 C 64 18 131/94 95 04/06/21 06:00 37.4 C 60 21 153/87 H 94 04/06/21 05:45 37.6 C H 62 21 143/82 H 94 04/06/21 05:30 37.6 C H 61 15 96 04/06/21 05:16 37.6 C H 62 22 95 04/06/21 05:00 37.1 C 64 19 146/85 H 95 04/06/21 04:45 37.3 C 59 L 20 163/89 H 97 04/06/21 04:30 37.5 C 59 L 18 163/87 H 93 04/06/21 04:15 37.1 C 66 18 136/82 89 L 04/06/21 04:00 37.2 C 61 28 H 147/87 H 94 04/06/21 03:45 37.4 C 64 27 H 144/85 H 94 04/06/21 03:30 37.4 C 58 L 21 151/86 H 95 04/06/21 03:15 37.7 C H 64 21 156/85 H 96 04/06/21 03:00 37.7 C H 64 19 147/83 H 95 04/06/21 02:46 37.7 C H 73 26 H 129/68 92 04/06/21 02:40 37.8 C H 64 20 157/87 H 95 04/06/21 02:37 68 04/06/21 02:30 37.7 C H 60 18 157/87 H 98 04/06/21 02:15 37.7 C H 62 19 151/84 H 97 04/06/21 02:00 37.8 C H 63 20 151/82 H 93 04/06/21 01:45 37.8 C H 66 17 135/72 92 04/06/21 01:30 37.8 C H 76 13 111/58 L 87 L 04/06/21 01:15 37.7 C H 78 24 122/82 87 L 04/06/21 01:00 37.7 C H 65 15 147/77 H 95 04/06/21 00:45 37.7 C H 64 19 150/83 H 94 04/06/21 00:30 37.8 C H 64 21 123/78 95 04/06/21 00:15 37.8 C H 64 19 146/78 H 93 04/06/21 00:00 37.8 C H 64 21 127/80 94 04/05/21 23:45 37.9 C H 63 20 140/77 95 04/05/21 23:30 37.9 C H 63 20 139/75 94 04/05/21 23:15 37.9 C H 63 21 138/77 90 04/05/21 23:00 38.0 C H 64 21 131/73 89 L 04/05/21 22:46 38.0 C H 63 20 144/80 H 95 04/05/21 22:45 38.0 C H 64 20 144/80 H 95 04/05/21 22:30 37.9 C H 64 20 145/78 H 96 04/05/21 22:15 38.0 C H 67 17 134/72 96 04/05/21 22:00 38.1 C H 70 16 139/73 95 04/05/21 21:45 38.2 C H 82 13 131/77 94 Laboratory Results no leukocytosis. Hb stable.bmp reviewed. ammonia 39H. ast, alt stable. slight t bili elev. 03/29/21 BC coag neg staph not lugdunenesis. Same on 04/01/21 BC. 04/03/21 48 hrs no growth. 04/06/21 07:16 04/06/21 07:16 Diagnostic Findings Chest X-Ray 04/06/21 07:00 XR chest 1V portable INDICATION: Fever. TECHNIQUE: Single frontal radiograph of the chest was obtained. Comparison: Comparison is made to chest one view 04/05/2021 FINDINGS: No lines and tubes are seen. The cardiomediastinal silhouette is normal. Multifocal airspace opacities are again seen. Atelectasis is in the right upper lobe. Lungs are underinflated. No evidence of pleural effusion or pneumothorax. IMPRESSION: Stable exam with findings of multifocal pneumonia and atelectasis. ACT 112: Negative or not required by law. Electronically signed by: Franco Agustin M.D. 04/06/2021 9:15 AM Resident Activity Tracking Resident Involvement: Resident Care Provided Care Provided: Adult Hospital Medicine
--- NOTE | 2021-04-06 10:01 | Billing Data ---
Date of Service April 06, 2021 Coding Level of Care Code 29146 Subseq Hosp Care Lvl 3
[2021-04-06] MEDS ORDERED: METHYLNALTREXONE BROMIDE 12 MG/0.6 ML VIAL SQ ONE ×2 (10:40→11:00)
[2021-04-06] MEDS ORDERED: OLANZapine 10 MG/2.1 ML SDV IM STA (10:44)
[2021-04-06] MEDS ORDERED: MINERAL OIL 30 ML UDC PO ONE (11:00)
[2021-04-06] MEDS: POTASSIUM CHLORIDE / WTR 20 MEQ/100 ML PLCT IV SCH ×3 (11:42→16:23)
--- NOTE | 2021-04-06 12:33 | Pharmacy Report ---
Pharmacy Glycemic Short Note 2 - Date of Service April 06, 2021 - Glycemic Short BSG Results (Last 24 hours): 04/05/21 04/05/21 04/05/21 15:47 19:52 20:16 Glucose POC Glucose 124 H 65 L* 109 H 04/05/21 04/06/21 04/06/21 23:55 04:04 06:01 Glucose POC Glucose 88 90 93 04/06/21 04/06/21 04/06/21 07:16 07:45 11:40 Glucose 119 H POC Glucose 112 H 191 H OUTPATIENT ANTIDIABETIC REGIMEN: * N/a * A1c 10.5% 03/28 ASSESSMENT: 04/06: * 77 units SQ insulin administered in last 24 hours * Mild hypoglycemia noted last evening - likely due to decreasing stressors following extubation and discontinuation of continuous tube feeds * Patient remains NPO at this time. Swallow eval to be ordered. * Fasting BSG 90-112 this AM, she had received 25 units Lantus + 40 units NPH yesterday. * Dexamethasone 6mg IV daily continues, tomorrow may be the last day of therapy if not renewed * Given uncertain PO intake today and recent hypoglycemic event, will d/c NPH and reduce Lantus dose this AM. Will escalate Novolog doses however to compensate if reduction in basal is excessive. 04/04: * AM BSGs consistently on the lower side the past couple of days. Will slightly reduce AM dose and more significantly reduce evening dose. BSGs throughout the day trending down as well. Will empirically loosen NovoLog to prevent a low. Will monitor need for decrease in NPH tomorrow. * Patient continues on steroids and TFs are running at goal 04/01 * Patient transitioned off of insulin drip yesterday and received 119 units of SQ insulin yesterday, 105 units basal (35 NPH, 70 Lantus) and 7 units Novolog * Fast blood sugar below goal and blood sugars rising some throughout the day, will increase NPH and decrease Lantus to prevent morning hypoglycemia to have more basal from NPH to cover steroid effects * Patient continues on IV dexamethasone, Pepatmen TFs and antibiotics changed to IV Vancomycin + Zosyn * No other changes at this time in insulin regimen 04/01 * Insulin infusion ran through the night, BSG this morning 93 mg/dL, rate 1.8 units/hr, stopped infusion at this time and gave 40 units of lantus and 35 un its of NPH to help cover steroid. Will give additional lantus dose this evening up to an additional 40 units. * Novolog parameters started at weight based stress of 3, BSG elevated at lunch, will reassess need to tighten parameters. PLAN FOR INPATIENT GLYCEMIC CONTROL: * Basal insulin (decreased) * Lantus 8 units SQ BID * Steroid induced hyperglycemia * dc NPH * Bolus insulin * NovoLog per scale ACHS or Q6hrs while NPO * Goal Range: Low 110 mg/dL - High 140 mg/dL * Correction Factor: 15 mg/dL/unit * Nutritional / Prandial insulin per carb ratio of 1 unit per 5 grams CHO consumed DISCHARGE RECOMMENDATIONS: * A1c 10.5% is reflective of poor glycemic control. Patient had no prior dx of DM and was not taking medications for DM prior to admission. * Would recommend initiation of dual combination therapy on discharge in addition to diet/lifestyle modifications: * Metformin + Basal Insulin may be the best option for her given her A1c is > 10 and patient did experience mild DKA during this admission. * Consider Metformin XR 500mg PO daily w/ evening meal if no contraindications present at time of discharge * Lantus 20 units SQ once daily * SMBG 4 x daily initially * Would recommend f/u with PCP within a week or two of discharge to review BSGs and to allow for regimen adjustments.
[2021-04-06] MEDS: DAPTOmycin 475 MG in SYRINGE 0 ML IV SCH (14:30)
--- NOTE | 2021-04-06 14:38 | Hospitalist Progress Note ---
Date of Service April 06, 2021 Assessment & Plan (1) Acute respiratory failure with hypoxia: (2) Pneumonia due to COVID-19 virus: Plan: 50-year-old for male with PMH of WANDER on CPAP, morbid obesity, depression with anxiety on Lexapro and Abilify and recent diagnosis of Covid on March 18 [signs and symptoms from 3 days prior to diagnosis] presented to the ED 03/28 with complaint of worsening shortness of breath, intermittent fever on and off [last 1 being in the AM of the arrival day--> 101F], cough. She required high flow nasal cannula oxygen at presentation to the ED and pulmonology was consulted. She is being managed for the following under the critical care team: #. Acute respiratory failure with hypoxia: #. Pneumonia due to COVID-19 virus: #. Possible superimposed bacterial infection/PNA Not vaccinated for COVID-19 Initial positive test on 03/18, sx started 3 days prior. Presents with profound hypoxia requiring high flow via nasal cannula in the ED Pt does not meet criteria for remdesivir given duration of sx Admitting ESR: 126 and admitting CRP: 18.40 Admitting procalcitonin: 3.28 Given Tocilizumab 03/28, later evening of 03/28 Pt required emergent intubation due to worsening hypoxia. Given h/o fever and elevated procal, patient started on rocephin 03/28 to cover for possible secondary bacterial infection. Extubated on 04/05 Currently remains on 10 L of nasal cannula. Continue with Decadron 6 mg IV daily. Gram-positive tqewenhsgz-[id number]-[id number] cocci in clusters Repeat blood culture today-repeat blood cultures have been negative Remains on daptomycin. #. Metabolic Acidosis Met acidosis (minimal AG elevation), likely 2/2 diarrhea continue to monitor. #. LAURI Baseline Cr 0.8 Admitting BUN/Cr 22 and 1.48 Resolved #. Hypokalemia Admitting K3.0 Monitor daily, replace as appropriate #. Hyponatremia Admitting sodium level one thirty-one Mildly hyponatremic #. Hyperglycemia/new DM diagnosis Presented with DKA Admitting blood glucose two hundred thirty-one Admitting A1c: 10.5 New diagnosis of diabetes Being managed with insulin drip per critical care hypoglycemia protocol We will discharge with glycemic pharmacist recommendation upon discharge. Appreciate glycemic pharmacist input and recommendation #. Elevated LFTs Likely secondary to Covid Coming down. #. Other chronic medical problems: WANDER on CPAP at home, depression on Abilify and Lexapro at home, hypothyroidism on levothyroxine #. DVT prophylaxis:Lovenox subcu Family members she is being updated by the agitator operator Dispo: Critical care FULL CODE PCP: Danika Admission and Anticipated Discharge Date Admission Date: March 28, 2021 Subjective Patient is somnolent. Currently remains on 10 L. Was able to tell me her name and that she is in the hospital. Could not obtain full review of system given her current mental status. Review of Systems Review of Systems: Unobtainable due to cognitive status Physical Exam Physical Exam: General: Somnolent HENT: NCAT, MMM, EOMI Eyes: PERRLA Neck: Right neck central line in place CVS: normal rate and rhythm Resp: b/l creased breath sounds Abdomen: Soft, ND/NT Extremities: No c/c/e Neuro: face symmetric, do not obtain full exam given her somnolent state Skin: warm and dry, no rashes/lesions/errythema MSK: no joint swelling/erythema Results & Data Results & Data ([facility]) Vital Signs (Past 12 Hours) Vital Signs Temp Pulse Pulse Resp BP BP Pulse Ox 04/06/21 13:00 37.4 C 58 L 19 98/62 L 99 04/06/21 12:00 37.4 C 59 L 16 105/69 89 L 04/06/21 11:00 37.4 C 61 21 118/70 93 04/06/21 10:00 37.5 C 62 16 100/65 95 04/06/21 09:00 37.3 C 61 23 89 L 04/06/21 08:00 37.4 C 57 L 16 124/67 93 04/06/21 07:00 37.4 C 60 22 131/80 93 04/06/21 06:31 37.3 C 64 18 128/74 89 L 04/06/21 06:15 37.4 C 64 18 131/94 95 04/06/21 06:00 37.4 C 60 21 153/87 H 94 04/06/21 05:45 37.6 C H 62 21 143/82 H 94 04/06/21 05:30 37.6 C H 61 15 96 04/06/21 05:16 37.6 C H 62 22 95 10/06/21 05:00 37.1 C 64 19 146/85 H 95 04/06/21 04:45 37.3 C 59 L 20 163/89 H 97 04/06/21 04:30 37.5 C 59 L 18 163/87 H 93 04/06/21 04:15 37.1 C 66 18 136/82 89 L 04/06/21 04:00 37.2 C 61 28 H 147/87 H 94 04/06/21 03:45 37.4 C 64 27 H 144/85 H 94 04/06/21 03:30 37.4 C 58 L 21 151/86 H 95 04/06/21 03:15 37.7 C H 64 21 156/85 H 96 04/06/21 03:00 37.7 C H 64 19 147/83 H 95 04/06/21 02:46 37.7 C H 73 26 H 129/68 92 04/06/21 02:40 37.8 C H 64 20 157/87 H 95 Pulse Ox 04/06/21 13:00 95 04/06/21 12:00 04/06/21 11:00 04/06/21 10:00 04/06/21 09:00 04/06/21 08:00 04/06/21 07:00 04/06/21 06:31 04/06/21 06:15 04/06/21 06:00 04/06/21 05:45 04/06/21 05:30 04/06/21 05:16 04/06/21 05:00 04/06/21 04:45 04/06/21 04:30 04/06/21 04:15 04/06/21 04:00 04/06/21 03:45 04/06/21 03:30 04/06/21 03:15 04/06/21 03:00 04/06/21 02:46 04/06/21 02:40
--- NOTE | 2021-04-06 17:44 | Electrocardiogram Report ---
Test Reason : Blood Pressure : / mmHG Vent. Rate : 088 BPM Atrial Rate : 088 BPM P-R Int : 148 ms QRS Dur : 092 ms QT Int : 384 ms P-R-T Axes : 057 028 008 degrees QTc Int : 464 ms Poor data quality, interpretation may be adversely affected Normal sinus rhythm Nonspecific ST and T wave abnormality Abnormal ECG When compared with ECG of 04-APR-2021 11:50, Nonspecific T wave abnormality, worse in Inferior leads Confirmed by Micheal Cramer ([id number]) on 04/06/2021 5:44:15 PM Referred By: REFERRED SELF Confirmed By:Harry Cramer
[2021-04-06] MEDS: ARIPIprazole 1 MG/ML ORAL SOLN 150 ML BTL PO SCH (20:19)
[2021-04-06] MEDS: ESCITALOPRAM OXALATE ORAL SOLN 20 MG/20 ML UDP PO SCH (20:19)
[2021-04-07] MEDS: INSULIN ASPART 100 UNITS/ML 3 ML PEN SC SCH ×5 (05:24→21:12)
--- NOTE | 2021-04-07 05:37 | Communication Note ---
Note created in error. Coding Level of Care Code None
--- NOTE | 2021-04-07 07:39 | Critical Care Progress Note ---
Date of Service April 07, 2021 Assessment & Plan (1) Acute respiratory failure with hypoxia: Plan: Reason Critically Ill: 50-year-old female undergoing treatment for COVID-19 pneumonia, now with worsening hypoxia requiring emergent intubation. Now on ICU service, was mechanically ventilation, since extubated 04/05. Neuro - CAM ICU-neg Sedation: none Depression: home Lexapro, Abilify Agitation, resolved: s/p Zyprexa IM x1 on 04/06. Cardiac - Currently hemodynamically stable and NSR on monitor Continuous monitor on telemetry Respiratory - Acute hypoxic respiratory failurePF ratio consistent with severe ARDS in the setting of COVID-19 pneumonia Secondary to multilobar COVID-19 pneumonia COVID-19 PCR positive, positive lymphopenia S/p Tocilizumab 03/28/2021 Extubated on 04/05/2021 Following cxrs. 04/07 slightly improved airspace opacities on riht. 04/06 unchanged from 04/05. GI - Famotidine PO daily Constipation: daily Miralax RENAL/LYTES - S/P AKIresolved -Maintain maps greater than 65 -Renally adjust medications and avoid nephrotoxins -Monitor with routine BMPs. Replete electrolytes as indicated -Uptrending Cr and eGFR noted. Mg and Phos elevated. Caution w/ supplementing. - Foleystrict I's and O's. 24 hr 1.3L in 1.6L out. cumulative 27L in 27.6L out ENDO - --DKA: Resolved ICU hyperglycemic protocol Continue Synthroid for hypothyroidism HEME - H&H stable, monitor routine CBC ID - Patient febrile, positive COVID-19 PCR Coag negative staph bacteremia: planned was for Rocephin x2 weeks from negative culture on 04/03 04/06: changed abx to daptogiven given previous BC result of coag neg staph. 8 day course. Continue dexamethasone for COVID-19 pneumonia, patient did receive Tocilizumab Blood culture 03/29/2021: Coag negative staph Blood culture 04/01/2021: Coag negative staph Blood culture 04/03/21: 48 hours NG --Prophylaxis VTE: Lovenox GI: Pepcid Lines: R peripherals Diet: Pureed. ADAT after cleared by speech. dispo: stable for downgradef rom ICU (2) Multifocal pneumonia: (3) Elevated LFTs: (4) Metabolic acidosis: (5) Hyperglycemia: (6) Hypothyroidism: (7) Hyponatremia: (8) Hypokalemia: (9) LAURI (acute kidney injury): (10) Pneumonia due to COVID-19 virus: (11) COVID-19: (12) Depression: (13) WANDER (obstructive sleep apnea): Admission and Anticipated Discharge Date Admission Date: March 28, 2021 Supervising Physician Co-Signing Physician Notes Dr. Witt was resident physician during care of patient. I separately evaluated patient for webb portions of the history and the exam. I was present during the critical portion of medical decision making, and I discussed the case with the resident. I generally agree with the findings and plan. ICU delirium improving Still requiring supplemental oxygen however improved from ventilator dependent respiratory failure Daptomycin for 7 days for coag negative staph oxacillin resistant Stable for downgrade out of ICU Subjective Patient is doing well. Her confusion has mostly resolved. She ate her pureed breakfast this AM. Denies any fever/chills/CP/SOB. She feels her breathing is comfortable (currently on 6L NC, saturating 92%). She has not had a BM. Review of Systems Review of Systems: All systems reviewed & are unremarkable except as noted in HPI & below No mosher. Physical Exam Physical Exam: General: Fully A&O. Obese habitus. Answering questions approp riately. HEENT: Atraumatic, normocephalic. Pulm: CTAB at anterior and lateral mtz. No respiratory distress. Cardiac: RRR, -mrg. 1-2+ BLE Abdominal: Nontender, nondistended, soft. +BS. Integ: Intact. R IJ removed yesterday. Has right sided PIVs. Results & Data Results & Data ([facility]) Vital Signs (Past 12 Hours) Vital Signs HR mostly low 60s mostly. Had period of 58-59 overnight. MAPs ok. 6L NC low 90s Temp Pulse Pulse Resp BP BP Pulse Ox 04/07/21 07:00 66 22 119/78 90 04/07/21 06:00 63 18 115/73 89 L 04/07/21 05:00 63 17 115/73 90 04/07/21 04:00 60 16 80/66 L 92 04/07/21 03:00 56 L 14 98/68 L 93 04/07/21 02:00 59 L 13 105/64 94 04/07/21 01:00 58 L 15 105/67 90 04/07/21 00:00 58 L 15 107/71 90 04/06/21 23:00 64 15 108/66 96 04/06/21 22:34 36.4 C L 62 20 132/72 91 04/06/21 22:00 62 16 132/72 95 04/06/21 21:00 67 18 91 04/06/21 20:00 61 23 115/70 92 Laboratory Results wbc 8.88-9.36. Hb stable. Na, K stable. P 4.3->5.3H. Mg 2.2->2.8H. t bili 1.2- >1.7. ast alt stable low 100s. ammonia 39 at admission. egfr slight downtrend 117.8->81.1->84.8->68. Cr uptrending 0.42->0.74->0.85->0.96 this admission, but baseline appears to be .9-1 04/07/21 06:33 04/07/21 06:33 Diagnostic Findings Chest X-Ray 04/07/21 08:00 XR chest 1V portable CLINICAL HISTORY: covid COMPARISON STUDY: Chest radiograph April 06, 2021. FINDINGS: Elevation of the right hemidiaphragm is unchanged. There is no pneumothorax or pleural effusion. Bilateral airspace opacities are again noted. Slight improvement since prior exam is noted. Cardiomediastinal silhouette is normal. IMPRESSION: Slight improvement in bilateral airspace opacities. ACT 112: Negative or not required by law. Electronically signed by: Alcides Bear M.D. 04/07/2021 9:13 AM Resident Activity Tracking Resident Involvement: Resident Care Provided Care Provided: [facility]
[2021-04-07 08:06] LABS: Albumin Level 3.2 gm/dl (3.4-5.0); BUN Creatinine Ratio 36.4 (10-20); Calcium 9.1 mg/dl (8.5-10.1); Creatinine Clr Calc Pharmacy 87.7 ml/min; Est GFR (African American) 78.8 ml/min; Magnesium 2.8 mg/dl (1.8-2.4); Potassium 4.1 mmol/L (3.5-5.1)
[2021-04-07 08:10] LABS: Albumin Globulin Ratio 0.8 (0.9-2); Bilirubin,Total 1.7 mg/dl (0.2-1); Globulin 4.2 gm/dl (2.5-4.0); Total Protein 7.4 gm/dl (6.4-8.2)
[2021-04-07 08:31] LABS: Hemoglobin 13.9 g/dL (12.0-16.0); Mean Corpuscular Hemoglobin 30.2 pg (25-34); Mean Corpuscular Hgb Conc 32.3 g/dL (32-36); Mean Corpuscular Volume 93.5 fL (80-100); Mean Platelet Volume 10.3 fL (7.4-10.4); Platelet Count 221 K/uL (130-400); RDW Coefficient of Variation 15.9 % (11.5-14.5); RDW Standard Deviation 51.8 fL (36.4-46.3); White Blood Count 9.36 K/uL (4.8-10.8)
[2021-04-07 08:33] LABS: Basophils # (auto) 0.03 K/uL (0-0.2); Basophils % (auto) 0.3 %; Eosinophils # (auto) 0.06 K/uL (0-0.5); Eosinophils % (auto) 0.6 %; Immature Granulocytes # (auto) 0.04 K/uL (0.00-0.02); Immature Granulocytes % (auto) 0.4 %; Lymphocytes # (auto) 2.51 K/uL (1.2-3.4); Lymphocytes % (auto) 26.8 %; Monocytes % (auto) 7.5 %; Neutrophils # (auto) 6.02 K/uL (1.4-6.5); Neutrophils % (auto) 64.4 %; RBC Morphology Unremarkable
[2021-04-07] MEDS ORDERED: INSULIN GLARGINE SOLOSTAR 100 UNITS/ML 3 ML PEN SC SCH (09:00)
[2021-04-07] MEDS: FAMOTIDINE 20 MG in SYRINGE 3 ML IV SCH (09:14)
--- NOTE | 2021-04-07 09:14 | XRay Report ---
XR chest 1V portable CLINICAL HISTORY: covid COMPARISON STUDY: Chest radiograph April 06, 2021. FINDINGS: Elevation of the right hemidiaphragm is unchanged. There is no pneumothorax or pleural effu reid. Bilateral airspace opacities are again noted. Slight improvement since prior exam is noted. Car diomediastinal silhouette is normal. IMPRESSION: Slight improvement in bilateral airspace opacities. ACT 112: Negative or not required by law. Electronically signed by: Alcides Bear M.D. 04/07/2021 9:13 AM
[2021-04-07] MEDS: SENNOSIDES 8.8 MG/5 ML UDC PO SCH (09:15)
[2021-04-07] MEDS: ENOXAPARIN INJ 40 MG/0.4 ML SYR SQ SCH ×2 (09:15→21:13)
[2021-04-07] MEDS: dexAMETHasone 6 MG in SYRINGE 0 ML IV SCH (09:16)
[2021-04-07] MEDS ORDERED: Nursing to Pharmacy Communication SCH (09:30)
[2021-04-07 09:38] LABS: Phosphorus 5.3 mg/dl (2.5-4.9)
[2021-04-07] MEDS: DOCUSATE SODIUM SYRUP 100 MG/10 ML UDC NG SCH (11:23)
[2021-04-07] MEDS: MULTI VIT W/MINERALS LIQUID 15 ML UDP NG SCH (11:23)
--- NOTE | 2021-04-07 12:08 | Hospitalist Progress Note ---
Date of Service April 07, 2021 Assessment & Plan (1) Acute respiratory failure with hypoxia: (2) Pneumonia due to COVID-19 virus: Plan: 50-year-old for male with PMH of WANDER on CPAP, morbid obesity, depression with anxiety on Lexapro and Abilify and recent diagnosis of Covid on March 18 [signs and symptoms from 3 days prior to diagnosis] presented to the ED 03/28 with complaint of worsening shortness of breath, intermittent fever on and off [last 1 being in the AM of the arrival day--> 101F], cough. She required high flow nasal cannula oxygen at presentation to the ED and pulmonology was consulted. She is being managed for the following under the critical care team: #. Acute respiratory failure with hypoxia: #. Pneumonia due to COVID-19 virus: #. Possible superimposed bacterial infection/PNA Not vaccinated for COVID-19 Initial positive test on 03/18, sx started 3 days prior. Presents with profound hypoxia requiring high flow via nasal cannula in the ED Pt does not meet criteria for remdesivir given duration of sx Admitting ESR: 126 and admitting CRP: 18.40 Admitting procalcitonin: 3.28 Given Tocilizumab 03/28, later evening of 03/28 Pt required emergent intubation due to worsening hypoxia. Given h/o fever and elevated procal, patient started on rocephin 03/28 to cover for possible secondary bacterial infection. Extubated on 04/05. Currently remains on 5 L of nasal cannula. Continue with Decadron 6 mg IV daily. Transition to PCU level of care today. Gram-positive anmhyjoaez-hqjq-qmszhfgv cocci in clusters Repeat blood culture today-repeat blood cultures have been negative Remains on daptomycin. #. Metabolic Acidosis Met acidosis (minimal AG elevation), likely 2/2 diarrhea continue to monitor. #. LAURI - resolved Baseline Cr 0.8 Admitting BUN/Cr 22 and 1.48 Resolved #. Hypokalemia - resolved Admitting K3.0 Monitor daily, replace as appropriate #. Hyponatremia - resolved Admitting sodium level 131 Mildly hyponatremic #. Hyperglycemia/new DM diagnosis Presented with DKA Admitting blood glucose two hundred thirty-one Admitting A1c: 10.5 New diagnosis of diabetes Being managed with insulin drip per critical care hypoglycemia protocol We will discharge with glycemic pharmacist recommendation upon discharge. Appreciate glycemic pharmacist input and recommendation #. Elevated LFTs Likely secondary to Covid Coming down. #. Other chronic medical problems: WANDER on CPAP at home, depression on Abilify and Lexapro at home, hypothyroidism on levothyroxine #. DVT prophylaxis:Lovenox subcu Family members she is being updated by the environmental engineering assistant Dispo: PCU FULL CODE PCP: Danika Admission and Anticipated Discharge Date Admission Date: March 28, 2021 Subjective Patient is awake, alert and oriented x3. Ports she feels much better. Currently on 6 L of nasal cannula. She was on 9 L with exertion. Does have minimal cough. Appetite is improving. Reports her taste is improving. Denies any chest pain, abdominal pain or diarrhea. Rest of the review of system is negative. Review of Systems Review of Systems: All systems reviewed & are unremarkable except as noted in HPI & below Physical Exam Physical Exam: General: Awake, alert and oriented HENT: NCAT, MMM, EOMI Eyes: PERRLA Neck: supple CVS: normal rate and rhythm Resp: b/l creased breath sounds Abdomen: Soft, ND/NT Extremities: No c/c/e Neuro: face symmetric, do not obtain full exam given her somnolent state Skin: warm and dry, no rashes/lesions/errythema MSK: no joint swelling/erythema Results & Data Results & Data ([facility]) Vital Signs (Past 12 Hours) Vital Signs Temp Pulse Pulse Resp BP BP Pulse Ox 04/07/21 11:53 36.5 C 66 15 125/82 92 04/07/21 11:00 68 20 125/82 92 04/07/21 10:00 60 15 113/72 94 04/07/21 09:00 67 20 104/68 98 04/07/21 08:05 36.7 C 60 15 119/78 92 04/07/21 08:00 59 L 15 95 04/07/21 07:00 66 22 119/78 90 04/07/21 06:00 63 18 115/73 89 L 04/07/21 05:00 63 17 115/73 90 04/07/21 04:00 60 16 80/66 L 92 04/07/21 03:00 56 L 14 98/68 L 93 04/07/21 02:00 59 L 13 105/64 94 04/07/21 01:00 58 L 15 105/67 90
[2021-04-07] MEDS: DAPTOmycin 475 MG in SYRINGE 0 ML IV SCH (12:11)
[2021-04-07] MEDS: SENNA 8.6 MG TAB PO SCH (12:37)
[2021-04-07] MEDS: CEROVITE ADV FORMULA TAB PO SCH (12:37)
[2021-04-07] MEDS: DOCUSATE SODIUM 100 MG CAP PO SCH ×2 (14:10→20:34)
[2021-04-07] MEDS: POLYETHYLENE (MIRALAX) 17 GM PACK PO SCH (14:46)
--- NOTE | 2021-04-07 15:13 | Billing Data ---
Date of Service April 07, 2021 Coding Level of Care Code 96542 Subseq Hosp Care Lvl 3
[2021-04-07] MEDS: LEVOTHYROXINE SODIUM 75 MCG in SYRINGE 0 ML IV SCH (15:25)
[2021-04-07] MEDS: ARIPIprazole 1 MG/ML ORAL SOLN 150 ML BTL PO SCH (20:34)
[2021-04-07] MEDS: ESCITALOPRAM OXALATE ORAL SOLN 20 MG/20 ML UDP PO SCH (20:35)
[2021-04-07] MEDS: INSULIN GLARGINE SOLOSTAR 100 UNITS/ML 3 ML PEN SC SCH (21:13)
[2021-04-08] MEDS: INSULIN ASPART 100 UNITS/ML 3 ML PEN SC SCH ×7 (00:31→23:59)
[2021-04-08 08:06] LABS: Basophils # (auto) 0.03 K/uL (0-0.2); Basophils % (auto) 0.4 %; Eosinophils # (auto) 0.07 K/uL (0-0.5); Eosinophils % (auto) 0.8 %; Hematocrit (blood only) 41.7 % (37-47); Hemoglobin 13.5 g/dL (12.0-16.0); Immature Granulocytes # (auto) 0.03 K/uL (0.00-0.02); Immature Granulocytes % (auto) 0.4 %; Lymphocytes # (auto) 2.87 K/uL (1.2-3.4); Lymphocytes % (auto) 33.5 %; Mean Corpuscular Hemoglobin 29.6 pg (25-34); Mean Corpuscular Hgb Conc 32.4 g/dL (32-36); Mean Corpuscular Volume 91.4 fL (80-100); Mean Platelet Volume 10.4 fL (7.4-10.4); Monocytes % (auto) 5.8 %; Neutrophils # (auto) 5.06 K/uL (1.4-6.5); Neutrophils % (auto) 59.1 %; Platelet Count 202 K/uL (130-400); RDW Standard Deviation 51.4 fL (36.4-46.3); Red Blood Count 4.56 M/uL (4.2-5.4); White Blood Count 8.56 K/uL (4.8-10.8)
[2021-04-08 08:36] LABS: Albumin Level 3.2 gm/dl (3.4-5.0); BUN Creatinine Ratio 31.7 (10-20); Creatinine Clr Calc Pharmacy 93.4 ml/min; Est GFR (African American) 85.2 ml/min; Est GFR (Non-African American) 73.5 ml/min; Magnesium 2.7 mg/dl (1.8-2.4); Potassium 3.8 mmol/L (3.5-5.1)
[2021-04-08 08:39] LABS: Albumin Globulin Ratio 0.8 (0.9-2); Bilirubin,Total 1.8 mg/dl (0.2-1); Globulin 3.8 gm/dl (2.5-4.0); Phosphorus 5.2 mg/dl (2.5-4.9)
[2021-04-08] MEDS: CEROVITE ADV FORMULA TAB PO SCH (09:31)
[2021-04-08] MEDS: POLYETHYLENE (MIRALAX) 17 GM PACK PO SCH (09:31)
[2021-04-08] MEDS: FAMOTIDINE 20 MG TAB PO SCH (09:33)
[2021-04-08] MEDS: ENOXAPARIN INJ 40 MG/0.4 ML SYR SQ SCH ×2 (09:33→20:44)
[2021-04-08] MEDS: DOCUSATE SODIUM 100 MG CAP PO SCH ×2 (09:35→20:45)
[2021-04-08] MEDS: SENNA 8.6 MG TAB PO SCH (09:35)
[2021-04-08] MEDS: INSULIN GLARGINE SOLOSTAR 100 UNITS/ML 3 ML PEN SC SCH ×2 (09:46→20:43)
[2021-04-08] MEDS: DAPTOmycin 475 MG in SYRINGE 0 ML IV SCH (11:26)
--- NOTE | 2021-04-08 12:50 | Pharmacy Report ---
Pharmacy Glycemic Short Note 2 - Date of Service April 08, 2021 - Glycemic Short BSG Results (Last 24 hours): 03/31/21 03/31/21 03/31/21 03:00 04:35 06:12 Glucose POC Glucose POC Glucose (other) 100 H 128 H 113 H 04/07/21 04/07/21 04/07/21 16:26 20:23 23:50 Glucose POC Glucose 188 H 114 H 105 H POC Glucose (other) 04/08/21 04/08/21 04/08/21 04:06 06:57 08:05 Glucose 114 H POC Glucose 98 102 H POC Glucose (other) 04/08/21 12:14 Glucose POC Glucose 132 H POC Glucose (other) OUTPATIENT ANTIDIABETIC REGIMEN: * N/a * A1c 10.5% 03/28 ASSESSMENT: 04/07: * Pt Received 33 units of insulin yesterday, 20 of which were basal. * Dexamethasone course was completed yesterday. In addition, while patient is ordered a diet, intake appears minimal at this time. Fasting BSG continues to downtrend. As such, Lantus dose and novolog scale decreased today. 04/06: * 77 units SQ insulin administered in last 24 hours * Mild hypoglycemia noted last evening - likely due to decreasing stressors following extubation and discontinuation of continuous tube feeds * Patient remains NPO at this time. Swallow eval to be ordered. * Fasting BSG 90-112 this AM, she had received 25 units Lantus + 40 units NPH yesterday. * Dexamethasone 6mg IV daily continues, tomorrow may be the last day of therapy if not renewed * Given uncertain PO intake today and recent hypoglycemic event, will d/c NPH and reduce Lantus dose this AM. Will escalate Novolog doses however to compensate if reduction in basal is excessive. 04/04: * AM BSGs consistently on the lower side the past couple of days. Will slightly reduce AM dose and more significantly reduce evening dose. BSGs throughout the day trending down as well. Will empirically loosen NovoLog to prevent a low. Will monitor need for decrease in NPH tomorrow. * Patient continues on steroids and TFs are running at goal 04/01 * Patient transitioned off of insulin drip yesterday and received 119 units of SQ insulin yesterday, 105 units basal (35 NPH, 70 Lantus) and 7 units Novolog * Fast blood sugar below goal and blood sugars rising some throughout the day, will increase NPH and decrease Lantus to prevent morning hypoglycemia to have more basal from NPH to cover steroid effects * Patient continues on IV dexamethasone, Pepatmen TFs and antibiotics changed to IV Vancomycin + Zosyn * No other changes at this time in insulin regimen 04/01 * Insulin infusion ran through the night, BSG this morning 93 mg/dL, rate 1.8 units/hr, stopped infusion at this time and gave 40 units of lantus and 35 units of NPH to help cover steroid. Will give additional lantus dose this evening up to an additional 40 units. * Novolog parameters started at weight based stress of 3, BSG elevated at lunch, will reassess need to tighten parameters. PLAN FOR INPATIENT GLYCEMIC CONTROL: * Basal insulin (decreased) * Lantus 8 units SQ this morning * Lantus scale this evening (0 or 5 units based on BSG)- See MAR for details * Bolus insulin * NovoLog per scale ACHS or Q6hrs while NPO * Goal Range: Low 110 mg/dL - High 140 mg/dL * Correction Factor: 20 mg/dL/unit * Nutritional / Prandial insulin per carb ratio of 1 unit per 7 grams CHO consumed DISCHARGE RECOMMENDATIONS: * A1c 10.5% is reflective of poor glycemic control. Patient had no prior dx of DM and was not taking medications for DM prior to admission. * Would recommend initiation of dual combination therapy on discharge in addition to diet/lifestyle modifications: * Metformin + Basal Insulin may be the best option for her given her A1c is > 10 and patient did experience mild DKA during this admission. * Consider Metformin XR 500mg PO daily w/ evening meal if no contraindications present at time of discharge * Lantus 20 units SQ once daily * SMBG 4 x daily initially * Would recommend f/u with PCP within a week or two of discharge to review BSGs and to allow for regimen adjustments.
--- NOTE | 2021-04-08 14:10 | Hospitalist Progress Note ---
Date of Service April 08, 2021 Assessment & Plan (1) Acute respiratory failure with hypoxia: (2) Pneumonia due to COVID-19 virus: Plan: 50-year-old for male with PMH of WANDER on CPAP, morbid obesity, depression with anxiety on Lexapro and Abilify and recent diagnosis of Covid on March 18 [signs and symptoms from 3 days prior to diagnosis] presented to the ED 03/28 with complaint of worsening shortness of breath, intermittent fever on and off [last 1 being in the AM of the arrival day--> 101F], cough. She required high flow nasal cannula oxygen at presentation to the ED and pulmonology was consulted. She is being managed for the following under the critical care team: #. Acute respiratory failure with hypoxia: #. Pneumonia due to COVID-19 virus: #. Possible superimposed bacterial infection/PNA Not vaccinated for COVID-19 Initial positive test on 03/18, sx started 3 days prior. Presents with profound hypoxia requiring high flow via nasal cannula in the ED Pt does not meet criteria for remdesivir given duration of sx Admitting ESR: 126 and admitting CRP: 18.40 Admitting procalcitonin: 3.28 Given Tocilizumab 03/28, later evening of 03/28 Pt required emergent intubation due to worsening hypoxia. Given h/o fever and elevated procal, patient started on rocephin 03/28 to cover for possible secondary bacterial infection. Extubated on 04/05. Currently remains on 5 L of nasal cannula. Continue with Decadron 6 mg IV daily. Condition has been improving though she still requires about 10 L of oxygen to maintain saturation Discussed with infection control and she can safely come out from isolation She will be transferred to medical floor when there will be a bed available Gram-positive dmjadxpyie-wyjk-ggeefljh cocci in clusters Repeat blood culture today-repeat blood cultures have been negative Remains on daptomycin.-We will discontinue daptomycin after the last dose as is prescribed #. Metabolic Acidosis Met acidosis (minimal AG elevation), likely 2/2 diarrhea continue to monitor. #. LAURI - resolved Baseline Cr 0.8 Admitting BUN/Cr 22 and 1.48 Resolved #. Hypokalemia - resolved Admitting K3.0 Monitor daily, replace as appropriate #. Hyponatremia - resolved Admitting sodium level 131 Mildly hyponatremic #. Hyperglycemia/new DM diagnosis Presented with DKA Admitting blood glucose two hundred thirty-one Admitting A1c: 10.5 New diagnosis of diabetes Being managed with insulin drip per critical care hypoglycemia protocol We will discharge with glycemic pharmacist recommendation upon discharge. Appreciate glycemic pharmacist input and recommendation #. Elevated LFTs Likely secondary to Covid Coming down. #. Other chronic medical problems: WANDER on CPAP at home, depression on Abilify and Lexapro at home, hypothyroidism on levothyroxine #. DVT prophylaxis:Lovenox subcu Family members she is being updated by the grants manager Dispo: PCU FULL CODE PCP: Danika Admission and Anticipated Discharge Date Admission Date: March 28, 2021 Subjective 03/30/2021 The patient was seen and examined in telemetry unit She remains intubated and sedated Has been in prone position and requiring 60 L of oxygen to maintain saturation 03/31/2021 The patient was seen and examined in telemetry unit and in the Covid room She remains intubated and currently sedation is off She has been a little restless 04/01/2021 The patient was seen and examined in telemetry unit She remains intubated with minimal improvement so far 04/02/2021 The patient was seen and examined in telemetry unit and in the Covid room SHe remains intubated and sedated 04/03/2021 The patient was seen and examined in telemetry unit and in the Covid room She remains intubated and sedated 04/04/2021 Patient was seen and examined in telemetry unit and in the Covid room She remains intubated and sedated 04/05/2021 The patient was seen and examined in telemetry unit and in the Covid room She has been extubated today Remains unstable 04/08/2021 The patient was seen and examined in telemetry unit She has been doing much better following extubation Still requiring high flow oxygen to maintain saturation Review of Systems Review of Systems: All systems reviewed and are unremarkable except as noted below Respiratory: Shortness of breath with exertion Neurologic: Generalized weakness Physical Exam Physical Exam: Sitting on a chair without any acute distress Constitutional: well developed, well nourished, + ill appearing and + obese Eyes: PERRL, conjunctivae normal, anicteric sclerae ENMT: external ear and nose normal, oropharynx normal Neck: trachea midline, no thyromegaly Respiratory: no respiratory distress Auscultation: + crackles (Minimal crackles bilaterally on dependent area) Cardiovascular: Rate/Rhythm: regular rate and regular rhythm; not tachycardic Heart Sounds: normal S1 and normal S2; no murmur Extremities: + edema (Trace edema bilaterally) Gastrointestinal (Abdomen): Inspection/Auscultation: normal bowel sounds; abdomen not distended Percussion/Palpation: abdomen soft; abdomen nontender Musculoskeletal: No acute arthritis in any joint Neurologic: Alert, awake and oriented x3. No focal sensory or motor deficit appreciated Results & Data Results & Data ([facility]) Vital Signs (Past 12 Hours) Vital Signs Temp Pulse Pulse Resp BP BP BP 04/08/21 11:53 36.7 C 79 18 109/75 04/08/21 08:40 36.5 C 65 18 132/78 04/08/21 08:18 59 L 04/08/21 04:02 37.0 C 56 L 12 105/62 Pulse Ox 04/08/21 11:53 98 04/08/21 08:40 100 04/08/21 08:18 04/08/21 04:02 92 Laboratory Results Short CBC 04/08/21 Range/Units 06:57 WBC 8.56 (4.8-10.8) K/uL Hgb 13.5 (12.0-16.0) g/dL Hct 41.7 (37-47) % Plt Count 202 (130-400) K/uL BMP 04/08/21 06:57 Sodium 137 Potassium 3.8 Chloride 99 Carbon Dioxide 32 BUN 29 H Creatinine 0.90 Glucose 114 H Calcium 9.0 Liver Function 04/08/21 Range/Units 06:57 Total Bilirubin 1.8 H (0.2-1) mg/dl AST 99 H (15-37) U/L ALT 141 H (12-78) U/L Alkaline Phosphatase 73 (45-117) U/L Albumin 3.2 L (3.4-5.0) gm/dl Medications Administered Current Inpatient Medications Aripiprazole (Aripiprazole 1 Mg/Ml Oral Soln 150 Ml Btl) 20 mg PO QPM JOSELO Stop: 05/04/21 20:59 Last Admin: 04/07/21 20:34 Dose: 20 mg Documented by: Dextrose (Dextrose 50% 50 Ml Syringe) 25 - 50 ml IV UD PRN; Protocol PRN Reason: Hypoglycemia Protocol Stop: 04/27/21 18:26 Last Admin: 04/05/21 20:02 Dose: 50 ml Documented by: Docusate Sodium (Docusate Sodium 100 Mg Cap) 100 mg PO BID JOSELO Stop: 05/07/21 08:59 Last Admin: 04/08/21 09:35 Dose: Not Given Documented by: Enoxaparin Sodium (Enoxaparin Inj 40 Mg/0.4 Ml Syr) 40 mg SQ Q12H JOSELO Stop: 04/27/21 21:59 Last Admin: 04/08/21 09:33 Dose: 40 mg Documented by: Escitalopram Oxalate (Escitalopram Oxalate Oral Soln 20 Mg/20 Ml Udp) 20 mg PO QPM JOSELO Stop: 05/04/21 20:59 Last Admin: 04/07/21 20:35 Dose: 20 mg Documented by: Famotidine (Famotidine 20 Mg Tab) 20 mg PO QAM JOSELO Stop: 05/08/21 08:59 Last Admin: 04/08/21 09:33 Dose: 20 mg Documented by: Glucagon (Glucagon For Inj 1 Mg Vial) 1 mg SQ UD PRN; Protocol PRN Reason: Hypoglycemia Protocol Stop: 04/27/21 18:26 Glucose (Glucose 10 Tabs/Tube) 4 - 8 tabs PO UD PRN; Protocol PRN Reason: Hypoglycemia Protocol Stop: 04/27/21 18:26 Glucose (Glucose 40% Gel 15 Gm Tube) 15 - 30 gm PO UD PRN; Protocol PRN Reason: Hypoglycemia Protocol Stop: 04/27/21 18:26 Heparin Sodium (Beef Lung) (Heparin 10 Unit/Ml 5 Ml Flush) 5 ml FLUSH PRN PRN PRN Reason: Flush Stop: 04/30/21 07:39 Levothyroxine Sodium 75 mcg/ (Syringe) 3.75 mls @ 1.875 mls/min IV Q72H JOSELO; Protocol Stop: 04/28/21 08:59 Last Admin: 04/07/21 15:25 Dose: 1.875 mls/min Documented by: Daptomycin 475 mg/ Syringe 9.5 mls @ 4.75 mls/min IV Q24H JOSELO; Protocol Stop: 04/13/21 11:01 Last Admin: 04/08/21 11:26 Dose: 4.75 mls/min Documented by: Insulin Aspart (Insulin Aspart 100 Units/Ml 3 Ml Pen) 0 units SC Q4 [facility] Stop: 05/01/21 11:59 Last Admin: 04/08/21 13:24 Dose: 4 units Documented by: Insulin Glargine (Insulin Glargine Solostar 100 Units/Ml 3 Ml Pen) 0 units SC BID [facility]; Protocol Stop: 05/07/21 20:59 Last Admin: 04/08/21 09:46 Dose: 8 units Documented by: Miscellaneous (Carbohydrates For Hypoglycemia ) 15 - 30 gm PO UD PRN PRN Reason: Hypoglycemia Protocol Stop: 04/27/21 18:26 Miscellaneous Information (Pharmacy Glycemic Mgmt Consult) 1 ea N/A UD PRN; Protocol PRN Reason: Consult Stop: 04/27/21 18:26 Miscellaneous Information (Daptomycin Consult Active) 1 ea N/A UD PRN PRN Reason: Consult Stop: 05/06/21 10:19 Multivitamins/Minerals (Cerovite Adv Formula Tab) 1 tab PO QAM [facility] Stop: 05/07/21 08:59 Last Admin: 04/08/21 09:31 Dose: 1 tab Documented by: Ondansetron HCl (Ondansetron Inj 2 Mg/Ml 2 Ml Vial) 4 mg IV Q6H PRN PRN Reason: Nausea Stop: 04/27/21 18:26 Polyethylene Glycol (Polyethylene (Miralax) 17 Gm Pack) 17 gm PO DAILY [facility] Stop: 05/07/21 11:44 Last Admin: 04/08/21 09:31 Dose: Not Given Documented by: Sennosides (Senna 8.6 Mg Tab) 17.2 mg PO DAILY [facility] Stop: 05/07/21 08:59 Last Admin: 04/08/21 09:35 Dose: Not Given Documented by:
[2021-04-08] MEDS: ESCITALOPRAM OXALATE ORAL SOLN 20 MG/20 ML UDP PO SCH (20:43)
[2021-04-08] MEDS: ARIPIprazole 1 MG/ML ORAL SOLN 150 ML BTL PO SCH (20:44)
[2021-04-09] MEDS: INSULIN ASPART 100 UNITS/ML 3 ML PEN SC SCH ×5 (04:44→21:26)
[2021-04-09 06:51] LABS: Basophils # (auto) 0.04 K/uL (0-0.2); Basophils % (auto) 0.6 %; Eosinophils # (auto) 0.05 K/uL (0-0.5); Eosinophils % (auto) 0.8 %; Hematocrit (blood only) 39.3 % (37-47); Hemoglobin 12.7 g/dL (12.0-16.0); Immature Granulocytes # (auto) 0.02 K/uL (0.00-0.02); Immature Granulocytes % (auto) 0.3 %; Lymphocytes # (auto) 2.49 K/uL (1.2-3.4); Lymphocytes % (auto) 38.9 %; Mean Corpuscular Hemoglobin 29.3 pg (25-34); Mean Corpuscular Hgb Conc 32.3 g/dL (32-36); Mean Corpuscular Volume 90.6 fL (80-100); Mean Platelet Volume 10.3 fL (7.4-10.4); Monocytes # (auto) 0.39 K/uL (0.11-0.59); Monocytes % (auto) 6.1 %; Neutrophils # (auto) 3.41 K/uL (1.4-6.5); Neutrophils % (auto) 53.3 %; Platelet Count 172 K/uL (130-400); RDW Coefficient of Variation 15.5 % (11.5-14.5); RDW Standard Deviation 50.1 fL (36.4-46.3); Red Blood Count 4.34 M/uL (4.2-5.4)
[2021-04-09 07:17] LABS: Calcium 8.8 mg/dl (8.5-10.1); Creatinine Clr Calc Pharmacy 110.1 ml/min; Est GFR (African American) 106.2 ml/min; Est GFR (Non-African American) 91.6 ml/min; Magnesium 2.3 mg/dl (1.8-2.4); Phosphorus 4.6 mg/dl (2.5-4.9); Potassium 3.1 mmol/L (3.5-5.1)
[2021-04-09] MEDS ORDERED: POTASSIUM CHLORIDE CRTAB 20 MEQ TABCR PO ONE (07:45)
[2021-04-09] MEDS: CEROVITE ADV FORMULA TAB PO SCH (08:24)
[2021-04-09] MEDS: DOCUSATE SODIUM 100 MG CAP PO SCH ×2 (08:26→21:26)
[2021-04-09] MEDS: FAMOTIDINE 20 MG TAB PO SCH (08:27)
[2021-04-09] MEDS: POLYETHYLENE (MIRALAX) 17 GM PACK PO SCH (08:27)
[2021-04-09] MEDS: SENNA 8.6 MG TAB PO SCH (08:27)
[2021-04-09] MEDS ORDERED: INSULIN GLARGINE SOLOSTAR 100 UNITS/ML 3 ML PEN SC SCH (09:00)
[2021-04-09] MEDS: ENOXAPARIN INJ 40 MG/0.4 ML SYR SQ SCH ×2 (09:09→21:00)
--- NOTE | 2021-04-09 10:43 | Pharmacy Report ---
Pharmacy Glycemic Short Note 2 - Date of Service April 09, 2021 - Glycemic Short BSG Results (Last 24 hours): 04/08/21 04/08/21 04/08/21 12:14 16:45 20:05 Glucose POC Glucose 132 H 111 H 114 H 04/08/21 04/09/21 23:45 06:25 Glucose 114 H POC Glucose 113 H OUTPATIENT ANTIDIABETIC REGIMEN: * N/a * A1c 10.5% 03/28 ASSESSMENT: 04/09 * Pt has received 16 units of insulin over the past 24hrs * 8 units of basal with Lantus * 8 units of bolus with NovoLog * BSGs all in goal range. No changes needed today. * BSGs well controlled since steroids dc 04/08/2104/07: * Pt Received 33 units of insulin yesterday, 20 of which were basal. * Dexamethasone course was completed yesterday. In addition, while patient is ordered a diet, intake appears minimal at this time. Fasting BSG continues to downtrend. As such, Lantus dose and novolog scale decreased today. 04/06: * 77 units SQ insulin administered in last 24 hours * Mild hypoglycemia noted last evening - likely due to decreasing stressors following extubation and discontinuation of continuous tube feeds * Patient remains NPO at this time. Swallow eval to be ordered. * Fasting BSG 90-112 this AM, she had received 25 units Lantus + 40 units NPH yesterday. * Dexamethasone 6mg IV daily continues, tomorrow may be the last day of therapy if not renewed * Given uncertain PO intake today and recent hypoglycemic event, will d/c NPH and reduce Lantus dose this AM. Will escalate Novolog doses however to compensate if reduction in basal is excessive. 04/04: * AM BSGs consistently on the lower side the past couple of days. Will slightly reduce AM dose and more significantly reduce evening dose. BSGs throughout the day trending down as well. Will empirically loosen NovoLog to prevent a low. Will monitor need for decrease in NPH tomorrow. * Patient continues on steroids and TFs are running at goal 04/01 * Patient transitioned off of insulin drip yesterday and received 119 units of SQ insulin yesterday, 105 units basal (35 NPH, 70 Lantus) and 7 units Novolog * Fast blood sugar below goal and blood sugars rising some throughout the day, will increase NPH and decrease Lantus to prevent morning hypoglycemia to have more basal from NPH to cover steroid effects * Patient continues on IV dexamethasone, Pepatmen TFs and antibiotics changed to IV Vancomycin + Zosyn * No other changes at this time in insulin regimen 04/01 * Insulin infusion ran through the night, BSG this morning 93 mg/dL, rate 1.8 units/hr, stopped infusion at this time and gave 40 units of lantus and 35 units of NPH to help cover steroid. Will give additional lantus dose this evening up to an additional 40 units. * Novolog parameters started at weight based stress of 3, BSG elevated at lunch, will reassess need to tighten parameters. PLAN FOR INPATIENT GLYCEMIC CONTROL: * Basal insulin * Lantus 8 units SQ daily in AM * Bolus insulin * NovoLog per scale ACHS or Q6hrs while NPO * Goal Range: Low 110 mg/dL - High 140 mg/dL * Correction Factor: 20 mg/dL/unit * Nutritional / Prandial insulin per carb ratio of 1 unit per 7 grams CHO consumed DISCHARGE RECOMMENDATIONS: * A1c 10.5% is reflective of poor glycemic control. Patient had no prior dx of DM and was not taking medications for DM prior to admission. * Would recommend initiation of dual combination therapy on discharge in addition to diet/lifestyle modifications: * Metformin + Basal Insulin may be the best option for her given her A1c is > 10 and patient did experience mild DKA during this admission. * Consider Metformin XR 500mg PO daily w/ evening meal if no contraindications present at time of discharge * Lantus 10 units SQ once daily * SMBG 4 x daily initially * Would recommend f/u with PCP within a week or two of discharge to review BSGs and to allow for regimen adjustments.
[2021-04-09] MEDS: DAPTOmycin 475 MG in SYRINGE 0 ML IV SCH (11:06)
--- NOTE | 2021-04-09 15:22 | Hospitalist Progress Note ---
Date of Service April 09, 2021 Assessment & Plan (1) Acute respiratory failure with hypoxia: (2) Pneumonia due to COVID-19 virus: Plan: 50-year-old for male with PMH of WANDER on CPAP, morbid obesity, depression with anxiety on Lexapro and Abilify and recent diagnosis of Covid on March 18 [signs and symptoms from 3 days prior to diagnosis] presented to the ED 03/28 with complaint of worsening shortness of breath, intermittent fever on and off [last 1 being in the AM of the arrival day--> 101F], cough. She required high flow nasal cannula oxygen at presentation to the ED and pulmonology was consulted. She is being managed for the following under the critical care team: #. Acute respiratory failure with hypoxia: #. Pneumonia due to COVID-19 virus: #. Possible superimposed bacterial infection/PNA Not vaccinated for COVID-19 Initial positive test on 03/18, sx started 3 days prior. Presents with profound hypoxia requiring high flow via nasal cannula in the ED Pt does not meet criteria for remdesivir given duration of sx Admitting ESR: 126 and admitting CRP: 18.40 Admitting procalcitonin: 3.28 Given Tocilizumab 03/28, later evening of 03/28 Pt required emergent intubation due to worsening hypoxia. Given h/o fever and elevated procal, patient started on rocephin 03/28 to cover for possible secondary bacterial infection. Extubated on 04/05. Currently remains on 5 L of nasal cannula. Continue with Decadron 6 mg IV daily. Condition has been improving though she still requires about 10 L of oxygen to maintain saturation Discussed with infection control and she can safely come out from isolation She will be transferred to medical floor when there will be a bed available Remains stable and has been requiring 4 L of oxygen to maintain saturation Denies any significant symptoms Gram-positive iprypgusbi-sotm-[id number] cocci in clusters Repeat blood culture today-repeat blood cultures have been negative Remains on daptomycin.-We will discontinue daptomycin after the last dose as is prescribed No fever and no chills #. Metabolic Acidosis Met acidosis (minimal AG elevation), likely 2/2 diarrhea continue to monitor. #. LAURI - resolved Baseline Cr 0.8 Admitting BUN/Cr 22 and 1.48 Resolved-displaying normal #. Hypokalemia - resolved Admitting K3.0 Monitor daily, replace as appropriate #. Hyponatremia - resolved Admitting sodium level 131 Mildly hyponatremic #. Hyperglycemia/new DM diagnosis Presented with DKA Admitting blood glucose two hundred thirty-one Admitting A1c: 10.5 New diagnosis of diabetes Being managed with insulin drip per critical care hypoglycemia protocol We will discharge with glycemic pharmacist recommendation upon discharge. Appreciate glycemic pharmacist input and recommendation #. Elevated LFTs Likely secondary to Covid Coming down. #. Other chronic medical problems: WANDER on CPAP at home, depression on Abilify and Lexapro at home, hypothyroidism on levothyroxine #. DVT prophylaxis:Lovenox subcu Family members she is being updated by the otolaryngologist Dispo: PCU FULL CODE PCP: Danika Admission and Anticipated Discharge Date Admission Date: March 28, 2021 Subjective 03/30/2021 The patient was seen and examined in telemetry unit She remains intubated and sedated Has been in prone position and requiring 60 L of oxygen to maintain saturation 03/31/2021 The patient was seen and examined in telemetry unit and in the Covid room She remains intubated and currently sedation is off She has been a little restless 04/01/2021 The patient was seen and examined in telemetry unit She remains intubated with minimal improvement so far 04/02/2021 The patient was seen and examined in telemetry unit and in the Covid room SHe remains intubated and sedated 04/03/2021 The patient was seen and examined in telemetry unit and in the Covid room She remains intubated and sedated 04/04/2021 Patient was seen and examined in telemetry unit and in the Covid room She remains intubated and sedated 04/05/2021 The patient was seen and examined in telemetry unit and in the Covid room She has been extubated today Remains unstable 04/08/2021 The patient was seen and examined in telemetry unit She has been doing much better following extubation Still requiring high flow oxygen to maintain saturation 04/09/2021 The patient was seen and examined in telemetry unit and in the Covid room She has been feeling a lot better Her O2 requirements has come down to 4 L/min Denies any significant symptoms Review of Systems Review of Systems: All systems reviewed and are unremarkable except as noted below Respiratory: Shortness of breath with exertion Neurologic: Generalized weakness Physical Exam Physical Exam: Sitting on a chair without any acute distress Constitutional: well developed, well nourished, + ill appearing and + obese Eyes: PERRL, conjunctivae normal, anicteric sclerae ENMT: external ear and nose normal, oropharynx normal Neck: trachea midline, no thyromegaly Respiratory: no respiratory distress Auscultation: + crackles (Minimal crackles bilaterally on dependent area) Cardiovascular: Rate/Rhythm: regular rate and regular rhythm; not tachycardic Heart Sounds: normal S1 and normal S2; no murmur Extremities: + edema (Trace edema bilaterally) Gastrointestinal (Abdomen): Inspection/Auscultation: normal bowel sounds; abdomen not distended Percussion/Palpation: abdomen soft; abdomen nontender Musculoskeletal: No acute arthritis in any joint Neurologic: Alert, awake and oriented x3 Results & Data Results & Data ([facility]) Vital Signs (Past 12 Hours) Vital Signs Temp Pulse Pulse Pulse Resp BP BP 04/09/21 11:07 36.9 C 72 17 122/69 04/09/21 08:00 72 04/09/21 06:13 37.0 C 72 16 125/67 Pulse Ox 04/09/21 11:07 95 04/09/21 08:00 04/09/21 06:13 88 L Laboratory Results Short CBC 04/09/21 Range/Units 06:25 WBC 6.40 (4.8-10.8) K/uL Hgb 12.7 (12.0-16.0) g/dL Hct 39.3 (37-47) % Plt Count 172 (130-400) K/uL BMP 04/09/21 06:25 Sodium 139 Potassium 3.1 L D Chloride 103 Carbon Dioxide 29 BUN 24 H Creatinine 0.75 Glucose 114 H Calcium 8.8 Medications Administered Current Inpatient Medications Aripiprazole (Aripiprazole 10 Mg Tab) 20 mg PO QPM JOSELO Stop: 05/09/21 20:59 Dextrose (Dextrose 50% 50 Ml Syringe) 25 - 50 ml IV UD PRN; Protocol PRN Reason: Hypoglycemia Protocol Stop: 04/27/21 18:26 Last Admin: 04/05/21 20:02 Dose: 50 ml Documented by: Docusate Sodium (Docusate Sodium 100 Mg Cap) 100 mg PO BID JOSELO Stop: 05/07/21 08:59 Last Admin: 04/09/21 08:26 Dose: Not Given Documented by: Enoxaparin Sodium (Enoxaparin Inj 40 Mg/0.4 Ml Syr) 40 mg SQ Q12H JOSELO Stop: 04/27/21 21:59 Last Admin: 04/09/21 09:09 Dose: 40 mg Documented by: Escitalopram Oxalate (Escitalopram Oxalate 20 Mg Tab) 20 mg PO QPM JOSELO Stop: 05/09/21 20:59 Famotidine (Famotidine 20 Mg Tab) 20 mg PO QAM JOSELO Stop: 05/08/21 08:59 Last Admin: 04/09/21 08:27 Dose: 20 mg Documented by: Glucagon (Glucagon For Inj 1 Mg Vial) 1 mg SQ UD PRN; Protocol PRN Reason: Hypoglycemia Protocol Stop: 04/27/21 18:26 Glucose (Glucose 10 Tabs/Tube) 4 - 8 tabs PO UD PRN; Protocol PRN Reason: Hypoglycemia Protocol Stop: 04/27/21 18:26 Glucose (Glucose 40% Gel 15 Gm Tube) 15 - 30 gm PO UD PRN; Protocol PRN Reason: Hypoglycemia Protocol Stop: 04/27/21 18:26 Heparin Sodium (Beef Lung) (Heparin 10 Unit/Ml 5 Ml Flush) 5 ml FLUSH PRN PRN PRN Reason: Flush Stop: 04/30/21 07:39 Levothyroxine Sodium 75 mcg/ (Syringe) 3.75 mls @ 1.875 mls/min IV Q72H JOSELO; Protocol Stop: 04/28/21 08:59 Last Admin: 04/07/21 15:25 Dose: 1.875 mls/min Documented by: Daptomycin 475 mg/ Syringe 9.5 mls @ 4.75 mls/min IV Q24H JOSELO; Protocol Stop: 04/13/21 11:01 Last Admin: 04/09/21 11:06 Dose: 4.75 mls/min Documented by: Insulin Aspart (Insulin Aspart 100 Units/Ml 3 Ml Pen) 0 units SC ACHS JOSELO Stop: 05/09/21 07:29 Last Admin: 04/09/21 12:53 Dose: 4 units Documented by: Insulin Glargine (Insulin Glargine Solostar 100 Units/Ml 3 Ml Pen) 8 units SC DAILY [facility]; Protocol Stop: 05/09/21 08:59 Last Admin: 04/09/21 09:25 Dose: 8 units Documented by: Miscellaneous (Carbohydrates For Hypoglycemia ) 15 - 30 gm PO UD PRN PRN Reason: Hypoglycemia Protocol Stop: 04/27/21 18:26 Miscellaneous Information (Pharmacy Glycemic Mgmt Consult) 1 ea N/A UD PRN; Protocol PRN Reason: Consult Stop: 04/27/21 18:26 Miscellaneous Information (Daptomycin Consult Active) 1 ea N/A UD PRN PRN Reason: Consult Stop: 05/06/21 10:19 Multivitamins/Minerals (Cerovite Adv Formula Tab) 1 tab PO QAM [facility] Stop: 05/07/21 08:59 Last Admin: 04/09/21 08:24 Dose: 1 tab Documented by: Ondansetron HCl (Ondansetron Inj 2 Mg/Ml 2 Ml Vial) 4 mg IV Q6H PRN PRN Reason: Nausea Stop: 04/27/21 18:26 Polyethylene Glycol (Polyethylene (Miralax) 17 Gm Pack) 17 gm PO DAILY [facility] Stop: 05/07/21 11:44 Last Admin: 04/09/21 08:27 Dose: Not Given Documented by: Sennosides (Senna 8.6 Mg Tab) 17.2 mg PO DAILY [facility] Stop: 05/07/21 08:59 Last Admin: 04/09/21 08:27 Dose: Not Given Documented by:
[2021-04-09] MEDS ORDERED: POTASSIUM CHLORIDE CRTAB 20 MEQ TABCR PO STA (17:40)
[2021-04-09] MEDS: ARIPiprazole 10 MG TAB PO SCH (20:59)
[2021-04-09] MEDS: ESCITALOPRAM OXALATE 20 MG TAB PO SCH (20:59)
[2021-04-10 07:23] LABS: BUN Creatinine Ratio 24.5 (10-20); Calcium 8.9 mg/dl (8.5-10.1); Est GFR (African American) 106.2 ml/min; Est GFR (Non-African American) 91.6 ml/min; Potassium 3.6 mmol/L (3.5-5.1)
[2021-04-10] MEDS: INSULIN ASPART 100 UNITS/ML 3 ML PEN SC SCH ×4 (08:39→22:21)
[2021-04-10] MEDS: CEROVITE ADV FORMULA TAB PO SCH (08:45)
[2021-04-10] MEDS: FAMOTIDINE 20 MG TAB PO SCH (08:45)
[2021-04-10] MEDS: DOCUSATE SODIUM 100 MG CAP PO SCH ×3 (08:46→22:06)
[2021-04-10] MEDS: POLYETHYLENE (MIRALAX) 17 GM PACK PO SCH (08:46)
[2021-04-10] MEDS: SENNA 8.6 MG TAB PO SCH (08:46)
[2021-04-10] MEDS: INSULIN GLARGINE SOLOSTAR 100 UNITS/ML 3 ML PEN SC SCH (09:04)
[2021-04-10] MEDS: ENOXAPARIN INJ 40 MG/0.4 ML SYR SQ SCH ×2 (09:04→22:07)
[2021-04-10] MEDS: LEVOTHYROXINE SODIUM 75 MCG in SYRINGE 0 ML IV SCH (09:22)
[2021-04-10] MEDS: DAPTOmycin 475 MG in SYRINGE 0 ML IV SCH (11:33)
--- NOTE | 2021-04-10 14:42 | Hospitalist Progress Note ---
Date of Service April 10, 2021 Assessment & Plan (1) Acute respiratory failure with hypoxia: (2) Pneumonia due to COVID-19 virus: Plan: 50-year-old for male with PMH of WANDER on CPAP, morbid obesity, depression with anxiety on Lexapro and Abilify and recent diagnosis of Covid on March 18 [signs and symptoms from 3 days prior to diagnosis] presented to the ED 03/28 with complaint of worsening shortness of breath, intermittent fever on and off [last 1 being in the AM of the arrival day--> 101F], cough. She required high flow nasal cannula oxygen at presentation to the ED and pulmonology was consulted. She is being managed for the following under the critical care team: #. Acute respiratory failure with hypoxia: #. Pneumonia due to COVID-19 virus: #. Possible superimposed bacterial infection/PNA Not vaccinated for COVID-19 Initial positive test on 03/18, sx started 3 days prior. Presents with profound hypoxia requiring high flow via nasal cannula in the ED Pt does not meet criteria for remdesivir given duration of sx Admitting ESR: 126 and admitting CRP: 18.40 Admitting procalcitonin: 3.28 Given Tocilizumab 03/28, later evening of 03/28 Pt required emergent intubation due to worsening hypoxia. Given h/o fever and elevated procal, patient started on rocephin 03/28 to cover for possible secondary bacterial infection. Extubated on 04/05. Currently remains on 5 L of nasal cannula. Continue with Decadron 6 mg IV daily. Condition has been improving though she still requires about 10 L of oxygen to maintain saturation Discussed with infection control and she can safely come out from isolation She will be transferred to medical floor when there will be a bed available Clinically much better and she will be transferred to medical floor We will needed to do steps O2 saturation prior to discharge in about 2 days Gram-positive omdjzjgkum-ouym-bjgjyrtv cocci in clusters Repeat blood culture today-repeat blood cultures have been negative Remains on daptomycin.-We will discontinue daptomycin after the last dose as is prescribed No fever and no chills Will finish the course of intravenous daptomycin and following that she may be discharged #. Metabolic Acidosis Met acidosis (minimal AG elevation), likely 2/2 diarrhea continue to monitor. #. LAURI - resolved Baseline Cr 0.8 Admitting BUN/Cr 22 and 1.48 Resolved-displaying normal #. Hypokalemia - resolved Admitting K3.0 Monitor daily, replace as appropriate #. Hyponatremia - resolved Admitting sodium level 131 Mildly hyponatremic #. Hyperglycemia/new DM diagnosis Presented with DKA Admitting blood glucose two hundred thirty-one Admitting A1c: 10.5 New diagnosis of diabetes Being managed with insulin drip per critical care hypoglycemia protocol We will discharge with glycemic pharmacist recommendation upon discharge. Appreciate glycemic pharmacist input and recommendation #. Elevated LFTs Likely secondary to Covid Coming down. #. Other chronic medical problems: WANDER on CPAP at home, depression on Abilify and Lexapro at home, hypothyroidism on levothyroxine #. DVT prophylaxis:Lovenox subcu Dispo: PCU FULL CODE PCP: Danika Admission and Anticipated Discharge Date Admission Date: March 28, 2021 Subjective 03/30/2021 The patient was seen and examined in telemetry unit She remains intubated and sedated Has been in prone position and requiring 60 L of oxygen to maintain saturation 03/31/2021 The patient was seen and examined in telemetry unit and in the Covid room She remains intubated and currently sedation is off She has been a little restless 04/01/2021 The patient was seen and examined in telemetry unit She remains intubated with minimal improvement so far 04/02/2021 The patient was seen and examined in telemetry unit and in the Covid room SHe remains intubated and sedated 04/03/2021 The patient was seen and examined in telemetry unit and in the Covid room She remains intubated and sedated 04/04/2021 Patient was seen and examined in telemetry unit and in the Covid room She remains intubated and sedated 04/05/2021 The patient was seen and examined in telemetry unit and in the Covid room She has been extubated today Remains unstable 04/08/2021 The patient was seen and examined in telemetry unit She has been doing much better following extubation Still requiring high flow oxygen to maintain saturation 04/09/2021 The patient was seen and examined in telemetry unit and in the Covid room She has been feeling a lot better Her O2 requirements has come down to 4 L/min Denies any significant symptoms 04/10/2021 The patient was seen and examined in telemetry unit and in the Covid room She has been feeling a lot better and has been requiring only 3 L of oxygen to maintain saturation He has been ambulating in the room without any difficulties Review of Systems Review of Systems: All systems reviewed and are unremarkable except as noted below Respiratory: Shortness of breath with exertion Neurologic: Generalized weakness Physical Exam Physical Exam: Sitting on a chair without any acute distress Constitutional: well developed, well nourished and + obese; not ill appearing Eyes: PERRL, conjunctivae normal, anicteric sclerae ENMT: external ear and nose normal, oropharynx normal Neck: trachea midline, no thyromegaly Respiratory: no respiratory distress Auscultation: lungs clear to auscultation bilaterally and + diminished lung sounds Cardiovascular: Rate/Rhythm: regular rate and regular rhythm; not tachycardic Heart Sounds: normal S1 and normal S2; no murmur Extremities: + edema (Trace edema bilaterally) Gastrointestinal (Abdomen): Inspection/Auscultation: normal bowel sounds; abdomen not distended Percussion/Palpation: abdomen soft; abdomen nontender Musculoskeletal: No acute arthritis in any joint Neurologic: Alert, awake and oriented x3. No focal sensory and motor deficit appreciated Results & Data Results & Data ([facility]) Vital Signs (Past 12 Hours) Vital Signs Temp Pulse Pulse Resp BP BP Pulse Ox 04/10/21 11:33 36.7 C 64 13 118/75 98 04/10/21 08:00 77 04/10/21 07:11 36.7 C 70 16 123/78 97 04/10/21 04:33 70 Laboratory Results [facility] 04/10/21 05:54 Sodium 139 Potassium 3.6 D Chloride 105 Carbon Dioxide 27 BUN 18 Creatinine 0.75 Glucose 100 H Calcium 8.9 Medications Administered Current Inpatient Medications Aripiprazole (Aripiprazole 10 Mg Tab) 20 mg PO QPM JOSELO Stop: 05/09/21 20:59 Last Admin: 04/09/21 20:59 Dose: 20 mg Documented by: Dextrose (Dextrose 50% 50 Ml Syringe) 25 - 50 ml IV UD PRN; Protocol PRN Reason: Hypoglycemia Protocol Stop: 04/27/21 18:26 Last Admin: 04/05/21 20:02 Dose: 50 ml Documented by: Docusate Sodium (Docusate Sodium 100 Mg Cap) 100 mg PO BID JOSELO Stop: 05/07/21 08:59 Last Admin: 04/10/21 08:46 Dose: Not Given Documented by: Enoxaparin Sodium (Enoxaparin Inj 40 Mg/0.4 Ml Syr) 40 mg SQ Q12H [facility] Stop: 04/27/21 21:59 Last Admin: 04/10/21 09:04 Dose: 40 mg Documented by: Escitalopram Oxalate (Escitalopram Oxalate 20 Mg Tab) 20 mg PO QPM [facility] Stop: 05/09/21 20:59 Last Admin: 04/09/21 20:59 Dose: 20 mg Documented by: Famotidine (Famotidine 20 Mg Tab) 20 mg PO QAM JOSELO Stop: 05/08/21 08:59 Last Admin: 04/10/21 08:45 Dose: 20 mg Documented by: Glucagon (Glucagon For Inj 1 Mg Vial) 1 mg SQ UD PRN; Protocol PRN Reason: Hypoglycemia Protocol Stop: 04/27/21 18:26 Glucose (Glucose 10 Tabs/Tube) 4 - 8 tabs PO UD PRN; Protocol PRN Reason: Hypoglycemia Protocol Stop: 04/27/21 18:26 Glucose (Glucose 40% Gel 15 Gm Tube) 15 - 30 gm PO UD PRN; Protocol PRN Reason: Hypoglycemia Protocol Stop: 04/27/21 18:26 Heparin Sodium (Beef Lung) (Heparin 10 Unit/Ml 5 Ml Flush) 5 ml FLUSH PRN PRN PRN Reason: Flush Stop: 04/30/21 07:39 Daptomycin 475 mg/ Syringe 9.5 mls @ 4.75 mls/min IV Q24H [facility]; Protocol Stop: 04/13/21 11:01 Last Admin: 04/10/21 11:33 Dose: 4.75 mls/min Documented by: Insulin Aspart (Insulin Aspart 100 Units/Ml 3 Ml Pen) 0 units SC ACHS [facility] Stop: 05/09/21 07:29 Last Admin: 04/10/21 12:53 Dose: 6 units Documented by: Insulin Glargine (Insulin Glargine Solostar 100 Units/Ml 3 Ml Pen) 7 units SC DAILY [facility]; Protocol Stop: 05/10/21 08:59 Last Admin: 04/10/21 09:04 Dose: 7 units Documented by: Levothyroxine Sodium (Levothyroxine Sodium 100 Mcg Tablet) 100 mcg PO DAILYBB [facility] Stop: 05/11/21 06:29 Miscellaneous (Carbohydrates For Hypoglycemia ) 15 - 30 gm PO UD PRN PRN Reason: Hypoglycemia Protocol Stop: 04/27/21 18:26 Miscellaneous Information (Pharmacy Glycemic Mgmt Consult) 1 ea N/A UD PRN; Protocol PRN Reason: Consult Stop: 04/27/21 18:26 Miscellaneous Information (Daptomycin Consult Active) 1 ea N/A UD PRN PRN Reason: Consult Stop: 05/06/21 10:19 Multivitamins/Minerals (Cerovite Adv Formula Tab) 1 tab PO QAM [facility] Stop: 05/07/21 08:59 Last Admin: 04/10/21 08:45 Dose: 1 tab Documented by: Ondansetron HCl (Ondansetron Inj 2 Mg/Ml 2 Ml Vial) 4 mg IV Q6H PRN PRN Reason: Nausea Stop: 04/27/21 18:26 Polyethylene Glycol (Polyethylene (Miralax) 17 Gm Pack) 17 gm PO DAILY [facility] Stop: 05/07/21 11:44 Last Admin: 04/10/21 08:46 Dose: Not Given Documented by: Sennosides (Senna 8.6 Mg Tab) 17.2 mg PO DAILY [facility] Stop: 05/07/21 08:59 Last Admin: 04/10/21 08:46 Dose: Not Given Documented by:
[2021-04-10] MEDS: ARIPiprazole 10 MG TAB PO SCH (21:59)
[2021-04-10] MEDS: ESCITALOPRAM OXALATE 20 MG TAB PO SCH (22:01)
[2021-04-11] MEDS: LEVOTHYROXINE SODIUM 100 MCG TABLET PO SCH (05:26)
[2021-04-11 06:35] LABS: Basophils # (auto) 0.05 K/uL (0-0.2); Basophils % (auto) 0.9 %; Eosinophils # (auto) 0.08 K/uL (0-0.5); Eosinophils % (auto) 1.5 %; Hematocrit (blood only) 37.2 % (37-47); Hemoglobin 12.4 g/dL (12.0-16.0); Immature Granulocytes # (auto) 0.01 K/uL (0.00-0.02); Immature Granulocytes % (auto) 0.2 %; Lymphocytes # (auto) 2.43 K/uL (1.2-3.4); Lymphocytes % (auto) 44.2 %; Mean Corpuscular Hemoglobin 29.8 pg (25-34); Mean Corpuscular Hgb Conc 33.3 g/dL (32-36); Mean Corpuscular Volume 89.4 fL (80-100); Mean Platelet Volume 10.7 fL (7.4-10.4); Monocytes # (auto) 0.42 K/uL (0.11-0.59); Monocytes % (auto) 7.6 %; Neutrophils # (auto) 2.51 K/uL (1.4-6.5); Neutrophils % (auto) 45.6 %; Platelet Count 170 K/uL (130-400); RDW Coefficient of Variation 15.5 % (11.5-14.5); Red Blood Count 4.16 M/uL (4.2-5.4)
[2021-04-11 06:54] LABS: BUN Creatinine Ratio 23.8 (10-20); Est GFR (African American) 106.2 ml/min; Est GFR (Non-African American) 91.6 ml/min; Potassium 3.5 mmol/L (3.5-5.1)
[2021-04-11] MEDS: DOCUSATE SODIUM 100 MG CAP PO SCH ×2 (08:48→20:30)
[2021-04-11] MEDS: FAMOTIDINE 20 MG TAB PO SCH (08:48)
[2021-04-11] MEDS: POLYETHYLENE (MIRALAX) 17 GM PACK PO SCH (08:48)
[2021-04-11] MEDS: SENNA 8.6 MG TAB PO SCH (08:48)
[2021-04-11] MEDS: INSULIN ASPART 100 UNITS/ML 3 ML PEN SC SCH ×4 (08:49→21:16)
[2021-04-11] MEDS: CEROVITE ADV FORMULA TAB PO SCH (08:49)
[2021-04-11] MEDS: INSULIN GLARGINE SOLOSTAR 100 UNITS/ML 3 ML PEN SC SCH (08:50)
[2021-04-11] MEDS: ENOXAPARIN INJ 40 MG/0.4 ML SYR SQ SCH ×2 (10:47→20:31)
[2021-04-11] MEDS: DAPTOmycin 475 MG in SYRINGE 0 ML IV SCH (10:48)
--- NOTE | 2021-04-11 16:33 | Hospitalist Progress Note ---
Date of Service April 11, 2021 Assessment & Plan (1) Acute respiratory failure with hypoxia: (2) Pneumonia due to COVID-19 virus: Plan: 50-year-old for male with PMH of WANDER on CPAP, morbid obesity, depression with anxiety on Lexapro and Abilify and recent diagnosis of Covid on March 18 [signs and symptoms from 3 days prior to diagnosis] presented to the ED 03/28 with complaint of worsening shortness of breath, intermittent fever on and off [last 1 being in the AM of the arrival day--> 101F], cough. She required high flow nasal cannula oxygen at presentation to the ED and pulmonology was consulted. She is being managed for the following under the critical care team: #. Acute respiratory failure with hypoxia: #. Pneumonia due to COVID-19 virus: #. Possible superimposed bacterial infection/PNA Not vaccinated for COVID-19 Initial positive test on 03/18, sx started 3 days prior. Presents with profound hypoxia requiring high flow via nasal cannula in the ED Pt does not meet criteria for remdesivir given duration of sx Admitting ESR: 126 and admitting CRP: 18.40 Admitting procalcitonin: 3.28 Given Tocilizumab 03/28, later evening of 03/28 Pt required emergent intubation due to worsening hypoxia. Given h/o fever and elevated procal, patient started on rocephin 03/28 to cover for possible secondary bacterial infection. Extubated on 04/05. Currently remains on 5 L of nasal cannula. Continue with Decadron 6 mg IV daily. Condition has been improving though she still requires about 10 L of oxygen to maintain saturation Discussed with infection control and she can safely come out from isolation Currently patient is on room air. Have been doing well. Hemodynamically doing fine. Will need to stop prior to discharge. Gram-positive fbiaycfqbd-zmst-jbkmvueh cocci in clusters Repeat blood culture-repeat blood cultures have been negative Remains on daptomycin.-We will discontinue daptomycin after the last dose as is prescribed No fever and no chills Will finish the course of intravenous daptomycin and following that she may be discharged #. Metabolic Acidosis Met acidosis (minimal AG elevation), likely 2/2 diarrhea continue to monitor. #. LAURI - resolved Baseline Cr 0.8 Admitting BUN/Cr 22 and 1.48 Resolved-displaying normal #. Hypokalemia - resolved Admitting K3.0 Monitor daily, replace as appropriate #. Hyponatremia - resolved Admitting sodium level 131 Mildly hyponatremic #. Hyperglycemia/new DM diagnosis Presented with DKA Admitting blood glucose two hundred thirty-one Admitting A1c: 10.5 New diagnosis of diabetes Being managed with insulin drip per critical care hypoglycemia protocol We will discharge with glycemic pharmacist recommendation upon discharge. Appreciate glycemic pharmacist input and recommendation #. Elevated LFTs Likely secondary to Covid Coming down. #. Other chronic medical problems: WANDER on CPAP at home, depression on Abilify and Lexapro at home, hypothyroidism on levothyroxine #. DVT prophylaxis:Lovenox subcu Dispo: PCU FULL CODE PCP: Danika Admission and Anticipated Discharge Date Admission Date: March 28, 2021 Subjective Doing okay this morning. Remains on room air. Hemodynamically stable. Reports she feels much better. Rest of the review of system is negative. Review of Systems Review of Systems: All systems reviewed & are unremarkable except as noted in HPI & below Physical Exam Physical Exam: General: Awake, alert and oriented HENT: NCAT, MMM, EOMI Eyes: PERRLA Neck: supple CVS: normal rate and rhythm Resp: b/l creased breath sounds Abdomen: Soft, ND/NT Extremities: No c/c/e Neuro: face symmetric, do not obtain full exam given her somnolent state Skin: warm and dry, no rashes/lesions/errythema MSK: no joint swelling/erythema Results & Data Results & Data ([facility]) Vital Signs (Past 12 Hours) Vital Signs Temp Pulse Resp BP BP Pulse Ox 04/11/21 16:29 36.9 C 78 16 121/79 93 04/11/21 07:32 36.6 C 71 14 120/74 93
[2021-04-11] MEDS: ESCITALOPRAM OXALATE 20 MG TAB PO SCH (20:30)
[2021-04-11] MEDS: ARIPiprazole 10 MG TAB PO SCH (20:30)
[2021-04-12] MEDS: LEVOTHYROXINE SODIUM 100 MCG TABLET PO SCH (05:48)
[2021-04-12] MEDS: CEROVITE ADV FORMULA TAB PO SCH (07:57)
[2021-04-12] MEDS: DOCUSATE SODIUM 100 MG CAP PO SCH (07:58)
[2021-04-12] MEDS: POLYETHYLENE (MIRALAX) 17 GM PACK PO SCH (07:58)
[2021-04-12] MEDS: FAMOTIDINE 20 MG TAB PO SCH (07:58)
[2021-04-12] MEDS: SENNA 8.6 MG TAB PO SCH (07:59)
[2021-04-12] MEDS: ENOXAPARIN INJ 40 MG/0.4 ML SYR SQ SCH (08:54)
[2021-04-12] MEDS: INSULIN GLARGINE SOLOSTAR 100 UNITS/ML 3 ML PEN SC SCH (08:55)
[2021-04-12] MEDS: INSULIN ASPART 100 UNITS/ML 3 ML PEN SC SCH (08:56)
[2021-04-12] MEDS: DAPTOmycin 475 MG in SYRINGE 0 ML IV SCH (10:57)
--- NOTE | 2021-04-12 11:51 | Discharge Summary ---
Date of Service April 12, 2021 Admission HPI Per Admitting Provider This is a 50-year-old male who has significant past medical history of WANDER on CPAP, morbid obesity, depression with anxiety, who presents to ED secondary to worsening shortness of breath and known COVID-19 x15 days. Of significance patient tested positive for COVID-19 in the outpatient setting on 03/18. She experienced fever, malaise, cough and shortness of breath. She was seen and evaluated in ED on 03/19 and was discharged to home. She has also developed loss of taste and smell. Her temp this morning was 101F. She further complaints of alternating wet/dry cough but not productive, malaise, fatigue and diarrhea. Overall appetite has been poor. Only thing she has kept down was banana, toast and apple sauce. She has been trying to push fluids with 6 bottles of water daily and 2 bottles of Gatorade. She denies lightheaded, dizziness, syncope, chest pain, palpitations, hemoptysis, emesis, abdominal pain, dysuria, increased freq with urination, hematuria. At home she has been using APAP and ibuprofen fo r fever reduction and tessalon perles for cough. Overall SOB has been worsening and she is unable to lie flat. She has not been able to tolerate her Cpap at night. In ED patient was significantly hypoxic requiring high flow nasal cannula saturating at 88%. Her lab work is notable for elevated D-dimer 1910, low sodium 131, potassium 3.0, chloride 97, BUN elevated at 22 and creatinine 1.48, and AG 12.0. She also had hyperglycemia with a BSG of 231, total bilirubin 1.1, AST 128 & CRP 18.4. She received IV decadron in ED. She is not vaccinated. Admission Exam Per Admitting Provider GENERAL: Alert and oriented x3. NAD, on 40L HEENT: No pallor, no icterus. Pupils equal, round and reactive to light. Oral mucosa moist. NECK: No JVD, no neck masses. HEART: S1 and S2 heard. Regular rate and rhythm. No murmur, no gallop. RESPIRATORY SYSTEM: Normal AP diameter. No accessory muscle use. Diminished breath sounds bilaterally with occasional crackles. ABDOMEN: Soft, bowel sounds present, nontender, no distention. CENTRAL NERVOUS SYSTEM: Alert and oriented x3. No facial droop. Speech is clear. Obeys simple commands. Moves extremities. EXTREMITIES: Trace to 1+ edema, no erythema seen. Principal Diagnosis Covid pneumonia Discharge Exam General: Awake, alert and oriented HENT: NCAT, MMM, EOMI Eyes: PERRLA Neck: supple CVS: normal rate and rhythm Resp: b/l creased breath sounds Abdomen: Soft, ND/NT Extremities: No c/c/e Neuro: face symmetric, do not obtain full exam given her somnolent state Skin: warm and dry, no rashes/lesions/errythema MSK: no joint swelling/erythema Discharge Data Allergies Allergy/AdvReac Type Severity Reaction Status Date / Time erythromycin base Allergy Unknown Abdominal Verified 03/19/21 14:36 Pain,topically-inflamed face Consultations 03/28/21 15:46 Consult Pulmonology Routine 03/29/21 00:48 Consult Care Management Assistant Routine Ordered Studies 03/28/21 15:18 CT angio chest PE protocol Stat Hospital Course (1) DM2 (diabetes mellitus, type 2): 50-year-old for male with PMH of WANDER on CPAP, morbid obesity, depression with anxiety on Lexapro and Abilify and recent diagnosis of Covid on March 18 [signs and symptoms from 3 days prior to diagnosis] presented to the ED 03/28 with complaint of worsening shortness of breath, intermittent fever on and off [last 1 being in the AM of the arrival day--> 101F], cough. She required high flow nasal cannula oxygen at presentation to the ED and pulmonology was consulted. #. Acute respiratory failure with hypoxia: #. Pneumonia due to COVID-19 virus: #. Possible superimposed bacterial infection/PNA Not vaccinated for COVID-19 Initial positive test on 03/18, sx started 3 days prior. Presents with profound hypoxia requiring high flow via nasal cannula in the ED Pt does not meet criteria for remdesivir given duration of sx Admitting ESR: 126 and admitting CRP: 18.40 Admitting procalcitonin: 3.28 Given Tocilizumab 03/28, later evening of 03/28 Pt required emergent intubation due to worsening hypoxia. Given h/o fever and elevated procal, patient started on rocephin 03/28 to cover for possible secondary bacterial infection. Extubated on 04/05. Discussed with infection control and she can safely come out from isolation Currently patient is on room air. Have been doing well. Hemodynamically doing fine. On the day of discharge patient was doing okay. Patient was on room air prior to discharge Gram-positive [id number] cocci in clusters Repeat blood culture-repeat blood cultures have been negative Initially during the course of hospitalization patient was on ceftriaxone and later transitioned to daptomycin. Patient completed roughly 2 weeks of antibiotic therapy. #. Metabolic Acidosis Met acidosis (minimal AG elevation), likely 2/2 diarrhea continue to monitor. #. LAURI - resolved Baseline Cr 0.8 Admitting BUN/Cr 22 and 1.48 Resolved-displaying normal #. Hypokalemia - resolved #. Hyponatremia - resolved #. Hyperglycemia/new DM diagnosis Presented with DKA Admitting blood glucose two hundred thirty-one Admitting A1c: 10.5 New diagnosis of diabetes Patient was discharged on 500 mg of metformin and Lantus 10 units at bedtime. #. Elevated LFTs Likely secondary to Covid Coming down. #. Other chronic medical problems: WANDER on CPAP at home, depression on Abilify and Lexapro at home, hypothyroidism on levothyroxine #. DVT prophylaxis:Lovenox subcu Total Time Total Time Spent Total Time Spent (In Minutes): 35 Discharge Plan Discharge Items Patient Disposition: Home - Self-Care Reason For Visit: COVID PNA, ACUTE HYPOXI RESPIRATORY FAILURE Discharge Diagnosis: COVID Activity: Resume your previous activity Non-emergency contact: Primary Care Provider Call non-emergency contact if: your symptoms worsen Follow-up/Referrals: Yo Garnica MD [Primary Care Provider] - (Date & Time 04/18/2021 3:00 PM Provider Yo Garnica MD Department Family Medicine [facility] PLEASE NOTE THAT THIS IS A TELEHEALTH APPOINTMENT. PLEASE FOLLOW THE INSTRUCTIONS PROVIDED IN YOUR EMAIL. IF YOU HAVE ANY QUESTIONS REGARDING THIS APPOINTMENT, PLEASE CALL ) Diet: Heart Healthy Addtl Attending Provider Instructions: Follow-up with your primary care physician within 1 week. An appointment has been requested. Start taking Lantus 10 units at bedtime and Metformin 500 mg daily. Follow-up with your primary care physician for further adjustment in glucose regimen. Pending Studies at Discharge: No Stand-Alone Forms: My readeo, Smoking Cessation Medications and DC Order Prescriptions: New metformin 500 mg tablet 500 mg PO DAILY Qty: 30 RF: 0 Lantus Solostar U-100 Insulin 100 unit/mL (3 mL) insulin pen 10 unit subcut DAILY Qty: 3 RF: 0 (DME) pen needle, diabetic [Comfort EZ Pen [place]] 32 gauge x 5/32" needle See Rx Instructions .Route Qty: 100 RF: 0 (DME) blood-glucose meter [FreeStyle [place] Lite] Kit See Rx Instructions .Route Qty: 1 RF: 0 (DME) FreeStyle Lite Strips Strip See Rx Instructions .Route Qty: 100 RF: 0 (DME) lancets [FreeStyle Lancets] 28 gauge misc See Rx Instructions .Route Qty: 100 RF: 0 Continued escitalopram oxalate [Lexapro] 20 mg Tablet 20 mg PO QPM RF: 0 aripiprazole [Abilify] 20 mg Tablet 20 mg PO QPM RF: 0 levothyroxine 100 mcg tablet 100 mcg PO DAILY RF: 0 famotidine 20 mg tablet 20 mg PO BID RF: 0 benzonatate [Tessalon Perles] 100 mg capsule 100 mg PO TID PRN (Reason: cough) Qty: 20 RF: 0 Discharge Orders: Discharge Order (Routine); Ordered 04/12/21 Ordered By: Ricardo Sifuentes Admission Data Admit Date/Time: 03/28/21 15:46 Attending Provider: Ricardo Sifuentes Admit Provider: Moody Horner Primary Care Provider: Yo Garnica Other Providers: Rickie Segura ; Moody Horner ; Ricardo Sifuentes Other Interventions: Discharge Summary Assessment (RN) Last Done: 04/12/21 12:07
== END 2021-04-12 13:56 | disposition home or self-care (01) | DRG 207 ==
LOC: ED 13:05 → SUATTDRO 15:46 → 2E 15:46 → 3E 04-10 13:38